=== PATIENT | female | born 1945 | race Caucasian/White ===

== ENCOUNTER 2016-11-06 09:38 | Outpatient (CLI) | payer MEDICARE, OTHER | END 2016-11-06 09:39 | disposition home or self-care (01) | DX: L08.9 Local infection of the skin and subcutaneous tissue, unspecified (principal); T84.197D Other mechanical complication of internal fixation device of bone of left lower leg, subsequent encounter ==

== ENCOUNTER 2017-01-19 08:22 | Outpatient (CLI) | payer MEDICARE, OTHER ==
[2017-01-19 14:24] LABS: HEMOGLOBIN A1C 0.5 g/dL
== END 2017-01-19 08:23 | disposition home or self-care (01) ==
LOC: LAB.R 08:22
PROVIDERS: ATTEND Physician Assistant Medical
DX: E11.9 Type 2 diabetes mellitus without complications (principal); Z79.899 Other long term (current) drug therapy
CPT/HCPCS: 82947; 83036

== ENCOUNTER 2017-05-09 13:01 | Outpatient (CLI) | payer MEDICARE, OTHER ==
--- NOTE | 2017-05-10 08:45 | Ultrasound Report ---
EXAM: ABDOMEN ULTRASOUND EXAM DATE: 05/09/2017 01:14 PM. CLINICAL HISTORY: ABDOMINAL PAIN. COMPARISON: None. TECHNIQUE: Real-time scanning was performed with static images obtained. FINDINGS: Liver: Normal in size and echotexture. 15.4 cm. Main portal vein flow: Hepatopetal. Gallbladder: Normal. No stones, wall thickening, or sonographic Hunter's sign. Biliary System: Common bile duct measures 5.1 mm. No intrahepatic or extrahepatic ductal dilatation. Pancreas: Obscured by bowel gas. Kidneys: Right: 13.1 cm longitudinally. Normal. No contour-deforming mass, stones, or hydronephrosis. Left: 7.0 cm longitudinally. Atrophic - diffuse cortical thinning. No contour deforming masses or hyd ronephrosis. Spleen: 10.4 x 3.8 x 4.7 cm. Normal in size and echotexture. Aorta and Inferior Vena Cava: Unremarkable. IMPRESSION: 1. No explanation for abdominal pain. 2. Atrophic left kidney, incidental. [facility] Referring Provider Line: [phone] SITE ID: [id number]
== END 2017-05-09 13:02 | disposition home or self-care (01) ==
LOC: DI 13:01
PROVIDERS: ATTEND Physician Assistant Medical
DX: R10.84 Generalized abdominal pain (principal)
CPT/HCPCS: 76700

== ENCOUNTER 2017-05-26 11:33 | Outpatient (CLI) | payer MEDICARE, OTHER ==
[2017-05-26 18:38] LABS: BASOPHILS % (AUTO) 0.4 %; EOSINOPHILS # (AUTO) 0.1 10^3/uL (0.0-0.7); HCT - HEMATOCRIT 38.6 % (37.0-47.0); HGB - HEMOGLOBIN 12.8 g/dL (12.0-16.0); LYMPHOCYTES # (AUTO) 1.3 10^3/uL (1.5-3.5); LYMPHOCYTES % (AUTO) 24.3 %; MEAN CORPUSCULAR HEMOGLOBIN 29.7 pg (27.0-31.0); MEAN CORPUSCULAR HGB CONC 33.1 g/dL (32.0-36.0); MEAN CORPUSCULAR VOLUME 89.9 fL (81.0-99.0); MEAN PLATELET VOLUME 8.3 fL (7.9-10.8); MONOCYTES # (AUTO) 0.4 10^3/uL (0.0-1.0); MONOCYTES % (AUTO) 7.1 %; NEUTROPHILS # (AUTO) 3.7 10^3/uL (1.5-6.6); NEUTROPHILS % (AUTO) 67.2 %; NUCLEATED RED BLOOD CELLS AUTO 0.1 /100WBC; RED CELL DISTRIBUTION WIDTH 13.3 % (12.0-15.0); UNCORRECTED WHITE BLOOD COUNT 5.4 x10^3/uL; WHITE BLOOD COUNT 5.4 x10^3/uL (4.8-10.8)
[2017-05-26 18:51] LABS: ALBUMIN/GLOBULIN RATIO 1.2 (1.0-2.2); BILIRUBIN,TOTAL 0.6 mg/dL (0.2-1.0); BUN - BLOOD UREA NITROGEN 14 mg/dL (6-20); CALCIUM 9.4 mg/dL (8.5-10.3); CARBON DIOXIDE - CO2 30 mmol/L (21-32); CHLORIDE 102 mmol/L (101-111); CHOL/HDL RATIO 2.6 (<4.4); CHOLESTEROL 169 mg/dL; CREATININE 0.8 mg/dL (0.4-1.0); GFR - MDRD 71 (>89); GLUCOSE 101 mg/dL (70-100); HDL CHOLESTEROL 64 mg/dL; LDL/HDL RATIO 1.4 (<4.4); SODIUM 138 mmol/L (135-145); TRIGLYCERIDES 76 mg/dL; VLDL CHOLESTEROL 15 mg/dL
[2017-05-26 19:09] LABS: HEMOGLOBIN A1C 0.52 g/dL
== END 2017-05-26 11:34 | disposition home or self-care (01) ==
LOC: LAB.R 11:33
PROVIDERS: ATTEND Physician Assistant Medical
DX: E11.9 Type 2 diabetes mellitus without complications (principal); Z79.899 Other long term (current) drug therapy; R10.84 Generalized abdominal pain; E03.9 Hypothyroidism, unspecified
CPT/HCPCS: 80053; 80061; 83036; 84443; 85025; 85651; 86140; 87086

== ENCOUNTER 2017-05-26 11:40 | Outpatient (CLI) | payer MEDICARE, OTHER | END 2017-05-26 11:41 | disposition home or self-care (01) | LOC: LAB.R 11:40 | PROVIDERS: ATTEND Physician Assistant Medical | DX: R31.9 Hematuria, unspecified (principal); R10.84 Generalized abdominal pain | CPT/HCPCS: 87086 ==

== ENCOUNTER 2017-05-30 08:41 | Outpatient (CLI) | payer MEDICARE, OTHER ==
[2017-05-30] MEDS ORDERED: IOPAMIDOL-300 50 ML VIAL ONE (08:48)
[2017-05-30] MEDS ORDERED: IOPAMIDOL-300 100 ML VIAL ONE (08:49)
[2017-05-30] MEDS ORDERED: IOPAMIDOL-300 50 ML VIAL PO ONE (09:51)
[2017-05-30] MEDS ORDERED: IOPAMIDOL-300 100 ML VIAL IVP ONE (10:13)
--- NOTE | 2017-05-30 17:03 | CT Report ---
EXAM: CT ABDOMEN AND PELVIS EXAM DATE: 05/30/2017 10:21 AM. CLINICAL HISTORY: ATROPHIC KIDNEY, ABDOMINAL PAIN, ABNORMAL LABS. COMPARISONS: None. TECHNIQUE: Routine helical CT imaging was performed through the abdomen and pelvis. IV contrast: Amt/ type. Enteric contrast: No. Reconstructions: Coronal and sagittal. In accordance with CT protocol optimization, one or more of the following dose reduction techniques w ere utilized for this exam: automated exposure control, adjustment of mA and/or KV based on patient s ize, or use of iterative reconstructive technique. FINDINGS: Lung Bases: Unremarkable. Liver: Normal. No masses. Gallbladder/Bile Ducts: Unremarkable. Spleen: Normal. Pancreas: Normal. Adrenal Glands: Normal. Right Kidney: Anextrarenal pelvis affiliated with the right kidney. No hydronephrosis/hydroureter. Left Kidney: Diffuse cortical atrophy of the left kidney Peritoneal Cavity/Bowel: Moderate bowel wall thickening of the colon and distal ileum. This is consi stent with active colitis/ileitis - inflammatory or infectious. A few shotty mesenteric, retroperiton eal and pelvic lymph nodes noted. No vicenta adenopathy. No free fluid or free air. Pelvic Organs: Normal. The bladder and visualized pelvic organs are grossly unremarkable. Vasculature: No aneurysms or other significant abnormality. Bones: Multilevel degenerative changes in the lumbar spine. Scoliosis. IMPRESSION: Moderate bowel wall thickening - distal ileum and colon consistent with active colitis/il eitis - inflammatory or infectious. Consider Crohn's disease. [facility] Referring Provider Line: [phone] SITE ID: [id number]
== END 2017-05-30 08:42 | disposition home or self-care (01) ==
LOC: DI 08:41
PROVIDERS: ATTEND Physician Assistant Medical
DX: R10.84 Generalized abdominal pain (principal)
CPT/HCPCS: 74177; Q9967

== ENCOUNTER 2017-06-05 07:54 | Outpatient (CLI) | payer MEDICARE, OTHER ==
[2017-06-05 08:33] LABS: BILIRUBIN,URINE NEGATIVE (NEGATIVE)
[2017-06-05 08:37] LABS: UA w/ MICROSCOPIC CHARGE YES
[2017-06-05 08:41] LABS: UR CULTURE IF IND NOT INDICATED
== END 2017-06-05 07:55 | disposition home or self-care (01) ==
LOC: LAB 07:54
PROVIDERS: ATTEND Internal Medicine
DX: N18.2 Chronic kidney disease, stage 2 (mild) (principal)
CPT/HCPCS: 81001; 81003; 82043; 82570; 87086

== ENCOUNTER 2017-06-23 12:54 | Outpatient (CLI) | payer MEDICARE, OTHER | END 2017-06-23 12:55 | disposition home or self-care (01) | LOC: LAB.R 12:54 | PROVIDERS: ATTEND Physician Assistant Medical | DX: R31.9 Hematuria, unspecified (principal) | CPT/HCPCS: 87077; 87086 ==

== ENCOUNTER 2017-07-13 14:56 | Outpatient (CLI) | payer MEDICARE, OTHER ==
[2017-07-13 18:09] LABS: BILIRUBIN,URINE NEGATIVE (NEGATIVE); PH,URINE 5.5 PH (5.0-7.5)
[2017-07-13 18:13] LABS: UA CHARGE (STRIP ONLY) YES; UR CULTURE IF IND NOT INDICATED
[2017-07-13 18:14] LABS: ALBUMIN/GLOBULIN RATIO 1.2 (1.0-2.2); BILIRUBIN,TOTAL < 0.2 mg/dL (0.2-1.0); BUN - BLOOD UREA NITROGEN 17 mg/dL (6-20); CALCIUM 9.5 mg/dL (8.5-10.3); CARBON DIOXIDE - CO2 27 mmol/L (21-32); CHLORIDE 101 mmol/L (101-111); CREATININE 1.1 mg/dL (0.4-1.0); GFR - MDRD 49 (>89); GLUCOSE 81 mg/dL (70-100); POTASSIUM 3.9 mmol/L (3.5-5.0); SODIUM 137 mmol/L (135-145); TOTAL PROTEIN 7.1 g/dL (6.7-8.2)
[2017-07-13 18:18] LABS: BASOPHILS # (AUTO) 0.1 10^3/uL (0.0-0.1); BASOPHILS % (AUTO) 0.5 %; EOSINOPHILS # (AUTO) 0.1 10^3/uL (0.0-0.7); EOSINOPHILS % (AUTO) 0.8 %; HCT - HEMATOCRIT 38.6 % (37.0-47.0); HGB - HEMOGLOBIN 12.7 g/dL (12.0-16.0); LYMPHOCYTES # (AUTO) 1.8 10^3/uL (1.5-3.5); LYMPHOCYTES % (AUTO) 18.2 %; MEAN CORPUSCULAR HEMOGLOBIN 29.8 pg (27.0-31.0); MEAN CORPUSCULAR VOLUME 90.5 fL (81.0-99.0); MEAN PLATELET VOLUME 8.2 fL (7.9-10.8); MONOCYTES # (AUTO) 0.6 10^3/uL (0.0-1.0); MONOCYTES % (AUTO) 6.3 %; NEUTROPHILS # (AUTO) 7.4 10^3/uL (1.5-6.6); NEUTROPHILS % (AUTO) 74.2 %; NUCLEATED RED BLOOD CELLS AUTO 0.1 /100WBC; RED BLOOD COUNT 4.26 10^6/uL (4.20-5.40); RED CELL DISTRIBUTION WIDTH 13.8 % (12.0-15.0)
== END 2017-07-13 14:57 | disposition home or self-care (01) ==
LOC: LAB.R 14:56
PROVIDERS: ATTEND Physician Assistant Medical
DX: K52.9 Noninfective gastroenteritis and colitis, unspecified (principal); R31.9 Hematuria, unspecified
CPT/HCPCS: 80053; 81001; 81003; 85025; 85651; 86140; 87086

== ENCOUNTER 2017-09-15 10:16 | Outpatient (CLI) | payer MEDICARE, OTHER ==
[2017-09-15 10:48] LABS: ALBUMIN 3.8 g/dL (3.2-5.5); ALBUMIN/GLOBULIN RATIO 1.1 (1.0-2.2); BILIRUBIN,TOTAL 0.5 mg/dL (0.2-1.0); CALCIUM 9.5 mg/dL (8.5-10.3); CREATININE 0.9 mg/dL (0.4-1.0); TOTAL PROTEIN 7.2 g/dL (6.7-8.2)
[2017-09-15 11:08] LABS: HB2 TOTAL 14.5 g/dL; HEMOGLOBIN A1C 0.51 g/dL; HEMOGLOBIN A1C % 5.4 % (4.6-6.2)
[2017-09-16 15:01] LABS: HEPATITIS C ANTIBODY NON-REACTIVE (NON-REACTIVE)
== END 2017-09-15 10:17 | disposition home or self-care (01) ==
LOC: LAB 10:16
PROVIDERS: ATTEND Physician Assistant Medical
DX: E11.9 Type 2 diabetes mellitus without complications (principal); Z79.899 Other long term (current) drug therapy; Z72.89 Other problems related to lifestyle; E03.9 Hypothyroidism, unspecified
CPT/HCPCS: 36415; 80053; 83036; 84443; 86803

== ENCOUNTER 2017-10-05 13:18 | Outpatient (CLI) | payer MEDICARE, OTHER ==
--- NOTE | 2017-10-06 09:26 | DEXA Report ---
DATE OF SERVICE: 10/05/2017 DEXA SCAN: 10/05/2017 CLINICAL INDICATION: Postmenopausal. TECHNIQUE: Dual energy x-ray absorptiometry (DXA) was performed on a OffSite VISION system. Regions measured are the AP spine, femoral neck, and, if needed, forearm. COMPARISON: None. In accordance with the International Society for Clinical Densitometry (ISCD) guidelines, data from previous exams may be reanalyzed using current recommendations and techniques. This is done to allow a more accurate basis for comparison with the current study. FINDINGS: The data for the lumbar spine is as follows: REGION BMD (g/cm/cm) T-SCORE Z-SCORE L1 1.156 0.2 1.9 L2 1.236 0.3 2.0 L3 1.373 1.4 3.2 L4 1.390 1.6 3.3 TOTAL 1.289 0.9 2.6 NOTE: All evaluable vertebrae are used for classification. The data for the hip is as follows: REGION BMD (g/cm/cm) T-SCORE Z-SCORE Neck 0.844 -1.4 0.4 TOTAL 0.877 -1.0 0.5 NOTE: The femoral neck or total proximal femur, whichever is lowest, is used for classification. IMPRESSION: THE WHO CLASSIFICATION BASED ON THE INTERNATIONAL REFERENCE STANDARD IS OSTEOPENIA (REFERENCE LEFT FEMORAL NECK). THE FRACTURE RISK IS INCREASED. RECOMMENDATION: Patients with diagnosis of osteoporosis or osteopenia should have regular bone mineral density assessment. For those eligible for Medicare, routine testing is allowed once every 2 years. Testing frequency can be increased for patients who have rapidly progressing disease or for those who are receiving medical therapy to restore bone mass. COMMENT: World Health Organization (WHO) definitions for osteoporosis and osteopenia: NORMAL BMD: T-score at 1.0 or higher, fracture risk is low. OSTEOPENIA BMD: T-score between 1.0 and -2.5, fracture risk is increased. OSTEOPOROSIS BMD: T-score at 2.5 or lower, fracture risk high. National Osteoporosis Foundation recommends: 1. Obtain adequate dietary calcium (at least 1200 mg per day) and vitamin D (400 -800 international units per day). 2. Participate, as appropriate, in regular weightbearing and muscle- strengthening exercise. 3. Avoid tobacco use and reduce alcohol and caffeine intake. 4. For more detailed information see the website at www.NOF.org. TD: 10/05/2017 14:55 SARAH
== END 2017-10-05 13:19 | disposition home or self-care (01) ==
LOC: DI 13:18
PROVIDERS: ATTEND Physician Assistant Medical
DX: M85.88 Other specified disorders of bone density and structure, other site (principal)
CPT/HCPCS: 77080

== ENCOUNTER 2017-10-05 13:19 | Outpatient (CLI) | payer MEDICARE, OTHER ==
--- NOTE | 2017-10-06 17:19 | Mammography Report ---
DATE OF SERVICE: 10/05/2017 DIGITAL SCREENING MAMMOGRAM: 10/05/2017 CLINICAL INDICATION: A 72-year-old with family history of breast cancer for screening. COMPARISON: 07/2015, 07/2014, 05/2013, 10/2011, 08/2010. TECHNIQUE: Routine CC and MLO projections were obtained of the breasts. FINDINGS: Scattered fibroglandular tissue is present within the breasts. There are no dominant masses, suspicious microcalcifications, or secondary signs of malignancy. In comparison to the previous studies, there are no significant changes. ASSESSMENT: NO MAMMOGRAPHIC EVIDENCE OF MALIGNANCY. NO SIGNIFICANT INTERVAL CHANGES. RECOMMENDATION: Screening mammography is recommended annually. BIRADS category 1 - negative. STANDARD QUALIFYING STATEMENTS: 1. This examination was reviewed with the aid of Computed-Aided Detection (CAD). 2. A negative or benign imaging report should not delay biopsy if clinically suspicious findings are present. Consider surgical consultation if warranted. More than 5% of cancers are not identified by imaging. 3. Dense breasts may obscure an underlying neoplasm. TD: 10/06/2017 17:18
== END 2017-10-05 13:20 | disposition home or self-care (01) ==
LOC: DI 13:19
PROVIDERS: ATTEND Physician Assistant Medical
DX: Z12.31 Encounter for screening mammogram for malignant neoplasm of breast (principal); Z80.3 Family history of malignant neoplasm of breast
CPT/HCPCS: 77067

== ENCOUNTER 2017-10-07 09:32 | Day surgery (SDC) | payer MEDICARE, OTHER ==
[2017-10-07] MEDS ORDERED: LACTATED RINGERS 1,000 ML IV ONE (09:40)
[2017-10-07] MEDS ORDERED: fentaNYL 100 MCG/2 ML VIAL IVP ONE (10:25)
[2017-10-07] MEDS ORDERED: MIDAZOLAM 2 MG/2 ML VIAL IVP ONE (10:25)
[2017-10-07 11:35] VITALS: BP 122/69
== END 2017-10-07 09:33 | disposition home or self-care (01) ==
LOC: SDS 09:32
PROVIDERS: ATTEND Internal Medicine
PROC: 0DBP8ZX Excision of Rectum, Via Natural or Artificial Opening Endoscopic, Diagnostic (ICD-10-PCS; 2017-10-07)
PROC: 0DBB8ZX Excision of Ileum, Via Natural or Artificial Opening Endoscopic, Diagnostic (ICD-10-PCS; 2017-10-07)
PROC: 0DBH8ZX Excision of Cecum, Via Natural or Artificial Opening Endoscopic, Diagnostic (ICD-10-PCS; principal; 2017-10-07 10:30)
DX: K57.30 Diverticulosis of large intestine without perforation or abscess without bleeding (principal); K63.3 Ulcer of intestine; K64.8 Other hemorrhoids; E11.9 Type 2 diabetes mellitus without complications; Z79.84 Long term (current) use of oral hypoglycemic drugs; Z87.891 Personal history of nicotine dependence
CPT/HCPCS: 45380; J7120

== ENCOUNTER 2017-12-10 06:57 | Day surgery (SDC) | payer MEDICARE, OTHER ==
[~2017-12-10 06:57] MED LIST: CYCLOPENTOLATE 1% OPHTH DROPS 2 ML ONE; KETOROLAC 0.45% OPHTH DROPS ONE; PHENYLEPHRINE 2.5% OPHTH 2 ML DROPS ONE; PROPARACAINE 0.5% OPHTH DROPS 15 ML ONE
[2017-12-10] MEDS ORDERED: PHENYLEPHRINE 2.5% OPHTH 2 ML DROPS LEFTEYE ONE (07:15)
[2017-12-10] MEDS ORDERED: CYCLOPENTOLATE 1% OPHTH DROPS 2 ML LEFTEYE ONE (07:15)
[2017-12-10] MEDS ORDERED: KETOROLAC 0.45% OPHTH DROPS LEFTEYE ONE (07:15)
[2017-12-10] MEDS ORDERED: PROPARACAINE 0.5% OPHTH DROPS 15 ML LEFTEYE ONE ×2 (07:15→08:36)
[2017-12-10] MEDS ORDERED: LACTATED RINGERS 500 ML IV ONE (07:20)
[2017-12-10] MEDS ORDERED: BRIMONIDINE 0.2% OPHTH DROPS 5 ML ONE (07:24)
[2017-12-10] MEDS ORDERED: TIMOLOL 0.5% OPHTH DROPS ONE (07:24)
[2017-12-10] MEDS ORDERED: MIDAZOLAM 2 MG/2 ML VIAL IVP ONE (08:15)
[2017-12-10] MEDS ORDERED: BRIMONIDINE 0.2% OPHTH DROPS 5 ML OPTH ONE (08:33)
[2017-12-10] MEDS ORDERED: EPINEPHrine 1 MG/ML AMP IR ONE (08:33)
[2017-12-10] MEDS ORDERED: CHONDR SULF/HYALURONATE SYRINGE IO ONE (08:34)
[2017-12-10] MEDS ORDERED: TIMOLOL 0.5% OPHTH DROPS OPTH ONE (08:34)
[2017-12-10] MEDS ORDERED: BSS/LIDOCAINE/EPINEPHRINE 1 ML SYRINGE IO ONE (08:35)
[2017-12-10] MEDS ORDERED: TRIAMCIN/MOXIFLOX/VANCO 1 ML VIAL IO ONE (08:35)
--- NOTE | 2017-12-10 09:10 | OPERATIVE REPORT ---
DATE OF SERVICE: 12/10/2017 Physician: Varghese Camara MD PREOPERATIVE DIAGNOSIS: Visually significant cataract, left eye. This was her first cataract surgery. POSTOPERATIVE DIAGNOSIS: Visually significant cataract, left eye. This was her first cataract surgery. NAME OF PROCEDURE: Phacoemulsification with posterior chamber intraocular lens implant, left eye with laser assist. SURGEON: Varghese Camara MD ANESTHESIA: Monitored anesthesia care. COMPLICATIONS: None. OPERATIVE INDICATIONS: This is a 72-year-old woman with progressive vision loss in the left eye due to 2+ nuclear sclerotic, trace cortical and large central posterior subcapsular cataract. Best corrected visual acuity was 20/25 with glare to 20/100 in the left eye. Indications for surgery were overall decrease in vision, difficulty seeing words on a computer screen, difficulty reading; difficulty seeing words, closed captions, or game scores on TV; difficulty seeing street signs, difficulty driving in low light or at night, difficulty driving at night because of headlights from other vehicles, and difficulty with glare or bright lights in any situation. She was consented at length concerning the risks and benefits of cataract surgery, after which she expressed a desire to proceed with surgery. OPERATIVE PROCEDURE: The patient was taken into OR #3 and placed under monitored anesthesia care. A surgical timeout was conducted confirming correct patient, correct procedure, and correct surgical site. She was placed under the LenSx laser and her eye was docked to the laser interface. Laser performed the capsulotomy, lens softening, phaco wounds , and arcuate keratotomy incisions. She was then moved the operating microscope, given topical anesthesia and then prepped and draped in the usual sterile fashion. The eye was entered at the 6 and 3 o'clock positions. Intracameral Shugarcaine was injected into the anterior chamber, followed by Viscoat. Capsulorrhexis flap created by the LenSx laser was removed from the anterior chamber. The nucleus was hydrodissected and phacoemulsified. Cortex was evacuated using automated infusion and aspiration. Provisc was injected in the capsular bag, and a 22.5 diopter intraocular lens was inserted into the bag. Approximately 0.8 mL mixture of triamcinolone and moxifloxacin was injected subconjunctivally in the superior quadrant for infection and inflammation prophylaxis. I and A was used to evacuate the viscoelastic materials. The eye was inflated to physiologic pressure using a balanced salt solution and found to be watertight. The patient was taken from the operating room in good condition and given postop instructions. TD: 12/10/2017 09:09 SARAH
[2017-12-10 09:17] VITALS: BP 109/61
== END 2017-12-10 06:58 | disposition home or self-care (01) ==
LOC: SDS 06:57
PROVIDERS: ATTEND Ophthalmology
PROC: 08RK3JZ Replacement of Left Lens with Synthetic Substitute, Percutaneous Approach (ICD-10-PCS; principal; 2017-12-10 08:00)
DX: H25.812 Combined forms of age-related cataract, left eye (principal); E11.9 Type 2 diabetes mellitus without complications; I10 Essential (primary) hypertension; M54.9 Dorsalgia, unspecified; M54.2 Cervicalgia; G47.30 Sleep apnea, unspecified; K58.9 Irritable bowel syndrome, unspecified
CPT/HCPCS: 66984; A9270; J3490; V2632

== ENCOUNTER 2018-02-02 08:44 | Outpatient (CLI) | payer MEDICARE, OTHER ==
[2018-02-02 19:38] LABS: HB2 TOTAL 13.5 g/dL; HEMOGLOBIN A1C 0.51 g/dL; HEMOGLOBIN A1C % 5.6 % (4.6-6.2)
== END 2018-02-02 08:45 | disposition home or self-care (01) ==
LOC: LAB 08:44
PROVIDERS: ATTEND Physician Assistant Medical
DX: E11.9 Type 2 diabetes mellitus without complications (principal); Z79.899 Other long term (current) drug therapy
CPT/HCPCS: 36415; 82947; 83036

== ENCOUNTER 2018-05-09 09:36 | Outpatient (CLI) | payer MEDICARE, OTHER ==
[2018-05-09 10:06] LABS: ALBUMIN 3.9 g/dL (3.2-5.5); ALBUMIN/GLOBULIN RATIO 1.2 (1.0-2.2); BILIRUBIN,TOTAL 0.6 mg/dL (0.2-1.0); CALCIUM 9.3 mg/dL (8.5-10.3); CREATININE 0.9 mg/dL (0.4-1.0); TOTAL PROTEIN 7.1 g/dL (6.7-8.2)
[2018-05-09 10:50] LABS: HB2 TOTAL 13.6 g/dL; HEMOGLOBIN A1C 0.5 g/dL; HEMOGLOBIN A1C % 5.5 % (4.6-6.2)
== END 2018-05-09 09:37 | disposition home or self-care (01) ==
LOC: LAB 09:36
PROVIDERS: ATTEND Physician Assistant Medical
DX: E11.9 Type 2 diabetes mellitus without complications (principal); R89.9 Unspecified abnormal finding in specimens from other organs, systems and tissues; Z79.899 Other long term (current) drug therapy; E03.9 Hypothyroidism, unspecified
CPT/HCPCS: 36415; 80053; 82306; 82607; 83036

== ENCOUNTER 2018-08-09 08:00 | Outpatient (CLI) | payer MEDICARE, OTHER ==
[2018-08-09 19:17] LABS: BILIRUBIN,URINE NEGATIVE (NEGATIVE); GLUCOSE, URINE (UA) NEGATIVE (NEGATIVE); KETONES,URINE (UA) NEGATIVE (NEGATIVE); LEUKOCYTE ESTERASE, URINE NEGATIVE (NEGATIVE); NITRITE,URINE NEGATIVE (NEGATIVE); OCCULT BLOOD,URINE MODERATE (NEGATIVE); PROTEIN,URINE NEGATIVE (NEGATIVE); UROBILINOGEN,URINE 0.2 (NORMAL) E.U./dL (NORMAL)
[2018-08-09 19:21] LABS: CLARITY,URINE CLEAR (CLEAR)
[2018-08-09 19:34] LABS: BACTERIA,URINE None Seen /HPF (None Seen); SQUAMOUS EPITHELIAL CELL,UR RARE Squamous (<= Few)
== END 2018-08-09 23:59 | disposition home or self-care (01) ==
LOC: LAB.R 08:00
PROVIDERS: ATTEND Nurse Practitioner Primary Care
DX: R10.2 Pelvic and perineal pain (principal); R31.9 Hematuria, unspecified
CPT/HCPCS: 81001; 87086

== ENCOUNTER 2018-08-10 13:49 | Outpatient (CLI) | payer MEDICARE, OTHER ==
[2018-08-10 14:15] LABS: BASOPHILS % (AUTO) 0.4 %; EOSINOPHILS # (AUTO) 0.1 10^3/uL (0.0-0.7); EOSINOPHILS % (AUTO) 1.6 %; HGB - HEMOGLOBIN 12.2 g/dL (12.0-16.0); LYMPHOCYTES # (AUTO) 1.6 10^3/uL (1.5-3.5); LYMPHOCYTES % (AUTO) 21.9 %; MEAN CORPUSCULAR HEMOGLOBIN 30.9 pg (27.0-31.0); MEAN CORPUSCULAR HGB CONC 33.9 g/dL (32.0-36.0); MEAN CORPUSCULAR VOLUME 91.3 fL (81.0-99.0); MONOCYTES # (AUTO) 0.7 10^3/uL (0.0-1.0); MONOCYTES % (AUTO) 8.7 %; NEUTROPHILS % (AUTO) 67.4 %; PLT - PLATELET COUNT 329 10^3/uL (130-450); RED BLOOD COUNT 3.94 10^6/uL (4.20-5.40); RED CELL DISTRIBUTION WIDTH 13.4 % (12.0-15.0); WHITE BLOOD COUNT 7.5 x10^3/uL (4.8-10.8)
[2018-08-10 14:26] LABS: CREATININE 0.8 mg/dL (0.4-1.0)
== END 2018-08-10 13:50 | disposition home or self-care (01) ==
LOC: LAB 13:49
PROVIDERS: ATTEND Nurse Practitioner Primary Care
DX: R31.9 Hematuria, unspecified (principal); R10.2 Pelvic and perineal pain
CPT/HCPCS: 36415; 82565; 84520; 85025

== ENCOUNTER 2018-08-26 08:42 | Outpatient (CLI) | payer MEDICARE, OTHER ==
[2018-08-26] MEDS ORDERED: IOVERSOL 320 100 ML VIAL IVP ONE ×2 (10:15→10:51)
--- NOTE | 2018-08-26 12:21 | CT Report ---
Reason: PELVIC PAIN, HEMATURIA Procedure Date: 08/26/2018 Accession Number: [id number] / [id number] Procedure: CT - IVP CPT Code: FULL RESULT: EXAM: CT ABDOMEN AND PELVIS WITHOUT AND WITH CONTRAST (CT IVP) EXAM DATE: 08/26/2018 11:10 AM. CLINICAL HISTORY: Pelvic pain, hematuria. COMPARISONS: Abdomen/pelvis w/ 05/30/2017 10:07 AM. TECHNIQUE: Routine helical imaging was performed through the kidneys, ureters and bladder in the precontrast, postcontrast and delayed phase. IV Contrast: Optiray 320 100 mL. Reconstructions: Coronal and sagittal. In accordance with CT protocol optimization, one or more of the following dose reduction techniques were utilized for this exam: automated exposure control, adjustment of mA and/or KV based on patient size, or use of iterative reconstructive technique. FINDINGS: Lung Bases: Unremarkable. Right Kidney/Ureter: No stones, hydronephrosis, or masses. Left Kidney/Ureter: There is 1.6 cm inferior pole left renal asymmetric residual cortical tissue versus mass. Excretion into the corresponding calyx is noted. Left kidney is atrophied with insufficient excretory function to opacify the ureter and collecting system effectively. No calculi are seen. Other Solid Organs: The visualized liver, spleen, pancreas, gallbladder, and adrenal glands are unremarkable.The bile ducts are unremarkable. Peritoneal Cavity/Bowel: Normal. No free fluid, free air or adenopathy. No masses. Bowel loops are unremarkable. Pelvic Organs: No bladder stones, obstruction or masses. The visualized pelvic organs are unremarkable. Vasculature: Normal. Bones: Stable levoconvex lumbar scoliosis. Other: None. IMPRESSION: Suspect nodular 1.6 cm left renal inferior pole cortical remnant. A mass is difficult to exclude though presence of excreted contrast into the corresponding calyx favors normal residual cortical parenchyma. Normal right renal urogram. 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 [facility]
--- NOTE | 2018-08-26 14:49 | Ultrasound Report ---
Reason: PELVIC PAIN Procedure Date: 08/26/2018 Accession Number: [id number] / [id number] Procedure: US - Pelvic w/Transvaginal CPT Code: FULL RESULT: EXAM: PELVIC ULTRASOUND EXAM DATE: 08/26/2018 10:19 AM. CLINICAL HISTORY: Pelvic pain. COMPARISON: None. TECHNIQUE: Realtime transabdominal pelvic scan performed to identify the uterus and adnexa and as an overview of other pelvic structures, followed by transvaginal scan to provide greater detail of the uterus and adnexa, with static image documentation. FINDINGS: Uterus: 5.6 x 2.3 x 4.1 cm, volume 27.6 cc. Anteverted position. Normal overall size and echotexture. Masses: 2 partially calcified masses measuring 1.1 x 0.6 x 0.8 and 1.7 x 1.6 x 2.2 cm respectively are noted in the fundus and most compatible with fibroids. Endometrium: 2 mm. Normal. Cervix: Unremarkable. Right Ovary: 1.3 x 0.6 x 0.8 cm, volume 0.3 cc. Normal echotexture and blood flow. Left Ovary: 2.1 x 1.3 x 1.6 cm, volume 2.2 cc. Limited visualization with no abnormality detected. Free Fluid: None. Other: None. IMPRESSION: Fibroid uterus. [facility]
== END 2018-08-26 08:43 | disposition home or self-care (01) ==
LOC: DI 08:42
PROVIDERS: ATTEND Nurse Practitioner Primary Care
DX: D25.9 Leiomyoma of uterus, unspecified (principal); R31.9 Hematuria, unspecified
CPT/HCPCS: 74178; 76830; 76856; Q9967

== ENCOUNTER 2018-09-16 09:43 | Outpatient (CLI) | payer MEDICARE, OTHER ==
[2018-09-16 10:05] LABS: BASOPHILS % (AUTO) 0.4 %; EOSINOPHILS # (AUTO) 0.1 10^3/uL (0.0-0.7); EOSINOPHILS % (AUTO) 1.5 %; HGB - HEMOGLOBIN 12.1 g/dL (12.0-16.0); LYMPHOCYTES # (AUTO) 1.7 10^3/uL (1.5-3.5); LYMPHOCYTES % (AUTO) 27.3 %; MEAN CORPUSCULAR HEMOGLOBIN 30.3 pg (27.0-31.0); MEAN CORPUSCULAR HGB CONC 33.4 g/dL (32.0-36.0); MEAN CORPUSCULAR VOLUME 90.6 fL (81.0-99.0); MEAN PLATELET VOLUME 7.3 fL (7.9-10.8); MONOCYTES # (AUTO) 0.5 10^3/uL (0.0-1.0); MONOCYTES % (AUTO) 8.2 %; NEUTROPHILS # (AUTO) 3.8 10^3/uL (1.5-6.6); NEUTROPHILS % (AUTO) 62.6 %; PLT - PLATELET COUNT 323 10^3/uL (130-450); RED BLOOD COUNT 3.99 10^6/uL (4.20-5.40); RED CELL DISTRIBUTION WIDTH 13.4 % (12.0-15.0); WHITE BLOOD COUNT 6.1 x10^3/uL (4.8-10.8)
[2018-09-16 10:25] LABS: ALBUMIN 3.5 g/dL (3.2-5.5); ALKALINE PHOSPHATASE 74 IU/L (42-121); ALT ALANINE AMINOTRANSFERASE 14 IU/L (10-60); AST ASPARTATE AMINOTRANSFERASE 20 IU/L (10-42); BILIRUBIN,TOTAL 0.5 mg/dL (0.2-1.0); BUN - BLOOD UREA NITROGEN 18 mg/dL (6-20); CALCIUM 9.5 mg/dL (8.5-10.3); CARBON DIOXIDE - CO2 27 mmol/L (21-32); CHLORIDE 101 mmol/L (101-111); CHOL/HDL RATIO 2.4 (<4.4); CHOLESTEROL 158 mg/dL; CREATININE 0.7 mg/dL (0.4-1.0); GFR - MDRD 82 (>89); GLUCOSE 113 mg/dL (70-100); HDL CHOLESTEROL 66 mg/dL; LDL CHOLESTEROL,CALCULATED 78 mg/dL; LDL/HDL RATIO 1.2 (<4.4); SODIUM 136 mmol/L (135-145); TOTAL PROTEIN 7.1 g/dL (6.7-8.2); VLDL CHOLESTEROL 14 mg/dL
[2018-09-16 10:26] LABS: HB2 TOTAL 12.9 g/dL; HEMOGLOBIN A1C 0.51 g/dL; HEMOGLOBIN A1C % 5.8 % (4.6-6.2)
[2018-09-16 11:35] LABS: THYROID STIMULATING HORMONE 1.22 uIU/mL (0.34-5.60)
== END 2018-09-16 09:44 | disposition home or self-care (01) ==
LOC: LAB 09:43
PROVIDERS: ATTEND Physician Assistant Medical
DX: E03.9 Hypothyroidism, unspecified (principal); E78.2 Mixed hyperlipidemia; E11.9 Type 2 diabetes mellitus without complications; Z79.899 Other long term (current) drug therapy
CPT/HCPCS: 36415; 80053; 80061; 82607; 83036; 83721; 84443; 85025

== ENCOUNTER 2018-11-15 09:36 | Outpatient (CLI) | payer MEDICARE, OTHER ==
--- NOTE | 2018-11-15 11:30 | Mammography Report ---
Reason: MAMMO SCREENING Procedure Date: 11/15/2018 Accession Number: [id number] / [id number] Procedure: [facility] - Screening Mammo w/James CPT Code: FULL RESULT: EXAM: Screening Mammo w/James DATE: 11/15/2018 10:00 AM CLINICAL HISTORY: Routine screening. No reported personal history of breast cancer. Family history breast cancer in mother at age 78. TECHNIQUE: Bilateral CC and MLO views were obtained. COMPARISON: 10/05/2017 through 07/03/2014 FINDINGS: The breasts demonstrate scattered fibroglandular densities bilaterally. Bilateral breasts: There are no suspicious masses, calcifications or areas of distortion. IMPRESSION: Negative examination RECOMMENDATION: Routine annual screening unless otherwise clinically indicated. BI-RADS CATEGORY 1: Negative STANDARD QUALIFYING STATEMENTS: 1. This examination was not reviewed with the aid of Computer-Aided Detection (CAD). 2. A negative or benign imaging report should not preclude biopsy if clinically suspicious findings are present. 3. Dense breasts may obscure an underlying neoplasm. 4. This examination was reviewed with the aid of 3D breast imaging (tomosynthesis).
== END 2018-11-15 09:37 | disposition home or self-care (01) ==
LOC: DI 09:36
PROVIDERS: ATTEND Physician Assistant Medical
DX: Z12.31 Encounter for screening mammogram for malignant neoplasm of breast (principal); Z80.3 Family history of malignant neoplasm of breast
CPT/HCPCS: 77063; 77067

== ENCOUNTER 2019-03-25 10:34 | Outpatient (CLI) | payer MEDICARE, OTHER ==
[2019-03-25 11:02] LABS: BASOPHILS % (AUTO) 0.6 %; EOSINOPHILS # (AUTO) 0.2 10^3/uL (0.0-0.7); EOSINOPHILS % (AUTO) 2.2 %; HGB - HEMOGLOBIN 11.7 g/dL (12.0-16.0); LYMPHOCYTES # (AUTO) 1.9 10^3/uL (1.5-3.5); LYMPHOCYTES % (AUTO) 27.4 %; MEAN CORPUSCULAR HEMOGLOBIN 29.7 pg (27.0-31.0); MEAN CORPUSCULAR HGB CONC 32.1 g/dL (32.0-36.0); MEAN CORPUSCULAR VOLUME 92.4 fL (81.0-99.0); MEAN PLATELET VOLUME 8.7 fL (7.9-10.8); MONOCYTES # (AUTO) 0.5 10^3/uL (0.0-1.0); MONOCYTES % (AUTO) 7.8 %; NEUTROPHILS # (AUTO) 4.2 10^3/uL (1.5-6.6); NEUTROPHILS % (AUTO) 61.6 %; PLT - PLATELET COUNT 304 10^3/uL (130-450); RED BLOOD COUNT 3.94 10^6/uL (4.20-5.40); RED CELL DISTRIBUTION WIDTH 13.2 % (12.0-15.0); WHITE BLOOD COUNT 6.8 x10^3/uL (4.8-10.8)
[2019-03-25 14:25] LABS: HB2 TOTAL 12.5 g/dL; HEMOGLOBIN A1C 0.53 g/dL
[2019-03-25 15:02] LABS: CALCIUM 9.5 mg/dL (8.5-10.3); CREATININE 0.8 mg/dL (0.4-1.0); CRP - C-REACTIVE PROTEIN 2.1 mg/dL (0-1.0)
== END 2019-03-25 10:35 | disposition home or self-care (01) ==
LOC: LAB 10:34
PROVIDERS: ATTEND Family Medicine
DX: M54.2 Cervicalgia (principal); E11.9 Type 2 diabetes mellitus without complications; N18.3 Chronic kidney disease, stage 3 (moderate); I12.9 Hypertensive chronic kidney disease with stage 1 through stage 4 chronic kidney disease, or unspecified chronic kidney disease; E78.2 Mixed hyperlipidemia; E03.9 Hypothyroidism, unspecified; N26.1 Atrophy of kidney (terminal); K21.9 Gastro-esophageal reflux disease without esophagitis; K52.9 Noninfective gastroenteritis and colitis, unspecified; G47.33 Obstructive sleep apnea (adult) (pediatric)
CPT/HCPCS: 36415; 80048; 82306; 83036; 84443; 85025; 86140

== ENCOUNTER 2019-06-21 17:05 | Outpatient (CLI) | payer MEDICARE, OTHER | END 2019-06-21 17:06 | disposition home or self-care (01) | LOC: DI 17:05 | PROVIDERS: ATTEND Urology | DX: Z53.9 Procedure and treatment not carried out, unspecified reason (principal) ==

== ENCOUNTER 2019-06-21 17:16 | Outpatient (CLI) | payer MEDICARE, OTHER | END 2019-06-21 17:17 | disposition home or self-care (01) | LOC: LAB 17:16 | PROVIDERS: ATTEND Urology | DX: Z53.9 Procedure and treatment not carried out, unspecified reason (principal) | CPT/HCPCS: 36415; 80048 ==

== ENCOUNTER 2019-06-24 14:54 | Outpatient (CLI) | payer MEDICARE, OTHER ==
[2019-06-24 15:15] LABS: CALCIUM 9.8 mg/dL (8.5-10.3); CREATININE 1.3 mg/dL (0.4-1.0)
== END 2019-06-24 14:55 | disposition home or self-care (01) ==
LOC: LAB 14:54
PROVIDERS: ATTEND Urology
DX: R31.29 Other microscopic hematuria (principal)
CPT/HCPCS: 80048

== ENCOUNTER 2019-06-24 15:03 | Outpatient (CLI) | payer MEDICARE, OTHER ==
--- NOTE | 2019-06-25 00:55 | Ultrasound Report ---
Reason: MICROSCOPIC HEMATURIA Procedure Date: 06/24/2019 Accession Number: [id number] / [id number] Procedure: US - Retroperitoneal CPT Code: FULL RESULT: EXAM: RENAL ULTRASOUND EXAM DATE: 06/24/2019 04:14 PM. CLINICAL HISTORY: MICROSCOPIC HEMATURIA. COMPARISON: None. TECHNIQUE: Real-time scanning was performed with static images obtained. FINDINGS: Right Kidney: 12.3 x 4.7 x 6.6 cm. Normal echotexture with no stones, contour-deforming masses, or hydronephrosis. There is a prominent extrarenal pelvis on the right versus a peripelvic cyst. This measures 3.8 x 3.6 x 3.6 cm. Left Kidney: Not visualized. Based upon previous studies diffuse atrophy left kidney. Bladder: Right ureteral jet is noted. The prevoid bladder volume was 283 cc. The postvoid bladder volume was 8.4 cc. Other: None. IMPRESSION: 1. Prominent right extrarenal pelvis versus peripelvic cyst. [facility]
== END 2019-06-24 15:04 | disposition home or self-care (01) ==
LOC: DI 15:03
PROVIDERS: ATTEND Urology
DX: R31.29 Other microscopic hematuria (principal)
CPT/HCPCS: 76770; 80048

== ENCOUNTER 2019-08-05 11:15 | Outpatient (CLI) | payer MEDICARE, OTHER ==
[2019-08-05 11:40] LABS: BASOPHILS % (AUTO) 0.5 %; EOSINOPHILS # (AUTO) 0.1 10^3/uL (0.0-0.7); EOSINOPHILS % (AUTO) 1.4 %; HGB - HEMOGLOBIN 11.5 g/dL (12.0-16.0); LYMPHOCYTES # (AUTO) 2.1 10^3/uL (1.5-3.5); LYMPHOCYTES % (AUTO) 28.9 %; MEAN CORPUSCULAR HGB CONC 31.1 g/dL (32.0-36.0); MEAN CORPUSCULAR VOLUME 93.2 fL (81.0-99.0); MEAN PLATELET VOLUME 8.8 fL (7.9-10.8); MONOCYTES # (AUTO) 0.6 10^3/uL (0.0-1.0); MONOCYTES % (AUTO) 8.4 %; NEUTROPHILS # (AUTO) 4.4 10^3/uL (1.5-6.6); NEUTROPHILS % (AUTO) 60.3 %; PLT - PLATELET COUNT 347 10^3/uL (130-450); RED BLOOD COUNT 3.97 10^6/uL (4.20-5.40); RED CELL DISTRIBUTION WIDTH 13.2 % (12.0-15.0); WHITE BLOOD COUNT 7.3 x10^3/uL (4.8-10.8)
[2019-08-05 11:45] LABS: BILIRUBIN,URINE NEGATIVE (NEGATIVE); GLUCOSE, URINE (UA) NEGATIVE (NEGATIVE); KETONES,URINE (UA) NEGATIVE (NEGATIVE); LEUKOCYTE ESTERASE, URINE NEGATIVE (NEGATIVE); NITRITE,URINE NEGATIVE (NEGATIVE); OCCULT BLOOD,URINE NEGATIVE (NEGATIVE); PROTEIN,URINE NEGATIVE (NEGATIVE); UROBILINOGEN,URINE 0.2 (NORMAL) E.U./dL (NORMAL)
[2019-08-05 11:46] LABS: CLARITY,URINE CLEAR (CLEAR)
[2019-08-05 11:51] LABS: ALBUMIN 3.5 g/dL (3.2-5.5); BACTERIA,URINE None Seen /HPF (None Seen); BILIRUBIN,TOTAL 0.7 mg/dL (0.2-1.0); CALCIUM 9.6 mg/dL (8.5-10.3); RBC,URINE None Seen /HPF (0-5); SQUAMOUS EPITHELIAL CELL,UR NONE SEEN (<= Few); TOTAL PROTEIN 6.9 g/dL (6.7-8.2)
[2019-08-05 12:09] LABS: CREATININE,URINE 38.4 mg/dL; MICROALBUMIN,URINE < 0.2 mg/dL (0-300.0)
== END 2019-08-05 11:16 | disposition home or self-care (01) ==
LOC: LAB 11:15
PROVIDERS: ATTEND Internal Medicine
DX: N26.1 Atrophy of kidney (terminal) (principal)
CPT/HCPCS: 36415; 80053; 81001; 82043; 82570; 85025; 87086

== ENCOUNTER 2020-01-28 08:39 | Outpatient (CLI) | payer MEDICARE, OTHER ==
[2020-01-28 09:17] LABS: BASOPHILS # (AUTO) 0.1 10^3/uL (0.0-0.1); BASOPHILS % (AUTO) 0.7 %; EOSINOPHILS # (AUTO) 0.2 10^3/uL (0.0-0.7); EOSINOPHILS % (AUTO) 2.3 %; HGB - HEMOGLOBIN 11.4 g/dL (12.0-16.0); LYMPHOCYTES # (AUTO) 2.4 10^3/uL (1.5-3.5); LYMPHOCYTES % (AUTO) 34.9 %; MEAN CORPUSCULAR HGB CONC 31.2 g/dL (32.0-36.0); MEAN CORPUSCULAR VOLUME 92.9 fL (81.0-99.0); MEAN PLATELET VOLUME 8.8 fL (7.9-10.8); MONOCYTES # (AUTO) 0.6 10^3/uL (0.0-1.0); NEUTROPHILS # (AUTO) 3.7 10^3/uL (1.5-6.6); NEUTROPHILS % (AUTO) 53.7 %; PLT - PLATELET COUNT 386 10^3/uL (130-450); RED BLOOD COUNT 3.93 10^6/uL (4.20-5.40); RED CELL DISTRIBUTION WIDTH 13.2 % (12.0-15.0)
[2020-01-28 09:36] LABS: ALBUMIN 3.3 g/dL (3.2-5.5); ALBUMIN/GLOBULIN RATIO 0.8 (1.0-2.2); BILIRUBIN,TOTAL 0.5 mg/dL (0.2-1.0); CALCIUM 9.3 mg/dL (8.5-10.3); CRP - C-REACTIVE PROTEIN 4.5 mg/dL (0-1.0); TOTAL PROTEIN 7.2 g/dL (6.7-8.2)
== END 2020-01-28 08:40 | disposition home or self-care (01) ==
LOC: LAB 08:39
PROVIDERS: ATTEND Nurse Practitioner
DX: E11.22 Type 2 diabetes mellitus with diabetic chronic kidney disease (principal); N18.3 Chronic kidney disease, stage 3 (moderate); R53.83 Other fatigue; E03.9 Hypothyroidism, unspecified; E78.2 Mixed hyperlipidemia
CPT/HCPCS: 36415; 80053; 82306; 82607; 85025; 85651; 86140

== ENCOUNTER 2020-05-01 08:09 | Outpatient (CLI) | payer MEDICARE, OTHER ==
[2020-05-01 08:45] LABS: ALBUMIN 3.5 g/dL (3.2-5.5); CALCIUM 9.3 mg/dL (8.5-10.3); PHOSPHORUS 3.8 mg/dL (2.5-4.6)
[2020-05-01 13:13] LABS: HEMOGLOBIN A1c% 6.5 % (4.27-6.07)
[2020-05-01 16:41] LABS: MUDS CUTOFF CONCENTRATIONS CUTOFF CONC BELOW:
[2020-05-01 16:45] LABS: BILIRUBIN,URINE NEGATIVE (NEGATIVE); GLUCOSE, URINE (UA) NEGATIVE (NEGATIVE); KETONES,URINE (UA) NEGATIVE (NEGATIVE); LEUKOCYTE ESTERASE, URINE NEGATIVE (NEGATIVE); NITRITE,URINE NEGATIVE (NEGATIVE); OCCULT BLOOD,URINE NEGATIVE (NEGATIVE); PROTEIN,URINE NEGATIVE (NEGATIVE); UROBILINOGEN,URINE 0.2 (NORMAL) E.U./dL (NORMAL)
[2020-05-01 16:48] LABS: CLARITY,URINE CLEAR (CLEAR)
[2020-05-01 16:55] LABS: AMPHETAMINE SCREEN,URINE NEGATIVE (NEGATIVE); BENZODIAZEPINES SCREEN, URINE NEGATIVE (NEGATIVE); COCAINE SCREEN URINE NEGATIVE (NEGATIVE); METHADONE SCREEN, URINE NEGATIVE (NEGATIVE); METHAMPHETAMINES SCREEN, URINE NEGATIVE (NEGATIVE); OPIATE SCREEN, URINE POSITIVE (NEGATIVE); OXYCODONE SCREEN, URINE NEGATIVE (NEGATIVE); PROPOXYPHENE SCREEN, URINE NEGATIVE (NEGATIVE); TRICYCLIC ANTIDEPRESSANT,URINE NEGATIVE (NEGATIVE)
== END 2020-05-01 08:10 | disposition home or self-care (01) ==
LOC: LAB 08:09
PROVIDERS: ATTEND Nurse Practitioner Family
DX: E11.9 Type 2 diabetes mellitus without complications (principal); Z90.5 Acquired absence of kidney; Z79.899 Other long term (current) drug therapy
CPT/HCPCS: 36415; 80069; 80306; 81003; 83036

== ENCOUNTER 2020-12-17 14:18 | Outpatient (CLI) | payer MEDICARE, OTHER ==
[2020-12-17 14:59] VITALS: BP 90/55
--- NOTE | 2020-12-17 14:59 | SLEEP CARE CONSULTATION ---
Information from patient questionnaire entered by Venice Freeman. I have reviewed and concur with the information entered by Venice Freeman. This document represents the service I personally performed and the decisions made by me, Deyanira Haro MD, [facility]. History of Present Illness Service Date and Time: 12/17/2020 1418 Reason for Visit: New patient, Previously diagnosed sleep apnea (mild - AHI - 8.6 in 2015; 5.3 in 2008), sleep apnea on CPAP therapy (oral appliance), Re-establish care (last seen 11/2014) Chief Complaint: reports: Snoring, Fatigue, Other (update supplies) Usual bedtime: 9:30-10 pm Time it takes to fall asleep: 5 minutes Snores at night: Yes Observed to quit breathing while asleep: No Sleeps alone due to snoring: No Number of times waking at night: 2-3 more without sleeping aids Reasons for waking at night: reports: Bathroom Toss, Turn, or Twitch while sleeping: No Recalls having dreams: Yes Usually gets out of bed at: 7 am Feels refreshed in the morning: Yes (moderate) Morning headache: No Sleepy or fatigued during the day: Yes (on occasion) Ever fallen asleep while driving: No Takes day naps: No Prior sleep studies: Yes Year and Where: 2008 and 2014 - [facility] Type of Sleep Study: Polysomnography Additional HPI information: HPI: Ms. Mcguire returned for follow up after last seen 6 years ago. She was diagnosed with mild obstructive sleep apnea-hypopnea (AHI of 8.6 and [place] oxygen saturation of 86%). The respiratory events occurred almost exclusively during supine sleep. She decided to go with the oral appliance therapy. She has an oral appliance that she is using with good results. She does not snore while wearing it. Her dentist Dr. Espana will be making her a new one. He requests a new sleep study - Parasomnia Symptoms Ever been unable to move upon waking from sleep: No Walks in sleep: No Talks in sleep: No Ever acted out dreams in sleep: No Ever felt weak in the knees when startled or emotional: No Bothered by creepy, crawly, restless sensations in legs: No Problems with memory or concentration: No Subjective Initial [place] Sleepiness Scale score: 10 (in 2008) Current [place] Sleepiness Scale score: 8 Past Medical History Past Medical History: reports: Hypertension, Diabetes, Arthritis, Anxiety, Other (IBS) Social History The patient's occupation is a Retired. Patient is Domestic Partner and lives in [place]. Have you smoked in the past 12 months: No Cigarettes per day (20/pack): 20 Years of smokin Quit date: quit Smoking Pack Years: 17.0 Alcohol use: Yes Alcohol amount and frequency: 2 glasses of wine daily Caffeine use: Yes Caffeine amount and frequency: 1-2 cups daily Family History Family history of sleep disordered breathing: Yes Family Hx Sleep Apnea: Mother: Snoring, Sleep apnea - Untreated, Father: Snoring, Sleep apnea - Untreated Allergies and Home Medications Drug allergies reviewed: Yes Home medication list reviewed: Yes Review of Systems Cardiovascular: reports: high blood pressure (minor) Gastrointestinal: reports: heartburn (seldom), diarrhea (IBS), abdominal pain (minor) Urinary: denies: incontinence, frequency, urgency, impotence, other Neurological: denies: headaches, seizure, head trauma, disorientation, speech dysfunction, gait or balance problems, fainting or unconsciousness, other Psychiatric: denies: Attention Deficit Hyperactivity, anxiety, depression, mood disorder, claustrophobia, other Ear/Nose/Throat: reports: wisdom teeth removed Endocrine: denies: thyroid disease, history of goiter, sluggishness, too hot or cold, excessive thirst, increased appetite, increased urination, unexplained weakness, other Musculoskeletal: reports: joint pain, neck pain, back pain, muscle pain or cramping Immunologic: reports: allergies to food or environment (IBS on fodmap diet) Physical Exam Vital signs obtained and entered by: Dr. Haro Blood Pressure: 90/55 Cuff size: regular Heart Rate: 71 O2 Saturation: 97 Height: 5 ft 3.5 in Weight: 140 lb Body Mass Index: 24.4 BMI Classification: Healthy weight Neck circumference: 13 Mood/affect: Normal HEENT: No craniofacial malformation Impression and Plan IMPRESSION: 1. Obstructive Sleep Apnea-Hypopnea Syndrome, mild, and positional. The patient is unable to sleep supine. She would like to continue with the oral appliance. Because it has be over 6 years and she has lost 18 lbs, I will repeat the in-laboratory polysomnography to confirm the diagnosis. Another sleep study can be performed later with her new oral appliance if she still has significant sleep disordered breathing. PLAN: 1. Continue with the oral appliance therapy. 2. Schedule an in-laboratory polysomnography. 3. Return for follow up after the sleep study. Visit Type: In Office Time Spent with Patient (minutes): 15 Provider Statement: I spent 100% of the Face to Face Visit with the patient with greater than 50% spent counseling the patient and coordination of care.
== END 2020-12-17 14:19 | disposition home or self-care (01) ==
LOC: SC 14:18
PROVIDERS: ATTEND Internal Medicine Pulmonary Disease
DX: G47.33 Obstructive sleep apnea (adult) (pediatric) (principal)
CPT/HCPCS: 99202; G0463; 99212

== ENCOUNTER 2020-12-21 11:10 | Outpatient (CLI) | payer MEDICARE, OTHER ==
--- NOTE | 2020-12-24 11:37 | Mammography Report ---
BILATERAL DIGITAL SCREENING MAMMOGRAM 3D/2D: 12/21/2020 CLINICAL: Routine screening. Comparison is made to exams dated: 11/15/2018 mammogram, 10/05/2017 mammogram, 08/14/2016 mammogram, an d 07/03/2015 mammogram - [facility]. There are scattered fibroglandular elements in both breasts. No significant masses, calcifications, or other findings are seen in either breast. There has been no significant interval change. IMPRESSION: NEGATIVE There is no mammographic evidence of malignancy. A 1 year screening mammogram is recommended. This exam was interpreted at Station ID: [id number]. NOTE: For mammograms, a report in lay terms will be sent to the patient. Approximately 15% of breast malignancies will not be visualized mammographically. In the management of a palpable breast mass, a negative mammogram must not discourage biopsy of a clinically suspicious lesion. Electronically Signed By: Josselyn smith/penrad:12/21/2020 15:26:24 ACR BI-RADS Category 1: Negative 3341F PARENCHYMAL PATTERN: (A) - The breast(s) demonstrate(s) scattered fibroglandular densities. BI-RADS CATEGORY: (1) - 1 RECOMMENDATION: (ANNUAL) - Recommend routine annual screening mammography. [id number] 1 year screening LATERALITY: (B)
== END 2020-12-21 11:11 | disposition home or self-care (01) ==
LOC: DI 11:10
DX: Z12.31 Encounter for screening mammogram for malignant neoplasm of breast (principal)

== ENCOUNTER 2021-03-18 10:13 | Outpatient (CLI) | payer MEDICARE, OTHER ==
--- NOTE | 2021-03-18 11:37 | SLEEP CARE CONSULTATION ---
Information from patient questionnaire entered by Venice Freeman. I have reviewed and concur with the information entered by Venice Freeman. This document represents the service I personally performed and the decisions made by me, Deyanira Haro MD, [facility]. History of Present Illness Service Date and Time: 03/18/2021 1013 Initial [place] Sleepiness Scale score: 10 (in 2008) Current [place] Sleepiness Scale score: 4 Additional HPI information: HPI: Ms. Mcguire returned for follow up of her in-laboratory polysomnography performed at [facility] in [place] on 02/06/2021. The sleep study showed mild obstructive sleep apnea-hypopnea with an AHI of 9.7 which very similar to her AHI of 8.6 here in 2014. [place] oxygen saturation was 82%. The respiratory events occurred mainly during REM sleep. The patient only slept supine during this study. Presently, she has an oral appliance that she has been using for several years. She is planning to get a new one from a local dentist. Sleep Study - Results Type of Sleep Study: Polysomnography ([facility]) Prior sleep studies: Yes Year and Where: 2014 and 2008 - [facility] Allergies and Home Medications Drug allergies reviewed: Yes Home medication list reviewed: Yes Review of Systems Review of systems same as previous: Yes Physical Exam Height: 5 ft 3.5 in Weight: 140 lb Body Mass Index: 24.4 BMI Classification: Healthy weight Impression and Plan IMPRESSION: 1. Obstructive Sleep Apnea-Hypopnea Syndrome, mild, associated with mild hypoxemia. A prescription will be written for an oral appliance. She should return for a home sleep apnea test (HSAT) with the appliance in place to verify its effectiveness. PLAN: 1. Prescription made for an oral appliance. 2. Return for follow up after the oral appliance is fitted and adjusted. Follow up with Sleep Care in: 6 months Time Spent with Patient (minutes): 15
== END 2021-03-18 10:14 | disposition home or self-care (01) ==
LOC: SC 10:13
PROVIDERS: ATTEND Internal Medicine Pulmonary Disease
DX: G47.33 Obstructive sleep apnea (adult) (pediatric) (principal)
CPT/HCPCS: 99212; G0463

== ENCOUNTER 2021-05-31 09:00 | Outpatient (CLI) | payer MEDICARE, OTHER ==
[2021-05-31 09:21] LABS: BASOPHILS % (AUTO) 0.4 %; EOSINOPHILS # (AUTO) 0.1 10^3/uL (0.0-0.7); EOSINOPHILS % (AUTO) 1.2 %; HCT - HEMATOCRIT 36.9 % (37.0-47.0); HGB - HEMOGLOBIN 11.4 g/dL (12.0-16.0); LYMPHOCYTES # (AUTO) 3.4 10^3/uL (1.5-3.5); LYMPHOCYTES % (AUTO) 37.1 %; MEAN CORPUSCULAR HEMOGLOBIN 28.2 pg (27.0-31.0); MEAN CORPUSCULAR HGB CONC 30.9 g/dL (32.0-36.0); MEAN CORPUSCULAR VOLUME 91.3 fL (81.0-99.0); MONOCYTES # (AUTO) 0.5 10^3/uL (0.0-1.0); MONOCYTES % (AUTO) 5.4 %; NEUTROPHILS # (AUTO) 5.2 10^3/uL (1.5-6.6); NEUTROPHILS % (AUTO) 55.7 %; PLT - PLATELET COUNT 373 10^3/uL (130-450); RED BLOOD COUNT 4.04 10^6/uL (4.20-5.40); RED CELL DISTRIBUTION WIDTH 14.2 % (12.0-15.0); WHITE BLOOD COUNT 9.3 x10^3/uL (4.8-10.8)
[2021-05-31 09:37] LABS: % IRON SATURATION 6 % (20-50); ALBUMIN 3.7 g/dL (3.2-5.5); ALBUMIN/GLOBULIN RATIO 1.2 (1.0-2.2); ALKALINE PHOSPHATASE 74 IU/L (42-121); ALT ALANINE AMINOTRANSFERASE 15 IU/L (10-60); AMYLASE 50 U/L (28-100); AST ASPARTATE AMINOTRANSFERASE 18 IU/L (10-42); BILIRUBIN,TOTAL 0.5 mg/dL (0.2-1.0); BUN - BLOOD UREA NITROGEN 22 mg/dL (6-20); CALCIUM 9.5 mg/dL (8.5-10.3); CARBON DIOXIDE - CO2 27 mmol/L (21-32); CHLORIDE 105 mmol/L (101-111); CHOLESTEROL 191 mg/dL; CRP - C-REACTIVE PROTEIN 2.4 mg/dL (0-1.0); GFR - MDRD 54 (>89); GLUCOSE 120 mg/dL (70-100); HDL CHOLESTEROL 63 mg/dL; IRON 24 ug/dL (28-170); LDL CHOLESTEROL,CALCULATED 114 mg/dL; LDL/HDL RATIO 1.8 (<4.4); LIPASE 28 U/L (22-51); POTASSIUM 4.5 mmol/L (3.5-5.0); SODIUM 141 mmol/L (135-145); TOTAL IRON BINDING CAPACITY 374 ug/dL (250-450); TOTAL PROTEIN 6.9 g/dL (6.7-8.2); TRANSFERRIN 267 mg/dL (192-382); TRIGLYCERIDES 71 mg/dL; VLDL CHOLESTEROL 14 mg/dL
[2021-05-31 09:47] LABS: T4 (THYROXINE) 8.19 ug/dL (6.09-12.23)
[2021-05-31 09:48] LABS: THYROID STIMULATING HORMONE 2.05 uIU/mL (0.34-5.60)
[2021-05-31 09:51] LABS: FREE T3 3.13 pg/mL (2.5-3.9)
[2021-05-31 09:52] LABS: ESTIMATED AVERAGE GLUCOSE 134 mg/dL (70-100); HEMOGLOBIN A1c% 6.3 % (4.27-6.07)
[2021-06-01 13:51] LABS: IMMUNOGLOBULIN E <2 kU/L (<OR=114)
[2021-06-04 12:22] LABS: THYROID PEROXIDASE ANTIBODIES <1 IU/mL (<9)
== END 2021-05-31 09:01 | disposition home or self-care (01) ==
LOC: LAB 09:00
PROVIDERS: ATTEND Nurse Practitioner Family
DX: K52.81 Eosinophilic gastritis or gastroenteritis (principal); K58.9 Irritable bowel syndrome, unspecified; K92.1 Melena; R53.83 Other fatigue; D64.9 Anemia, unspecified; R73.9 Hyperglycemia, unspecified; Z91.018 Allergy to other foods; K63.3 Ulcer of intestine; E34.9 Endocrine disorder, unspecified
CPT/HCPCS: 36415; 80053; 80061; 81599; 82150; 82607; 82728; 82746; 82784; 82785; 83036; 83516; 83540; 83690; 83721; 84436; 84443; 84466; 84481; 85025; 86140; 86255; 86376; 86800

== ENCOUNTER 2021-06-06 13:59 | Emergency (ER) | payer MEDICARE, OTHER ==
[2021-06-06 14:51] LABS: BASOPHILS % (AUTO) 0.5 %; EOSINOPHILS # (AUTO) 0.1 10^3/uL (0.0-0.7); EOSINOPHILS % (AUTO) 0.8 %; HCT - HEMATOCRIT 36.3 % (37.0-47.0); HGB - HEMOGLOBIN 11.2 g/dL (12.0-16.0); LYMPHOCYTES # (AUTO) 3.8 10^3/uL (1.5-3.5); LYMPHOCYTES % (AUTO) 45.6 %; MEAN CORPUSCULAR HEMOGLOBIN 28.1 pg (27.0-31.0); MEAN CORPUSCULAR HGB CONC 30.9 g/dL (32.0-36.0); MEAN PLATELET VOLUME 8.8 fL (7.9-10.8); MONOCYTES # (AUTO) 0.5 10^3/uL (0.0-1.0); MONOCYTES % (AUTO) 6.5 %; NEUTROPHILS # (AUTO) 3.8 10^3/uL (1.5-6.6); NEUTROPHILS % (AUTO) 46.4 %; PLT - PLATELET COUNT 382 10^3/uL (130-450); RED BLOOD COUNT 3.99 10^6/uL (4.20-5.40); RED CELL DISTRIBUTION WIDTH 13.8 % (12.0-15.0); WHITE BLOOD COUNT 8.3 x10^3/uL (4.8-10.8)
--- NOTE | 2021-06-06 14:55 | XRAY Report ---
PROCEDURE: Chest 1 View X-Ray INDICATIONS: Chest Pain TECHNIQUE: One view of the chest was acquired. COMPARISON: 10/20/2015 FINDINGS: Surgical changes and devices: None. Lungs and pleura: No pleural effusions or pneumothorax. Lungs are clear. Mediastinum: Mediastinal contours appear normal. Heart size is normal. Atherosclerotic vascular ca lcification noted in the aortic arch. Bones and chest wall: No suspicious bony lesions. Overlying soft tissues appear unremarkable. Conv ex right thoracolumbar scoliosis noted. IMPRESSION: No acute cardiopulmonary findings Reviewed by: Marcel Keene MD on 06/06/2021 1:53 PM [facility] Approved by: Marcel Keene MD on 06/06/2021 1:53 PM AK[facility] Station ID: [id number]
[2021-06-06 15:05] LABS: ALBUMIN 3.7 g/dL (3.2-5.5); ALBUMIN/GLOBULIN RATIO 1.2 (1.0-2.2); BILIRUBIN,TOTAL 0.4 mg/dL (0.2-1.0); CALCIUM 9.3 mg/dL (8.5-10.3); TOTAL PROTEIN 6.8 g/dL (6.7-8.2)
[2021-06-06] MEDS ORDERED: MAG HYDROX/AL HYDROX/SIMETH 30 ML UDC PO STA (18:33)
[2021-06-06] MEDS ORDERED: LIDOCAINE VISCOUS 2% 15 ML UDC MM STA (18:33)
--- NOTE | 2021-06-06 18:36 | ED Physician Documentation ---
PD HPI CHEST PAIN - Stated complaint Stated Complaint: CHEST PX/SENT MY DR - Chief complaint Chief Complaint: General - History obtained from History obtained from: Patient - History of Present Illness Timing - onset: How many months ago (6) Timing - onset during: Rest Timing - duration: Months (6) Timing - details: Gradual onset, Still present, Waxing and waning Quality: Pressure, Tightness Location: Substernal, Left chest Radiation: Neck Improved by: Rest Associated symptoms: No: Shortness of air, Diaphoresis, Nausea, Vomiting, Feeling faint / dizzy, General Weakness, Palpitations, Cough Similar symptoms before: Has not had sx before Recently seen: Clinic - Additional information Additional information: 75-year-old female has developed with radiation to her neck that has been intermittent over the past 6 months. Why this happens to her but she does get some burping when it occurs. She does not have specifics of she has been in to see her primary care doctor who has done electrocardiogram and asked her to come to the emergency department for blood work and a chest x-ray. Review of Systems Constitutional: denies: Fever Ears: denies: Ear pain Nose: denies: Congestion Throat: denies: Sore throat Cardiac: reports: Chest pain / pressure. 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 - Present Medications Home Medications: Ambulatory Orders Medication Instructions Recorded Confirmed metFORMIN [Glucophage] 250 mg ORAL BID 02/06/15 10/07/17 lisinopriL [Prinivil] 10 mg PO DAILY 10/07/17 10/07/17 Citalopram [CeleXA] 1 BID 12/10/17 - Allergies Allergies/Adverse Reactions: Allergies Allergy/AdvReac Type Severity Reaction Status Date / Time No Known Drug Allergies Allergy Verified 10/20/15 10:46 - Social History Does the pt smoke?: No Smoking Status: Former smoker Does the pt drink ETOH?: Yes Does the pt have substance abuse?: No - Immunizations Immunizations are current?: Yes PD ED PE NORMAL - Vitals Vital signs reviewed: Yes (hypertensive ) - General General: Alert and oriented X 3, No acute distress, Well developed/nourished - Neck Neck: Supple, no meningeal sign, No bony TTP - Cardiac Cardiac: RRR, No murmur - Respiratory Respiratory: No respiratory distress, Clear bilaterally, Other (chest pain to palpation of the sternum radiates to the anterior chest wall. ) - Abdomen Abdomen: Normal bowel sounds, Soft, Non tender, Non distended, No organomegaly - Back Back: No CVA TTP, No spinal TTP - Derm Derm: Normal color, Warm and dry, No rash - Extremities Extremities: No deformity, Normal ROM s pain, No edema - Neuro Neuro: Alert and oriented X 3, back tacker 2-12 intact, No motor deficit, No sensory deficit, Normal speech Eye Opening: Spontaneous Motor: Obeys Commands Verbal: Oriented GCS Score: 15 - Psych Psych: Normal mood, Normal affect Results - Vitals Vitals: Vital Signs - 24 hr 06/06/21 06/06/21 14:10 19:11 Temperature 36.6 C 36.6 C Heart Rate 77 65 Respiratory 16 19 Rate Blood Pressure 155/76 H 158/73 H O2 Saturation 99 98 Oxygen O2 Source Room air - EKG (time done) 1818 Rate: Rate (enter#) (65) Rhythm: NSR Compare to prior EKG: Changed from prior EKG (SPT 10-20-2015 the rate is slower. ) Computer interpretation: Agree with computer - Labs Labs: Laboratory Tests 06/06/21 06/06/21 06/06/21 14:46 14:46 14:46 WBC 8.3 RBC 3.99 L Hgb 11.2 L Hct 36.3 L MCV 91.0 MCH 28.1 MCHC 30.9 L RDW 13.8 Plt Count 382 MPV 8.8 Neut # (Auto) 3.8 Lymph # (Auto) 3.8 H Ralls # (Auto) 0.5 Eos # (Auto) 0.1 Baso # (Auto) 0.0 Absolute Nucleated RBC 0.00 Nucleated RBC % 0.0 Sodium 139 Potassium 4.0 Chloride 104 Carbon Dioxide 26 Anion Gap 9.0 BUN 17 Creatinine 1.0 Estimated GFR (MDRD) 54 L Glucose 134 H Calcium 9.3 Total Bilirubin 0.4 AST 18 ALT 14 Alkaline Phosphatase 73 Troponin I High Sens 3.0 Total Protein 6.8 Albumin 3.7 Globulin 3.1 Albumin/Globulin Ratio 1.2 Lipase 26 PD MEDICAL DECISION MAKING - ED course Complexity details: reviewed old records, reviewed results, re-evaluated patient, considered differential, d/w patient ED course: 75-year-old female with periodic undulating chest pain without specific modifying factors has a normal-appearing electrocardiogram chest x-ray and blood work including troponin. She does indicate to me that she has felt that she has some improvement in the number of episodes of chest pain she has when she is taken some antianxiety medications. She shows me a bottle of Xanax that she has from her primary of quarter milligram tablets. She did state that she had some burping associated with these pains and we tried a GI cocktail which did not really resolve the patient's pain. We did find that she had some pain to palpation of the chest wall and we were not able to reproduce this.I have given the patient reassurance that this is not her heart causing her this chest pain but I was not able to delineate a cause of the pain. She is discharged with a instruction for atypical chest pain and instructed to follow-up with her primary to consider SSRI for control of anxiety. Departure - Departure Disposition: 01 Home, Self Care Clinical Impression: Atypical chest pain, Stress reaction Condition: Stable Instructions: ED Stress React, ED Chest Pain Atypical Unkn Cause Follow-Up: Paz Mo ARNP [Primary Care Provider] -
[2021-06-06 19:12] VITALS: BP 158/73
== END 2021-06-06 19:16 | disposition home or self-care (01) ==
LOC: ED 13:59
DX: R07.89 Other chest pain (principal); F43.9 Reaction to severe stress, unspecified; K21.9 Gastro-esophageal reflux disease without esophagitis; E11.9 Type 2 diabetes mellitus without complications; Z79.84 Long term (current) use of oral hypoglycemic drugs; Z87.891 Personal history of nicotine dependence
CPT/HCPCS: 36415; 71045; 80053; 83690; 84484; 85025; 93005; 99282; 99284; A9270

== ENCOUNTER 2021-06-10 11:28 | Day surgery (SDC) | payer MEDICARE, OTHER ==
[2021-06-10] MEDS ORDERED: LACTATED RINGERS 1,000 ML IV ONE (12:14)
--- NOTE | 2021-06-10 12:48 | ANESTHESIA ---
Pre-Anesthesia VS, & Labs - Diagnosis blood in stool - Procedure EGD, Colonoscopy Vital Signs: Temp Pulse Resp BP Pulse Ox 36.3 C L 80 12 183/68 H 99 06/10/21 12:23 06/10/21 12:23 06/10/21 12:23 06/10/21 12:23 06/10/21 12:23 Height: 5 ft 3 in Weight (kg): 64 kg Body Mass Index: 25.0 BMI Classification: Overweight - NPO >8 hours - Is Patient ?: No Home Medications and Allergies Home Medications: Ambulatory Orders Hydrocodone/Acetaminophen [Hydrocodone-Acetamin 10-325 mg] 1 each PO PRN PRN 06/10/21 Hydrocodone/Acetaminophen [Hydrocodone-Acetamin 10-325 mg] 1 each PO PRN PRN 06/10/21 Allergies/Adverse Reactions: Allergies Allergy/AdvReac Type Severity Reaction Status Date / Time amlodipine Allergy Unknown Verified 06/10/21 12:41 sulfamethoxazole Allergy Unknown Verified 06/10/21 12:41 [From ] trimethoprim [From ] Allergy Unknown Verified 06/10/21 12:41 NSAIDS (Non-Steroidal AdvReac Unknown Verified 06/10/21 12:40 Anti-Inflamma Anes History & Medical History - Anesthetic History Anesthesia Complications: reports: No previous complications - Medical History Cardiovascular: reports: None, Hypertension Pulmonary: reports: Sleep apnea Gastrointestinal: reports: GERD, Colon polyps Urinary: reports: None, Renal insuffiency, Other (small left kidney) Musculoskeletal: reports: Osteoarthritis Endocrine/Autoimmune: reports: Type 2 diabetes Skin: reports: None Smoking Status: Former smoker - Surgical History General: reports: Colonoscopy Gynecologic: reports: section Orthopedic: reports: Other Exam General: Alert Dental: WNL Mouth Opening: Greater than 4 Fingerbreadths Neck Mobility: Normal Mallampati classification: II Respiratory: Lungs clear Cardiovascular: Regular rate, Normal S1, Normal S2 Plan Anesthesia Type: Total IV Consent for Procedure(s) Verified and Reviewed: Yes Code Status: Attempt Resuscitation ASA classification: 2-Mild systemic disease Is this case an emergency?: No
[2021-06-10] MEDS ORDERED: PROPOFOL 200 MG/20 ML VIAL IVP ONE (14:15)
[2021-06-10] MEDS ORDERED: MIDAZOLAM 2 MG/2 ML VIAL ONE (14:16)
[2021-06-10] MEDS ORDERED: fentaNYL 100 MCG/2 ML VIAL ONE (14:53)
[2021-06-10] MEDS ORDERED: LACTATED RINGERS 400 ML IV ONE ×2 (15:32)
[2021-06-10 15:44] VITALS: BP 123/77
--- NOTE | 2021-06-10 16:44 | ANESTHESIA POST OP EVALUATION ---
Anesthesia Post Eval - Post Anesthesia Eval Vitals: Last Vital Signs Temp 36.4 C L 06/10/21 15:42 Pulse 65 06/10/21 15:42 Resp 16 06/10/21 15:42 BP 123/77 06/10/21 15:42 Pulse Ox 100 06/10/21 15:42 CV Function Including HR & BP: Stable Pain Control: Satisfactory Nausea & Vomiting: Negative Mental Status: Baseline Respiratory Status: Airway Patent Hydration Status: Satisfactory Anesthesia Complications: None
== END 2021-06-10 11:29 | disposition home or self-care (01) ==
LOC: SDS 11:28
PROVIDERS: ATTEND Surgery
PROC: 0DB68ZX Excision of Stomach, Via Natural or Artificial Opening Endoscopic, Diagnostic (ICD-10-PCS; principal; 2021-06-10 11:30)
DX: K21.00 Gastro-esophageal reflux disease with esophagitis, without bleeding (principal); K29.60 Other gastritis without bleeding; K44.9 Diaphragmatic hernia without obstruction or gangrene; D64.9 Anemia, unspecified; Z86.010 Personal history of colon polyps; K57.30 Diverticulosis of large intestine without perforation or abscess without bleeding; I12.9 Hypertensive chronic kidney disease with stage 1 through stage 4 chronic kidney disease, or unspecified chronic kidney disease; E11.22 Type 2 diabetes mellitus with diabetic chronic kidney disease; N18.30 Chronic kidney disease, stage 3 unspecified; G47.33 Obstructive sleep apnea (adult) (pediatric); E03.9 Hypothyroidism, unspecified; G89.29 Other chronic pain; K64.8 Other hemorrhoids; Z79.84 Long term (current) use of oral hypoglycemic drugs; Z79.899 Other long term (current) drug therapy; Z87.891 Personal history of nicotine dependence
CPT/HCPCS: 43239; 45378; J7120

== ENCOUNTER 2021-07-22 08:34 | Outpatient (CLI) | payer MEDICARE, OTHER ==
[2021-07-22 09:12] LABS: BASOPHILS % (AUTO) 0.5 %; EOSINOPHILS # (AUTO) 0.1 10^3/uL (0.0-0.7); EOSINOPHILS % (AUTO) 1.8 %; HCT - HEMATOCRIT 34.4 % (37.0-47.0); HGB - HEMOGLOBIN 10.8 g/dL (12.0-16.0); LYMPHOCYTES # (AUTO) 3.8 10^3/uL (1.5-3.5); LYMPHOCYTES % (AUTO) 47.8 %; MEAN CORPUSCULAR HEMOGLOBIN 28.2 pg (27.0-31.0); MEAN CORPUSCULAR HGB CONC 31.4 g/dL (32.0-36.0); MEAN CORPUSCULAR VOLUME 89.8 fL (81.0-99.0); MEAN PLATELET VOLUME 8.8 fL (7.9-10.8); MONOCYTES # (AUTO) 0.5 10^3/uL (0.0-1.0); NEUTROPHILS # (AUTO) 3.5 10^3/uL (1.5-6.6); NEUTROPHILS % (AUTO) 43.8 %; PLT - PLATELET COUNT 387 10^3/uL (130-450); RED BLOOD COUNT 3.83 10^6/uL (4.20-5.40); RED CELL DISTRIBUTION WIDTH 13.7 % (12.0-15.0); WHITE BLOOD COUNT 7.9 x10^3/uL (4.8-10.8)
[2021-07-22 09:13] LABS: BILIRUBIN,URINE NEGATIVE (NEGATIVE); GLUCOSE, URINE (UA) NEGATIVE (NEGATIVE); KETONES,URINE (UA) NEGATIVE (NEGATIVE); LEUKOCYTE ESTERASE, URINE NEGATIVE (NEGATIVE); NITRITE,URINE NEGATIVE (NEGATIVE); OCCULT BLOOD,URINE NEGATIVE (NEGATIVE); PROTEIN,URINE NEGATIVE (NEGATIVE); UROBILINOGEN,URINE 0.2 (NORMAL) E.U./dL (NORMAL)
[2021-07-22 09:24] LABS: CLARITY,URINE CLEAR (CLEAR)
[2021-07-22 09:33] LABS: ALBUMIN 3.5 g/dL (3.2-5.5); ALBUMIN/GLOBULIN RATIO 1.1 (1.0-2.2); BILIRUBIN,TOTAL 0.6 mg/dL (0.2-1.0); CALCIUM 9.1 mg/dL (8.5-10.3); CREATININE 0.8 mg/dL (0.4-1.0); CRP - C-REACTIVE PROTEIN 3.8 mg/dL (0-1.0); POTASSIUM 4.5 mmol/L (3.5-5.0); TOTAL PROTEIN 6.6 g/dL (6.7-8.2)
[2021-07-22 09:45] LABS: THYROID STIMULATING HORMONE 1.61 uIU/mL (0.34-5.60)
[2021-07-22 09:58] LABS: BACTERIA,URINE None Seen /HPF (None Seen); MUCUS,URINE Few Strands; RBC,URINE 0-5 /HPF (0-5); SQUAMOUS EPITHELIAL CELL,UR RARE Squamous (<= Few); WBC,URINE 0-3 /HPF (0-5)
[2021-07-22 10:00] LABS: CREATININE,URINE 120.3 mg/dL; MICROALBUM/CREATININE RATIO,UR 4.2 ug/mg (<30.0); MICROALBUMIN,URINE 0.5 mg/dL (0-300.0)
[2021-07-22 10:45] LABS: ESTIMATED AVERAGE GLUCOSE 126 mg/dL (70-100)
== END 2021-07-22 08:35 | disposition home or self-care (01) ==
LOC: LAB 08:34
PROVIDERS: ATTEND Nurse Practitioner
DX: I10 Essential (primary) hypertension (principal); E11.9 Type 2 diabetes mellitus without complications; E03.9 Hypothyroidism, unspecified; R79.82 Elevated C-reactive protein (CRP)
CPT/HCPCS: 36415; 80053; 81001; 82043; 82570; 83036; 84443; 85025; 85651; 86140; 87086

== ENCOUNTER 2021-11-28 07:02 | Day surgery (SDC) | payer MEDICARE, OTHER ==
[2021-11-28] MEDS ORDERED: LACTATED RINGERS 1,000 ML IV ONE ×2 (07:14→09:35)
--- NOTE | 2021-11-28 07:51 | ANESTHESIA ---
Pre-Anesthesia VS, & Labs - Diagnosis R senile combined cataract - Procedure R extraction cataract wIOL Height: 5 ft 3 in Weight (kg): 61 kg Body Mass Index: 23.8 BMI Classification: Healthy weight - NPO Last Fluid Intake: h2o 0645 - Is Patient ?: No - Lab Results Current Lab Results: Laboratory Tests 11/28/21 07:29: POC Whole Bld Glucose 130 H Lab results reviewed: Yes Home Medications and Allergies Home Medications: Ambulatory Orders metFORMIN [Glucophage] 500 mg PO BID 11/27/21 Lisinopril [Zestril] 10 mg PO DAILY 11/28/21 Hydrocodone/Acetaminophen [Hydrocodone-Acetamin 10-325 mg] 1 each PO PRN PRN 06/10/21 metFORMIN [Glucophage] 500 mg PO BID 11/27/21 Lisinopril [Zestril] 10 mg PO DAILY 11/28/21 Allergies/Adverse Reactions: Allergies Allergy/AdvReac Type Severity Reaction Status Date / Time amlodipine Allergy Unknown Verified 06/10/21 12:41 sulfamethoxazole Allergy Unknown Verified 06/10/21 12:41 [From Septra] trimethoprim [From Mayra] Allergy Unknown Verified 06/10/21 12:41 NSAIDS (Non-Steroidal AdvReac Unknown Verified 06/10/21 12:40 Anti-Inflamma Anes History & Medical History - Anesthetic History Anesthesia Complications: reports: No previous complications Family history of Anesthesia Complications: Denies Family history of Malignant Hyperthermia: Denies - Medical History Cardiovascular: reports: Hypertension Pulmonary: reports: Sleep apnea Gastrointestinal: reports: Colon polyps, Chronic diarrhea Urinary: reports: Other Musculoskeletal: reports: Osteoarthritis Endocrine/Autoimmune: reports: Type 2 diabetes Skin: reports: None Smoking Status: Former smoker - Surgical History General: reports: Colonoscopy Gynecologic: reports: section Orthopedic: reports: Shoulder arthroplasty, Other Exam General: Alert, Oriented x3, Cooperative Dental: WNL Mouth Openin Fingerbreadth Neck Mobility: Normal Mallampati classification: II Thyromental Distance: 4-6 cm Respiratory: Lungs clear, Normal breath sounds, No respiratory distress Cardiovascular: Regular rate Neurological: Normal speech Mental/Cognitive Status: Alert/Oriented X3, Normal for patient Cognitive Status: Within normal limits Plan Anesthesia Type: MAC Consent for Procedure(s) Verified and Reviewed: Yes Code Status: Attempt Resuscitation ASA classification: 2-Mild systemic disease Is this case an emergency?: No
[2021-11-28] MEDS ORDERED: fentaNYL 100 MCG/2 ML VIAL ONE (08:57)
[2021-11-28] MEDS ORDERED: MIDAZOLAM 2 MG/2 ML VIAL ONE (08:57)
[2021-11-28] MEDS ORDERED: BRIMONIDINE 0.2% OPHTH DROPS 5 ML OPTH ONE (09:17)
[2021-11-28] MEDS ORDERED: TIMOLOL 0.5% OPHTH DROPS OPTH ONE (09:17)
[2021-11-28] MEDS ORDERED: EPINEPHrine 1 MG/ML AMP IR ONE (09:17)
[2021-11-28] MEDS ORDERED: TRIAMCIN/MOXIFLOX OPHTHALMIC 0.6 ML VIAL IO ONE ×2 (09:18→12:31)
[2021-11-28] MEDS ORDERED: BSS/LIDOCAINE/EPINEPHRINE 1 ML SYRINGE IO ONE (09:18)
[2021-11-28] MEDS ORDERED: PROPARACAINE 0.5% OPHTH DROPS 15 ML EACHEYE ONE (09:19)
[2021-11-28] MEDS ORDERED: VANCOMYCIN OPHTHALMI 8MG/0.8ML 8 MG/0.8 ML SYRINGE IO ONE (09:19)
--- NOTE | 2021-11-28 09:41 | ANESTHESIA POST OP EVALUATION ---
Anesthesia Post Eval - Post Anesthesia Eval CV Function Including HR & BP: Stable Pain Control: Satisfactory Nausea & Vomiting: Negative Mental Status: Baseline Respiratory Status: Airway Patent Hydration Status: Satisfactory Anesthesia Complications: None
--- NOTE | 2021-11-28 09:44 | OPERATIVE REPORT ---
Operative Report - Other Other Information/Narrative: Date of Surgery: 11/28/21 Preop Dx: Visually significant cataract right eye. Cataract surgery was performed in the left eye on . Postop Dx: Same Procedure: Phacoemulsification with posterior chamber intraocular lens implant right eye Surgeon: Dr. Varghese Camara Anesthesia: Monitored anesthesia care Complications: None Operative Indications: This is a 76-year-old F with progressive vision loss in the right eye due to 2+ nuclear sclerotic and 2-3+ cortical cataract. Best corrected visual acuity was 20/30 with glare to 20/60 vision in the right eye. Indications for surgery were: - Difficulty reading - Difficulty seeing words, closed captions, or game scores on TV - Difficulty driving in low light or at night - Difficulty driving at night because of headlights from other vehicles The patient was consented at length concerning the risks and benefits of cataract surgery after which the patient expressed a desire to proceed with surgery. Operative Procedure: The patient was taken into OR#3 and placed under monitored anesthesia care. A surgical time-out was conducted confirming correct patient, correct procedure, and correct surgical site. The patient was given topical anesthesia and then prepped and draped in the usual sterile fashion. The eye was entered at the 6 and 3 oclock positions. Intracameral Shugarcaine was injected into the anterior chamber followed by a dispersive viscoelastic. A continuous-tear curvilinear capsulorhexis was performed. The nucleus was hydrodissected and phacoemulsified. The cortex was evacuated using automated infusion and aspiration. A cohesive viscoelastic was injected into the capsular bag and a 22.5 diopter intraocular lens was inserted into the bag. Infusion and aspiration were used to evacuate the viscoelastic materials from the eye. The wounds were hydrated and the eye inflated to physiologic pressure using balanced salt solution. Approximately 0.25ml of a mixture of triamcinolone and moxifloxacin was injected trans-sclerally into the vitreous in the inferotemporal quadrant using a 30 gauge cannula. An additional 0.55ml of a mixture of triamcinolone, moxifloxacin, and vancomycin was injected subconjunctivally in the superior quadrant for infection and inflammation prophylaxis. Wound integrity was checked with Weck-Gloria sponges. The patient was taken from the operating room in good condition and given post-op instructions.
[2021-11-28 09:51] VITALS: BP 104/47
[2021-11-28] MEDS ORDERED: EPINEPHrine 1 MG/ML AMP ONE (12:31)
[2021-11-28] MEDS ORDERED: BRIMONIDINE 0.2% OPHTH DROPS 5 ML ONE (12:31)
[2021-11-28] MEDS ORDERED: TIMOLOL 0.5% OPHTH DROPS ONE (12:31)
[2021-11-28] MEDS ORDERED: BSS/LIDOCAINE/EPINEPHRINE 1 ML VIAL ONE (12:31)
== END 2021-11-28 07:03 | disposition home or self-care (01) ==
LOC: SDS 07:02
PROVIDERS: ATTEND Ophthalmology
DX: E11.36 Type 2 diabetes mellitus with diabetic cataract (principal); H25.811 Combined forms of age-related cataract, right eye; Z79.84 Long term (current) use of oral hypoglycemic drugs; Z79.899 Other long term (current) drug therapy; Z87.891 Personal history of nicotine dependence; Z98.42 Cataract extraction status, left eye
CPT/HCPCS: 66984; A9270; J3490; J7120

== ENCOUNTER 2021-12-26 09:21 | Outpatient (CLI) | payer MEDICARE, OTHER ==
[2021-12-26 09:44] LABS: BASOPHILS # (AUTO) 0.1 10^3/uL (0.0-0.1); BASOPHILS % (AUTO) 0.6 %; EOSINOPHILS # (AUTO) 0.2 10^3/uL (0.0-0.7); EOSINOPHILS % (AUTO) 1.4 %; HCT - HEMATOCRIT 33.6 % (37.0-47.0); HGB - HEMOGLOBIN 10.6 g/dL (12.0-16.0); LYMPHOCYTES # (AUTO) 5.3 10^3/uL (1.5-3.5); LYMPHOCYTES % (AUTO) 49.2 %; MEAN CORPUSCULAR HEMOGLOBIN 27.7 pg (27.0-31.0); MEAN CORPUSCULAR HGB CONC 31.5 g/dL (32.0-36.0); MEAN PLATELET VOLUME 8.8 fL (7.9-10.8); MONOCYTES # (AUTO) 0.6 10^3/uL (0.0-1.0); MONOCYTES % (AUTO) 5.3 %; NEUTROPHILS # (AUTO) 4.7 10^3/uL (1.5-6.6); NEUTROPHILS % (AUTO) 43.2 %; PLT - PLATELET COUNT 383 10^3/uL (130-450); RED BLOOD COUNT 3.82 10^6/uL (4.20-5.40); RED CELL DISTRIBUTION WIDTH 14.6 % (12.0-15.0); WHITE BLOOD COUNT 10.8 x10^3/uL (4.8-10.8)
[2021-12-26 09:59] LABS: ALBUMIN 3.4 g/dL (3.2-5.5); ALBUMIN/GLOBULIN RATIO 1.1 (1.0-2.2); BILIRUBIN,TOTAL 0.4 mg/dL (0.2-1.0); CALCIUM 9.4 mg/dL (8.5-10.3); CREATININE 0.9 mg/dL (0.4-1.0); CRP - C-REACTIVE PROTEIN 1.9 mg/dL (0-1.0); POTASSIUM 4.2 mmol/L (3.5-5.0); SLIDE REVIEW? Indicated; TOTAL PROTEIN 6.5 g/dL (6.7-8.2); WBC MORPHOLOGY (MULTIPLE) 2+ REACTIVE LYMPHS (NORMAL)
[2021-12-26 10:06] LABS: CREATININE,URINE 109.3 mg/dL
[2021-12-26 10:07] LABS: MICROALBUMIN,URINE < 0.2 mg/dL (0-300.0)
[2021-12-26 11:52] LABS: ESTIMATED AVERAGE GLUCOSE 131 mg/dL (70-100); HEMOGLOBIN A1c% 6.2 % (4.27-6.07)
== END 2021-12-26 09:22 | disposition home or self-care (01) ==
LOC: LAB 09:21
PROVIDERS: ATTEND Nurse Practitioner
DX: I12.9 Hypertensive chronic kidney disease with stage 1 through stage 4 chronic kidney disease, or unspecified chronic kidney disease (principal); E11.22 Type 2 diabetes mellitus with diabetic chronic kidney disease; N18.30 Chronic kidney disease, stage 3 unspecified; R79.82 Elevated C-reactive protein (CRP)
CPT/HCPCS: 36415; 80053; 82043; 82570; 83036; 85025; 85651; 86140

== ENCOUNTER 2022-01-20 15:06 | Outpatient (CLI) | payer MEDICARE, OTHER ==
[2022-01-20 15:31] LABS: ABSOLUTE RETICS # AUTO 0.048 10^6/uL (0.020-0.110); BASOPHILS # (AUTO) 0.1 10^3/uL (0.0-0.1); BASOPHILS % (AUTO) 0.5 %; EOSINOPHILS # (AUTO) 0.1 10^3/uL (0.0-0.7); EOSINOPHILS % (AUTO) 1.3 %; HCT - HEMATOCRIT 32.8 % (37.0-47.0); HGB - HEMOGLOBIN 10.3 g/dL (12.0-16.0); LYMPHOCYTES # (AUTO) 4.7 10^3/uL (1.5-3.5); LYMPHOCYTES % (AUTO) 44.4 %; MEAN CORPUSCULAR HEMOGLOBIN 28.1 pg (27.0-31.0); MEAN CORPUSCULAR HGB CONC 31.4 g/dL (32.0-36.0); MEAN CORPUSCULAR VOLUME 89.4 fL (81.0-99.0); MONOCYTES # (AUTO) 0.6 10^3/uL (0.0-1.0); MONOCYTES % (AUTO) 5.5 %; NEUTROPHILS # (AUTO) 5.1 10^3/uL (1.5-6.6); NEUTROPHILS % (AUTO) 48.1 %; PLT - PLATELET COUNT 437 10^3/uL (130-450); RED BLOOD COUNT 3.67 10^6/uL (4.20-5.40); RED CELL DISTRIBUTION WIDTH 14.6 % (12.0-15.0); RETICULOCYTE COUNT % (AUTO) 1.32 % (0.5-2.3); WHITE BLOOD COUNT 10.5 x10^3/uL (4.8-10.8)
[2022-01-20 15:57] LABS: FERRITIN 25.5 ng/mL (11.0-306.8)
[2022-01-20 16:15] LABS: % IRON SATURATION 8 % (20-50); IRON 28 ug/dL (28-170); TOTAL IRON BINDING CAPACITY 354 ug/dL (250-450); TRANSFERRIN 253 mg/dL (192-382)
[2022-01-20 16:41] LABS: FOLATE > 49.60 ng/mL (5.90 - >24.8)
== END 2022-01-20 15:07 | disposition home or self-care (01) ==
LOC: LAB 15:06
PROVIDERS: ATTEND Nurse Practitioner
DX: D64.9 Anemia, unspecified (principal); Z87.19 Personal history of other diseases of the digestive system; K64.9 Unspecified hemorrhoids
CPT/HCPCS: 36415; 82607; 82728; 82746; 83540; 84466; 85025; 85045

== ENCOUNTER 2022-03-28 14:41 | Outpatient (CLI) | payer MEDICARE, OTHER ==
--- NOTE | 2022-03-28 16:54 | XRAY Report ---
PROCEDURE: Lumbar Spine 2 View INDICATIONS: LOWER BACK PAIN TECHNIQUE: 2 views of the lumbar spine were acquired. COMPARISON: None. FINDINGS: Bones: 5 [id number] vertebrae are present. There is severe leftward scoliotic curvature with a pex at L2-3. There is multilevel severe degenerative disc space narrowing as well as anterior osteoph ytes. Multilevel foraminal narrowing is present most severe at L5-S1 as well as L1-2 and L2-3. No carla tebral body compression fractures. No suspicious bony lesions. Soft tissues: Overlying bowel gas pattern is normal. No suspicious soft tissue calcifications. IMPRESSION: Significant scoliotic curvature with disc and foraminal narrowing as above. Reviewed by: Heidi Monk MD on 03/28/2022 4:52 PM PDT Approved by: Heidi Monk MD on 03/28/2022 4:52 PM PDT Station ID: [id number]
== END 2022-03-28 14:42 | disposition home or self-care (01) ==
LOC: DI 14:41
PROVIDERS: ATTEND Nurse Practitioner
DX: M47.816 Spondylosis without myelopathy or radiculopathy, lumbar region (principal); M48.061 Spinal stenosis, lumbar region without neurogenic claudication; M48.07 Spinal stenosis, lumbosacral region

== ENCOUNTER 2022-04-25 13:41 | Outpatient (CLI) | payer MEDICARE, OTHER ==
[2022-04-25 14:06] LABS: CREATININE 0.9 mg/dL (0.4-1.0)
[2022-04-25] MEDS ORDERED: DIATRIZOATE MEGLU/DIATRIZO SOD 30 ML BOTTLE PO ONE ×2 (14:07→16:07)
--- NOTE | 2022-04-25 16:46 | CT Report ---
PROCEDURE: Abdomen/Pelvis W INDICATIONS: ABN WEIGHT LOSS CONTRAST: IV CONTRAST: Optiray 320 ml: 100 PO CONTRAST: Redi-Cat ml30 TECHNIQUE: After the administration of oral and intravenous contrast, 5 mm thick sections acquired from the diap hragms to the symphysis. 5 mm thick coronal and sagittal reformats were acquired. For radiation dos e reduction, the following was used: automated exposure control, adjustment of mA and/or kV accordin g to patient size. COMPARISON: CT IVP 08/26/2018. FINDINGS: Image quality: Excellent. ABDOMEN: Lung bases: Right lung base pulmonary nodule measuring 0.2 cm. Right lower lobe calcified granuloma. Heart size is normal. Solid organs: Liver and spleen are normal in size and enhancement. No focal lesion. Focal fatty inf iltration at the falciform ligament. Gallbladder is unremarkable. Biliary system is non dilated. Pa ncreas is atrophic. No adrenal nodules. Left renal atrophy is unchanged. No right hydronephrosis. Peritoneum and bowel: Stomach is distended. No small bowel obstruction. Concern for mural enhancement at the distal ileum, (). A few colonic diverticuli. The appendix is partially visualized and is not dilated. No free fluid or air. Nodes and vessels: No retroperitoneal or mesenteric adenopathy by size criteria. Aorta and inferior vena cava are normal in size. Moderate plaque. Miscellaneous: No ventral hernias. PELVIS: Genitourinary: Bladder is decompressed. Miscellaneous: No inguinal hernias or adenopathy. Bones: No suspicious bony lesions. No vertebral body compression fractures. Multilevel DDD. Scolio sis. IMPRESSION: 1. No mass. No adenopathy. 2. Possible mural enhancement at the distal ileum. This raises the possibility of ileitis. 3. Atrophic left kidney. Reviewed by: Villa Gleason MD on 04/25/2022 4:44 PM PDT Approved by: Villa Gleason MD on 04/25/2022 4:44 PM PDT Station ID: [id number]
== END 2022-04-25 13:42 | disposition home or self-care (01) ==
LOC: LAB 13:41 → DI 13:42
PROVIDERS: ATTEND Nurse Practitioner
DX: R63.4 Abnormal weight loss (principal); D64.9 Anemia, unspecified; N26.1 Atrophy of kidney (terminal)
CPT/HCPCS: 36415; 74177; 82565; Q9963; Q9967

== ENCOUNTER 2022-05-09 08:11 | Outpatient (CLI) | payer MEDICARE, OTHER ==
[2022-05-09 12:28] LABS: ESTIMATED AVERAGE GLUCOSE 143 mg/dL (70-100); HEMOGLOBIN A1c% 6.6 % (4.27-6.07)
== END 2022-05-09 08:12 | disposition home or self-care (01) ==
LOC: LAB 08:11
PROVIDERS: ATTEND Nurse Practitioner
DX: E11.9 Type 2 diabetes mellitus without complications (principal)
CPT/HCPCS: 36415; 83036

== ENCOUNTER 2022-05-18 10:23 | Outpatient (CLI) | payer MEDICARE, OTHER ==
[2022-05-18 10:45] LABS: BASOPHILS % (AUTO) 0.3 %; EOSINOPHILS # (AUTO) 0.1 10^3/uL (0.0-0.7); EOSINOPHILS % (AUTO) 0.7 %; HCT - HEMATOCRIT 31.4 % (37.0-47.0); HGB - HEMOGLOBIN 9.9 g/dL (12.0-16.0); LYMPHOCYTES # (AUTO) 4.9 10^3/uL (1.5-3.5); LYMPHOCYTES % (AUTO) 38.8 %; MEAN CORPUSCULAR HEMOGLOBIN 27.6 pg (27.0-31.0); MEAN CORPUSCULAR HGB CONC 31.5 g/dL (32.0-36.0); MEAN CORPUSCULAR VOLUME 87.5 fL (81.0-99.0); MEAN PLATELET VOLUME 8.7 fL (7.9-10.8); MONOCYTES # (AUTO) 0.7 10^3/uL (0.0-1.0); MONOCYTES % (AUTO) 5.6 %; NEUTROPHILS # (AUTO) 6.8 10^3/uL (1.5-6.6); NEUTROPHILS % (AUTO) 54.2 %; PLT - PLATELET COUNT 439 10^3/uL (130-450); RED BLOOD COUNT 3.59 10^6/uL (4.20-5.40); RED CELL DISTRIBUTION WIDTH 13.3 % (12.0-15.0); WHITE BLOOD COUNT 12.6 x10^3/uL (4.8-10.8)
[2022-05-18 11:10] LABS: % IRON SATURATION 6 % (20-50); IRON 22 ug/dL (28-170); TOTAL IRON BINDING CAPACITY 360 ug/dL (250-450); TRANSFERRIN 257 mg/dL (192-382)
[2022-05-18 11:16] LABS: THYROID STIMULATING HORMONE 2.27 uIU/mL (0.34-5.60)
[2022-05-18 11:18] LABS: FREE T4 (FREE THYROXINE) 1.14 ng/dL (0.58-1.64)
[2022-05-18 11:21] LABS: FERRITIN 18.5 ng/mL (11.0-306.8)
== END 2022-05-18 10:24 | disposition home or self-care (01) ==
LOC: LAB 10:23
PROVIDERS: ATTEND Nurse Practitioner
DX: D64.9 Anemia, unspecified (principal); E03.9 Hypothyroidism, unspecified; R19.7 Diarrhea, unspecified
CPT/HCPCS: 36415; 81599; 82728; 83540; 84155; 84165; 84439; 84443; 84466; 85025

== ENCOUNTER 2022-08-19 08:16 | Outpatient (CLI) | payer MEDICARE, OTHER ==
--- NOTE | 2022-08-19 14:32 | MRI Report ---
PROCEDURE: LUMBAR SPINE WO INDICATIONS: LUMBAR RADICULOPATHY TECHNIQUE: Noncontrast sagittal T1 spin echo and T2 fast echo, sagittal STIR, axial T1 and T2 fast spin echo thr ough the lumbar spine. In cases with scoliosis, additional coronal T2 fast spin echo may be performe d. COMPARISON: None. FINDINGS: Image quality: Excellent. Alignment and Curvature: Convex left lumbar scoliosis present. Bone Marrow: Marrow is of normal overall signal. No acute vertebral body compression fractures. Spinal Cord: Conus medullaris terminates at the L1 level. Visualized cord demonstrates normal signa l and size. Paraspinous Soft Tissues: Advanced left renal atrophy/aplasia T12-L1: Disc space narrowing with circumferential disc bulge and hypertrophic facet joints results i n mild centrald and moderate bilateral foraminal stenosis. L1-L2: Disc space and narrowing with circumferential disc bulge and hypertrophic facet joints resu lts in mild central stenosis. Moderate bilateral foraminal stenosis L2-L3: Disc space narrowing with circumferential disc bulge and hypertrophic facet joints results in moderate right and no left foraminal stenosis. Mild central stenosis L3-L4: Disc space narrowing and circumferential disc bulge with hypertrophic facet joints results i n moderate central stenosis. Severe left and right foraminal stenosis L4-L5: Disc space narrowing with circumferential disc bulge and hypertrophic facet joints results i n severe central stenosis. Severe left and mild right foraminal stenosis L5-S1: Disc space narrowing with circumferential disc bulge and hypertrophic facet joints with mode rate central stenosis. Mild bilateral foraminal stenosis IMPRESSION: Multilevel degenerative disc disease and arthropathy results in thoracolumbar levoscoliosis and varyi ng degrees of central and foraminal stenosis including severe central and foraminal stenosis at L4-5 Reviewed by: Marcel Keene MD on 08/19/2022 1:30 PM [place] Approved by: Marcel Keene MD on 08/19/2022 1:30 PM [place] Station ID: [id number]
== END 2022-08-19 08:17 | disposition home or self-care (01) ==
LOC: DI 08:16
PROVIDERS: ATTEND Orthopaedic Surgery
DX: M51.37 Other intervertebral disc degeneration, lumbosacral region (principal); M48.07 Spinal stenosis, lumbosacral region; M51.36 Other intervertebral disc degeneration, lumbar region; M48.061 Spinal stenosis, lumbar region without neurogenic claudication; M47.816 Spondylosis without myelopathy or radiculopathy, lumbar region; M47.817 Spondylosis without myelopathy or radiculopathy, lumbosacral region; M41.9 Scoliosis, unspecified

== ENCOUNTER 2022-09-04 15:51 | Emergency (ER) | payer MEDICARE, OTHER ==
[2022-09-04 16:01] VITALS: BP 127/62
--- OUTSIDE RECORDS SUMMARY | 2022-09-04 16:08 | EXTERNAL MEDICAL SUMMARY RPT | Continuity of Care Document ---
:1945 Author Organization [facility] Address [address] [place] [address] Phone Care Team Providers Name Role Phone Unavailable Unavailable Unavailable Shante Ferreira Unavailable Unavailable Allergies and Intolerances date description facility type (no date) No Known Drug Allergies [facility] (unkn own) Encounters No information. Functional Status No information. Immunizations No information. Medications date description facility 2022-08-11 00:00 Sertraline [facility] 2022-08-11 00:00 Omeprazole [facility] 2022-08-11 00:00 Metformin [facility] 2022-08-11 00:00 Levothyroxine [facility] Problems date description facility 2022-08-11 10:25 Abnormal [facility] 2022-08-11 10:46 Abnormal [facility] 2022-08-11 11:11 Abnormal [facility] 2022-08-11 12:29 Abnormal [facility] 2022-08-11 12:30 Abnormal [facility] 2022-08-11 12:39 Abnormal [facility] Procedures date description facility 2022-08-11 00:00 Colonoscopy [facility] Results/Labs test date author facility value unit interpret ation Result panel 1 (unknown) (no date) (unknown) (unknown) (no value) (units 191 39-5 unknown) (unknown) (no date) (unknown) (unknown) (no value) (units 226 33-2 unknown) (unknown) (no date) (unknown) (unknown) (no value) (units 226 34-0 unknown) (unknown) (no date) (unknown) (unknown) (no value) (units 226 37-3 unknown) (unknown) (no date) (unknown) (unknown) (no value) (units 495 60-6 unknown) (unknown) (no date) (unknown) (unknown) (no value) (units 527 97-8 unknown) (unknown) (no date) (unknown) (unknown) (no value) (units (un known) unknown) (unknown) (no date) (unknown) (unknown) (no value) (units (un known) unknown) (unknown) (no date) (unknown) (unknown) (no value) (units (un known) unknown) (unknown) (no date) (unknown) (unknown) (no value) (units (un known) unknown) (unknown) (no date) (unknown) (unknown) (no value) (units (un known) unknown) (unknown) (no date) (unknown) (unknown) (no value) (units (un known) unknown) Result panel 2 (unknown) (no (unknown) (unknown) (no value) (units (unk nown) date) unknown) (unknown) (no (unknown) (unknown) (past 8 hours): (units (unknown) date) unknown) (unknown) (no (unknown) (unknown) [id number] (units (unkno wn) date) unknown) (unknown) (no (unknown) (unknown) 10:51 (units (unkno wn) date) unknown) (unknown) (no (unknown) (unknown) 08/11/22 1128 (units ( unknown) date) unknown) (unknown) (no (unknown) (unknown) 08/11/22 (units (unkno wn) date) unknown) (unknown) (no (unknown) (unknown) 77-year-old (units (un known) date) female with unknown) chronically loose bowel movements, abnormal CT imaging, (unknown) (no (unknown) (unknown) Age/Sex: 77 / F (units (unknown) date) unknown) (unknown) (no (unknown) (unknown) Allergies (units (unkn own) date) unknown) (unknown) (no (unknown) (unknown) Allergy/AdvReac (units (unknown) date) Type Severity unknown) Reaction Status Date / Time (unknown) (no (unknown) (unknown) Appearance: (units (un known) date) grossly normal unknown) (unknown) (no (unknown) (unknown) Assessment + (units (u nknown) date) Plan narrative: unknown) (unknown) (no (unknown) (unknown) Assessment + (units (u nknown) date) Plan unknown) (unknown) (no (unknown) (unknown) Blood Pressure (units (unknown) date) 150/71 H unknown) (unknown) (no (unknown) (unknown) Cardio (units (unkno wn) date) unknown) (unknown) (no (unknown) (unknown) Chest (units (unkno wn) date) unknown) (unknown) (no (unknown) (unknown) Chest: normal (units ( unknown) date) inspection of the unknown) chest (unknown) (no (unknown) (unknown) Chief complaint: (units (unknown) date) SDC unknown) (unknown) (no (unknown) (unknown) Const (units (unkno wn) date) unknown) (unknown) (no (unknown) (unknown) Critical Care (units ( unknown) date) time: unknown) (unknown) (no (unknown) (unknown) : 1945 (units (unknown) date) Acct:[id number] unknown) (unknown) (no (unknown) (unknown) Date Patient (units (u nknown) date) Seen: 08/11/22 unknown) (unknown) (no (unknown) (unknown) Date of Service: (units (unknown) date) 08/11/22 unknown) (unknown) (no (unknown) (unknown) Effort + (units (unkno wn) date) Inspection: unknown) normal respiratory effort (unknown) (no (unknown) (unknown) Exam (units (unkno wn) date) unknown) (unknown) (no (unknown) (unknown) Extrem (units (unkno wn) date) unknown) (unknown) (no (unknown) (unknown) Eyes (units (unkno wn) date) unknown) (unknown) (no (unknown) (unknown) Family + Social (units (unknown) date) History unknown) (unknown) (no (unknown) (unknown) GI (units (unkno wn) date) unknown) (unknown) (no (unknown) (unknown) General: (units (unkno wn) date) appearance unknown) normal, both eyes and all related structures (unknown) (no (unknown) (unknown) General: (units (unkno wn) date) cooperative unknown) (unknown) (no (unknown) (unknown) General: no (units (un known) date) rashes or lesions unknown) noted (unknown) (no (unknown) (unknown) General: normal (units (unknown) date) to inspection and unknown) no pedal edema (unknown) (no (unknown) (unknown) General: patient (units (unknown) date) alert and patient unknown) awake (unknown) (no (unknown) (unknown) HENMT (units (unkno wn) date) unknown) (unknown) (no (unknown) (unknown) Head: normal to (units (unknown) date) inspection unknown) (unknown) (no (unknown) (unknown) History + (units (unkn own) date) Physical Report unknown) (unknown) (no (unknown) (unknown) History of (units (unk nown) date) Present Illness unknown) (unknown) (no (unknown) (unknown) History of (units (unk nown) date) abnormal imaging unknown) demonstrating TI thickening, tendency towards loose (unknown) (no (unknown) (unknown) Home Medications (units (unknown) date) and Allergies unknown) (unknown) (no (unknown) (unknown) Home Medications (units (unknown) date) unknown) (unknown) (no (unknown) (unknown) I spent a total (units (unknown) date) of [] minutes of unknown) critical care time on this patient's care (unknown) (no (unknown) (unknown) Inspection: (units (un known) date) normal to unknown) inspection (unknown) (no (unknown) (unknown) [facility] (units (unknown) date) [address] [place] [address] unknown) [place] [address] (unknown) (no (unknown) (unknown) Medication (units (unk nown) date) Instructions unknown) Recorded Confirmed Type (unknown) (no (unknown) (unknown) Meds (units (unkno wn) date) unknown) (unknown) (no (unknown) (unknown) Narrative: (units (unk nown) date) unknown) (unknown) (no (unknown) (unknown) Neck (units (unkno wn) date) unknown) (unknown) (no (unknown) (unknown) Neck: normal (units (u nknown) date) visual inspection unknown) (unknown) (no (unknown) (unknown) Neuro (units (unkno wn) date) unknown) (unknown) (no (unknown) (unknown) No Known Drug (units ( unknown) date) Allergies Allergy unknown) Verified 08/11/22 11:06 (unknown) (no (unknown) (unknown) Oxygen Delivery (units (unknown) date) Method Room Air unknown) (unknown) (no (unknown) (unknown) Patient History (units (unknown) date) unknown) (unknown) (no (unknown) (unknown) Patient: (units (unkno wn) date) Maricruz Mcguire unknown) MR#: [id number] (unknown) (no (unknown) (unknown) Provider: (units (unkn own) date) Maikel Almanza MD unknown) (unknown) (no (unknown) (unknown) Psych (units (unkno wn) date) unknown) (unknown) (no (unknown) (unknown) Pulse Oximetry (units (unknown) date) 100 unknown) (unknown) (no (unknown) (unknown) Pulse Rate 64 (units ( unknown) date) unknown) (unknown) (no (unknown) (unknown) ROS: Yes All (units (u nknown) date) systems reviewed unknown) with the patient and are negative except as (unknown) (no (unknown) (unknown) Rate: regular (units ( unknown) date) rate unknown) (unknown) (no (unknown) (unknown) Resp (units (unkno wn) date) unknown) (unknown) (no (unknown) (unknown) Respiratory Rate (units (unknown) date) 16 unknown) (unknown) (no (unknown) (unknown) Review of (units (unkn own) date) Systems unknown) (unknown) (no (unknown) (unknown) Signed (units (unkno wn) date) By:<Electronicall unknown) y signed by Maikel Almanza MD> (unknown) (no (unknown) (unknown) Skin (units (unkno wn) date) unknown) (unknown) (no (unknown) (unknown) Smoking Status (units (unknown) date) Former smoker unknown) (unknown) (no (unknown) (unknown) Social History: (units (unknown) date) unknown) (unknown) (no (unknown) (unknown) Substance Use (units ( unknown) date) Type marijuana unknown) (unknown) (no (unknown) (unknown) Temperature 97.7 (units (unknown) date) F unknown) (unknown) (no (unknown) (unknown) Time Patient (units (u nknown) date) Seen: 11:27 unknown) (unknown) (no (unknown) (unknown) Time Spent With (units (unknown) date) Patient unknown) (unknown) (no (unknown) (unknown) Tobacco + (units (unkn own) date) Substance use: unknown) (unknown) (no (unknown) (unknown) Vital Signs (units (un known) date) unknown) (unknown) (no (unknown) (unknown) alcohol intake (units (unknown) date) current unknown) (unknown) (no (unknown) (unknown) alcohol intake (units (unknown) date) frequency 0-2 unknown) drinks per day (unknown) (no (unknown) (unknown) and improved (units (u nknown) date) abdominal pain unknown) symptoms here for repeat colonoscopy. (unknown) (no (unknown) (unknown) gabapentin 300 (units (unknown) date) mg tablet 300 mg unknown) PO DAILY 08/11/22 08/11/22 History (unknown) (no (unknown) (unknown) household (units (unkn own) date) members spouse unknown) (unknown) (no (unknown) (unknown) levothyroxine 25 (units (unknown) date) mcg tablet mcg PO unknown) DIRECTED 08/11/22 History (unknown) (no (unknown) (unknown) omeprazole 20 mg (units (unknown) date) tablet,delayed 20 unknown) mg PO DAILY 08/11/22 08/11/22 History (unknown) (no (unknown) (unknown) otherwise (units (unkn own) date) documented unknown) (unknown) (no (unknown) (unknown) release (units (unkno wn) date) unknown) (unknown) (no (unknown) (unknown) stools. Patient (units (unknown) date) reports that unknown) symptoms of abdominal pain have abated. (unknown) (no (unknown) (unknown) today; this time (units (unknown) date) is exclusive of unknown) procedural time. Result panel 3 (unknown) (no date) (unknown) (unknown) (no value) (units (un known) unknown) (unknown) (no date) (unknown) (unknown) [id number] (units (unkn own) unknown) (unknown) (no date) (unknown) (unknown) 08/11/22 1128 (units (unknown) unknown) (unknown) (no date) (unknown) (unknown) ASA Class (for (units (unknown) procedural unknown) sedation): II (unknown) (no date) (unknown) (unknown) Age/Sex: 77 / (units (unknown) F unknown) (unknown) (no date) (unknown) (unknown) COVID-19 (units (unkn own) status: unknown) Negative (unknown) (no date) (unknown) (unknown) COVID-19 (units (unkn own) unknown) (unknown) (no date) (unknown) (unknown) Changes to (units (un known) H+P: Yes unknown) (unknown) (no date) (unknown) (unknown) Criteria for (units ( unknown) continued unknown) procedure: Possibility delay results in more complex (unknown) (no date) (unknown) (unknown) : (units (unkn own) 1945 unknown) Acct:[id number] (unknown) (no date) (unknown) (unknown) Date of (units (unkn own) Service: unknown) 08/11/22 (unknown) (no date) (unknown) (unknown) History + (units (unk nown) Physical unknown) reviewed/Exam performed by Physician: Yes (unknown) (no date) (unknown) (unknown) Interval Note (units (unknown) unknown) (unknown) (no date) (unknown) (unknown) [place] (units (unkn own) [place] [id number] unknown) [address] [place] [address] (unknown) (no date) (unknown) (unknown) Patient: (units (unkn own) Maricruz Mcguire unknown) Carol MR#: [id number] (unknown) (no date) (unknown) (unknown) Pre-operative (units (unknown) Note unknown) (unknown) (no date) (unknown) (unknown) Provider: (units (unk nown) Maikel Almanza unknown) (unknown) (no date) (unknown) (unknown) Result (units (unkn own) date/Date unknown) tested (Pos, Neg/Pending): 08/08/22 (unknown) (no date) (unknown) (unknown) Signed (units (unkn own) By:<Electronica unknown) lly signed by Maikel Almanza MD> (unknown) (no date) (unknown) (unknown) future surgery (units (unknown) or treatment unknown) Result panel 4 (unknown) (no (unknown) (unknown) (no value) (units (unk nown) date) unknown) (unknown) (no (unknown) (unknown) (units (unknown) date) unknown) (unknown) (no (unknown) (unknown) Performed at: (units (unknown) date) 01 unknown) (unknown) (no (unknown) (unknown) . 01 (units (unkno wn) date) unknown) (unknown) (no (unknown) (unknown) . (units (unkno wn) date) unknown) (unknown) (no (unknown) (unknown) /CPE 08/12/2022 (units (unknown) date) 0907 Local unknown) (unknown) (no (unknown) (unknown) 0.2 x 0.2 x 0.1 (units (unknown) date) cm to 0.1 x 0.1 x unknown) 0.1 cm submitted entirely in 1 (unknown) (no (unknown) (unknown) [address] [place] [address] (units (unknown) date) unknown) (unknown) (no (unknown) (unknown) [address] [place] [address] (units (unknown) date) [address], unknown) [place], [place] [id number] (unknown) (no (unknown) (unknown) [id number] (units (unkno wn) date) unknown) (unknown) (no (unknown) (unknown) [place], [place] (units ( unknown) date) [id number] unknown) (unknown) (no (unknown) (unknown) CPT . (units (unkno wn) date) unknown) (unknown) (no (unknown) (unknown) Collection Date: (units (unknown) date) 08/11/22 unknown) (unknown) (no (unknown) (unknown) Colonic mucosa (units (unknown) date) with no unknown) diagnostic abnormality. (unknown) (no (unknown) (unknown) DD/ (units (unknown) date) 0000 unknown) (unknown) (no (unknown) (unknown) Date of : (units (unknown) date) 1945 Admit unknown) Date: 08/11/22 (unknown) (no (unknown) (unknown) Diagnosis: (units (unk nown) date) unknown) (unknown) (no (unknown) (unknown) Dictated By: (units (u nknown) date) Carole Cantu unknown) (unknown) (no (unknown) (unknown) Electronically (units (unknown) date) signed: . unknown) (unknown) (no (unknown) (unknown) Gross (units (unkno wn) date) description: . unknown) (unknown) (no (unknown) (unknown) [facility] (units (unknown) date) unknown) (unknown) (no (unknown) (unknown) JN 08/13/2022 (units (unknown) date) 1607 Local unknown) (unknown) (no (unknown) (unknown) Carole Bello (units (unk nown) date) MD [place], unknown) Pathologist (unknown) (no (unknown) (unknown) [facility] (units ( unknown) date) Number: unknown) [id number] (unknown) (no (unknown) (unknown) [facility] (units (unknown) date) [place] [facility] unknown) (unknown) (no (unknown) (unknown) MD [place] (units (unkn own) date) Patricia [facility] Phone: unknown) [phone] (unknown) (no (unknown) (unknown) (units (unknown) date) Dictating Dr: unknown) Carole Cantu MD (unknown) (no (unknown) (unknown) Material (units (unkno wn) date) submitted: . unknown) (unknown) (no (unknown) (unknown) NPI- [id number] (units (unknown) date) unknown) (unknown) (no (unknown) (unknown) Negative for (units (u nknown) date) active, chronic, unknown) and microscopic colitis. (unknown) (no (unknown) (unknown) Negative for (units (u nknown) date) dysplasia and unknown) malignancy. (unknown) (no (unknown) (unknown) Ordering (units (unkno wn) date) Physician: unknown) Maikel Almanza MD (unknown) (no (unknown) (unknown) Pathologist (units (un known) date) provided ICD-10: unknown) (unknown) (no (unknown) (unknown) Pathology (units (unkn own) date) Diagnostic Report unknown) (unknown) (no (unknown) (unknown) Patient name: (units ( unknown) date) Maricruz Mcguire unknown) (unknown) (no (unknown) (unknown) R63.4 (units (unkno wn) date) unknown) (unknown) (no (unknown) (unknown) RANDOM COLON: (units ( unknown) date) unknown) (unknown) (no (unknown) (unknown) Random Colon, (units ( unknown) date) Biopsy: unknown) (unknown) (no (unknown) (unknown) Received in (units (un known) date) formalin are 3 unknown) fragment(s) of guadarrama, soft tissue measuring (unknown) (no (unknown) (unknown) Signed By: (units (unk nown) date) 08/13/222034 unknown) (unknown) (no (unknown) (unknown) Signed (units (unkno wn) date) unknown) (unknown) (no (unknown) (unknown) Specimen (units (unkno wn) date) Comment: A unknown) courtesy copy of this report has been sent to [phone] (unknown) (no (unknown) (unknown) TD/TT: 08/13/22 (units (unknown) date) 2034 unknown) (unknown) (no (unknown) (unknown) cassette(s) (units (un known) date) unknown) (unknown) (no (unknown) (unknown) colon - RANDOM (units (unknown) date) COLON unknown) Result panel 5 (unknown) (no (unknown) (unknown) (no value) (units (unk nown) date) unknown) (unknown) (no (unknown) (unknown) [id number] (units (unkno wn) date) unknown) (unknown) (no (unknown) (unknown) 1. Await (units (unkno wn) date) histopathology. unknown) 2. Continue fiber based bowel regimen (unknown) (no (unknown) (unknown) 1. (units (unkno wn) date) Diverticulosis unknown) (unknown) (no (unknown) (unknown) 08/11/22 1155 (units ( unknown) date) unknown) (unknown) (no (unknown) (unknown) 2. Grade 3 (units (unk nown) date) nonthrombosed unknown) hemorrhoids (unknown) (no (unknown) (unknown) After the risks (units (unknown) date) and benefits were unknown) explained, written and verbal informed consent (unknown) (no (unknown) (unknown) Age/Sex: 77 / F (units (unknown) date) unknown) (unknown) (no (unknown) (unknown) Bowel prep (units (unk nown) date) adequate unknown) (unknown) (no (unknown) (unknown) Colonoscopy Note (units (unknown) date) unknown) (unknown) (no (unknown) (unknown) Colonoscopy (units (un known) date) unknown) (unknown) (no (unknown) (unknown) Complications: (units (unknown) date) none unknown) (unknown) (no (unknown) (unknown) Comprehensive (units ( unknown) date) imaging was unknown) accomplished throughout the rectum including the (unknown) (no (unknown) (unknown) : 1945 (units (unknown) date) Acct:[id number] unknown) (unknown) (no (unknown) (unknown) Date of Service: (units (unknown) date) 08/11/22 unknown) (unknown) (no (unknown) (unknown) Date of (units (unkno wn) date) procedure: unknown) 08/11/22 (unknown) (no (unknown) (unknown) Disposition: (units (u nknown) date) PACU unknown) (unknown) (no (unknown) (unknown) Endoscopic (units (unk nown) date) diagnosis unknown) (unknown) (no (unknown) (unknown) Grade 3 (units (unkno wn) date) nonthrombosed unknown) nonbleeding hemorrhoids were noted on digital exam. There (unknown) (no (unknown) (unknown) Impression: (units (un known) date) unknown) (unknown) (no (unknown) (unknown) Indications: (units (u nknown) date) unknown) (unknown) (no (unknown) (unknown) [facility] (units (unknown) date) [address] unknown) [place] [address] (unknown) (no (unknown) (unknown) Multiple (units (unkno wn) date) photographs were unknown) taken. (unknown) (no (unknown) (unknown) Operative (units (unkn own) date) Date/Time/Diagnos unknown) es (unknown) (no (unknown) (unknown) Patient: (units (unkno wn) date) Maricruz Mcguire unknown) MR#: [id number] (unknown) (no (unknown) (unknown) Pediatric (units (unkn own) date) colonoscope unknown) (unknown) (no (unknown) (unknown) Plan for (units (unkno wn) date) aftercare: unknown) (unknown) (no (unknown) (unknown) Post-op (units (unkno wn) date) diagnosis: same unknown) (unknown) (no (unknown) (unknown) Post-procedure (units (unknown) date) unknown) (unknown) (no (unknown) (unknown) Pre-op (units (unkno wn) date) diagnosis: unknown) Abnormal imaging, right lower quadrant pain, diarrhea (unknown) (no (unknown) (unknown) Procedure + (units (un known) date) Clinicians unknown) (unknown) (no (unknown) (unknown) Procedure Notes (units (unknown) date) unknown) (unknown) (no (unknown) (unknown) Procedure in (units (u nknown) date) detail: unknown) (unknown) (no (unknown) (unknown) Provider: (units (unkn own) date) Maikel Almanza MD unknown) (unknown) (no (unknown) (unknown) Right lower (units (un known) date) quadrant pain unknown) (since resolved), abnormal imaging, diarrhea (unknown) (no (unknown) (unknown) SCOAP/Timeout: (units (unknown) date) Done unknown) (unknown) (no (unknown) (unknown) Same procedure (units (unknown) date) as scheduled: Yes unknown) (unknown) (no (unknown) (unknown) Scope withdrawal (units (unknown) date) time: 10 minutes unknown) (unknown) (no (unknown) (unknown) Sedation (units (unkno wn) date) minutes: 26 unknown) (unknown) (no (unknown) (unknown) Signed (units (unkno wn) date) By:<Electronicall unknown) y signed by Maikel Almanza MD> (unknown) (no (unknown) (unknown) Study performed: (units (unknown) date) unknown) (unknown) (no (unknown) (unknown) Surgeon: Maikel (units (unknown) date) Archie unknown) (unknown) (no (unknown) (unknown) Time of (units (unkno wn) date) procedure: 11:53 unknown) (unknown) (no (unknown) (unknown) as identified by (units (unknown) date) the appendiceal unknown) orifice and ileocecal valve. The scope was (unknown) (no (unknown) (unknown) colitis. The (units (u nknown) date) terminal ileum unknown) was interrogated and appeared entirely normal. (unknown) (no (unknown) (unknown) dentate line. (units ( unknown) date) The colon was unknown) decompressed, the scope was then removed from the (unknown) (no (unknown) (unknown) introduced into (units (unknown) date) the patient and unknown) advanced under direct visualization to the cecum (unknown) (no (unknown) (unknown) patient who (units (un known) date) tolerated the unknown) procedure well. (unknown) (no (unknown) (unknown) procto colitis. (units (unknown) date) Random colon unknown) biopsies were taken for exclusion of microscopic (unknown) (no (unknown) (unknown) sedation (units (unkno wn) date) details. Digital unknown) rectal examination was accomplished. The scope was (unknown) (no (unknown) (unknown) slowly withdrawn (units (unknown) date) to carefully unknown) examine the mucosa for any defects or lesions. (unknown) (no (unknown) (unknown) the left lateral (units (unknown) date) decubitus unknown) position. Please see nurse window maker notes for (unknown) (no (unknown) (unknown) was evidence of (units (unknown) date) scattered unknown) diverticulosis throughout the sigmoid. No evidence of (unknown) (no (unknown) (unknown) was obtained. (units ( unknown) date) The patient was unknown) brought into the procedure room and placed into [employer] History date description facility 2022-08-11 00:00 Ex-smoker ([facility] Vital Signs date measurement value units 2022-08-11 00:00 BMI 21.6 kg/m2 2022-08-11 00:00 BP_diastolic 66 mmHg 2022-08-11 00:00 BP_systolic 106 mmHg 2022-08-11 00:00 heart_rate 67 /min 2022-08-11 00:00 height_metric 162.56 cm 2022-08-11 00:00 height_standard 64 in 2022-08-11 00:00 o2_saturation 100 % 2022-08-11 00:00 respiration_rate 16 /min 2022-08-11 00:00 temperature_metric 36.33 C 2022-08-11 00:00 temperature_standard 97.4 F 2022-08-11 00:00 weight_metric 57.15 kg 2022-08-11 00:00 weight_standard 125.99 lb
== END 2022-09-04 16:05 | disposition left against medical advice (07) ==
LOC: ED 15:51
DX: Z53.21 Procedure and treatment not carried out due to patient leaving prior to being seen by health care provider (principal)

== ENCOUNTER 2022-09-14 15:16 | Emergency (ER) | payer MEDICARE, OTHER ==
--- OUTSIDE RECORDS SUMMARY | 2022-09-14 15:39 | EXTERNAL MEDICAL SUMMARY RPT | Continuity of Care Document ---
:1945 Author Organization [place] Address [address] [place] [address] Phone Care Team Providers Name Role Phone Unavailable Unavailable Unavailable Shante Ferreira Unavailable Unavailable Allergies and Intolerances date description facility type (no date) No Known Drug Allergies [facility] (unkn own) Encounters No information. Functional Status No information. Immunizations No information. Medications date description facility 2022-09-04 00:00 Oxycodone-Acetaminophen [facility] 2022-09-04 00:00 Naproxen [facility] 2022-09-04 00:00 Prednisone [facility] 2022-08-11 00:00 Sertraline [facility] 2022-08-11 00:00 Omeprazole [facility] 2022-09-04 00:00 Amoxicillin-Pot Clavulanate [facility] 2022-08-11 00:00 Metformin [facility] 2022-08-11 00:00 Levothyroxine [facility] Problems date description facility 2022-08-11 10:25 Abnormal weight [facility] 2022-08-11 10:46 Abnormal [facility] 2022-08-11 11:11 Abnormal [facility] 2022-08-11 12:29 Abnormal [facility] 2022-08-11 12:30 Abnormal [facility] 2022-08-11 12:39 Abnormal [facility] 2022-09-04 00:00 Acute parotitis [facility] 2022-09-04 00:00 Lung nodule [facility] Procedures date description facility 2022-09-04 00:00 Ultrasound of soft tissue of head and n jose david [facility] 2022-09-04 00:00 CT soft tissue neck w con [facility] 2022-08-11 00:00 Colonoscopy [facility] Results/Labs test date author facility value unit interpret ation Result panel 1 (unknown) (no date) ([facility] Result panel 2 (unknown) (no date) (unknown[facility]) Result panel 3 (unknown) (no date) (unknown[facility]) Result panel 4 (unknown) (no date) (unknown[facility]) Result panel 5 (unknown) (no date) (unknown[facility]) Result panel 6 (unknown) (no date) (unknown[facility]) Result panel 7 (unknown) (no date) (unknown[facility]) Result panel 8 (unknown) (no date) (unknown[facility]) Result panel 9 (unknown) (no date) (unknown[facility]) Result panel 10 (unknown) (no date) (unknown[facility]) Result panel 11 (unknown) (no date) (unknown[facility]) Result panel 12 (unknown) (no date) (unknown[facility]) Result panel 13 (unknown) (no date) (unknown[facility]) Result panel 14 (unknown) (no date) (unknown[facility]) Result panel 15 (unknown) (no date) (unknown[facility]) Result panel 16 (unknown) (no date) (unknown[facility]) Result panel 17 (unknown) (no date) (unknown[facility]) Result panel 18 (unknown) (no date) (unknown[facility]) Result panel 19 (unknown) (no date) (unknown[facility]) Result panel 20 (unknown) (no date) (unknown[facility]) Result panel 21 (unknown) (no date) (unknown[facility]) Result panel 22 (unknown) (no date) (unknown[facility]) Result panel 23 (unknown) (no date) (unknown[facility]) Result panel 24 (unknown) (no date) (unknown[facility]) Result panel 25 (unknown) (no date) (unknown[facility]) Result panel 26 (unknown) (no date) (unknown[facility]) Result panel 27 (unknown) (no date) (unknown[facility]) Result panel 28 (unknown) (no date) (unknown[facility]) Result panel 29 (unknown) (no date) (unknown[facility]) Result panel 30 (unknown) (no date) (unknown[facility]) Result panel 31 (unknown) (no date) (unknown[facility]) Result panel 32 (unknown) (no date) (unknown[facility]) Result panel 33 (unknown) (no date) (unknown[facility]) Result panel 34 (unknown) (no date) (unknown[facility]) Result panel 35 (unknown) (no date) (unknown[facility]) Result panel 36 (unknown) (no date) (unknown[facility]) Result panel 37 (unknown) (no date) (unknown[facility]) Result panel 38 (unknown) (no date) (unknown[facility]) Result panel 39 (unknown) (no date) (unknown) [facility]) Result panel 40 (unknown) (no date) (unknown) [facility]) Result panel 41 (unknown) (no date) (unknown[facility]) Result panel 42 (unknown) (no date) (unknown[facility]) Result panel 43 (unknown) (no date) (unknown) [facility]) Result panel 44 (unknown) (no date) (unknown) [facility]) Result panel 45 (unknown) (no date) (unknown[facility]) Result panel 46 (unknown) (no date) (unknown) [facility]) Result panel 47 (unknown) (no date) (unknown) [facility]) Result panel 48 (unknown) (no date) (unknown) [facility]) Result panel 49 (unknown) (no date) (unknown) [facility]) Result panel 50 (unknown) (no date) (unknown) [facility]) Result panel 51 (unknown) (no date) (unknown) [facility]) Result panel 52 (unknown) (no date) (unknown) [facility]) Result panel 53 (unknown) (no date) (unknown) [facility]) Result panel 54 (unknown) (no date) (unknown) [facility]) Result panel 55 (unknown) (no date) (unknown) [facility]) Result panel 56 (unknown) (no date) (unknown) [facility]) Result panel 57 (unknown) (no date) (unknown) [facility]) Result panel 58 (unknown) (no date) (unknown) [facility]) Result panel 59 (unknown) (no date) (unknown[facility]) Result panel 60 (unknown) (no date) (unknown) [facility]) Result panel 61 (unknown) (no date) (unknown) [facility]) Result panel 62 (unknown) (no date) (unknown) [facility]) Result panel 63 (unknown) (no date) (unknown) [facility]) Result panel 64 (unknown) (no date) (unknown) [facility]) Result panel 65 (unknown) (no date) (unknown) [facility]) Result panel 66 (unknown) (no date) (unknown) [facility]) Result panel 67 (unknown) (no date) (unknown) [facility]) Result panel 68 (unknown) (no date) (unknown) [facility]) Result panel 69 (unknown) (no date) (unknown) [facility]) Result panel 70 (unknown) (no date) (unknown) [facility]) Result panel 71 (unknown) (no date) (unknown) [facility]) Result panel 72 (unknown) (no date) (unknown) [facility]) Result panel 73 (unknown) (no date) (unknown) [facility]) Result panel 74 (unknown) (no date) (unknown) [facility]) Result panel 75 (unknown) (no date) (unknown) [facility]) Result panel 76 (unknown) (no date) (unknown) [facility]) Result panel 77 (unknown) (no date) (unknown) [facility]) Result panel 78 (unknown) (no date) (unknown) [facility]) Result panel 79 (unknown) (no date) (unknown) [facility]) Result panel 80 (unknown) (no date) (unknown) [facility]) Result panel 81 (unknown) (no date) (unknown) [facility]) Result panel 82 (unknown) (no date) (unknown) (unknown) (no value) [...] value) (units (un known) unknown) Result panel 83 (unknown) (no (unknown) (unknown) (no value) (units (unk nown) date) unknown) (unknown) (no (unknown) (unknown) (past 8 hours): (units (unknown) date) unknown) (unknown) (no (unknown) (unknown) [id number] (units (unkno wn) date) unknown) (unknown) (no [...] (unknown) (unknown) : 1945 (units (unknown) date) Acct:[id number] unknown) (unknown) (no (unknown) (unknown) Date Patient [...] to unknown) inspection (unknown) (no (unknown) (unknown) [facility] (units (unknown) date) [address] [place] [address] Street unknown) [place] [address] (unknown) (no (unknown) (unknown) Medication (units (unk [...] (unknown) Patient: (units (unkno wn) date) Maricruz Hodges unknown) MR#: [id number] (unknown) (no (unknown) (unknown) [...] exclusive of unknown) procedural time. Result panel 84 (unknown) (no date) (unknown) (unknown) (no value) (units (un known) unknown) (unknown) (no date) (unknown) (unknown) [id number] (units (unkn own) unknown) (unknown) (no date) [...] (unknown) : (units (unkn own) 1945 unknown) Acct:[id number] (unknown) (no date) (unknown) (unknown) Date of (units (unkn own) Service: unknown) 08/11/22 (unknown) (no date) (unknown) (unknown) History + (units (unk nown) Physical unknown) reviewed/Exam performed by Physician: Yes (unknown) (no date) (unknown) (unknown) Interval Note (units (unknown) unknown) (unknown) (no date) (unknown) (unknown) [facility] (units (unkn own) [place] [address] unknown) [address] [place] [id number] (unknown) (no date) (unknown) (unknown) Patient: (units (unkn own) Maricruz Hodges unknown) L MR#: [id number] (unknown) (no date) (unknown) (unknown) [...] (units (unknown) or treatment unknown) Result panel 85 (unknown) (no (unknown) (unknown) (no value) (units [...] in 1 (unknown) (no (unknown) (unknown) 12[address] [facility] (units (unknown) date) unknown) (unknown) (no (unknown) (unknown) [address] [place] [address] (units (unknown) date) [address], unknown) [place], [place] [id number] (unknown) (no (unknown) (unknown) [id number] (units (unkno wn) date) unknown) (unknown) (no (unknown) (unknown) [place] (units ( unknown) date) [address] unknown) (unknown) (no (unknown) (unknown) CPT . [...] description: . unknown) (unknown) (no (unknown) (unknown) [facility] (units (unknown) date) unknown) (unknown) (no (unknown) (unknown) JN 08/13/2022 (units (unknown) date) 1607 Local unknown) (unknown) (no (unknown) (unknown) Carole Bello (units (unk nown) date) MD [place], unknown) Pathologist (unknown) (no (unknown) (unknown) [facility] (units ( unknown) date) Number: unknown) [id number] (unknown) (no (unknown) (unknown) [facility] (units (unknown) date) [place] [facility] unknown) (unknown) (no (unknown) (unknown) MD [place] (units (unkn own) date) Patricia HAMM Phone: unknown) [phone] (unknown) (no (unknown) (unknown) (units (unknown) date) Dictating Dr: unknown) Carole Cantu MD (unknown) (no (unknown) (unknown) Material (units (unkno wn) date) submitted: . unknown) (unknown) (no (unknown) (unknown) NPI- [id number] (units (unknown) date) unknown) (unknown) (no (unknown) [...] Patient name: (units ( unknown) date) Maricruz Hodges unknown) (unknown) (no (unknown) (unknown) R63.4 (units [...] of this report has been sent to [phone] (unknown) (no (unknown) (unknown) TD/TT: 08/13/22 (units (unknown) date) 2034 unknown) (unknown) (no (unknown) (unknown) cassette(s) (units (un known) date) unknown) (unknown) (no (unknown) (unknown) colon - RANDOM (units (unknown) date) COLON unknown) Result panel 86 (unknown) (no (unknown) (unknown) (no value) (units (unk nown) date) unknown) (unknown) (no (unknown) (unknown) [id number] (units (unkno wn) date) unknown) (unknown) (no [...] (unknown) (unknown) : 1945 (units (unknown) date) Acct:[id number] unknown) (unknown) (no (unknown) (unknown) Date of [...] nknown) date) unknown) (unknown) (no (unknown) (unknown) [facility] (units (unknown) date) [address] unknown) [place] [address] (unknown) (no (unknown) (unknown) Multiple (units (unkno wn) date) photographs were unknown) taken. (unknown) (no (unknown) (unknown) Operative (units (unkn own) date) Date/Time/Diagnos unknown) es (unknown) (no (unknown) (unknown) Patient: (units (unkno wn) date) Maricruz Hodges unknown) MR#: [id number] (unknown) (no (unknown) (unknown) [...] date) decubitus unknown) position. 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 No evidence of (unknown) (no (unknown) (unknown) was obtained. (units ( unknown) date) The patient was unknown) brought into the procedure room and placed into Result panel 87 (unknown) (no (unknown) (unknown) (no value) (units (unk nown) date) unknown) (unknown) (no (unknown) (unknown) [id number] (units (unkno wn) date) unknown) (unknown) (no (unknown) (unknown) 09/04/22 19:37 (units (unknown) date) unknown) (unknown) (no (unknown) (unknown) 09/04/22 (units (unkno wn) date) unknown) (unknown) (no (unknown) (unknown) 10 mg PO DAILY (units (unknown) date) unknown) (unknown) (no (unknown) (unknown) 17:25 09/04/22 (units (unknown) date) unknown) (unknown) (no (unknown) (unknown) 18:55 09/04/22 (units (unknown) date) unknown) (unknown) (no (unknown) (unknown) 18:56 09/04/22 (units (unknown) date) unknown) (unknown) (no (unknown) (unknown) 18:56 (units (unkno wn) date) unknown) (unknown) (no (unknown) (unknown) 19:00 09/04/22 (units (unknown) date) unknown) (unknown) (no (unknown) (unknown) 19:00 (units (unkno wn) date) unknown) (unknown) (no (unknown) (unknown) 20 mg PO DAILY (units (unknown) date) unknown) (unknown) (no (unknown) (unknown) 25 mcg PO (units (u nknown) date) DIRECTED unknown) (unknown) (no (unknown) (unknown) 300 mg PO DAILY (units (unknown) date) unknown) (unknown) (no (unknown) (unknown) 50 mg PO DAILY (units (unknown) date) unknown) (unknown) (no (unknown) (unknown) 500 mg PO DAILY (units (unknown) date) unknown) (unknown) (no (unknown) (unknown) Age/Sex: 77 / F (units (unknown) date) unknown) (unknown) (no (unknown) (unknown) Allergies (units (unkn own) date) unknown) (unknown) (no (unknown) (unknown) Allergy/AdvReac (units (unknown) date) Type Severity unknown) Reaction Status Date / Time (unknown) (no (unknown) (unknown) Blood Pressure (units (unknown) date) 125/60 09/04/22 unknown) 17:25 (unknown) (no (unknown) (unknown) Blood Pressure (units (unknown) date) 125/60 140/65 unknown) (unknown) (no (unknown) (unknown) Blood Pressure (units (unknown) date) 125/66 unknown) (unknown) (no (unknown) (unknown) CBC Auto Diff (units ( unknown) date) [Complete Blood unknown) Count AUTO DIFF] Stat (unknown) (no (unknown) (unknown) CMP (units (unkno wn) date) [Comprehensive unknown) Metabolic Panel] Stat (unknown) (no (unknown) (unknown) COVID19 -Nasal (units (unknown) date) RAPID/Pre-Proc unknown) Stat (unknown) (no (unknown) (unknown) CRP [C-Reactive (units (unknown) date) Protein Quant] unknown) Stat (unknown) (no (unknown) (unknown) Chief complaint: (units (unknown) date) Skin/Abscess/Fore unknown) ign Body (unknown) (no (unknown) (unknown) Course (units (unkno wn) date) unknown) (unknown) (no (unknown) (unknown) : 1945 (units (unknown) date) Acct:[id number] unknown) (unknown) (no (unknown) (unknown) Date of Service: (units (unknown) date) 09/04/22 unknown) (unknown) (no (unknown) (unknown) Departure (units (unkn own) date) unknown) (unknown) (no (unknown) (unknown) Dexamethasone (units ( unknown) date) (Dexamethasone 10 unknown) Mg/Ml Vial) 10 mg PO NOW ONE (unknown) (no (unknown) (unknown) Discharge Plan (units (unknown) date) unknown) (unknown) (no (unknown) (unknown) Discontinued (units (u nknown) date) Medications unknown) (unknown) (no (unknown) (unknown) Documented By: (units (unknown) date) OW unknown) (unknown) (no (unknown) (unknown) ED Orders (units (unkn own) date) unknown) (unknown) (no (unknown) (unknown) ER Physician: (units ( unknown) date) Carole Pulido unknown) 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 (unknown) (no (unknown) (unknown) Emergency Report (units (unknown) date) unknown) (unknown) (no (unknown) (unknown) Exam (units (unkno wn) date) unknown) (unknown) (no (unknown) (unknown) General (units (unkno wn) date) unknown) (unknown) (no (unknown) (unknown) Alexandra Sauceda, (units ( unknown) date) PA-C [Primary unknown) Care Provider] (unknown) (no (unknown) (unknown) HPI - (units (unkno wn) date) Skin/Abscess/Fore unknown) ign Bdy (unknown) (no (unknown) (unknown) HPI narrative: (units (unknown) date) unknown) (unknown) (no (unknown) (unknown) History of (units (unk nown) date) Present Illness unknown) (unknown) (no (unknown) (unknown) Home Medications (units (unknown) date) unknown) (unknown) (no (unknown) (unknown) Initial Vital (units ( unknown) date) Signs unknown) (unknown) (no (unknown) (unknown) Initial Vital (units ( unknown) date) Signs: unknown) (unknown) (no (unknown) (unknown) [facility] (units (unknown) date) [address] [place] [address] unknown) [place] [address] (unknown) (no (unknown) (unknown) Ketorolac (units (unkn own) date) Tromethamine unknown) (Ketorolac 30 Mg/Ml Vial) 15 mg IM NOW ONE (unknown) (no (unknown) (unknown) Last Admin: (units (un known) date) 09/04/22 19:28 unknown) Dose: 1 tab (unknown) (no (unknown) (unknown) Last Admin: (units (un known) date) 09/04/22 19:28 unknown) Dose: 15 mg (unknown) (no (unknown) (unknown) Last Admin: (units (un known) date) 09/04/22 19:34 unknown) Dose: Not Given (unknown) (no (unknown) (unknown) Last Admin: (units (un known) date) 09/04/22 19:45 unknown) Dose: 10 mg (unknown) (no (unknown) (unknown) Lidocaine HCl (units ( unknown) date) (Lidocaine 2% Inj unknown) Sdv) 5 ml INJ INTRA-OP ONE (unknown) (no (unknown) (unknown) Limitations: no (units (unknown) date) limitations unknown) (unknown) (no (unknown) (unknown) Medication (units (unk nown) date) Instructions unknown) Recorded Confirmed (unknown) (no (unknown) (unknown) Mode of arrival: (units (unknown) date) Family Vehicle unknown) (unknown) (no (unknown) (unknown) No Action (units (unkn own) date) unknown) (unknown) (no (unknown) (unknown) No Known Drug (units ( unknown) date) Allergies Allergy unknown) Verified 08/11/22 11:06 (unknown) (no (unknown) (unknown) Ordered: (units (unkno wn) date) unknown) (unknown) (no (unknown) (unknown) Orders (units (unkno wn) date) unknown) (unknown) (no (unknown) (unknown) Oxycodone/Acetam (units (unknown) date) inophen unknown) (Oxycodone/Acetam inophen 5/325 Tablet) 1 tab PO NOW ONE (unknown) (no (unknown) (unknown) Oxygen Delivery (units (unknown) date) Method 09/04/22 unknown) 17:25 (unknown) (no (unknown) (unknown) Oxygen Delivery (units (unknown) date) Method Room Air unknown) (unknown) (no (unknown) (unknown) Oxygen Delivery (units (unknown) date) Method unknown) (unknown) (no (unknown) (unknown) Patient History (units (unknown) date) unknown) (unknown) (no (unknown) (unknown) Patient: (units (unkno wn) date) Maricruz Hodges unknown) MR#: [id number] (unknown) (no (unknown) (unknown) Prescriptions: (units (unknown) date) unknown) (unknown) (no (unknown) (unknown) Procalcitonin (units ( unknown) date) Stat unknown) (unknown) (no (unknown) (unknown) Pulse Oximetry (units (unknown) date) 100 09/04/22 unknown) 17:25 (unknown) (no (unknown) (unknown) Pulse Oximetry (units (unknown) date) 100 100 unknown) (unknown) (no (unknown) (unknown) Pulse Rate 74 74 (units (unknown) date) unknown) (unknown) (no (unknown) (unknown) Pulse Rate 79 (units ( unknown) date) 01/05/23 17:25 unknown) (unknown) (no (unknown) (unknown) Pulse Rate 79 73 (units (unknown) date) unknown) (unknown) (no (unknown) (unknown) Referrals: (units (unk nown) date) unknown) (unknown) (no (unknown) (unknown) Related Data (units (u nknown) date) unknown) (unknown) (no (unknown) (unknown) Respiratory Rate (units (unknown) date) 17 09/04/22 17:25 unknown) (unknown) (no (unknown) (unknown) Respiratory Rate (units (unknown) date) 17 unknown) (unknown) (no (unknown) (unknown) Respiratory Rate (units (unknown) date) unknown) (unknown) (no (unknown) (unknown) Signed By: (units (unk nown) date) unknown) (unknown) (no (unknown) (unknown) Smoking Status: (units (unknown) date) Former smoker unknown) (unknown) (no (unknown) (unknown) Social History (units (unknown) date) unknown) (unknown) (no (unknown) (unknown) Source: patient (units (unknown) date) unknown) (unknown) (no (unknown) (unknown) Stated (units (unkno wn) date) complaint: lt ear unknown) red + swelling (unknown) (no (unknown) (unknown) Stop: 09/04/22 (units (unknown) date) 19:24 unknown) (unknown) (no (unknown) (unknown) Stop: 09/04/22 (units (unknown) date) 19:38 unknown) (unknown) (no (unknown) (unknown) Substance Use (units ( unknown) date) Type: does not unknown) use (unknown) (no (unknown) (unknown) Temperature 98.0 (units (unknown) date) F 09/04/22 17:25 unknown) (unknown) (no (unknown) (unknown) Temperature 98.0 (units (unknown) date) F unknown) (unknown) (no (unknown) (unknown) Temperature (units (un known) date) unknown) (unknown) (no (unknown) (unknown) This is a (units (unkn own) date) 77-year-old unknown) female with history of diabetes who presents emergency (unknown) (no (unknown) (unknown) Time Seen by (units (u nknown) date) Provider: unknown) 09/04/22 18:50 (unknown) (no (unknown) (unknown) Vital Signs - 8 (units (unknown) date) hr unknown) (unknown) (no (unknown) (unknown) Vital Signs (units (un known) date) unknown) (unknown) (no (unknown) (unknown) Vital signs: (units (u nknown) date) unknown) (unknown) (no (unknown) (unknown) alcohol intake (units (unknown) date) frequency: 0-2 unknown) drinks per day (unknown) (no (unknown) (unknown) alcohol intake: (units (unknown) date) current unknown) (unknown) (no (unknown) (unknown) department (units (unkn own) date) complaining of unknown) swelling to her left jaw with gradual onset 3 days ago (unknown) (no (unknown) (unknown) gabapentin 300 (units (unknown) date) mg Tablet unknown) (unknown) (no (unknown) (unknown) gabapentin 300 (units (unknown) date) mg tablet 300 mg unknown) PO DAILY 08/11/22 08/11/22 (unknown) (no (unknown) (unknown) household (units (unkn own) date) members: spouse unknown) (unknown) (no (unknown) (unknown) hydrocodone (units (un known) date) bitartrate unknown) 08/11/22 (unknown) (no (unknown) (unknown) hydrocodone (units (un known) date) bitartrate unknown) (unknown) (no (unknown) (unknown) levothyroxine 25 (units (unknown) date) mcg Tablet unknown) (unknown) (no (unknown) (unknown) levothyroxine 25 (units (unknown) date) mcg tablet 25 mcg unknown) PO DIRECTED 08/11/22 08/11/22 (unknown) (no (unknown) (unknown) lisinopril 10 mg (units (unknown) date) PO DAILY 08/11/22 unknown) 08/11/22 (unknown) (no (unknown) (unknown) lisinopril (units (unk nown) date) unknown) (unknown) (no (unknown) (unknown) metformin 500 mg (units (unknown) date) Tablet unknown) (unknown) (no (unknown) (unknown) metformin 500 mg (units (unknown) date) tablet 500 mg PO unknown) DAILY 08/11/22 08/11/22 (unknown) (no (unknown) (unknown) omeprazole 20 mg (units (unknown) date) Tablet,Delayed unknown) Release (Dr/Ec) (unknown) (no (unknown) (unknown) omeprazole 20 mg (units (unknown) date) tablet,delayed 20 unknown) mg PO DAILY 08/11/22 08/11/22 (unknown) (no (unknown) (unknown) release (units (unkno wn) date) unknown) (unknown) (no (unknown) (unknown) sertraline 50 mg (units (unknown) date) Tablet unknown) (unknown) (no (unknown) (unknown) sertraline 50 mg (units (unknown) date) tablet 50 mg PO unknown) DAILY 08/11/22 08/11/22 (unknown) (no (unknown) (unknown) tobacco type: (units ( unknown) date) cigarettes unknown) Result panel 88 (unknown) (no (unknown) (unknown) (no value) (units (unk nown) date) unknown) (unknown) (no (unknown) (unknown) [id number] (units (unkno wn) date) unknown) (unknown) (no (unknown) (unknown) 09/04/22 19:37 (units (unknown) date) unknown) (unknown) (no (unknown) (unknown) 09/04/22 (units (unkno wn) date) unknown) (unknown) (no (unknown) (unknown) 10 mg PO DAILY (units (unknown) date) unknown) (unknown) (no (unknown) (unknown) 17:25 09/04/22 (units (unknown) date) unknown) (unknown) (no (unknown) (unknown) 18:55 09/04/22 (units (unknown) date) unknown) (unknown) (no (unknown) (unknown) 18:56 09/04/22 (units (unknown) date) unknown) (unknown) (no (unknown) (unknown) 18:56 (units (unkno wn) date) unknown) (unknown) (no (unknown) (unknown) 19:00 09/04/22 (units (unknown) date) unknown) (unknown) (no (unknown) (unknown) 19:00 (units (unkno wn) date) unknown) (unknown) (no (unknown) (unknown) 20 mg PO DAILY (units (unknown) date) unknown) (unknown) (no (unknown) (unknown) 25 mcg PO (units (u nknown) date) DIRECTED unknown) (unknown) (no (unknown) (unknown) 300 mg PO DAILY (units (unknown) date) unknown) (unknown) (no (unknown) (unknown) 50 mg PO DAILY (units (unknown) date) unknown) (unknown) (no (unknown) (unknown) 500 mg PO DAILY (units (unknown) date) unknown) (unknown) (no (unknown) (unknown) Age/Sex: 77 / F (units (unknown) date) unknown) (unknown) (no (unknown) (unknown) Allergies (units (unkn own) date) unknown) (unknown) (no (unknown) (unknown) Allergy/AdvReac (units (unknown) date) Type Severity unknown) Reaction Status Date / Time (unknown) (no (unknown) (unknown) Blood Pressure (units (unknown) date) 125/60 09/04/22 unknown) 17:25 (unknown) (no (unknown) (unknown) Blood Pressure (units (unknown) date) 125/60 140/65 unknown) (unknown) (no (unknown) (unknown) Blood Pressure (units (unknown) date) 125/66 unknown) (unknown) (no (unknown) (unknown) CBC Auto Diff (units ( unknown) date) [Complete Blood unknown) Count AUTO DIFF] Stat (unknown) (no (unknown) (unknown) CMP (units (unkno wn) date) [Comprehensive unknown) Metabolic Panel] Stat (unknown) (no (unknown) (unknown) COVID19 -Nasal (units (unknown) date) RAPID/Pre-Proc unknown) Stat (unknown) (no (unknown) (unknown) CRP [C-Reactive (units (unknown) date) Protein Quant] unknown) Stat (unknown) (no (unknown) (unknown) Cardiovascular: (units (unknown) date) regular rate and unknown) rhythm, no peripheral edema, warm extremities (unknown) (no (unknown) (unknown) Chief complaint: (units (unknown) date) Skin/Abscess/Forei unknown) gn Body (unknown) (no (unknown) (unknown) Course (units (unkno wn) date) unknown) (unknown) (no (unknown) (unknown) : 1945 (units (unknown) date) Acct:[id number] unknown) (unknown) (no (unknown) (unknown) Date of Service: (units (unknown) date) 09/04/22 unknown) (unknown) (no (unknown) (unknown) Denies any (units (unk nown) date) intraoral unknown) swelling, shortness of breath, difficulty swallowing, (unknown) (no (unknown) (unknown) Departure (units (unkn own) date) unknown) (unknown) (no (unknown) (unknown) Dexamethasone (units ( unknown) date) (Dexamethasone 10 unknown) Mg/Ml Vial) 10 mg PO NOW ONE (unknown) (no (unknown) (unknown) Discharge Plan (units (unknown) date) unknown) (unknown) (no (unknown) (unknown) Discontinued (units (u nknown) date) Medications unknown) (unknown) (no (unknown) (unknown) Documented By: OW (units (unknown) date) unknown) (unknown) (no (unknown) (unknown) ED Orders (units (unkn own) date) unknown) (unknown) (no (unknown) (unknown) ER Physician: (units ( unknown) date) Carole Pulido unknown) 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 (unknown) (no (unknown) (unknown) Emergency Report (units (unknown) date) unknown) (unknown) (no (unknown) (unknown) Exam Narrative: (units (unknown) date) unknown) (unknown) (no (unknown) (unknown) Exam (units (unkno wn) date) unknown) (unknown) (no (unknown) (unknown) GI: abdomen soft, (units (unknown) date) nontender to unknown) palpation, nondistended, without masses, rebound (unknown) (no (unknown) (unknown) General (units (unkno wn) date) unknown) (unknown) (no (unknown) (unknown) General: (units (unkno wn) date) cooperative, unknown) comfortable, in mild distress, well groomed (unknown) (no (unknown) (unknown) Good,Alexandra, (units ( unknown) date) PA-C [Primary Care unknown) Provider] (unknown) (no (unknown) (unknown) HEENT: (units (unkno wn) date) symmetrical facial unknown) expressions, moist mucous membranes, (unknown) (no (unknown) (unknown) HPI - (units (unkno wn) date) Skin/Abscess/Forei unknown) gn Bdy (unknown) (no (unknown) (unknown) HPI narrative: (units (unknown) date) unknown) (unknown) (no (unknown) (unknown) History of (units (unk nown) date) Present Illness unknown) (unknown) (no (unknown) (unknown) Home Medications (units (unknown) date) unknown) (unknown) (no (unknown) (unknown) Initial Vital (units ( unknown) date) Signs unknown) (unknown) (no (unknown) (unknown) Initial Vital (units ( unknown) date) Signs: unknown) (unknown) (no (unknown) (unknown) [facility] (units (unknown) date) [address] [place] [address] unknown) [place] [address] (unknown) (no (unknown) (unknown) Ketorolac (units (unkn own) date) Tromethamine unknown) (Ketorolac 30 Mg/Ml Vial) 15 mg IM NOW ONE (unknown) (no (unknown) (unknown) Last Admin: (units (un known) date) 09/04/22 19:28 unknown) Dose: 1 tab (unknown) (no (unknown) (unknown) Last Admin: (units (un known) date) 09/04/22 19:28 unknown) Dose: 15 mg (unknown) (no (unknown) (unknown) Last Admin: (units (un known) date) 09/04/22 19:34 unknown) Dose: Not Given (unknown) (no (unknown) (unknown) Last Admin: (units (un known) date) 09/04/22 19:45 unknown) Dose: 10 mg (unknown) (no (unknown) (unknown) Lidocaine HCl (units ( unknown) date) (Lidocaine 2% Inj unknown) Sdv) 5 ml INJ INTRA-OP ONE (unknown) (no (unknown) (unknown) Limitations: no (units (unknown) date) limitations unknown) (unknown) (no (unknown) (unknown) MSK: moves all (units (unknown) date) extremities, unknown) neurovascularly intact, no weakness, normal tone (unknown) (no (unknown) (unknown) Medication (units (unk nown) date) Instructions unknown) Recorded Confirmed (unknown) (no (unknown) (unknown) Mode of arrival: (units (unknown) date) Family Vehicle unknown) (unknown) (no (unknown) (unknown) Narrative (units (unkn own) date) unknown) (unknown) (no (unknown) (unknown) Neuro: normal (units ( unknown) date) speech and unknown) cognition, A+O x3, ambulatory, clear speech (unknown) (no (unknown) (unknown) No Action (units (unkn own) date) unknown) (unknown) (no (unknown) (unknown) No Known Drug (units ( unknown) date) Allergies Allergy unknown) Verified 08/11/22 11:06 (unknown) (no (unknown) (unknown) Ordered: (units (unkno wn) date) unknown) (unknown) (no (unknown) (unknown) Orders (units (unkno wn) date) unknown) (unknown) (no (unknown) (unknown) Oxycodone/Acetami (units (unknown) date) nophen unknown) (Oxycodone/Acetami nophen 5/325 Tablet) 1 tab PO NOW ONE (unknown) (no (unknown) (unknown) Oxygen Delivery (units (unknown) date) Method 09/04/22 unknown) 17:25 (unknown) (no (unknown) (unknown) Oxygen Delivery (units (unknown) date) Method Room Air unknown) (unknown) (no (unknown) (unknown) Oxygen Delivery (units (unknown) date) Method unknown) (unknown) (no (unknown) (unknown) Patient History (units (unknown) date) unknown) (unknown) (no (unknown) (unknown) Patient: (units (unkno wn) date) Maricruz Hodges unknown) MR#: [id number] (unknown) (no (unknown) (unknown) Prescriptions: (units (unknown) date) unknown) (unknown) (no (unknown) (unknown) Procalcitonin (units ( unknown) date) Stat unknown) (unknown) (no (unknown) (unknown) Psych: mental (units ( unknown) date) status is grossly unknown) normal, congruent mood, normal affect, pleasant (unknown) (no (unknown) (unknown) Pulse Oximetry (units (unknown) date) 100 09/04/22 17:25 unknown) (unknown) (no (unknown) (unknown) Pulse Oximetry (units (unknown) date) 100 100 unknown) (unknown) (no (unknown) (unknown) Pulse Rate 74 74 (units (unknown) date) unknown) (unknown) (no (unknown) (unknown) Pulse Rate 79 (units ( unknown) date) 09/04/22 17:25 unknown) (unknown) (no (unknown) (unknown) Pulse Rate 79 73 (units (unknown) date) unknown) (unknown) (no (unknown) (unknown) ROS Unobtainable: (units (unknown) date) All systems unknown) reviewed + are unremarkable except as noted in HPI (unknown) (no (unknown) (unknown) Referrals: (units (unk nown) date) unknown) (unknown) (no (unknown) (unknown) Related Data (units (u nknown) date) unknown) (unknown) (no (unknown) (unknown) Respiratory Rate (units (unknown) date) 17 09/04/22 17:25 unknown) (unknown) (no (unknown) (unknown) Respiratory Rate (units (unknown) date) 17 unknown) (unknown) (no (unknown) (unknown) Respiratory Rate (units (unknown) date) unknown) (unknown) (no (unknown) (unknown) Respiratory: (units (u nknown) date) normal effort, unknown) able to speak in complete sentences, without (unknown) (no (unknown) (unknown) Review of Systems (units (unknown) date) unknown) (unknown) (no (unknown) (unknown) Reviewed vitals (units (unknown) date) signs and nursing unknown) notes. (unknown) (no (unknown) (unknown) Signed By: (units (unk nown) date) unknown) (unknown) (no (unknown) (unknown) Skin: brisk (units (un known) date) capillary refill, unknown) without pallor or erythema (unknown) (no (unknown) (unknown) Smoking Status: (units (unknown) date) Former smoker unknown) (unknown) (no (unknown) (unknown) Social History (units (unknown) date) unknown) (unknown) (no (unknown) (unknown) Source: patient (units (unknown) date) unknown) (unknown) (no (unknown) (unknown) Stated complaint: (units (unknown) date) lt ear red + unknown) swelling (unknown) (no (unknown) (unknown) Stop: 09/04/22 (units (unknown) date) 19:24 unknown) (unknown) (no (unknown) (unknown) Stop: 09/04/22 (units (unknown) date) 19:38 unknown) (unknown) (no (unknown) (unknown) Substance Use (units ( unknown) date) Type: does not use unknown) (unknown) (no (unknown) (unknown) Temperature 98.0 (units (unknown) date) F 09/04/22 17:25 unknown) (unknown) (no (unknown) (unknown) Temperature 98.0 (units (unknown) date) F unknown) (unknown) (no (unknown) (unknown) Temperature (units (un known) date) unknown) (unknown) (no (unknown) (unknown) This is a (units (unkn own) date) 77-year-old female unknown) with history of diabetes who presents emergency (unknown) (no (unknown) (unknown) Time Seen by (units (u nknown) date) Provider: 09/04/22 unknown) 18:50 (unknown) (no (unknown) (unknown) Vital Signs - 8 (units (unknown) date) hr unknown) (unknown) (no (unknown) (unknown) Vital Signs (units (un known) date) unknown) (unknown) (no (unknown) (unknown) Vital signs: (units (u nknown) date) unknown) (unknown) (no (unknown) (unknown) abnormality. Her (units (unknown) date) primary care unknown) provider is ALINA Ruiz. States that she was (unknown) (no (unknown) (unknown) ago. States that (units (unknown) date) she had recent unknown) dental work in May that she had antibiotics (unknown) (no (unknown) (unknown) alcohol intake (units (unknown) date) frequency: 0-2 unknown) drinks per day (unknown) (no (unknown) (unknown) alcohol intake: (units (unknown) date) current unknown) (unknown) (no (unknown) (unknown) and below (units (unkn own) date) unknown) (unknown) (no (unknown) (unknown) and cooperative (units (unknown) date) unknown) (unknown) (no (unknown) (unknown) denies any (units (unk nown) date) weakness, altered unknown) mental status, vision changes, rash or other (unknown) (no (unknown) (unknown) department (units (unk nown) date) complaining of unknown) swelling to her left jaw with gradual onset 3 days (unknown) (no (unknown) (unknown) fever, chills, (units (unknown) date) recent upper unknown) respiratory illness, cough or congestion. She (unknown) (no (unknown) (unknown) for. States that (units (unknown) date) she is on unknown) hydrocodone for chronic pain and took this for her (unknown) (no (unknown) (unknown) gabapentin 300 mg (units (unknown) date) Tablet unknown) (unknown) (no (unknown) (unknown) gabapentin 300 mg (units (unknown) date) tablet 300 mg PO unknown) DAILY 08/11/22 08/11/22 (unknown) (no (unknown) (unknown) had recent bridge (units (unknown) date) and tooth unknown) extraction to the lower left jaw in May 2022. (unknown) (no (unknown) (unknown) household (units (unkn own) date) members: spouse unknown) (unknown) (no (unknown) (unknown) hydrocodone (units (un known) date) bitartrate unknown) 08/11/22 (unknown) (no (unknown) (unknown) hydrocodone (units (un known) date) bitartrate unknown) (unknown) (no (unknown) (unknown) left jaw pain and (units (unknown) date) swelling but unknown) states it did not help her. She states that she (unknown) (no (unknown) (unknown) levothyroxine 25 (units (unknown) date) mcg Tablet unknown) (unknown) (no (unknown) (unknown) levothyroxine 25 (units (unknown) date) mcg tablet 25 mcg unknown) PO DIRECTED 08/11/22 08/11/22 (unknown) (no (unknown) (unknown) lisinopril 10 mg (units (unknown) date) PO DAILY 08/11/22 unknown) 08/11/22 (unknown) (no (unknown) (unknown) lisinopril (units (unk nown) date) unknown) (unknown) (no (unknown) (unknown) metformin 500 mg (units (unknown) date) Tablet unknown) (unknown) (no (unknown) (unknown) metformin 500 mg (units (unknown) date) tablet 500 mg PO unknown) DAILY 08/11/22 08/11/22 (unknown) (no (unknown) (unknown) omeprazole 20 mg (units (unknown) date) Tablet,Delayed unknown) Release (Dr/Ec) (unknown) (no (unknown) (unknown) omeprazole 20 mg (units (unknown) date) tablet,delayed 20 unknown) mg PO DAILY 08/11/22 08/11/22 (unknown) (no (unknown) (unknown) release (units (unkno wn) date) unknown) (unknown) (no (unknown) (unknown) sent here for (units ( unknown) date) evaluation of this unknown) swelling with concern for lymphadenopathy (unknown) (no (unknown) (unknown) sertraline 50 mg (units (unknown) date) Tablet unknown) (unknown) (no (unknown) (unknown) sertraline 50 mg (units (unknown) date) tablet 50 mg PO unknown) DAILY 08/11/22 08/11/22 (unknown) (no (unknown) (unknown) tenderness or (units ( unknown) date) exquisite unknown) tenderness with exam. (unknown) (no (unknown) (unknown) tobacco type: (units ( unknown) date) cigarettes unknown) (unknown) (no (unknown) (unknown) versus dental (units ( unknown) date) abscess versus unknown) bacterial infection or other viral illness. (unknown) (no (unknown) (unknown) wheezing, (units (unkn own) date) stridor, or unknown) abnormal breath sounds. No retractions or tachypnea. Result panel 89 (unknown) (no date) (unknown) (unknown) 0 /ul (unkn own) (unknown) (no date) (unknown) (unknown) 0.2 % (unkn own) (unknown) (no date) (unknown) (unknown) 0.7 % (unkn own) (unknown) (no date) (unknown) (unknown) 10.0 g/dl (unkn own) (unknown) (no date) (unknown) (unknown) 100 /ul (unkn own) (unknown) (no date) (unknown) (unknown) 13.7 x10 3/ul (unkn own) (unknown) (no date) (unknown) (unknown) 16.9 % (unkn own) (unknown) (no date) (unknown) (unknown) 26.6 % (unkn own) (unknown) (no date) (unknown) (unknown) 27.8 pg (unkn own) (unknown) (no date) (unknown) (unknown) 3.62 x10 6/ul (unkn own) (unknown) (no date) (unknown) (unknown) 31.2 % (unkn own) (unknown) (no date) (unknown) (unknown) 319 x10 3/ul (unkn own) (unknown) (no date) (unknown) (unknown) 32.2 % (unkn own) (unknown) (no date) (unknown) (unknown) 3600 /ul (unkn own) (unknown) (no date) (unknown) (unknown) 6.0 % (unkn own) (unknown) (no date) (unknown) (unknown) 66.5 % (unkn own) (unknown) (no date) (unknown) (unknown) 800 /ul (unkn own) (unknown) (no date) (unknown) (unknown) 86.2 fl (unkn own) (unknown) (no date) (unknown) (unknown) 9100 /ul (unkn own) Result panel 90 (unknown) (no (unknown) (unknown) (no value) (units (unk nown) date) unknown) (unknown) (no (unknown) (unknown) *If you do not (units (unknown) date) have a primary unknown) care provider please contact [phone] to (unknown) (no (unknown) (unknown) *Please continue (units (unknown) date) to take your unknown) regular medications as directed. (unknown) (no (unknown) (unknown) *Please follow up (units (unknown) date) with your primary unknown) care provider in 2-3 days, call for an (unknown) (no (unknown) (unknown) *Return to (units (unk nown) date) Emergency unknown) Department if you should have any new, worsening, or (unknown) (no (unknown) (unknown) *What to do: (units (u nknown) date) unknown) (unknown) (no (unknown) (unknown) *You have been (units (unknown) date) diagnosed with unknown) (unknown) (no (unknown) (unknown) [id number] (units (unkno wn) date) unknown) (unknown) (no (unknown) (unknown) 09/04/22 19:37 (units (unknown) date) unknown) (unknown) (no (unknown) (unknown) 09/04/22 (units (unkno wn) date) unknown) (unknown) (no (unknown) (unknown) 10 mg PO DAILY (units (unknown) date) unknown) (unknown) (no (unknown) (unknown) 17:25 09/04/22 (units (unknown) date) unknown) (unknown) (no (unknown) (unknown) 18:55 09/04/22 (units (unknown) date) unknown) (unknown) (no (unknown) (unknown) 18:56 09/04/22 (units (unknown) date) unknown) (unknown) (no (unknown) (unknown) 18:56 (units (unkno wn) date) unknown) (unknown) (no (unknown) (unknown) 19:00 09/04/22 (units (unknown) date) unknown) (unknown) (no (unknown) (unknown) 19:00 (units (unkno wn) date) unknown) (unknown) (no (unknown) (unknown) 20 mg PO DAILY (units (unknown) date) unknown) (unknown) (no (unknown) (unknown) 25 mcg PO (units (u nknown) date) DIRECTED unknown) (unknown) (no (unknown) (unknown) 300 mg PO DAILY (units (unknown) date) unknown) (unknown) (no (unknown) (unknown) 50 mg PO DAILY (units (unknown) date) unknown) (unknown) (no (unknown) (unknown) 500 mg PO DAILY (units (unknown) date) unknown) (unknown) (no (unknown) (unknown) Activity (units (unkno wn) date) Restrictions/Addit unknown) ional Instructions: (unknown) (no (unknown) (unknown) Age/Sex: 77 / F (units (unknown) date) unknown) (unknown) (no (unknown) (unknown) Allergies (units (unkn own) date) unknown) (unknown) (no (unknown) (unknown) Allergy/AdvReac (units (unknown) date) Type Severity unknown) Reaction Status Date / Time (unknown) (no (unknown) (unknown) Blood Pressure (units (unknown) date) 125/60 09/04/22 unknown) 17:25 (unknown) (no (unknown) (unknown) Blood Pressure (units (unknown) date) 125/60 140/65 unknown) (unknown) (no (unknown) (unknown) Blood Pressure (units (unknown) date) 125/66 unknown) (unknown) (no (unknown) (unknown) [place] [facility], (units (unknown) date) 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] unknown) (unknown) (no (unknown) (unknown) CBC Auto Diff (units ( unknown) date) [Complete Blood unknown) Count AUTO DIFF] Stat (unknown) (no (unknown) (unknown) CMP (units (unkno wn) date) [Comprehensive unknown) Metabolic Panel] Stat (unknown) (no (unknown) (unknown) COVID19 -Nasal (units (unknown) date) RAPID/Pre-Proc unknown) Stat (unknown) (no (unknown) (unknown) CRP [C-Reactive (units (unknown) date) Protein Quant] unknown) Stat (unknown) (no (unknown) (unknown) Cardiovascular: (units (unknown) date) regular rate and unknown) rhythm, no peripheral edema, warm extremities (unknown) (no (unknown) (unknown) Chief complaint: (units (unknown) date) Skin/Abscess/Forei unknown) gn Body (unknown) (no (unknown) (unknown) Course (units (unkno wn) date) unknown) (unknown) (no (unknown) (unknown) : 1945 (units (unknown) date) Acct:[id number] unknown) (unknown) (no (unknown) (unknown) Date of Service: (units (unknown) date) 09/04/22 unknown) (unknown) (no (unknown) (unknown) Denies any (units (unk nown) date) intraoral unknown) swelling, shortness of breath, difficulty swallowing, (unknown) (no (unknown) (unknown) Departure (units (unkn own) date) unknown) (unknown) (no (unknown) (unknown) Dexamethasone (units ( unknown) date) (Dexamethasone 10 unknown) Mg/Ml Vial) 10 mg PO NOW ONE (unknown) (no (unknown) (unknown) Discharge Plan (units (unknown) date) unknown) (unknown) (no (unknown) (unknown) Discontinued (units (u nknown) date) Medications unknown) (unknown) (no (unknown) (unknown) Documented By: OW (units (unknown) date) unknown) (unknown) (no (unknown) (unknown) ED Orders (units (unkn own) date) unknown) (unknown) (no (unknown) (unknown) ER Physician: (units ( unknown) date) Carole Pulido unknown) 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 (unknown) (no (unknown) (unknown) Emergency Report (units (unknown) date) unknown) (unknown) (no (unknown) (unknown) Exam Narrative: (units (unknown) date) unknown) (unknown) (no (unknown) (unknown) Exam (units (unkno wn) date) unknown) (unknown) (no (unknown) (unknown) GI: abdomen soft, (units (unknown) date) nontender to unknown) palpation, nondistended, without masses, rebound (unknown) (no (unknown) (unknown) General (units (unkno wn) date) unknown) (unknown) (no (unknown) (unknown) General: (units (unkno wn) date) cooperative, unknown) comfortable, in mild distress, well groomed (unknown) (no (unknown) (unknown) Good,Alexandra, (units ( unknown) date) PA-C [Primary Care unknown) Provider] (unknown) (no (unknown) (unknown) HEENT: (units (unkno wn) date) symmetrical facial unknown) expressions, moist mucous membranes, (unknown) (no (unknown) (unknown) HPI - (units (unkno wn) date) Skin/Abscess/Forei unknown) gn Bdy (unknown) (no (unknown) (unknown) HPI narrative: (units (unknown) date) unknown) (unknown) (no (unknown) (unknown) History of (units (unk nown) date) Present Illness unknown) (unknown) (no (unknown) (unknown) Home Medications (units (unknown) date) unknown) (unknown) (no (unknown) (unknown) Initial Vital (units ( unknown) date) Signs unknown) (unknown) (no (unknown) (unknown) Initial Vital (units ( unknown) date) Signs: unknown) (unknown) (no (unknown) (unknown) Instructions: DI (units (unknown) date) for unknown) Lymphadenopathy (unknown) (no (unknown) (unknown) [facility] (units (unknown) date) [address] unknown) [place] [address] (unknown) (no (unknown) (unknown) Ketorolac (units (unkn own) date) Tromethamine unknown) (Ketorolac 30 Mg/Ml Vial) 15 mg IM NOW ONE (unknown) (no (unknown) (unknown) Last Admin: (units (un known) date) 09/04/22 19:28 unknown) Dose: 1 tab (unknown) (no (unknown) (unknown) Last Admin: (units (un known) date) 09/04/22 19:28 unknown) Dose: 15 mg (unknown) (no (unknown) (unknown) Last Admin: (units (un known) date) 09/04/22 19:34 unknown) Dose: Not Given (unknown) (no (unknown) (unknown) Last Admin: (units (un known) date) 09/04/22 19:45 unknown) Dose: 10 mg (unknown) (no (unknown) (unknown) Lidocaine HCl (units ( unknown) date) (Lidocaine 2% Inj unknown) Sdv) 5 ml INJ INTRA-OP ONE (unknown) (no (unknown) (unknown) Limitations: no (units (unknown) date) limitations unknown) (unknown) (no (unknown) (unknown) MSK: moves all (units (unknown) date) extremities, unknown) neurovascularly intact, no weakness, normal tone (unknown) (no (unknown) (unknown) Medication (units (unk nown) date) Instructions unknown) Recorded Confirmed (unknown) (no (unknown) (unknown) Mode of arrival: (units (unknown) date) Family Vehicle unknown) (unknown) (no (unknown) (unknown) Narrative (units (unkn own) date) unknown) (unknown) (no (unknown) (unknown) Neuro: normal (units ( unknown) date) speech and unknown) cognition, A+O x3, ambulatory, clear speech (unknown) (no (unknown) (unknown) No Action (units (unkn own) date) unknown) (unknown) (no (unknown) (unknown) No Known Drug (units ( unknown) date) Allergies Allergy unknown) Verified 08/11/22 11:06 (unknown) (no (unknown) (unknown) Ordered: (units (unkno wn) date) unknown) (unknown) (no (unknown) (unknown) Orders (units (unkno wn) date) unknown) (unknown) (no (unknown) (unknown) Oxycodone/Acetami (units (unknown) date) nophen unknown) (Oxycodone/Acetami nophen 5/325 Tablet) 1 tab PO NOW ONE (unknown) (no (unknown) (unknown) Oxygen Delivery (units (unknown) date) Method 09/04/22 unknown) 17:25 (unknown) (no (unknown) (unknown) Oxygen Delivery (units (unknown) date) Method Room Air unknown) (unknown) (no (unknown) (unknown) Oxygen Delivery (units (unknown) date) Method unknown) (unknown) (no (unknown) (unknown) Patient History (units (unknown) date) unknown) (unknown) (no (unknown) (unknown) Patient: (units (unkno wn) date) Maricruz Hodges unknown) MR#: [id number] (unknown) (no (unknown) (unknown) Prescriptions: (units (unknown) date) unknown) (unknown) (no (unknown) (unknown) Procalcitonin (units ( unknown) date) Stat unknown) (unknown) (no (unknown) (unknown) Psych: mental (units ( unknown) date) status is grossly unknown) normal, congruent mood, normal affect, pleasant (unknown) (no (unknown) (unknown) Pulse Oximetry (units (unknown) date) 100 09/04/22 17:25 unknown) (unknown) (no (unknown) (unknown) Pulse Oximetry (units (unknown) date) 100 100 unknown) (unknown) (no (unknown) (unknown) Pulse Rate 74 74 (units (unknown) date) unknown) (unknown) (no (unknown) (unknown) Pulse Rate 79 (units ( unknown) date) 09/04/22 17:25 unknown) (unknown) (no (unknown) (unknown) Pulse Rate 79 73 (units (unknown) date) unknown) (unknown) (no (unknown) (unknown) ROS Unobtainable: (units (unknown) date) All systems unknown) reviewed + are unremarkable except as noted in HPI (unknown) (no (unknown) (unknown) Referrals: (units (unk nown) date) unknown) (unknown) (no (unknown) (unknown) Related Data (units (u nknown) date) unknown) (unknown) (no (unknown) (unknown) Respiratory Rate (units (unknown) date) 17 09/04/22 17:25 unknown) (unknown) (no (unknown) (unknown) Respiratory Rate (units (unknown) date) 17 unknown) (unknown) (no (unknown) (unknown) Respiratory Rate (units (unknown) date) unknown) (unknown) (no (unknown) (unknown) Respiratory: (units (u nknown) date) normal effort, unknown) able to speak in complete sentences, without (unknown) (no (unknown) (unknown) Review of Systems (units (unknown) date) unknown) (unknown) (no (unknown) (unknown) Reviewed vitals (units (unknown) date) signs and nursing unknown) notes. (unknown) (no (unknown) (unknown) Signed By: (units (unk nown) date) unknown) (unknown) (no (unknown) (unknown) Skin: brisk (units (un known) date) capillary refill, unknown) without pallor or erythema (unknown) (no (unknown) (unknown) Smoking Status: (units (unknown) date) Former smoker unknown) (unknown) (no (unknown) (unknown) Social History (units (unknown) date) unknown) (unknown) (no (unknown) (unknown) Source: patient (units (unknown) date) unknown) (unknown) (no (unknown) (unknown) Stated complaint: (units (unknown) date) lt ear red + unknown) swelling (unknown) (no (unknown) (unknown) Stop: 09/04/22 (units (unknown) date) 19:24 unknown) (unknown) (no (unknown) (unknown) Stop: 09/04/22 (units (unknown) date) 19:38 unknown) (unknown) (no (unknown) (unknown) Substance Use (units ( unknown) date) Type: does not use unknown) (unknown) (no (unknown) (unknown) Temperature 98.0 (units (unknown) date) F 09/04/22 17:25 unknown) (unknown) (no (unknown) (unknown) Temperature 98.0 (units (unknown) date) F unknown) (unknown) (no (unknown) (unknown) Temperature (units (un known) date) unknown) (unknown) (no (unknown) (unknown) This is a (units (unkn own) date) 77-year-old female unknown) with history of diabetes who presents emergency (unknown) (no (unknown) (unknown) Time Seen by (units (u nknown) date) Provider: 09/04/22 unknown) 18:50 (unknown) (no (unknown) (unknown) Vital Signs - 8 (units (unknown) date) hr unknown) (unknown) (no (unknown) (unknown) Vital Signs (units (un known) date) unknown) (unknown) (no (unknown) (unknown) Vital signs: (units (u nknown) date) unknown) (unknown) (no (unknown) (unknown) [ ] New (units (unkno wn) date) medication written unknown) as a paper prescription (unknown) (no (unknown) (unknown) [ ] No new (units (unk nown) date) medications given unknown) (unknown) (no (unknown) (unknown) [ x] New (units (unkno wn) date) medication unknown) prescriptions sent to your pharmacy: [ ] (unknown) (no (unknown) (unknown) abnormality. Her (units (unknown) date) primary care unknown) provider is ALINA Ruiz. States that she was (unknown) (no (unknown) (unknown) ago. States that (units (unknown) date) she had recent unknown) dental work in May that she had antibiotics (unknown) (no (unknown) (unknown) alcohol intake (units (unknown) date) frequency: 0-2 unknown) drinks per day (unknown) (no (unknown) (unknown) alcohol intake: (units (unknown) date) current unknown) (unknown) (no (unknown) (unknown) and below (units (unkn own) date) unknown) (unknown) (no (unknown) (unknown) and cooperative (units (unknown) date) unknown) (unknown) (no (unknown) (unknown) appointment. Let (units (unknown) date) them know you were unknown) seen in the Emergency Department and that we (unknown) (no (unknown) (unknown) asked that you be (units (unknown) date) seen for unknown) follow-up. We will electronically transmit a record (unknown) (no (unknown) (unknown) concerning (units (unk nown) date) symptoms, such as unknown) [fever greater than 101F, chills, worsening pain, (unknown) (no (unknown) (unknown) denies any (units (unk nown) date) weakness, altered unknown) mental status, vision changes, rash or other (unknown) (no (unknown) (unknown) department (units (unk nown) date) complaining of unknown) swelling to her left jaw with gradual onset 3 days (unknown) (no (unknown) (unknown) establish care (units (unknown) date) with one of the unknown) [facility] primary care providers. (unknown) (no (unknown) (unknown) fever, chills, (units (unknown) date) recent upper unknown) respiratory illness, cough or congestion. She (unknown) (no (unknown) (unknown) for. States that (units (unknown) date) she is on unknown) hydrocodone for chronic pain and took this for her (unknown) (no (unknown) (unknown) gabapentin 300 mg (units (unknown) date) Tablet unknown) (unknown) (no (unknown) (unknown) gabapentin 300 mg (units (unknown) date) tablet 300 mg PO unknown) DAILY 08/11/22 08/11/22 (unknown) (no (unknown) (unknown) had recent bridge (units (unknown) date) and tooth unknown) extraction to the lower left jaw in May 2022. (unknown) (no (unknown) (unknown) household (units (unkn own) date) members: spouse unknown) (unknown) (no (unknown) (unknown) hydrocodone (units (un known) date) bitartrate unknown) 08/11/22 (unknown) (no (unknown) (unknown) hydrocodone (units (un known) date) bitartrate unknown) (unknown) (no (unknown) (unknown) left jaw pain and (units (unknown) date) swelling but unknown) states it did not help her. She states that she (unknown) (no (unknown) (unknown) levothyroxine 25 (units (unknown) date) mcg Tablet unknown) (unknown) (no (unknown) (unknown) levothyroxine 25 (units (unknown) date) mcg tablet 25 mcg unknown) PO DIRECTED 08/11/22 08/11/22 (unknown) (no (unknown) (unknown) lisinopril 10 mg (units (unknown) date) PO DAILY 08/11/22 unknown) 08/11/22 (unknown) (no (unknown) (unknown) lisinopril (units (unk nown) date) unknown) (unknown) (no (unknown) (unknown) metformin 500 mg (units (unknown) date) Tablet unknown) (unknown) (no (unknown) (unknown) metformin 500 mg (units (unknown) date) tablet 500 mg PO unknown) DAILY 08/11/22 08/11/22 (unknown) (no (unknown) (unknown) of today's note (units (unknown) date) if your PCP is in unknown) our system (unknown) (no (unknown) (unknown) omeprazole 20 mg (units (unknown) date) Tablet,Delayed unknown) Release (Dr/Ec) (unknown) (no (unknown) (unknown) omeprazole 20 mg (units (unknown) date) tablet,delayed 20 unknown) mg PO DAILY 08/11/22 08/11/22 (unknown) (no (unknown) (unknown) persistent (units (unk nown) date) vomiting or other unknown) bothersome symptoms]. (unknown) (no (unknown) (unknown) release (units (unkno wn) date) unknown) (unknown) (no (unknown) (unknown) sent here for (units ( unknown) date) evaluation of this unknown) swelling with concern for lymphadenopathy (unknown) (no (unknown) (unknown) sertraline 50 mg (units (unknown) date) Tablet unknown) (unknown) (no (unknown) (unknown) sertraline 50 mg (units (unknown) date) tablet 50 mg PO unknown) DAILY 08/11/22 08/11/22 (unknown) (no (unknown) (unknown) tenderness or (units ( unknown) date) exquisite unknown) tenderness with exam. (unknown) (no (unknown) (unknown) tobacco type: (units ( unknown) date) cigarettes unknown) (unknown) (no (unknown) (unknown) versus dental (units ( unknown) date) abscess versus unknown) bacterial infection or other viral illness. (unknown) (no (unknown) (unknown) wheezing, (units (unkn own) date) stridor, or unknown) abnormal breath sounds. No retractions or tachypnea. Result panel 91 (unknown) (no (unknown) (unknown) (no value) (units (unk nown) date) unknown) (unknown) (no (unknown) (unknown) *If you do not (units (unknown) date) have a primary unknown) care provider please contact [phone] to (unknown) (no (unknown) (unknown) *Please continue (units (unknown) date) to take your unknown) regular medications as directed. (unknown) (no (unknown) (unknown) *Please follow up (units (unknown) date) with your primary unknown) care provider in 2-3 days, call for an (unknown) (no (unknown) (unknown) *Return to (units (unk nown) date) Emergency unknown) Department if you should have any new, worsening, or (unknown) (no (unknown) (unknown) *What to do: (units (u nknown) date) unknown) (unknown) (no (unknown) (unknown) *You have been (units (unknown) date) diagnosed with unknown) (unknown) (no (unknown) (unknown) [id number] (units (unkno wn) date) unknown) (unknown) (no (unknown) (unknown) 09/04/22 19:37 (units (unknown) date) unknown) (unknown) (no (unknown) (unknown) 09/04/22 (units (unkno wn) date) unknown) (unknown) (no (unknown) (unknown) 10 mg PO DAILY (units (unknown) date) unknown) (unknown) (no (unknown) (unknown) 17:25 09/04/22 (units (unknown) date) unknown) (unknown) (no (unknown) (unknown) 18:55 09/04/22 (units (unknown) date) unknown) (unknown) (no (unknown) (unknown) 18:56 01/05/23 (units (unknown) date) unknown) (unknown) (no (unknown) (unknown) 18:56 (units (unkno wn) date) unknown) (unknown) (no (unknown) (unknown) 19:00 09/04/22 (units (unknown) date) unknown) (unknown) (no (unknown) (unknown) 19:00 (units (unkno wn) date) unknown) (unknown) (no (unknown) (unknown) 20 mg PO DAILY (units (unknown) date) unknown) (unknown) (no (unknown) (unknown) 25 mcg PO (units (u nknown) date) DIRECTED unknown) (unknown) (no (unknown) (unknown) 300 mg PO DAILY (units (unknown) date) unknown) (unknown) (no (unknown) (unknown) 50 mg PO DAILY (units (unknown) date) unknown) (unknown) (no (unknown) (unknown) 500 mg PO DAILY (units (unknown) date) unknown) (unknown) (no (unknown) (unknown) Activity (units (unkno wn) date) Restrictions/Addit unknown) ional Instructions: (unknown) (no (unknown) (unknown) Age/Sex: 77 / F (units (unknown) date) unknown) (unknown) (no (unknown) (unknown) Allergies (units (unkn own) date) unknown) (unknown) (no (unknown) (unknown) Allergy/AdvReac (units (unknown) date) Type Severity unknown) Reaction Status Date / Time (unknown) (no (unknown) (unknown) Blood Pressure (units (unknown) date) 125/60 09/04/22 unknown) 17:25 (unknown) (no (unknown) (unknown) Blood Pressure (units (unknown) date) 125/60 140/65 unknown) (unknown) (no (unknown) (unknown) Blood Pressure (units (unknown) date) 125/66 unknown) (unknown) (no (unknown) (unknown) [place], (units (unknown) date) 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] unknown) (unknown) (no (unknown) (unknown) CBC Auto Diff (units ( unknown) date) [Complete Blood unknown) Count AUTO DIFF] Stat (unknown) (no (unknown) (unknown) CMP (units (unkno wn) date) [Comprehensive unknown) Metabolic Panel] Stat (unknown) (no (unknown) (unknown) COVID19 -Nasal (units (unknown) date) RAPID/Pre-Proc unknown) Stat (unknown) (no (unknown) (unknown) CRP [C-Reactive (units (unknown) date) Protein Quant] unknown) Stat (unknown) (no (unknown) (unknown) Cardiovascular: (units (unknown) date) regular rate and unknown) rhythm, no peripheral edema, warm extremities (unknown) (no (unknown) (unknown) Chief complaint: (units (unknown) date) Skin/Abscess/Forei unknown) gn Body (unknown) (no (unknown) (unknown) Course (units (unkno wn) date) unknown) (unknown) (no (unknown) (unknown) : 1945 (units (unknown) date) Acct:[id number] unknown) (unknown) (no (unknown) (unknown) Date of Service: (units (unknown) date) 09/04/22 unknown) (unknown) (no (unknown) (unknown) Denies any (units (unk nown) date) intraoral unknown) swelling, shortness of breath, difficulty swallowing, (unknown) (no (unknown) (unknown) Departure (units (unkn own) date) unknown) (unknown) (no (unknown) (unknown) Dexamethasone (units ( unknown) date) (Dexamethasone 10 unknown) Mg/Ml Vial) 10 mg PO NOW ONE (unknown) (no (unknown) (unknown) Discharge Plan (units (unknown) date) unknown) (unknown) (no (unknown) (unknown) Discontinued (units (u nknown) date) Medications unknown) (unknown) (no (unknown) (unknown) Documented By: OW (units (unknown) date) unknown) (unknown) (no (unknown) (unknown) ED Orders (units (unkn own) date) unknown) (unknown) (no (unknown) (unknown) ER Physician: (units ( unknown) date) Carole Pulido unknown) 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 (unknown) (no (unknown) (unknown) Emergency Report (units (unknown) date) unknown) (unknown) (no (unknown) (unknown) Exam Narrative: (units (unknown) date) unknown) (unknown) (no (unknown) (unknown) Exam (units (unkno wn) date) unknown) (unknown) (no (unknown) (unknown) GI: abdomen soft, (units (unknown) date) nontender to unknown) palpation, nondistended, without masses, rebound (unknown) (no (unknown) (unknown) General (units (unkno wn) date) unknown) (unknown) (no (unknown) (unknown) General: (units (unkno wn) date) cooperative, unknown) comfortable, in mild distress, well groomed (unknown) (no (unknown) (unknown) Good,Alexandra, (units ( unknown) date) PA-C [Primary Care unknown) Provider] (unknown) (no (unknown) (unknown) HEENT: (units (unkno wn) date) symmetrical facial unknown) expressions, moist mucous membranes, (unknown) (no (unknown) (unknown) HPI - (units (unkno wn) date) Skin/Abscess/Forei unknown) gn Bdy (unknown) (no (unknown) (unknown) HPI narrative: (units (unknown) date) unknown) (unknown) (no (unknown) (unknown) History of (units (unk nown) date) Present Illness unknown) (unknown) (no (unknown) (unknown) Home Medications (units (unknown) date) unknown) (unknown) (no (unknown) (unknown) Initial Vital (units ( unknown) date) Signs unknown) (unknown) (no (unknown) (unknown) Initial Vital (units ( unknown) date) Signs: unknown) (unknown) (no (unknown) (unknown) Instructions: DI (units (unknown) date) for unknown) Lymphadenopathy (unknown) (no (unknown) (unknown) [facility] (units (unknown) date) [address] [place] [address] unknown) [place] [address] (unknown) (no (unknown) (unknown) Ketorolac (units (unkn own) date) Tromethamine unknown) (Ketorolac 30 Mg/Ml Vial) 15 mg IM NOW ONE (unknown) (no (unknown) (unknown) Last Admin: (units (un known) date) 09/04/22 19:28 unknown) Dose: 1 tab (unknown) (no (unknown) (unknown) Last Admin: (units (un known) date) 09/04/22 19:28 unknown) Dose: 15 mg (unknown) (no (unknown) (unknown) Last Admin: (units (un known) date) 09/04/22 19:34 unknown) Dose: Not Given (unknown) (no (unknown) (unknown) Last Admin: (units (un known) date) 09/04/22 19:45 unknown) Dose: 10 mg (unknown) (no (unknown) (unknown) Lidocaine HCl (units ( unknown) date) (Lidocaine 2% Inj unknown) Sdv) 5 ml INJ INTRA-OP ONE (unknown) (no (unknown) (unknown) Limitations: no (units (unknown) date) limitations unknown) (unknown) (no (unknown) (unknown) MSK: moves all (units (unknown) date) extremities, unknown) neurovascularly intact, no weakness, normal tone (unknown) (no (unknown) (unknown) Medication (units (unk nown) date) Instructions unknown) Recorded Confirmed (unknown) (no (unknown) (unknown) Mode of arrival: (units (unknown) date) Family Vehicle unknown) (unknown) (no (unknown) (unknown) Narrative (units (unkn own) date) unknown) (unknown) (no (unknown) (unknown) Neuro: normal (units ( unknown) date) speech and unknown) cognition, A+O x3, ambulatory, clear speech (unknown) (no (unknown) (unknown) No Action (units (unkn own) date) unknown) (unknown) (no (unknown) (unknown) No Known Drug (units ( unknown) date) Allergies Allergy unknown) Verified 08/11/22 11:06 (unknown) (no (unknown) (unknown) Ordered: (units (unkno wn) date) unknown) (unknown) (no (unknown) (unknown) Orders (units (unkno wn) date) unknown) (unknown) (no (unknown) (unknown) Oxycodone/Acetami (units (unknown) date) nophen unknown) (Oxycodone/Acetami nophen 5/325 Tablet) 1 tab PO NOW ONE (unknown) (no (unknown) (unknown) Oxygen Delivery (units (unknown) date) Method 09/04/22 unknown) 17:25 (unknown) (no (unknown) (unknown) Oxygen Delivery (units (unknown) date) Method Room Air unknown) (unknown) (no (unknown) (unknown) Oxygen Delivery (units (unknown) date) Method unknown) (unknown) (no (unknown) (unknown) Patient History (units (unknown) date) unknown) (unknown) (no (unknown) (unknown) Patient: (units (unkno wn) date) Maricruz Hodges unknown) MR#: [id number] (unknown) (no (unknown) (unknown) Prescriptions: (units (unknown) date) unknown) (unknown) (no (unknown) (unknown) Procalcitonin (units ( unknown) date) Stat unknown) (unknown) (no (unknown) (unknown) Psych: mental (units ( unknown) date) status is grossly unknown) normal, congruent mood, normal affect, pleasant (unknown) (no (unknown) (unknown) Pulse Oximetry (units (unknown) date) 100 09/04/22 17:25 unknown) (unknown) (no (unknown) (unknown) Pulse Oximetry (units (unknown) date) 100 100 unknown) (unknown) (no (unknown) (unknown) Pulse Rate 74 74 (units (unknown) date) unknown) (unknown) (no (unknown) (unknown) Pulse Rate 79 (units ( unknown) date) 09/04/22 17:25 unknown) (unknown) (no (unknown) (unknown) Pulse Rate 79 73 (units (unknown) date) unknown) (unknown) (no (unknown) (unknown) ROS Unobtainable: (units (unknown) date) All systems unknown) reviewed + are unremarkable except as noted in HPI (unknown) (no (unknown) (unknown) Referrals: (units (unk nown) date) unknown) (unknown) (no (unknown) (unknown) Related Data (units (u nknown) date) unknown) (unknown) (no (unknown) (unknown) Respiratory Rate (units (unknown) date) 17 09/04/22 17:25 unknown) (unknown) (no (unknown) (unknown) Respiratory Rate (units (unknown) date) 17 unknown) (unknown) (no (unknown) (unknown) Respiratory Rate (units (unknown) date) unknown) (unknown) (no (unknown) (unknown) Respiratory: (units (u nknown) date) normal effort, unknown) able to speak in complete sentences, without (unknown) (no (unknown) (unknown) Review of Systems (units (unknown) date) unknown) (unknown) (no (unknown) (unknown) Reviewed vitals (units (unknown) date) signs and nursing unknown) notes. (unknown) (no (unknown) (unknown) Signed By: (units (unk nown) date) unknown) (unknown) (no (unknown) (unknown) Skin: brisk (units (un known) date) capillary refill, unknown) without pallor or erythema (unknown) (no (unknown) (unknown) Smoking Status: (units (unknown) date) Former smoker unknown) (unknown) (no (unknown) (unknown) Social History (units (unknown) date) unknown) (unknown) (no (unknown) (unknown) Source: patient (units (unknown) date) unknown) (unknown) (no (unknown) (unknown) Stated complaint: (units (unknown) date) lt ear red + unknown) swelling (unknown) (no (unknown) (unknown) Stop: 09/04/22 (units (unknown) date) 19:24 unknown) (unknown) (no (unknown) (unknown) Stop: 09/04/22 (units (unknown) date) 19:38 unknown) (unknown) (no (unknown) (unknown) Substance Use (units ( unknown) date) Type: does not use unknown) (unknown) (no (unknown) (unknown) Temperature 98.0 (units (unknown) date) F 09/04/22 17:25 unknown) (unknown) (no (unknown) (unknown) Temperature 98.0 (units (unknown) date) F unknown) (unknown) (no (unknown) (unknown) Temperature (units (un known) date) unknown) (unknown) (no (unknown) (unknown) This is a (units (unkn own) date) 77-year-old female unknown) with history of diabetes who presents emergency (unknown) (no (unknown) (unknown) Time Seen by (units (u nknown) date) Provider: 09/04/22 unknown) 18:50 (unknown) (no (unknown) (unknown) Vital Signs - 8 (units (unknown) date) hr unknown) (unknown) (no (unknown) (unknown) Vital Signs (units (un known) date) unknown) (unknown) (no (unknown) (unknown) Vital signs: (units (u nknown) date) unknown) (unknown) (no (unknown) (unknown) [ ] New (units (unkno wn) date) medication written unknown) as a paper prescription (unknown) (no (unknown) (unknown) [ ] No new (units (unk nown) date) medications given unknown) (unknown) (no (unknown) (unknown) [ x] New (units (unkno wn) date) medication unknown) prescriptions sent to your pharmacy: [ ] (unknown) (no (unknown) (unknown) abnormality. Her (units (unknown) date) primary care unknown) provider is ALINA Ruiz. States that she was (unknown) (no (unknown) (unknown) ago. States that (units (unknown) date) she had recent unknown) dental work in May that she had antibiotics (unknown) (no (unknown) (unknown) alcohol intake (units (unknown) date) frequency: 0-2 unknown) drinks per day (unknown) (no (unknown) (unknown) alcohol intake: (units (unknown) date) current unknown) (unknown) (no (unknown) (unknown) and below (units (unkn own) date) unknown) (unknown) (no (unknown) (unknown) and cooperative (units (unknown) date) unknown) (unknown) (no (unknown) (unknown) appointment. Let (units (unknown) date) them know you were unknown) seen in the Emergency Department and that we (unknown) (no (unknown) (unknown) asked that you be (units (unknown) date) seen for unknown) follow-up. We will electronically transmit a record (unknown) (no (unknown) (unknown) concerning (units (unk nown) date) symptoms, such as unknown) [fever greater than 101F, chills, worsening pain, (unknown) (no (unknown) (unknown) denies any (units (unk nown) date) weakness, altered unknown) mental status, vision changes, rash or other (unknown) (no (unknown) (unknown) department (units (unk nown) date) complaining of unknown) swelling to her left jaw with gradual onset 3 days (unknown) (no (unknown) (unknown) establish care (units (unknown) date) with one of the unknown) [facility] primary care providers. (unknown) (no (unknown) (unknown) fever, chills, (units (unknown) date) recent upper unknown) respiratory illness, cough or congestion. She (unknown) (no (unknown) (unknown) for. States that (units (unknown) date) she is on unknown) hydrocodone for chronic pain and took this for her (unknown) (no (unknown) (unknown) gabapentin 300 mg (units (unknown) date) Tablet unknown) (unknown) (no (unknown) (unknown) gabapentin 300 mg (units (unknown) date) tablet 300 mg PO unknown) DAILY 08/11/22 08/11/22 (unknown) (no (unknown) (unknown) had recent bridge (units (unknown) date) and tooth unknown) extraction to the lower left jaw in May 2022. (unknown) (no (unknown) (unknown) household (units (unkn own) date) members: spouse unknown) (unknown) (no (unknown) (unknown) hydrocodone (units (un known) date) bitartrate unknown) 08/11/22 (unknown) (no (unknown) (unknown) hydrocodone (units (un known) date) bitartrate unknown) (unknown) (no (unknown) (unknown) left jaw pain and (units (unknown) date) swelling but unknown) states it did not help her. She states that she (unknown) (no (unknown) (unknown) levothyroxine 25 (units (unknown) date) mcg Tablet unknown) (unknown) (no (unknown) (unknown) levothyroxine 25 (units (unknown) date) mcg tablet 25 mcg unknown) PO DIRECTED 08/11/22 08/11/22 (unknown) (no (unknown) (unknown) lisinopril 10 mg (units (unknown) date) PO DAILY 08/11/22 unknown) 08/11/22 (unknown) (no (unknown) (unknown) lisinopril (units (unk nown) date) unknown) (unknown) (no (unknown) (unknown) metformin 500 mg (units (unknown) date) Tablet unknown) (unknown) (no (unknown) (unknown) metformin 500 mg (units (unknown) date) tablet 500 mg PO unknown) DAILY 08/11/22 08/11/22 (unknown) (no (unknown) (unknown) of today's note (units (unknown) date) if your PCP is in unknown) our system (unknown) (no (unknown) (unknown) omeprazole 20 mg (units (unknown) date) Tablet,Delayed unknown) Release (Dr/Ec) (unknown) (no (unknown) (unknown) omeprazole 20 mg (units (unknown) date) tablet,delayed 20 unknown) mg PO DAILY 08/11/22 08/11/22 (unknown) (no (unknown) (unknown) persistent (units (unk nown) date) vomiting or other unknown) bothersome symptoms]. (unknown) (no (unknown) (unknown) release (units (unkno wn) date) unknown) (unknown) (no (unknown) (unknown) sent here for (units ( unknown) date) evaluation of this unknown) swelling with concern for lymphadenopathy (unknown) (no (unknown) (unknown) sertraline 50 mg (units (unknown) date) Tablet unknown) (unknown) (no (unknown) (unknown) sertraline 50 mg (units (unknown) date) tablet 50 mg PO unknown) DAILY 08/11/22 08/11/22 (unknown) (no (unknown) (unknown) tenderness or (units ( unknown) date) exquisite unknown) tenderness with exam. (unknown) (no (unknown) (unknown) tobacco type: (units ( unknown) date) cigarettes unknown) (unknown) (no (unknown) (unknown) versus dental (units ( unknown) date) abscess versus unknown) bacterial infection or other viral illness. (unknown) (no (unknown) (unknown) wheezing, (units (unkn own) date) stridor, or unknown) abnormal breath sounds. No retractions or tachypnea. Result panel 92 (unknown) (no date) (unknown) (unknown) > 60 ml/min (unkn own) (unknown) (no date) (unknown) (unknown) > 60 ml/min (unkn own) (unknown) (no date) (unknown) (unknown) 0.2 mg/dl (unkn own) (unknown) (no date) (unknown) (unknown) 0.59 mg/dl (unkn own) (unknown) (no date) (unknown) (unknown) 1.1 (units (unkn own) unknown) (unknown) (no date) (unknown) (unknown) 109 mg/dl (unkn own) (unknown) (no date) (unknown) (unknown) 109 mg/dl (unkn own) (unknown) (no date) (unknown) (unknown) 128 mmol/l (unkn own) (unknown) (no date) (unknown) (unknown) 14 iu/l (unkn own) (unknown) (no date) (unknown) (unknown) 14 mg/dl (unkn own) (unknown) (no date) (unknown) (unknown) 23 iu/l (unkn own) (unknown) (no date) (unknown) (unknown) 23.7 (units (unkn own) unknown) (unknown) (no date) (unknown) (unknown) 28 mmol/l (unkn own) (unknown) (no date) (unknown) (unknown) 3.0 g/dl (unkn own) (unknown) (no date) (unknown) (unknown) 3.4 g/dl (unkn own) (unknown) (no date) (unknown) (unknown) 4.4 mmol/l (unkn own) (unknown) (no date) (unknown) (unknown) 6.4 g/dl (unkn own) (unknown) (no date) (unknown) (unknown) 7.6 mg/dl (unkn own) (unknown) (no date) (unknown) (unknown) 8.6 mg/dl (unkn own) (unknown) (no date) (unknown) (unknown) 90 u/l (unkn own) (unknown) (no date) (unknown) (unknown) 95 mmol/l (unkn own) (unknown) (no date) (unknown) (unknown) Flu A (units (unkn own) NEGATIVE unknown) (unknown) (no date) (unknown) (unknown) Flu B (units (unkn own) NEGATIVE unknown) (unknown) (no date) (unknown) (unknown) Negative (units (unkn own) unknown) (unknown) (no date) (unknown) (unknown) Negative (units (unkn own) unknown) Result panel 93 (unknown) (no (unknown) (unknown) (no value) (units (unk nown) date) unknown) (unknown) (no (unknown) (unknown) [id number] (units (unkn own) date) unknown) (unknown) (no (unknown) (unknown) 09/04/22 (units (unkno wn) date) unknown) (unknown) (no (unknown) (unknown) 1. Asymmetric (units ( unknown) date) enlargement of the unknown) left parotid gland with internal lobulated (unknown) (no (unknown) (unknown) [address] (units (unknown) date) unknown) (unknown) (no (unknown) (unknown) 2. Prominent (units (u nknown) date) subcentimeter left unknown) cervical lymph nodes are likely reactive. (unknown) (no (unknown) (unknown) 3. Small (units (unkno wn) date) nonspecific right unknown) upper lobe pulmonary nodule. If patient is at high (unknown) (no (unknown) (unknown) Accession Number: (units (unknown) date) [id number] unknown) (unknown) (no (unknown) (unknown) After the (units (unkn own) date) administration of unknown) intravenous contrast, 3.0 mm axial sections (unknown) (no (unknown) (unknown) Age/Sex: 77 / F (units (unknown) date) Date of Service: unknown) (unknown) (no (unknown) (unknown) [place], [place] (units ( unknown) date) [id number] unknown) (unknown) (no (unknown) (unknown) Approved by: (units (u nknown) date) Jeremias Salcedo, unknown) Abundio on 09/04/2022 at 22:35 (unknown) (no (unknown) (unknown) Bones: No (units (unkn own) date) suspicious bony unknown) lesions. Visualized sinuses demonstrate mild (unknown) (no (unknown) (unknown) COMPARISON: None. (units (unknown) date) unknown) (unknown) (no (unknown) (unknown) CT Scan Report (units (unknown) date) unknown) (unknown) (no (unknown) (unknown) : 1945 (units (unknown) date) Acct:[id number] unknown) (unknown) (no (unknown) (unknown) Dictated by: (units (u nknown) date) Jeremias Salcedo, unknown) Abundio on 09/04/2022 at 22:28 (unknown) (no (unknown) (unknown) FINDINGS: (units (unkn own) date) unknown) (unknown) (no (unknown) (unknown) Glands: There is (units (unknown) date) asymmetric unknown) enlargement of the left parotid gland with (unknown) (no (unknown) (unknown) IMPRESSION: (units (un known) date) unknown) (unknown) (no (unknown) (unknown) INDICATIONS: left (units (unknown) date) cervical unknown) lymphadenopathy vs abscess vs parotitis (unknown) (no (unknown) (unknown) Image quality: (units (unknown) date) There is metallic unknown) streak artifact secondary to patient's dental (unknown) (no (unknown) (unknown) [facility] (units (unknown) date) unknown) (unknown) (no (unknown) (unknown) Loc: ED (units (unkno wn) date) unknown) (unknown) (no (unknown) (unknown) Lymph nodes: No (units (unknown) date) lymphadenopathy by unknown) size criteria. There are prominent (unknown) (no (unknown) (unknown) Miscellaneous: (units (unknown) date) Visualized brain unknown) and orbits appear normal. The visualized (unknown) (no (unknown) (unknown) Neck spaces: The (units (unknown) date) oropharynx, unknown) nasopharynx, and pharynx demonstrate no discrete (unknown) (no (unknown) (unknown) No discrete (units (un known) date) sialoliths or unknown) abscess collections. (unknown) (no (unknown) (unknown) Ordering (units (unkno wn) date) Provider: unknown) SivawCarole (unknown) (no (unknown) (unknown) PROCEDURE: CT (units ( unknown) date) SOFT TISSUE NECK W unknown) CON (unknown) (no (unknown) (unknown) Patient: (units (unkno wn) date) Maricruz Hodges L unknown) MR#: [id number] (unknown) (no (unknown) (unknown) Procedure: CT (units ( unknown) date) soft tissue neck w unknown) con (unknown) (no (unknown) (unknown) Signed (units (unkno wn) date) unknown) (unknown) (no (unknown) (unknown) TECHNIQUE: (units (unk nown) date) unknown) (unknown) (no (unknown) (unknown) There is mild (units ( unknown) date) ductal dilatation unknown) within the left parotid gland. The (unknown) (no (unknown) (unknown) There is (units (unkno wn) date) unknown) (unknown) (no (unknown) (unknown) Vessels: (units (unkno wn) date) Visualized unknown) vasculature appears patent. (unknown) (no (unknown) (unknown) abnormal (units (unkno wn) date) enhancing soft unknown) tissue internally. Mild associated fat stranding is (unknown) (no (unknown) (unknown) abscess. (units (unkno wn) date) unknown) (unknown) (no (unknown) (unknown) acquired from the (units (unknown) date) unknown) (unknown) (no (unknown) (unknown) along the parotid (units (unknown) date) gland. No discrete unknown) loculated fluid collection to suggest an (unknown) (no (unknown) (unknown) appear normal. (units (unknown) date) Thyroid gland unknown) demonstrates no discrete nodules. (unknown) (no (unknown) (unknown) compatible with (units (unknown) date) sialadenitis but unknown) given the degree of enhancing soft tissue (unknown) (no (unknown) (unknown) confluent (units (unkn own) date) unknown) (unknown) (no (unknown) (unknown) demonstrate mild (units (unknown) date) scarring within unknown) the apices. There is also a small subpleural (unknown) (no (unknown) (unknown) demonstrated (units (u nknown) date) unknown) (unknown) (no (unknown) (unknown) disease and (units (un known) date) unknown) (unknown) (no (unknown) (unknown) enhancing (units (unkn own) date) unknown) (unknown) (no (unknown) (unknown) epiglottis, (units (un known) date) unknown) (unknown) (no (unknown) (unknown) facet joint (units (un known) date) arthropathy. unknown) (unknown) (no (unknown) (unknown) findings are (units (u nknown) date) unknown) (unknown) (no (unknown) (unknown) hardware. (units (unkn own) date) unknown) (unknown) (no (unknown) (unknown) internally, a (units ( unknown) date) unknown) (unknown) (no (unknown) (unknown) left cervical (units ( unknown) date) lymph nodes which unknown) are likely reactive. (unknown) (no (unknown) (unknown) lungs (units (unkno wn) date) unknown) (unknown) (no (unknown) (unknown) malignancy, a (units ( unknown) date) follow-up chest CT unknown) may be performed in 12 months to demonstrate (unknown) (no (unknown) (unknown) mass cannot be (units (unknown) date) excluded. Clinical unknown) follow-up is recommended to demonstrate (unknown) (no (unknown) (unknown) mass lesions. The (units (unknown) date) vocal cords, false unknown) vocal cords, pyriform sinuses, (unknown) (no (unknown) (unknown) mucosal (units (unkno wn) date) unknown) (unknown) (no (unknown) (unknown) nodule in (units (unkn own) date) unknown) (unknown) (no (unknown) (unknown) pharynx. 3 mm (units ( unknown) date) thick coronal and unknown) sagittal reformats were generated. For (unknown) (no (unknown) (unknown) radiation dose (units (unknown) date) unknown) (unknown) (no (unknown) (unknown) reduction, the (units (unknown) date) following was unknown) used: automated exposure control. (unknown) (no (unknown) (unknown) resolution. (units (un known) date) unknown) (unknown) (no (unknown) (unknown) risk for (units (unkno wn) date) unknown) (unknown) (no (unknown) (unknown) sella to the (units (u nknown) date) aortic arch. unknown) Additional oblique axial 3.0 mm sections acquired (unknown) (no (unknown) (unknown) soft tissue, mild (units (unknown) date) ductal dilatation, unknown) and associated fat stranding. The (unknown) (no (unknown) (unknown) stability. (units (unk nown) date) unknown) (unknown) (no (unknown) (unknown) straightening of (units (unknown) date) the cervical unknown) lordosis with multilevel degenerative disc (unknown) (no (unknown) (unknown) subcentimeter (units ( unknown) date) unknown) (unknown) (no (unknown) (unknown) submandibular (units ( unknown) date) glands unknown) (unknown) (no (unknown) (unknown) the right upper (units (unknown) date) lobe measuring up unknown) to 0.3 cm on series 4, image 9. (unknown) (no (unknown) (unknown) thickening within (units (unknown) date) the right unknown) maxillary sinus. Mastoid air cells are clear. (unknown) (no (unknown) (unknown) through the (units (un known) date) unknown) (unknown) (no (unknown) (unknown) unremarkable. (units ( unknown) date) unknown) (unknown) (no (unknown) (unknown) vallecula, and (units (unknown) date) tongue base all unknown) appear normal. Extramucosal spaces appear Result panel 94 (unknown) (no (unknown) (unknown) (no value) (units (unk nown) date) unknown) (unknown) (no (unknown) (unknown) *If you do not (units (unknown) date) have a primary unknown) care provider please contact [phone] to (unknown) (no (unknown) (unknown) *Please continue (units (unknown) date) to take your unknown) regular medications as directed. (unknown) (no (unknown) (unknown) *Please follow up (units (unknown) date) with your primary unknown) care provider in 2-3 days, call for an (unknown) (no (unknown) (unknown) *Return to (units (unk nown) date) Emergency unknown) Department if you should have any new, worsening, or (unknown) (no (unknown) (unknown) *What to do: (units (u nknown) date) unknown) (unknown) (no (unknown) (unknown) *You have been (units (unknown) date) diagnosed with unknown) (unknown) (no (unknown) (unknown) [id number] (units (unkno wn) date) unknown) (unknown) (no (unknown) (unknown) 09/04/22 19:37 (units (unknown) date) unknown) (unknown) (no (unknown) (unknown) 09/04/22 (units (unkno wn) date) unknown) (unknown) (no (unknown) (unknown) 1 tab PO BID Qty: (units (unknown) date) 14 0RF unknown) (unknown) (no (unknown) (unknown) 1 tab PO Q8H PRN (units (unknown) date) (Reason: pain) unknown) Qty: 10 0RF (unknown) (no (unknown) (unknown) 10 mg PO DAILY (units (unknown) date) unknown) (unknown) (no (unknown) (unknown) 17:25 09/04/22 (units (unknown) date) unknown) (unknown) (no (unknown) (unknown) 18:55 09/04/22 (units (unknown) date) unknown) (unknown) (no (unknown) (unknown) 18:56 09/04/22 (units (unknown) date) unknown) (unknown) (no (unknown) (unknown) 18:56 (units (unkno wn) date) unknown) (unknown) (no (unknown) (unknown) 19:00 09/04/22 (units (unknown) date) unknown) (unknown) (no (unknown) (unknown) 19:00 (units (unkno wn) date) unknown) (unknown) (no (unknown) (unknown) 20 mg PO DAILY (units (unknown) date) Qty: 5 0RF unknown) (unknown) (no (unknown) (unknown) 20 mg PO DAILY (units (unknown) date) unknown) (unknown) (no (unknown) (unknown) 25 mcg PO (units (u nknown) date) DIRECTED unknown) (unknown) (no (unknown) (unknown) 300 mg PO DAILY (units (unknown) date) unknown) (unknown) (no (unknown) (unknown) 50 mg PO DAILY (units (unknown) date) unknown) (unknown) (no (unknown) (unknown) 500 mg PO BID PRN (units (unknown) date) (Reason: pain) unknown) Qty: 14 0RF (unknown) (no (unknown) (unknown) 500 mg PO DAILY (units (unknown) date) unknown) (unknown) (no (unknown) (unknown) Activity (units (unkno wn) date) Restrictions/Addit unknown) ional Instructions: (unknown) (no (unknown) (unknown) Age/Sex: 77 / F (units (unknown) date) unknown) (unknown) (no (unknown) (unknown) Allergies (units (unkn own) date) unknown) (unknown) (no (unknown) (unknown) Allergy/AdvReac (units (unknown) date) Type Severity unknown) Reaction Status Date / Time (unknown) (no (unknown) (unknown) Blood Pressure (units (unknown) date) 125/60 09/04/22 unknown) 17:25 (unknown) (no (unknown) (unknown) Blood Pressure (units (unknown) date) 125/60 140/65 unknown) (unknown) (no (unknown) (unknown) Blood Pressure (units (unknown) date) 125/66 unknown) (unknown) (no (unknown) (unknown) Paz Mo S, (units (unknown) date) 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] unknown) (unknown) (no (unknown) (unknown) CBC Auto Diff (units ( unknown) date) [Complete Blood unknown) Count AUTO DIFF] Stat (unknown) (no (unknown) (unknown) CMP (units (unkno wn) date) [Comprehensive unknown) Metabolic Panel] Stat (unknown) (no (unknown) (unknown) COVID19 -Nasal (units (unknown) date) RAPID/Pre-Proc unknown) Stat (unknown) (no (unknown) (unknown) CRP [C-Reactive (units (unknown) date) Protein Quant] unknown) Stat (unknown) (no (unknown) (unknown) Cardiovascular: (units (unknown) date) regular rate and unknown) rhythm, no peripheral edema, warm extremities (unknown) (no (unknown) (unknown) Chief complaint: (units (unknown) date) Skin/Abscess/Forei unknown) gn Body (unknown) (no (unknown) (unknown) Course of Care: (units (unknown) date) unknown) (unknown) (no (unknown) (unknown) Course (units (unkno wn) date) unknown) (unknown) (no (unknown) (unknown) : 1945 (units (unknown) date) Acct:[id number] unknown) (unknown) (no (unknown) (unknown) Date of Service: (units (unknown) date) 09/04/22 unknown) (unknown) (no (unknown) (unknown) Decision (units (o wn) date) rules/scores unknown) evaluated: (unknown) (no (unknown) (unknown) Denies any (units (unk nown) date) intraoral unknown) swelling, shortness of breath, difficulty swallowing, (unknown) (no (unknown) (unknown) Denies nausea (units ( unknown) date) vomiting, unknown) difficulty breathing or swallowing, denies difficulty (unknown) (no (unknown) (unknown) Departure (units (unkn own) date) unknown) (unknown) (no (unknown) (unknown) Dexamethasone (units ( unknown) date) (Dexamethasone 10 unknown) Mg/Ml Vial) 10 mg PO NOW ONE (unknown) (no (unknown) (unknown) Differential (units (u nknown) date) diagnoses include, unknown) but are not limited to: Parotitis, dental (unknown) (no (unknown) (unknown) Discharge Plan (units (unknown) date) unknown) (unknown) (no (unknown) (unknown) Discontinued (units (u nknown) date) Medications unknown) (unknown) (no (unknown) (unknown) Discussion of (units ( unknown) date) Management with unknown) other Health Professionals: (unknown) (no (unknown) (unknown) Documented By: OW (units (unknown) date) unknown) (unknown) (no (unknown) (unknown) ED Orders (units (unkn own) date) unknown) (unknown) (no (unknown) (unknown) ED provider (units (un known) date) independent unknown) interpretation (unknown) (no (unknown) (unknown) ER Physician: (units ( unknown) date) Carole Pulido unknown) ALINA (unknown) (no (unknown) (unknown) Electronically (units (unknown) date) signed by: unknown) ALINA Mendez (unknown) (no (unknown) (unknown) Emergency Report (units (unknown) date) unknown) (unknown) (no (unknown) (unknown) Exam Narrative: (units (unknown) date) unknown) (unknown) (no (unknown) (unknown) Exam (units (unkno wn) date) unknown) (unknown) (no (unknown) (unknown) GI: abdomen soft, (units (unknown) date) nontender to unknown) palpation, nondistended, without masses, rebound (unknown) (no (unknown) (unknown) General (units (unkno wn) date) unknown) (unknown) (no (unknown) (unknown) General: (units (unkno wn) date) cooperative, unknown) comfortable, in mild distress, well groomed (unknown) (no (unknown) (unknown) Good,Alexandra, (units ( unknown) date) PA-C [Primary Care unknown) Provider] (unknown) (no (unknown) (unknown) HEENT: (units (unkno wn) date) symmetrical facial unknown) expressions, moist mucous membranes, left anterior (unknown) (no (unknown) (unknown) HPI - (units (unkno wn) date) Skin/Abscess/Forei unknown) gn Bdy (unknown) (no (unknown) (unknown) HPI narrative: (units (unknown) date) unknown) (unknown) (no (unknown) (unknown) Health COmmunity] (units (unknown) date) unknown) (unknown) (no (unknown) (unknown) History of (units (unk nown) date) Present Illness unknown) (unknown) (no (unknown) (unknown) Home Medications (units (unknown) date) unknown) (unknown) (no (unknown) (unknown) I performed a (units ( unknown) date) preliminary unknown) independent interpretation of the following imaging (unknown) (no (unknown) (unknown) I, Carole Crew, (units (unknown) date) 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, personally unknown) performed the services described in the (unknown) (no (unknown) (unknown) Initial Vital (units ( unknown) date) Signs unknown) (unknown) (no (unknown) (unknown) Initial Vital (units ( unknown) date) Signs: unknown) (unknown) (no (unknown) (unknown) Instructions: DI (units (unknown) date) for unknown) Lymphadenopathy (unknown) (no (unknown) (unknown) [facility] (units (unknown) date) [address] [place] [address] unknown) [place] [address] (unknown) (no (unknown) (unknown) Ketorolac (units (unkn own) date) Tromethamine unknown) (Ketorolac 30 Mg/Ml Vial) 15 mg IM NOW ONE (unknown) (no (unknown) (unknown) Last Admin: (units (un known) date) 09/04/22 19:28 unknown) Dose: 1 tab (unknown) (no (unknown) (unknown) Last Admin: (units (un known) date) 09/04/22 19:28 unknown) Dose: 15 mg (unknown) (no (unknown) (unknown) Last Admin: (units (un known) date) 09/04/22 19:34 unknown) Dose: Not Given (unknown) (no (unknown) (unknown) Last Admin: (units (un known) date) 09/04/22 19:45 unknown) Dose: 10 mg (unknown) (no (unknown) (unknown) Lidocaine HCl (units ( unknown) date) (Lidocaine 2% Inj unknown) Sdv) 5 ml INJ INTRA-OP ONE (unknown) (no (unknown) (unknown) Limitations: no (units (unknown) date) limitations unknown) (unknown) (no (unknown) (unknown) MDM - (units (unkno wn) date) Skin/Abscess/Forei unknown) gn Bdy (unknown) (no (unknown) (unknown) MDM Narrative (units ( unknown) date) unknown) (unknown) (no (unknown) (unknown) MIPS: This (units (unk nown) date) encounter doesn't unknown) have any diagnosis associated with MIPS criteria. (unknown) (no (unknown) (unknown) MSK: moves all (units (unknown) date) extremities, unknown) neurovascularly intact, no weakness, normal tone (unknown) (no (unknown) (unknown) Medical decision (units (unknown) date) making narrative: unknown) (unknown) (no (unknown) (unknown) Medication (units (unk nown) date) Instructions unknown) Recorded Confirmed (unknown) (no (unknown) (unknown) Medication (units (unk nown) date) Instructions unknown) Recorded (unknown) (no (unknown) (unknown) Mode of arrival: (units (unknown) date) Family Vehicle unknown) (unknown) (no (unknown) (unknown) Narrative (units (unkn own) date) unknown) (unknown) (no (unknown) (unknown) Neuro: normal (units ( unknown) date) speech and unknown) cognition, A+O x3, ambulatory, clear speech (unknown) (no (unknown) (unknown) New (units (unkno wn) date) unknown) (unknown) (no (unknown) (unknown) No Action (units (unkn own) date) unknown) (unknown) (no (unknown) (unknown) No Known Drug (units ( unknown) date) Allergies Allergy unknown) Verified 08/11/22 11:06 (unknown) (no (unknown) (unknown) Occasional wrong (units (unknown) date) word or 'sound unknown) alike' substitutions may have occurred due to (unknown) (no (unknown) (unknown) Ordered: (units (unkno wn) date) unknown) (unknown) (no (unknown) (unknown) Orders (units (unkno wn) date) unknown) (unknown) (no (unknown) (unknown) Oxycodone/Acetami (units (unknown) date) nophen unknown) (Oxycodone/Acetami nophen 5/325 Tablet) 1 tab PO NOW ONE (unknown) (no (unknown) (unknown) Oxygen Delivery (units (unknown) date) Method 09/04/22 unknown) 17:25 (unknown) (no (unknown) (unknown) Oxygen Delivery (units (unknown) date) Method Room Air unknown) (unknown) (no (unknown) (unknown) Oxygen Delivery (units (unknown) date) Method unknown) (unknown) (no (unknown) (unknown) Patient History (units (unknown) date) unknown) (unknown) (no (unknown) (unknown) Patient's (units (unkn own) date) symptoms improved unknown) over duration of stay with above-stated therapies. (unknown) (no (unknown) (unknown) Patient: (units (unkno wn) date) Maricruz Hodges unknown) MR#: [id number] (unknown) (no (unknown) (unknown) Portions of this (units (unknown) date) chart have been unknown) created with [employer] voice recognition software. (unknown) (no (unknown) (unknown) Prescriptions: (units (unknown) date) unknown) (unknown) (no (unknown) (unknown) Previous Rx's (units ( unknown) date) unknown) (unknown) (no (unknown) (unknown) Procalcitonin (units ( unknown) date) Stat unknown) (unknown) (no (unknown) (unknown) Psych: mental (units ( unknown) date) status is grossly unknown) normal, congruent mood, normal affect, pleasant (unknown) (no (unknown) (unknown) Pulse Oximetry (units (unknown) date) 100 09/04/22 17:25 unknown) (unknown) (no (unknown) (unknown) Pulse Oximetry (units (unknown) date) 100 100 unknown) (unknown) (no (unknown) (unknown) Pulse Rate 74 74 (units (unknown) date) unknown) (unknown) (no (unknown) (unknown) Pulse Rate 79 (units ( unknown) date) 09/04/22 17:25 unknown) (unknown) (no (unknown) (unknown) Pulse Rate 79 73 (units (unknown) date) unknown) (unknown) (no (unknown) (unknown) ROS Unobtainable: (units (unknown) date) All systems unknown) reviewed + are unremarkable except as noted in HPI (unknown) (no (unknown) (unknown) Referrals: (units (unk nown) date) unknown) (unknown) (no (unknown) (unknown) Related Data (units (u nknown) date) unknown) (unknown) (no (unknown) (unknown) Respiratory Rate (units (unknown) date) 17 09/04/22 17:25 unknown) (unknown) (no (unknown) (unknown) Respiratory Rate (units (unknown) date) 17 unknown) (unknown) (no (unknown) (unknown) Respiratory Rate (units (unknown) date) unknown) (unknown) (no (unknown) (unknown) Respiratory: (units (u nknown) date) normal effort, unknown) able to speak in complete sentences, without (unknown) (no (unknown) (unknown) Review of Systems (units (unknown) date) unknown) (unknown) (no (unknown) (unknown) Reviewed vitals (units (unknown) date) signs and nursing unknown) notes. (unknown) (no (unknown) (unknown) Signed By: (units (unk nown) date) unknown) (unknown) (no (unknown) (unknown) Skin: brisk (units (un known) date) capillary refill, unknown) without pallor or erythema (unknown) (no (unknown) (unknown) Smoking Status: (units (unknown) date) Former smoker unknown) (unknown) (no (unknown) (unknown) Social History (units (unknown) date) (Reviewed 09/04/22 unknown) @ 20:43 by ALINA Stevenson) (unknown) (no (unknown) (unknown) Social (units (unkno wn) date) determinants of unknown) health that may impact treatment or disposition: (unknown) (no (unknown) (unknown) Source: patient (units (unknown) date) unknown) (unknown) (no (unknown) (unknown) Stated complaint: (units (unknown) date) lt ear red + unknown) swelling (unknown) (no (unknown) (unknown) Stop: 09/04/22 (units (unknown) date) 19:24 unknown) (unknown) (no (unknown) (unknown) Stop: 09/04/22 (units (unknown) date) 19:38 unknown) (unknown) (no (unknown) (unknown) Substance Use (units ( unknown) date) Type: does not use unknown) (unknown) (no (unknown) (unknown) Temperature 98.0 (units (unknown) date) F 09/04/22 17:25 unknown) (unknown) (no (unknown) (unknown) Temperature 98.0 (units (unknown) date) F unknown) (unknown) (no (unknown) (unknown) Temperature (units (un known) date) unknown) (unknown) (no (unknown) (unknown) This is a (units (unkn own) date) 77-year-old female unknown) who is presenting to the ED via POV with concern (unknown) (no (unknown) (unknown) This is a (units (unkn own) date) 77-year-old female unknown) with history of diabetes who presents emergency (unknown) (no (unknown) (unknown) Time Seen by (units (u nknown) date) Provider: 09/04/22 unknown) 18:50 (unknown) (no (unknown) (unknown) Vital Signs - 8 (units (unknown) date) hr unknown) (unknown) (no (unknown) (unknown) Vital Signs (units (un known) date) unknown) (unknown) (no (unknown) (unknown) Vital Signs: I, (units (unknown) date) the ED provider, unknown) reviewed the patient?s vital signs, past (unknown) (no (unknown) (unknown) Vital signs: (units (u nknown) date) unknown) (unknown) (no (unknown) (unknown) [ ] New (units (unkno wn) date) medication written unknown) as a paper prescription (unknown) (no (unknown) (unknown) [ ] No new (units (unk nown) date) medications given unknown) (unknown) (no (unknown) (unknown) [ x] New (units (unkno wn) date) medication unknown) prescriptions sent to your pharmacy: [ Jaswinder (unknown) (no (unknown) (unknown) abnormality. Her (units (unknown) date) primary care unknown) provider is ALINA Ruiz. States that she was (unknown) (no (unknown) (unknown) about left (units (unk nown) date) mandible/anterior unknown) cervical lymphadenopathy versus dental abscess (unknown) (no (unknown) (unknown) abscess, (units (unkno wn) date) lymphadenopathy, unknown) viral syndrome, (unknown) (no (unknown) (unknown) ago. States that (units (unknown) date) she had recent unknown) dental work in May that she had antibiotics (unknown) (no (unknown) (unknown) alcohol intake (units (unknown) date) frequency: 0-2 unknown) drinks per day (unknown) (no (unknown) (unknown) alcohol intake: (units (unknown) date) current unknown) (unknown) (no (unknown) (unknown) amoxicillin 875 (units (unknown) date) mg-potassium 1 tab unknown) PO BID #14 tabs 09/04/22 (unknown) (no (unknown) (unknown) amoxicillin-pot (units (unknown) date) clavulanate unknown) 875-125 mg tablet (unknown) (no (unknown) (unknown) and below (units (unkn own) date) unknown) (unknown) (no (unknown) (unknown) and cooperative (units (unknown) date) unknown) (unknown) (no (unknown) (unknown) and specific (units (un known) date) details were unknown) provided for the plan of care. Questions are addressed (unknown) (no (unknown) (unknown) and there is (units (u nknown) date) agreement with the unknown) plan and for follow-up. Patient is appropriate (unknown) (no (unknown) (unknown) appointment. Let (units (unknown) date) them know you were unknown) seen in the Emergency Department and that we (unknown) (no (unknown) (unknown) asked that you be (units (unknown) date) seen for unknown) follow-up. We will electronically transmit a record (unknown) (no (unknown) (unknown) canal erythema or (units (unknown) date) TM erythema, unknown) without stridor, full range of motion of neck, no (unknown) (no (unknown) (unknown) cervical lower (units ( unknown) date) mandible region unknown) with firm, non mobile mass approximately 2 cm x 3 (unknown) (no (unknown) (unknown) chewing. Last (units ( unknown) date) dental work was in unknown) May 2022. (unknown) (no (unknown) (unknown) clavulanate 125 (units (unknown) date) mg tablet unknown) (unknown) (no (unknown) (unknown) cm, exquisitely (units (unknown) date) tender, without unknown) fluctuance, without mastoid tenderness, ear (unknown) (no (unknown) (unknown) concerning (units (unk nown) date) symptoms, such as unknown) [fever greater than 101F, chills, worsening pain, (unknown) (no (unknown) (unknown) denies any (units (unk n) date) weakness, altered unknown) mental status, vision changes, rash or other (unknown) (no (unknown) (unknown) department (units (unk n) date) complaining of unknown) swelling to her left jaw with gradual onset 3 days (unknown) (no (unknown) (unknown) documentation, (units (unknown) date) and it accurately unknown) records my words and actions. I collaborated (unknown) (no (unknown) (unknown) establish care (units (unknown) date) with one of the unknown) [facility] primary care providers. (unknown) (no (unknown) (unknown) fever, chills, (units (unknown) date) recent upper unknown) respiratory illness, cough or congestion. She (unknown) (no (unknown) (unknown) for outpatient (units (unknown) date) management. unknown) (unknown) (no (unknown) (unknown) for. States that (units (unknown) date) she is on unknown) hydrocodone for chronic pain and took this for her (unknown) (no (unknown) (unknown) gabapentin 300 mg (units (unknown) date) Tablet unknown) (unknown) (no (unknown) (unknown) gabapentin 300 mg (units (unknown) date) tablet 300 mg PO unknown) DAILY 08/11/22 08/11/22 (unknown) (no (unknown) (unknown) had recent bridge (units (unknown) date) and tooth unknown) extraction to the lower left jaw in May 2022. (unknown) (no (unknown) (unknown) household (units (unkn own) date) members: spouse unknown) (unknown) (no (unknown) (unknown) hydrocodone (units (un known) date) bitartrate unknown) 08/11/22 (unknown) (no (unknown) (unknown) hydrocodone (units (un known) date) bitartrate unknown) (unknown) (no (unknown) (unknown) left jaw pain and (units (unknown) date) swelling but unknown) states it did not help her. She states that she (unknown) (no (unknown) (unknown) levothyroxine 25 (units (unknown) date) mcg Tablet unknown) (unknown) (no (unknown) (unknown) levothyroxine 25 (units (unknown) date) mcg tablet 25 mcg unknown) PO DIRECTED 08/11/22 08/11/22 (unknown) (no (unknown) (unknown) lisinopril 10 mg (units (unknown) date) PO DAILY 08/11/22 unknown) 08/11/22 (unknown) (no (unknown) (unknown) lisinopril (units (unk nown) date) unknown) (unknown) (no (unknown) (unknown) medical records (units (unknown) date) and encounters if unknown) available, and nursing notes. I have spoken wi (unknown) (no (unknown) (unknown) metformin 500 mg (units (unknown) date) Tablet unknown) (unknown) (no (unknown) (unknown) metformin 500 mg (units (unknown) date) tablet 500 mg PO unknown) DAILY 08/11/22 08/11/22 (unknown) (no (unknown) (unknown) mg tablet (units (unkn own) date) (Percocet) unknown) (unknown) (no (unknown) (unknown) midline, without (units (unknown) date) posterior pharynx unknown) erythema or edema (unknown) (no (unknown) (unknown) naproxen 500 mg (units (unknown) date) tablet (Naprosyn) unknown) 500 mg PO BID PRN pain #14 tabs 09/04/22 (unknown) (no (unknown) (unknown) naproxen (units (unkno wn) date) [Naprosyn] 500 mg unknown) tablet (unknown) (no (unknown) (unknown) of today's note (units (unknown) date) if your PCP is in unknown) our system (unknown) (no (unknown) (unknown) omeprazole 20 mg (units (unknown) date) Tablet,Delayed unknown) Release (Dr/Ec) (unknown) (no (unknown) (unknown) omeprazole 20 mg (units (unknown) date) tablet,delayed 20 unknown) mg PO DAILY 08/11/22 08/11/22 (unknown) (no (unknown) (unknown) oxycodone-acetami (units (unknown) date) nophen 5 mg-325 1 unknown) tab PO Q8H PRN pain #10 tabs 09/04/22 (unknown) (no (unknown) (unknown) oxycodone-acetami (units (unknown) date) nophen [Percocet] unknown) 5-325 mg tablet (unknown) (no (unknown) (unknown) persistent (units (unk nown) date) vomiting or other unknown) bothersome symptoms]. (unknown) (no (unknown) (unknown) pharynx, visible (units (unknown) date) dental extractions unknown) to the left posterior lower mandible x3 (unknown) (no (unknown) (unknown) prednisone 20 mg (units (unknown) date) tablet 20 mg PO unknown) DAILY #5 tabs 09/04/22 (unknown) (no (unknown) (unknown) prednisone 20 mg (units (unknown) date) tablet unknown) (unknown) (no (unknown) (unknown) release (units (unkno wn) date) unknown) (unknown) (no (unknown) (unknown) sent here for (units ( unknown) date) evaluation of this unknown) swelling with concern for lymphadenopathy (unknown) (no (unknown) (unknown) sertraline 50 mg (units (unknown) date) Tablet unknown) (unknown) (no (unknown) (unknown) sertraline 50 mg (units (unknown) date) tablet 50 mg PO unknown) DAILY 08/11/22 08/11/22 (unknown) (no (unknown) (unknown) shortness of (units (u nknown) date) breath, upper unknown) respiratory symptoms including cough or congestion. (unknown) (no (unknown) (unknown) studies: (units (unkno wn) date) unknown) (unknown) (no (unknown) (unknown) teeth without (units ( unknown) date) gingival erythema, unknown) edema, discharge, or visible abscess. Uvula is (unknown) (no (unknown) (unknown) tenderness or (units ( unknown) date) exquisite unknown) tenderness with exam. (unknown) (no (unknown) (unknown) tenderness to (units ( unknown) date) cervical spine unknown) without erythematous lesion or drainage from or (unknown) (no (unknown) (unknown) th the (units (unkno wn) date) patient/family and unknown) discussed today?s findings whom verbalize (unknown) (no (unknown) (unknown) the inherent (units (u nknown) date) limitations of unknown) this software. (unknown) (no (unknown) (unknown) tobacco type: (units ( unknown) date) cigarettes unknown) (unknown) (no (unknown) (unknown) understanding. (units (unknown) date) Counseling was unknown) provided regarding the diagnosis and prognosis, (unknown) (no (unknown) (unknown) versus dental (units ( unknown) date) abscess versus unknown) bacterial infection or other viral illness. (unknown) (no (unknown) (unknown) versus parotitis. (units (unknown) date) Symptoms started 2 unknown) days ago, patient denies fever, chills, (unknown) (no (unknown) (unknown) wheezing, (units (unkn own) date) stridor, or unknown) abnormal breath sounds. No retractions or tachypnea. (unknown) (no (unknown) (unknown) with the ED (units (un known) date) attending unknown) physician for SOLOMON level 2, 3, and some level 4s as needed Result panel 95 (unknown) (no (unknown) (unknown) (no value) (units (unk nown) date) unknown) (unknown) (no (unknown) (unknown) *If you do not (units (unknown) date) have a primary unknown) care provider please contact [phone] to (unknown) (no (unknown) (unknown) *Please continue (units (unknown) date) to take your unknown) regular medications as directed. (unknown) (no (unknown) (unknown) *Please follow up (units (unknown) date) with your primary unknown) care provider in 2-3 days, call for an (unknown) (no (unknown) (unknown) *Return to (units (unk nown) date) Emergency unknown) Department if you should have any new, worsening, or (unknown) (no (unknown) (unknown) *What to do: (units (u nknown) date) unknown) (unknown) (no (unknown) (unknown) *You have been (units (unknown) date) diagnosed with unknown) (unknown) (no (unknown) (unknown) [id number] (units (unkno wn) date) unknown) (unknown) (no (unknown) (unknown) 09/04/22 09/04/22 (units (unknown) date) 09/04/22 unknown) Range/Units (unknown) (no (unknown) (unknown) 09/04/22 19:55 (units (unknown) date) unknown) (unknown) (no (unknown) (unknown) 09/04/22 20:05 (units (unknown) date) unknown) (unknown) (no (unknown) (unknown) 09/04/22 20:28 (units (unknown) date) unknown) (unknown) (no (unknown) (unknown) 09/04/22 20:47 (units (unknown) date) unknown) (unknown) (no (unknown) (unknown) 09/04/22 (units (unkno wn) date) unknown) (unknown) (no (unknown) (unknown) 1 tab PO BID Qty: (units (unknown) date) 14 0RF unknown) (unknown) (no (unknown) (unknown) 1 tab PO Q8H PRN (units (unknown) date) (Reason: pain) unknown) Qty: 10 0RF (unknown) (no (unknown) (unknown) 10 mg PO DAILY (units (unknown) date) unknown) (unknown) (no (unknown) (unknown) 17:25 09/04/22 (units (unknown) date) unknown) (unknown) (no (unknown) (unknown) 18:55 09/04/22 (units (unknown) date) unknown) (unknown) (no (unknown) (unknown) 18:56 09/04/22 (units (unknown) date) unknown) (unknown) (no (unknown) (unknown) 18:56 (units (unkno wn) date) unknown) (unknown) (no (unknown) (unknown) 19:00 09/04/22 (units (unknown) date) unknown) (unknown) (no (unknown) (unknown) 19:00 (units (unkno wn) date) unknown) (unknown) (no (unknown) (unknown) 19:55 20:05 20:05 (units (unknown) date) unknown) (unknown) (no (unknown) (unknown) 20 mg PO DAILY (units (unknown) date) Qty: 5 0RF unknown) (unknown) (no (unknown) (unknown) 20 mg PO DAILY (units (unknown) date) unknown) (unknown) (no (unknown) (unknown) 25 mcg PO (units (u nknown) date) DIRECTED unknown) (unknown) (no (unknown) (unknown) 300 mg PO DAILY (units (unknown) date) unknown) (unknown) (no (unknown) (unknown) 50 mg PO DAILY (units (unknown) date) unknown) (unknown) (no (unknown) (unknown) 500 mg PO BID PRN (units (unknown) date) (Reason: pain) unknown) Qty: 14 0RF (unknown) (no (unknown) (unknown) 500 mg PO DAILY (units (unknown) date) unknown) (unknown) (no (unknown) (unknown) ALT 14 (<35) IU/L (units (unknown) date) unknown) (unknown) (no (unknown) (unknown) AST 23 (14-36) (units (unknown) date) IU/L unknown) (unknown) (no (unknown) (unknown) Activity (units (unkno wn) date) Restrictions/Addit unknown) ional Instructions: (unknown) (no (unknown) (unknown) Age/Sex: 77 / F (units (unknown) date) unknown) (unknown) (no (unknown) (unknown) Albumin 3.4 L (units ( unknown) date) (3.5-5.0) g/dL unknown) (unknown) (no (unknown) (unknown) Albumin/Globulin (units (unknown) date) Ratio 1.1 unknown) (1.0-2.8) (unknown) (no (unknown) (unknown) Alkaline (units (unkno wn) date) Phosphatase 90 unknown) (38-126) U/L (unknown) (no (unknown) (unknown) Allergies (units (unkn own) date) unknown) (unknown) (no (unknown) (unknown) Allergy/AdvReac (units (unknown) date) Type Severity unknown) Reaction Status Date / Time (unknown) (no (unknown) (unknown) Amoxicillin/Clavu (units (unknown) date) lanate Potassium unknown) (Amoxicillin/Clav 875/125 Mg) 1 tab PO NOW (unknown) (no (unknown) (unknown) BUN 14 (7-17) (units ( unknown) date) mg/dL unknown) (unknown) (no (unknown) (unknown) BUN/Creatinine (units (unknown) date) Ratio 23.7 H unknown) (6-22) (unknown) (no (unknown) (unknown) Baso # (Auto) 0 (units (unknown) date) (0-100) /uL unknown) (unknown) (no (unknown) (unknown) Baso % (Auto) 0.2 (units (unknown) date) (0-2) % unknown) (unknown) (no (unknown) (unknown) Blood Pressure (units (unknown) date) 125/60 09/04/22 unknown) 17:25 (unknown) (no (unknown) (unknown) Blood Pressure (units (unknown) date) 125/60 140/65 unknown) (unknown) (no (unknown) (unknown) Blood Pressure (units (unknown) date) 125/66 unknown) (unknown) (no (unknown) (unknown) Paz Mo S, (units (unknown) date) 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] unknown) (unknown) (no (unknown) (unknown) C-Reactive (units (unk nown) date) Protein 7.6 H unknown) (<1.0) mg/dL (unknown) (no (unknown) (unknown) CBC Auto Diff (units ( unknown) date) [Complete Blood unknown) Count AUTO DIFF] Stat (unknown) (no (unknown) (unknown) CMP (units (unkno wn) date) [Comprehensive unknown) Metabolic Panel] Stat (unknown) (no (unknown) (unknown) CRP [C-Reactive (units (unknown) date) Protein Quant] unknown) Stat (unknown) (no (unknown) (unknown) CT soft tissue (units (unknown) date) neck w con Stat unknown) (unknown) (no (unknown) (unknown) Calcium 8.6 (units (un known) date) (8.4-10.2) mg/dL unknown) (unknown) (no (unknown) (unknown) Carbon Dioxide 28 (units (unknown) date) (22-32) mmol/L unknown) (unknown) (no (unknown) (unknown) Cardiovascular: (units (unknown) date) regular rate and unknown) rhythm, no peripheral edema, warm extremities (unknown) (no (unknown) (unknown) Chief complaint: (units (unknown) date) Skin/Abscess/Forei unknown) gn Body (unknown) (no (unknown) (unknown) Chloride 95 L (units ( unknown) date) (98-107) mmol/L unknown) (unknown) (no (unknown) (unknown) Course of Care: (units (unknown) date) unknown) (unknown) (no (unknown) (unknown) Course (units (unkno wn) date) unknown) (unknown) (no (unknown) (unknown) Covid-19 + FLU (units (unknown) date) A/B + RSV - PCR unknown) Stat (unknown) (no (unknown) (unknown) Creatinine 0.59 (units (unknown) date) (0.52-1.04) mg/dL unknown) (unknown) (no (unknown) (unknown) : 1945 (units (unknown) date) Acct:[id number] unknown) (unknown) (no (unknown) (unknown) Date of Service: (units (unknown) date) 09/04/22 unknown) (unknown) (no (unknown) (unknown) Decision (units (unkno wn) date) rules/scores unknown) evaluated: (unknown) (no (unknown) (unknown) Denies any (units (unk nown) date) intraoral unknown) swelling, shortness of breath, difficulty swallowing, (unknown) (no (unknown) (unknown) Denies nausea (units ( unknown) date) vomiting, unknown) difficulty breathing or swallowing, denies difficulty (unknown) (no (unknown) (unknown) Departure (units (unkn own) date) unknown) (unknown) (no (unknown) (unknown) Dexamethasone (units ( unknown) date) (Dexamethasone 10 unknown) Mg/Ml Vial) 10 mg PO NOW ONE (unknown) (no (unknown) (unknown) Differential (units (u nknown) date) diagnoses include, unknown) but are not limited to: Parotitis, dental (unknown) (no (unknown) (unknown) Discharge Plan (units (unknown) date) unknown) (unknown) (no (unknown) (unknown) Discontinued (units (u nknown) date) Medications unknown) (unknown) (no (unknown) (unknown) Discussion of (units ( unknown) date) Management with unknown) other Health Professionals: (unknown) (no (unknown) (unknown) Documented By: OW (units (unknown) date) unknown) (unknown) (no (unknown) (unknown) ED Orders (units (unkn own) date) unknown) (unknown) (no (unknown) (unknown) ED provider (units (un known) date) independent unknown) interpretation (unknown) (no (unknown) (unknown) ER Physician: (units ( unknown) date) Carole Pulido unknown) 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 (unknown) (no (unknown) (unknown) Electronically (units (unknown) date) signed by: unknown) ALINA Mendez (unknown) (no (unknown) (unknown) Emergency Report (units (unknown) date) unknown) (unknown) (no (unknown) (unknown) Eos # (Auto) 100 (units (unknown) date) (0-450) /uL unknown) (unknown) (no (unknown) (unknown) Eos % (Auto) 0.7 (units (unknown) date) L (2-4) % unknown) (unknown) (no (unknown) (unknown) Estimated GFR > (units (unknown) date) 60 (>60) mL/min unknown) (unknown) (no (unknown) (unknown) Exam Narrative: (units (unknown) date) unknown) (unknown) (no (unknown) (unknown) Exam (units (unkno wn) date) unknown) (unknown) (no (unknown) (unknown) GI: abdomen soft, (units (unknown) date) nontender to unknown) palpation, nondistended, without masses, rebound (unknown) (no (unknown) (unknown) General (units (unkno wn) date) unknown) (unknown) (no (unknown) (unknown) General: (units (unkno wn) date) cooperative, unknown) comfortable, in mild distress, well groomed (unknown) (no (unknown) (unknown) Globulin 3.0 (units (u nknown) date) (1.7-4.1) g/dL unknown) (unknown) (no (unknown) (unknown) Glucose 109 (units (un known) date) (80-110) mg/dL unknown) (unknown) (no (unknown) (unknown) Good,Alexandra, (units ( unknown) date) PA-C [Primary Care unknown) Provider] (unknown) (no (unknown) (unknown) HEENT: (units (unkno wn) date) symmetrical facial unknown) expressions, moist mucous membranes, left anterior (unknown) (no (unknown) (unknown) HPI - (units (unkno wn) date) Skin/Abscess/Forei unknown) gn Bdy (unknown) (no (unknown) (unknown) HPI narrative: (units (unknown) date) unknown) (unknown) (no (unknown) (unknown) Hct 31.2 L (units (unk nown) date) (36-46) % unknown) (unknown) (no (unknown) (unknown) Health COmmunity] (units (unknown) date) unknown) (unknown) (no (unknown) (unknown) Hgb 10.0 L (units (unk nown) date) (12.0-16.0) g/dL unknown) (unknown) (no (unknown) (unknown) History of (units (unk nown) date) Present Illness unknown) (unknown) (no (unknown) (unknown) Home Medications (units (unknown) date) unknown) (unknown) (no (unknown) (unknown) I performed a (units ( unknown) date) preliminary unknown) independent interpretation of the following imaging (unknown) (no (unknown) (unknown) Carole Archer, (units (unknown) date) 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, personally unknown) performed the services described in the (unknown) (no (unknown) (unknown) Influenza A (units (un known) date) (RT-PCR) Flu a unknown) negative (NEGATIVE) (unknown) (no (unknown) (unknown) Influenza B (units (un known) date) (RT-PCR) Flu b unknown) negative (NEGATIVE) (unknown) (no (unknown) (unknown) Initial Vital (units ( unknown) date) Signs unknown) (unknown) (no (unknown) (unknown) Initial Vital (units ( unknown) date) Signs: unknown) (unknown) (no (unknown) (unknown) Instructions: DI (units (unknown) date) for unknown) Lymphadenopathy (unknown) (no (unknown) (unknown) [facility] (units (unknown) date) [address] [place] [address] unknown) [place] [address] (unknown) (no (unknown) (unknown) Ketorolac (units (unkn own) date) Tromethamine unknown) (Ketorolac 30 Mg/Ml Vial) 15 mg IM NOW ONE (unknown) (no (unknown) (unknown) Lab Data (units (unkno wn) date) unknown) (unknown) (no (unknown) (unknown) Lab Results (units (un known) date) unknown) (unknown) (no (unknown) (unknown) Labs: (units (unkno wn) date) unknown) (unknown) (no (unknown) (unknown) Last Admin: (units (un known) date) 09/04/22 19:28 unknown) Dose: 1 tab (unknown) (no (unknown) (unknown) Last Admin: (units (un known) date) 09/04/22 19:28 unknown) Dose: 15 mg (unknown) (no (unknown) (unknown) Last Admin: (units (un known) date) 09/04/22 19:34 unknown) Dose: Not Given (unknown) (no (unknown) (unknown) Last Admin: (units (un known) date) 09/04/22 19:45 unknown) Dose: 10 mg (unknown) (no (unknown) (unknown) Last Admin: (units (un known) date) 09/04/22 20:04 unknown) Dose: 1 tab (unknown) (no (unknown) (unknown) Lidocaine HCl (units ( unknown) date) (Lidocaine 2% Inj unknown) Sdv) 5 ml INJ INTRA-OP ONE (unknown) (no (unknown) (unknown) Limitations: no (units (unknown) date) limitations unknown) (unknown) (no (unknown) (unknown) Lymph # (Auto) (units (unknown) date) 3600 (3900-2013) unknown) /uL (unknown) (no (unknown) (unknown) Lymph % (Auto) (units (unknown) date) 26.6 (25-40) % unknown) (unknown) (no (unknown) (unknown) MCH 27.8 (26-34) (units (unknown) date) PG unknown) (unknown) (no (unknown) (unknown) MCHC 32.2 (30-36) (units (unknown) date) % unknown) (unknown) (no (unknown) (unknown) MCV 86.2 (80-100) (units (unknown) date) fL unknown) (unknown) (no (unknown) (unknown) MDM - (units (unkno wn) date) Skin/Abscess/Forei unknown) gn Bdy (unknown) (no (unknown) (unknown) MDM Narrative (units ( unknown) date) unknown) (unknown) (no (unknown) (unknown) MIPS: This (units (unk nown) date) encounter doesn't unknown) have any diagnosis associated with MIPS criteria. (unknown) (no (unknown) (unknown) MSK: moves all (units (unknown) date) extremities, unknown) neurovascularly intact, no weakness, normal tone (unknown) (no (unknown) (unknown) Medical decision (units (unknown) date) making narrative: unknown) (unknown) (no (unknown) (unknown) Medication (units (unk nown) date) Instructions unknown) Recorded Confirmed (unknown) (no (unknown) (unknown) Medication (units (unk nown) date) Instructions unknown) Recorded (unknown) (no (unknown) (unknown) Mode of arrival: (units (unknown) date) Family Vehicle unknown) (unknown) (no (unknown) (unknown) [place] # (Auto) 800 (units (unknown) date) (0-900) /uL unknown) (unknown) (no (unknown) (unknown) [place] % (Auto) 6.0 (units (unknown) date) (3-14) % unknown) (unknown) (no (unknown) (unknown) Narrative (units (unkn own) date) unknown) (unknown) (no (unknown) (unknown) Neuro: normal (units ( unknown) date) speech and unknown) cognition, A+O x3, ambulatory, clear speech (unknown) (no (unknown) (unknown) Neut # (Auto) (units ( unknown) date) 9100 H (5069-6276) unknown) /uL (unknown) (no (unknown) (unknown) Neut % (Auto) (units ( unknown) date) 66.5 (50-75) % unknown) (unknown) (no (unknown) (unknown) New (units (unkno wn) date) unknown) (unknown) (no (unknown) (unknown) No Action (units (unkn own) date) unknown) (unknown) (no (unknown) (unknown) No Known Drug (units ( unknown) date) Allergies Allergy unknown) Verified 08/11/22 11:06 (unknown) (no (unknown) (unknown) ONE (units (unkno wn) date) unknown) (unknown) (no (unknown) (unknown) Occasional wrong (units (unknown) date) word or 'sound unknown) alike' substitutions may have occurred due to (unknown) (no (unknown) (unknown) Ordered: (units (unkno wn) date) unknown) (unknown) (no (unknown) (unknown) Orders (units (unkno wn) date) unknown) (unknown) (no (unknown) (unknown) Oxycodone/Acetami (units (unknown) date) nophen unknown) (Oxycodone/Acetami nophen 5/325 Tablet) 1 tab PO NOW ONE (unknown) (no (unknown) (unknown) Oxygen Delivery (units (unknown) date) Method 09/04/22 unknown) 17:25 (unknown) (no (unknown) (unknown) Oxygen Delivery (units (unknown) date) Method Room Air unknown) (unknown) (no (unknown) (unknown) Oxygen Delivery (units (unknown) date) Method unknown) (unknown) (no (unknown) (unknown) Patient History (units (unknown) date) unknown) (unknown) (no (unknown) (unknown) Patient's (units (unkn own) date) symptoms improved unknown) over duration of stay with above-stated therapies. (unknown) (no (unknown) (unknown) Patient: (units (unkno wn) date) Maricruz Hodges L unknown) MR#: [id number] (unknown) (no (unknown) (unknown) Plt Count 319 (units ( unknown) date) (150-400) X103/uL unknown) (unknown) (no (unknown) (unknown) Portions of this (units (unknown) date) chart have been unknown) created with [employer] voice recognition software. (unknown) (no (unknown) (unknown) Potassium 4.4 (units ( unknown) date) (3.4-5.1) mmol/L unknown) (unknown) (no (unknown) (unknown) Prescriptions: (units (unknown) date) unknown) (unknown) (no (unknown) (unknown) Previous Rx's (units ( unknown) date) unknown) (unknown) (no (unknown) (unknown) Procalcitonin (units ( unknown) date) Stat unknown) (unknown) (no (unknown) (unknown) Psych: mental (units ( unknown) date) status is grossly unknown) normal, congruent mood, normal affect, pleasant (unknown) (no (unknown) (unknown) Pulse Oximetry (units (unknown) date) 100 09/04/22 17:25 unknown) (unknown) (no (unknown) (unknown) Pulse Oximetry (units (unknown) date) 100 100 unknown) (unknown) (no (unknown) (unknown) Pulse Rate 74 74 (units (unknown) date) unknown) (unknown) (no (unknown) (unknown) Pulse Rate 79 (units ( unknown) date) 09/04/22 17:25 unknown) (unknown) (no (unknown) (unknown) Pulse Rate 79 73 (units (unknown) date) unknown) (unknown) (no (unknown) (unknown) RBC 3.62 L (units (unk nown) date) (4.0-5.2) X106/uL unknown) (unknown) (no (unknown) (unknown) RDW 16.9 H (units (unk nown) date) (11.6-14.8) % unknown) (unknown) (no (unknown) (unknown) ROS Unobtainable: (units (unknown) date) All systems unknown) reviewed + are unremarkable except as noted in HPI (unknown) (no (unknown) (unknown) RSV (PCR) (units (unkn own) date) Negative unknown) (Negative) (unknown) (no (unknown) (unknown) Referrals: (units (unk nown) date) unknown) (unknown) (no (unknown) (unknown) Related Data (units (u nknown) date) unknown) (unknown) (no (unknown) (unknown) Respiratory Rate (units (unknown) date) 17 09/04/22 17:25 unknown) (unknown) (no (unknown) (unknown) Respiratory Rate (units (unknown) date) 17 unknown) (unknown) (no (unknown) (unknown) Respiratory Rate (units (unknown) date) unknown) (unknown) (no (unknown) (unknown) Respiratory: (units (u nknown) date) normal effort, unknown) able to speak in complete sentences, without (unknown) (no (unknown) (unknown) Result diagrams: (units (unknown) date) unknown) (unknown) (no (unknown) (unknown) Review of Systems (units (unknown) date) unknown) (unknown) (no (unknown) (unknown) Reviewed vitals (units (unknown) date) signs and nursing unknown) notes. (unknown) (no (unknown) (unknown) SARS-CoV-2 (PCR) (units (unknown) date) Negative unknown) (Negative) (unknown) (no (unknown) (unknown) Signed By: (units (unk nown) date) unknown) (unknown) (no (unknown) (unknown) Skin: brisk (units (un known) date) capillary refill, unknown) without pallor or erythema (unknown) (no (unknown) (unknown) Smoking Status: (units (unknown) date) Former smoker unknown) (unknown) (no (unknown) (unknown) Social History (units (unknown) date) (Reviewed 09/04/22 unknown) @ 20:43 by Carole Pulido 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) (unknown) (no (unknown) (unknown) Social (units (unkno wn) date) determinants of unknown) health that may impact treatment or disposition: (unknown) (no (unknown) (unknown) Sodium 128 L (units (u nknown) date) (137-145) mmol/L unknown) (unknown) (no (unknown) (unknown) Sodium Chloride (units (unknown) date) (Normal Saline unknown) 0.9%) 1,000 mls @ 1,000 mls/hr IV BOLUS ONE (unknown) (no (unknown) (unknown) Source: patient (units (unknown) date) unknown) (unknown) (no (unknown) (unknown) Stated complaint: (units (unknown) date) lt ear red + unknown) swelling (unknown) (no (unknown) (unknown) Stop: 09/04/22 (units (unknown) date) 19:24 unknown) (unknown) (no (unknown) (unknown) Stop: 09/04/22 (units (unknown) date) 19:38 unknown) (unknown) (no (unknown) (unknown) Stop: 09/04/22 (units (unknown) date) 19:55 unknown) (unknown) (no (unknown) (unknown) Stop: 09/04/22 (units (unknown) date) 21:47 unknown) (unknown) (no (unknown) (unknown) Substance Use (units ( unknown) date) Type: does not use unknown) (unknown) (no (unknown) (unknown) Temperature 98.0 (units (unknown) date) F 09/04/22 17:25 unknown) (unknown) (no (unknown) (unknown) Temperature 98.0 (units (unknown) date) F unknown) (unknown) (no (unknown) (unknown) Temperature (units (un known) date) unknown) (unknown) (no (unknown) (unknown) This is a (units (unkn own) date) 77-year-old female unknown) who is presenting to the ED via POV with concern (unknown) (no (unknown) (unknown) This is a (units (unkn own) date) 77-year-old female unknown) with history of diabetes who presents emergency (unknown) (no (unknown) (unknown) Time Seen by (units (u nknown) date) Provider: 09/04/22 unknown) 18:50 (unknown) (no (unknown) (unknown) Total Bilirubin (units (unknown) date) 0.2 (0.2-1.3) unknown) mg/dL (unknown) (no (unknown) (unknown) Total Protein 6.4 (units (unknown) date) (6.3-8.2) g/dL unknown) (unknown) (no (unknown) (unknown) US soft tissue (units (unknown) date) head and neck Stat unknown) (unknown) (no (unknown) (unknown) Vital Signs - 8 (units (unknown) date) hr unknown) (unknown) (no (unknown) (unknown) Vital Signs (units (un known) date) unknown) (unknown) (no (unknown) (unknown) Vital Signs: I, (units (unknown) date) the ED provider, unknown) reviewed the patient?s vital signs, past (unknown) (no (unknown) (unknown) Vital signs: (units (u nknown) date) unknown) (unknown) (no (unknown) (unknown) WBC 13.7 H (units (unk nown) date) (4.5-11.0) X103/uL unknown) (unknown) (no (unknown) (unknown) [ ] New (units (unkno wn) date) medication written unknown) as a paper prescription (unknown) (no (unknown) (unknown) [ ] No new (units (unk nown) date) medications given unknown) (unknown) (no (unknown) (unknown) [ x] New (units (unkno wn) date) medication unknown) prescriptions sent to your pharmacy: [ [facility] (unknown) (no (unknown) (unknown) [Embedded Image (units (unknown) date) Not Available] unknown) (unknown) (no (unknown) (unknown) abnormality. Her (units (unknown) date) primary care unknown) provider is ALINA Ruiz. States that she was (unknown) (no (unknown) (unknown) about left (units (unk nown) date) mandible/anterior unknown) cervical lymphadenopathy versus dental abscess (unknown) (no (unknown) (unknown) abscess, (units (unkno wn) date) lymphadenopathy, unknown) viral syndrome, (unknown) (no (unknown) (unknown) ago. States that (units (unknown) date) she had recent unknown) dental work in May that she had antibiotics (unknown) (no (unknown) (unknown) alcohol intake (units (unknown) date) frequency: 0-2 unknown) drinks per day (unknown) (no (unknown) (unknown) alcohol intake: (units (unknown) date) current unknown) (unknown) (no (unknown) (unknown) amoxicillin 875 (units (unknown) date) mg-potassium 1 tab unknown) PO BID #14 tabs 09/04/22 (unknown) (no (unknown) (unknown) amoxicillin-pot (units (unknown) date) clavulanate unknown) 875-125 mg tablet (unknown) (no (unknown) (unknown) and below (units (unkn own) date) unknown) (unknown) (no (unknown) (unknown) and cooperative (units (unknown) date) unknown) (unknown) (no (unknown) (unknown) and specific (units (un known) date) details were unknown) provided for the plan of care. Questions are addressed (unknown) (no (unknown) (unknown) and there is (units (u nknown) date) agreement with the unknown) plan and for follow-up. Patient is appropriate (unknown) (no (unknown) (unknown) appointment. Let (units (unknown) date) them know you were unknown) seen in the Emergency Department and that we (unknown) (no (unknown) (unknown) asked that you be (units (unknown) date) seen for unknown) follow-up. We will electronically transmit a record (unknown) (no (unknown) (unknown) canal erythema or (units (unknown) date) TM erythema, unknown) without stridor, full range of motion of neck, no (unknown) (no (unknown) (unknown) cervical lower (units ( unknown) date) mandible region unknown) with firm, non mobile mass approximately 2 cm x 3 (unknown) (no (unknown) (unknown) chewing. Last (units ( unknown) date) dental work was in unknown) May 2022. (unknown) (no (unknown) (unknown) clavulanate 125 (units (unknown) date) mg tablet unknown) (unknown) (no (unknown) (unknown) cm, exquisitely (units (unknown) date) tender, without unknown) fluctuance, without mastoid tenderness, ear (unknown) (no (unknown) (unknown) concerning (units (unk nown) date) symptoms, such as unknown) [fever greater than 101F, chills, worsening pain, (unknown) (no (unknown) (unknown) denies any (units (unk nown) date) weakness, altered unknown) mental status, vision changes, rash or other (unknown) (no (unknown) (unknown) department (units (unk nown) date) complaining of unknown) swelling to her left jaw with gradual onset 3 days (unknown) (no (unknown) (unknown) documentation, (units (unknown) date) and it accurately unknown) records my words and actions. I collaborated (unknown) (no (unknown) (unknown) establish care (units (unknown) date) with one of the unknown) [facility] primary care providers. (unknown) (no (unknown) (unknown) fever, chills, (units (unknown) date) recent upper unknown) respiratory illness, cough or congestion. She (unknown) (no (unknown) (unknown) for outpatient (units (unknown) date) management. unknown) (unknown) (no (unknown) (unknown) for. States that (units (unknown) date) she is on unknown) hydrocodone for chronic pain and took this for her (unknown) (no (unknown) (unknown) gabapentin 300 mg (units (unknown) date) Tablet unknown) (unknown) (no (unknown) (unknown) gabapentin 300 mg (units (unknown) date) tablet 300 mg PO unknown) DAILY 08/11/22 08/11/22 (unknown) (no (unknown) (unknown) had recent bridge (units (unknown) date) and tooth unknown) extraction to the lower left jaw in May 2022. (unknown) (no (unknown) (unknown) household (units (unkn own) date) members: spouse unknown) (unknown) (no (unknown) (unknown) hydrocodone (units (un known) date) bitartrate unknown) 08/11/22 (unknown) (no (unknown) (unknown) hydrocodone (units (un known) date) bitartrate unknown) (unknown) (no (unknown) (unknown) left jaw pain and (units (unknown) date) swelling but unknown) states it did not help her. She states that she (unknown) (no (unknown) (unknown) levothyroxine 25 (units (unknown) date) mcg Tablet unknown) (unknown) (no (unknown) (unknown) levothyroxine 25 (units (unknown) date) mcg tablet 25 mcg unknown) PO DIRECTED 08/11/22 08/11/22 (unknown) (no (unknown) (unknown) lisinopril 10 mg (units (unknown) date) PO DAILY 08/11/22 unknown) 08/11/22 (unknown) (no (unknown) (unknown) lisinopril (units (unk nown) date) unknown) (unknown) (no (unknown) (unknown) medical records (units (unknown) date) and encounters if unknown) available, and nursing notes. I have spoken (unknown) (no (unknown) (unknown) metformin 500 mg (units (unknown) date) Tablet unknown) (unknown) (no (unknown) (unknown) metformin 500 mg (units (unknown) date) tablet 500 mg PO unknown) DAILY 08/11/22 08/11/22 (unknown) (no (unknown) (unknown) mg tablet (units (unkn own) date) (Percocet) unknown) (unknown) (no (unknown) (unknown) midline, without (units (unknown) date) posterior pharynx unknown) erythema or edema (unknown) (no (unknown) (unknown) naproxen 500 mg (units (unknown) date) tablet (Naprosyn) unknown) 500 mg PO BID PRN pain #14 tabs 09/04/22 (unknown) (no (unknown) (unknown) naproxen (units (unkno wn) date) [Naprosyn] 500 mg unknown) tablet (unknown) (no (unknown) (unknown) of today's note (units (unknown) date) if your PCP is in unknown) our system (unknown) (no (unknown) (unknown) omeprazole 20 mg (units (unknown) date) Tablet,Delayed unknown) Release (Dr/Ec) (unknown) (no (unknown) (unknown) omeprazole 20 mg (units (unknown) date) tablet,delayed 20 unknown) mg PO DAILY 08/11/22 08/11/22 (unknown) (no (unknown) (unknown) oxycodone-acetami (units (unknown) date) nophen 5 mg-325 1 unknown) tab PO Q8H PRN pain #10 tabs 09/04/22 (unknown) (no (unknown) (unknown) oxycodone-acetami (units (unknown) date) nophen [Percocet] unknown) 5-325 mg tablet (unknown) (no (unknown) (unknown) persistent (units (unk nown) date) vomiting or other unknown) bothersome symptoms]. (unknown) (no (unknown) (unknown) pharynx, visible (units (unknown) date) dental extractions unknown) to the left posterior lower mandible x3 (unknown) (no (unknown) (unknown) prednisone 20 mg (units (unknown) date) tablet 20 mg PO unknown) DAILY #5 tabs 09/04/22 (unknown) (no (unknown) (unknown) prednisone 20 mg (units (unknown) date) tablet unknown) (unknown) (no (unknown) (unknown) release (units (unkno wn) date) unknown) (unknown) (no (unknown) (unknown) sent here for (units ( unknown) date) evaluation of this unknown) swelling with concern for lymphadenopathy (unknown) (no (unknown) (unknown) sertraline 50 mg (units (unknown) date) Tablet unknown) (unknown) (no (unknown) (unknown) sertraline 50 mg (units (unknown) date) tablet 50 mg PO unknown) DAILY 08/11/22 08/11/22 (unknown) (no (unknown) (unknown) shortness of (units (u nknown) date) breath, upper unknown) respiratory symptoms including cough or congestion. (unknown) (no (unknown) (unknown) studies: (units (unkno wn) date) unknown) (unknown) (no (unknown) (unknown) teeth without (units ( unknown) date) gingival erythema, unknown) edema, discharge, or visible abscess. Uvula is (unknown) (no (unknown) (unknown) tenderness or (units ( unknown) date) exquisite unknown) tenderness with exam. (unknown) (no (unknown) (unknown) tenderness to (units ( unknown) date) cervical spine unknown) without erythematous lesion or drainage from or (unknown) (no (unknown) (unknown) the inherent (units (u nknown) date) limitations of unknown) this software. (unknown) (no (unknown) (unknown) tobacco type: (units ( unknown) date) cigarettes unknown) (unknown) (no (unknown) (unknown) understanding. (units (unknown) date) Counseling was unknown) provided regarding the diagnosis and prognosis, (unknown) (no (unknown) (unknown) versus dental (units ( unknown) date) abscess versus unknown) bacterial infection or other viral illness. (unknown) (no (unknown) (unknown) versus parotitis. (units (unknown) date) Symptoms started 2 unknown) days ago, patient denies fever, chills, (unknown) (no (unknown) (unknown) wheezing, (units (unkn own) date) stridor, or unknown) abnormal breath sounds. No retractions or tachypnea. (unknown) (no (unknown) (unknown) with the ED (units (un known) date) attending unknown) physician for SOL[place] level 2, 3, and some level 4s as needed (unknown) (no (unknown) (unknown) with the (units (unkno wn) date) patient/family and unknown) discussed today?s findings whom verbalize Result panel 96 (unknown) (no date) (unknown) (unknown) > 60 ml/min (unkn own) (unknown) (no date) (unknown) (unknown) > 60 ml/min (unkn own) (unknown) (no date) (unknown) (unknown) 0.07 ng/ml (unkn own) (unknown) (no date) (unknown) (unknown) 0.07 ng/ml (unkn own) (unknown) (no date) (unknown) (unknown) 0.2 mg/dl (unkn own) (unknown) (no date) (unknown) (unknown) 0.59 mg/dl (unkn own) (unknown) (no date) (unknown) (unknown) 1.1 (units unknown) (unknown) (unknown) (no date) (unknown) (unknown) 109 mg/dl (unkn own) (unknown) (no date) (unknown) (unknown) 109 mg/dl (unkn own) (unknown) (no date) (unknown) (unknown) 128 mmol/l (unkn own) (unknown) (no date) (unknown) (unknown) 14 iu/l (unkn own) (unknown) (no date) (unknown) (unknown) 14 mg/dl (unkn own) (unknown) (no date) (unknown) (unknown) 23 iu/l (unkn own) (unknown) (no date) (unknown) (unknown) 23.7 (units unknown) (unknown) (unknown) (no date) (unknown) (unknown) 28 mmol/l (unkn own) (unknown) (no date) (unknown) (unknown) 3.0 g/dl (unkn own) (unknown) (no date) (unknown) (unknown) 3.4 g/dl (unkn own) (unknown) (no date) (unknown) (unknown) 4.4 mmol/l (unkn own) (unknown) (no date) (unknown) (unknown) 6.4 g/dl (unkn own) (unknown) (no date) (unknown) (unknown) 7.6 mg/dl (unkn own) (unknown) (no date) (unknown) (unknown) 8.6 mg/dl (unkn own) (unknown) (no date) (unknown) (unknown) 90 u/l (unkn own) (unknown) (no date) (unknown) (unknown) 95 mmol/l (unkn own) Result panel 97 (unknown) (no (unknown) (unknown) (no value) (units (unk nown) date) unknown) (unknown) (no (unknown) (unknown) *If you do not have (unit s (unknown) date) a primary care unknown) provider please contact [phone] to (unknown) (no (unknown) (unknown) *Please continue to (unit s (unknown) date) take your regular unknown) medications as directed. (unknown) (no (unknown) (unknown) *Please follow up (units (unknown) date) with your primary unknown) care provider in 2-3 days, call for an (unknown) (no (unknown) (unknown) *Return to (units (unk nown) date) Emergency Department unknown) if you should have any new, worsening, or (unknown) (no (unknown) (unknown) *What to do: (units (u nknown) date) unknown) (unknown) (no (unknown) (unknown) *You have been (units (unknown) date) diagnosed with unknown) (unknown) (no (unknown) (unknown) [id number] (units (unkno wn) date) unknown) (unknown) (no (unknown) (unknown) 09/04/22 09/04/22 (units (unknown) date) 09/04/22 Range/Units unknown) (unknown) (no (unknown) (unknown) 09/04/22 19:55 (units (unknown) date) unknown) (unknown) (no (unknown) (unknown) 09/04/22 20:05 (units (unknown) date) unknown) (unknown) (no (unknown) (unknown) 09/04/22 20:28 (units (unknown) date) unknown) (unknown) (no (unknown) (unknown) 09/04/22 20:47 (units (unknown) date) unknown) (unknown) (no (unknown) (unknown) 09/04/22 (units (unkno wn) date) unknown) (unknown) (no (unknown) (unknown) 1 tab PO BID Qty: (units (unknown) date) 14 0RF unknown) (unknown) (no (unknown) (unknown) 1 tab PO Q8H PRN (units (unknown) date) (Reason: pain) Qty: unknown) 10 0RF (unknown) (no (unknown) (unknown) 10 mg PO DAILY (units (unknown) date) unknown) (unknown) (no (unknown) (unknown) 17:25 09/04/22 (units (unknown) date) unknown) (unknown) (no (unknown) (unknown) 18:55 09/04/22 (units (unknown) date) unknown) (unknown) (no (unknown) (unknown) 18:56 09/04/22 (units (unknown) date) unknown) (unknown) (no (unknown) (unknown) 18:56 (units (unkno wn) date) unknown) (unknown) (no (unknown) (unknown) 19:00 09/04/22 (units (unknown) date) unknown) (unknown) (no (unknown) (unknown) 19:00 (units (unkno wn) date) unknown) (unknown) (no (unknown) (unknown) 19:55 20:05 20:05 (units (unknown) date) unknown) (unknown) (no (unknown) (unknown) 20 mg PO DAILY Qty: (unit s (unknown) date) 5 0RF unknown) (unknown) (no (unknown) (unknown) 20 mg PO DAILY (units (unknown) date) unknown) (unknown) (no (unknown) (unknown) 2051, patient's lab (units (unknown) date) work came back with unknown) a leukocytosis of 13.7, mild anemia with (unknown) (no (unknown) (unknown) 25 mcg PO (units (u nknown) date) DIRECTED unknown) (unknown) (no (unknown) (unknown) 300 mg PO DAILY (units (unknown) date) unknown) (unknown) (no (unknown) (unknown) 50 mg PO DAILY (units (unknown) date) unknown) (unknown) (no (unknown) (unknown) 500 mg PO BID PRN (units (unknown) date) (Reason: pain) Qty: unknown) 14 0RF (unknown) (no (unknown) (unknown) 500 mg PO DAILY (units (unknown) date) unknown) (unknown) (no (unknown) (unknown) ALT 14 (<35) IU/L (units (unknown) date) unknown) (unknown) (no (unknown) (unknown) AST 23 (14-36) IU/L (unit s (unknown) date) unknown) (unknown) (no (unknown) (unknown) Activity (units (unkno wn) date) Restrictions/Additio unknown) nal Instructions: (unknown) (no (unknown) (unknown) Acute hyponatremia (units (unknown) date) unknown) (unknown) (no (unknown) (unknown) Age/Sex: 77 / F (units (unknown) date) unknown) (unknown) (no (unknown) (unknown) Albumin 3.4 L (units ( unknown) date) (3.5-5.0) g/dL unknown) (unknown) (no (unknown) (unknown) Albumin/Globulin (units (unknown) date) Ratio 1.1 (1.0-2.8) unknown) (unknown) (no (unknown) (unknown) Alkaline (units (unkno wn) date) Phosphatase 90 unknown) (38-126) U/L (unknown) (no (unknown) (unknown) Allergies (units (unkn own) date) unknown) (unknown) (no (unknown) (unknown) Allergy/AdvReac (units (unknown) date) Type Severity unknown) Reaction Status Date / Time (unknown) (no (unknown) (unknown) Amoxicillin/Clavula (unit s (unknown) date) logan Potassium unknown) (Amoxicillin/Clav 875/125 Mg) 1 tab PO NOW (unknown) (no (unknown) (unknown) BUN 14 (7-17) mg/dL (unit s (unknown) date) unknown) (unknown) (no (unknown) (unknown) BUN/Creatinine (units (unknown) date) Ratio 23.7 H (6-22) unknown) (unknown) (no (unknown) (unknown) Baso # (Auto) 0 (units (unknown) date) (0-100) /uL unknown) (unknown) (no (unknown) (unknown) Baso % (Auto) 0.2 (units (unknown) date) (0-2) % unknown) (unknown) (no (unknown) (unknown) Blood Pressure (units (unknown) date) 125/60 09/04/22 unknown) 17:25 (unknown) (no (unknown) (unknown) Blood Pressure (units (unknown) date) 125/60 140/65 unknown) (unknown) (no (unknown) (unknown) Blood Pressure (units (unknown) date) 125/66 unknown) (unknown) (no (unknown) (unknown) Paz Mo S, (units (unknown) date) 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] unknown) (unknown) (no (unknown) (unknown) C-Reactive Protein (units (unknown) date) 7.6 H (<1.0) mg/dL unknown) (unknown) (no (unknown) (unknown) CBC Auto Diff (units ( unknown) date) [Complete Blood unknown) Count AUTO DIFF] Stat (unknown) (no (unknown) (unknown) CMP [Comprehensive (units (unknown) date) Metabolic Panel] unknown) Stat (unknown) (no (unknown) (unknown) CRP [C-Reactive (units (unknown) date) Protein Quant] Stat unknown) (unknown) (no (unknown) (unknown) CT soft tissue neck (unit s (unknown) date) w con Stat unknown) (unknown) (no (unknown) (unknown) Calcium 8.6 (units (un known) date) (8.4-10.2) mg/dL unknown) (unknown) (no (unknown) (unknown) Carbon Dioxide 28 (units (unknown) date) (22-32) mmol/L unknown) (unknown) (no (unknown) (unknown) Cardiovascular: (units (unknown) date) regular rate and unknown) rhythm, no peripheral edema, warm extremities (unknown) (no (unknown) (unknown) Chief complaint: (units (unknown) date) Skin/Abscess/Foreign unknown) Body (unknown) (no (unknown) (unknown) Chloride 95 L (units ( unknown) date) (98-107) mmol/L unknown) (unknown) (no (unknown) (unknown) Clinical (units (unkno wn) date) Impression: unknown) (unknown) (no (unknown) (unknown) Course of Care: (units (unknown) date) Patient complaining unknown) of pain, ordered Percocet, Toradol and (unknown) (no (unknown) (unknown) Course (units (unkno wn) date) unknown) (unknown) (no (unknown) (unknown) Covid-19 + FLU A/B (units (unknown) date) + RSV - PCR Stat unknown) (unknown) (no (unknown) (unknown) Creatinine 0.59 (units (unknown) date) (0.52-1.04) mg/dL unknown) (unknown) (no (unknown) (unknown) : 1945 (units (unknown) date) Acct:[id number] unknown) (unknown) (no (unknown) (unknown) Date of Service: (units (unknown) date) 09/04/22 unknown) (unknown) (no (unknown) (unknown) Denies any (units (unk nown) date) intraoral swelling, unknown) shortness of breath, difficulty swallowing, (unknown) (no (unknown) (unknown) Denies nausea (units ( unknown) date) vomiting, difficulty unknown) breathing or swallowing, denies difficulty (unknown) (no (unknown) (unknown) Departure (units (unkn own) date) unknown) (unknown) (no (unknown) (unknown) Dexamethasone (units ( unknown) date) (Dexamethasone 10 unknown) Mg/Ml Vial) 10 mg PO NOW ONE (unknown) (no (unknown) (unknown) Differential (units (u nknown) date) diagnoses include, unknown) but are not limited to: Parotitis, dental (unknown) (no (unknown) (unknown) Discharge Plan (units (unknown) date) unknown) (unknown) (no (unknown) (unknown) Discontinued (units (u nknown) date) Medications unknown) (unknown) (no (unknown) (unknown) Discussion of (units ( unknown) date) Management with unknown) other Health Professionals: (unknown) (no (unknown) (unknown) Documented By: OW (units (unknown) date) unknown) (unknown) (no (unknown) (unknown) ED Orders (units (unkn own) date) unknown) (unknown) (no (unknown) (unknown) ED provider (units (un known) date) independent unknown) interpretation (unknown) (no (unknown) (unknown) ER Physician: (units ( unknown) date) Carole Pulido unknown) (unknown) (no (unknown) (unknown) Electronically (units (unknown) date) signed by: Carole harden) ALINA Pulido (unknown) (no (unknown) (unknown) Emergency Report (units (unknown) date) unknown) (unknown) (no (unknown) (unknown) Eos # (Auto) 100 (units (unknown) date) (0-450) /uL unknown) (unknown) (no (unknown) (unknown) Eos % (Auto) 0.7 L (units (unknown) date) (2-4) % unknown) (unknown) (no (unknown) (unknown) Estimated GFR > 60 (units (unknown) date) (>60) mL/min unknown) (unknown) (no (unknown) (unknown) Exam Narrative: (units (unknown) date) unknown) (unknown) (no (unknown) (unknown) Exam (units (unkno wn) date) unknown) (unknown) (no (unknown) (unknown) GI: abdomen soft, (units (unknown) date) nontender to unknown) palpation, nondistended, without masses, rebound (unknown) (no (unknown) (unknown) General (units (unkno wn) date) unknown) (unknown) (no (unknown) (unknown) General: (units (unkno wn) date) cooperative, unknown) comfortable, in mild distress, well groomed (unknown) (no (unknown) (unknown) Globulin 3.0 (units (u nknown) date) (1.7-4.1) g/dL unknown) (unknown) (no (unknown) (unknown) Glucose 109 (units (un known) date) (80-110) mg/dL unknown) (unknown) (no (unknown) (unknown) Alexandra Sauceda PA-C (units (unknown) date) [Primary Care unknown) Provider] (unknown) (no (unknown) (unknown) HEENT: symmetrical (units (unknown) date) facial expressions, unknown) moist mucous membranes, left anterior (unknown) (no (unknown) (unknown) HPI - (units (unkno wn) date) Skin/Abscess/Foreign unknown) Bdy (unknown) (no (unknown) (unknown) HPI narrative: (units (unknown) date) unknown) (unknown) (no (unknown) (unknown) Hct 31.2 L (36-46) (units (unknown) date) % unknown) (unknown) (no (unknown) (unknown) Health [facility]munity] (units (unknown) date) unknown) (unknown) (no (unknown) (unknown) Her CRP is elevated (unit s (unknown) date) 7.6, COVID, unknown) influenza a, B and RSV PCRs are negative, no (unknown) (no (unknown) (unknown) Hgb 10.0 L (units (unk nown) date) (12.0-16.0) g/dL unknown) (unknown) (no (unknown) (unknown) History of Present (units (unknown) date) Illness unknown) (unknown) (no (unknown) (unknown) Home Medications (units (unknown) date) unknown) (unknown) (no (unknown) (unknown) I performed a (units ( unknown) date) preliminary unknown) independent interpretation of the following imaging (unknown) (no (unknown) (unknown) I, Carole Crew, (units (unknown) date) 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, personally unknown) performed the services described in the (unknown) (no (unknown) (unknown) Influenza A (units (un known) date) (RT-PCR) Flu a unknown) negative (NEGATIVE) (unknown) (no (unknown) (unknown) Influenza B (units (un known) date) (RT-PCR) Flu b unknown) negative (NEGATIVE) (unknown) (no (unknown) (unknown) Initial Vital Signs (unit s (unknown) date) unknown) (unknown) (no (unknown) (unknown) Initial Vital (units ( unknown) date) Signs: unknown) (unknown) (no (unknown) (unknown) Instructions: DI (units (unknown) date) for Lymphadenopathy unknown) (unknown) (no (unknown) (unknown) [facility] (units (unknown) date) [address] unknown) [place] [address] (unknown) (no (unknown) (unknown) Ketorolac (units (unkn own) date) Tromethamine unknown) (Ketorolac 30 Mg/Ml Vial) 15 mg IM NOW ONE (unknown) (no (unknown) (unknown) Lab Data (units (unkno wn) date) unknown) (unknown) (no (unknown) (unknown) Lab Results (units (un known) date) unknown) (unknown) (no (unknown) (unknown) Labs: (units (unkno wn) date) unknown) (unknown) (no (unknown) (unknown) Last Admin: (units (un known) date) 09/04/22 19:28 Dose: unknown) 1 tab (unknown) (no (unknown) (unknown) Last Admin: (units (un known) date) 09/04/22 19:28 Dose: unknown) 15 mg (unknown) (no (unknown) (unknown) Last Admin: (units (un known) date) 09/04/22 19:34 Dose: unknown) Not Given (unknown) (no (unknown) (unknown) Last Admin: (units (un known) date) 09/04/22 19:45 Dose: unknown) 10 mg (unknown) (no (unknown) (unknown) Last Admin: (units (un known) date) 09/04/22 20:04 Dose: unknown) 1 tab (unknown) (no (unknown) (unknown) Lidocaine HCl (units ( unknown) date) (Lidocaine 2% Inj unknown) Sdv) 5 ml INJ INTRA-OP ONE (unknown) (no (unknown) (unknown) Limitations: no (units (unknown) date) limitations unknown) (unknown) (no (unknown) (unknown) Lymph # (Auto) 3600 (unit s (unknown) date) (9819-7838) /uL unknown) (unknown) (no (unknown) (unknown) Lymph % (Auto) 26.6 (unit s (unknown) date) (25-40) % unknown) (unknown) (no (unknown) (unknown) MCH 27.8 (26-34) PG (unit s (unknown) date) unknown) (unknown) (no (unknown) (unknown) MCHC 32.2 (30-36) % (unit s (unknown) date) unknown) (unknown) (no (unknown) (unknown) MCV 86.2 (80-100) (units (unknown) date) fL unknown) (unknown) (no (unknown) (unknown) MDM - (units (unkno wn) date) Skin/Abscess/Foreign unknown) Bdy (unknown) (no (unknown) (unknown) MDM Narrative (units ( unknown) date) unknown) (unknown) (no (unknown) (unknown) MIPS: This (units (unk nown) date) encounter doesn't unknown) have any diagnosis associated with MIPS criteria. (unknown) (no (unknown) (unknown) MSK: moves all (units (unknown) date) extremities, unknown) neurovascularly intact, no weakness, normal tone (unknown) (no (unknown) (unknown) Medical decision (units (unknown) date) making narrative: unknown) (unknown) (no (unknown) (unknown) Medication (units (unk nown) date) Instructions unknown) Recorded Confirmed (unknown) (no (unknown) (unknown) Medication (units (unk nown) date) Instructions unknown) Recorded (unknown) (no (unknown) (unknown) Mode of arrival: (units (unknown) date) Family Vehicle unknown) (unknown) (no (unknown) (unknown) [place] # (Auto) 800 (units (unknown) date) (0-900) /uL unknown) (unknown) (no (unknown) (unknown) [place] % (Auto) 6.0 (units (unknown) date) (3-14) % unknown) (unknown) (no (unknown) (unknown) Narrative (units (unkn own) date) unknown) (unknown) (no (unknown) (unknown) Neuro: normal (units ( unknown) date) speech and unknown) cognition, A+O x3, ambulatory, clear speech (unknown) (no (unknown) (unknown) Neut # (Auto) 9100 (units (unknown) date) H (2438-7105) /uL unknown) (unknown) (no (unknown) (unknown) Neut % (Auto) 66.5 (units (unknown) date) (50-75) % unknown) (unknown) (no (unknown) (unknown) New (units (unkno wn) date) unknown) (unknown) (no (unknown) (unknown) No Action (units (unkn own) date) unknown) (unknown) (no (unknown) (unknown) No Known Drug (units ( unknown) date) Allergies Allergy unknown) Verified 08/11/22 11:06 (unknown) (no (unknown) (unknown) ONE (units (unkno wn) date) unknown) (unknown) (no (unknown) (unknown) Occasional wrong (units (unknown) date) word or 'sound unknown) alike' substitutions may have occurred due to (unknown) (no (unknown) (unknown) Ordered: (units (unkno wn) date) unknown) (unknown) (no (unknown) (unknown) Orders (units (unkno wn) date) unknown) (unknown) (no (unknown) (unknown) Oxycodone/Acetamino (unit s (unknown) date) phen unknown) (Oxycodone/Acetamino phen 5/325 Tablet) 1 tab PO NOW ONE (unknown) (no (unknown) (unknown) Oxygen Delivery (units (unknown) date) Method 09/04/22 unknown) 17:25 (unknown) (no (unknown) (unknown) Oxygen Delivery (units (unknown) date) Method Room Air unknown) (unknown) (no (unknown) (unknown) Oxygen Delivery (units (unknown) date) Method unknown) (unknown) (no (unknown) (unknown) Patient (units (unkno wn) date) Disposition: Home unknown) (unknown) (no (unknown) (unknown) Patient History (units (unknown) date) unknown) (unknown) (no (unknown) (unknown) Patient's symptoms (units (unknown) date) improved over unknown) duration of stay with above-stated therapies. (unknown) (no (unknown) (unknown) Patient: (units (unkno wn) date) Maricruz Hodges unknown) MR#: [id number] (unknown) (no (unknown) (unknown) Plt Count 319 (units ( unknown) date) (150-400) X103/uL unknown) (unknown) (no (unknown) (unknown) Portions of this (units (unknown) date) chart have been unknown) created with [employer] voice recognition software. (unknown) (no (unknown) (unknown) Potassium 4.4 (units ( unknown) date) (3.4-5.1) mmol/L unknown) (unknown) (no (unknown) (unknown) Prescriptions: (units (unknown) date) unknown) (unknown) (no (unknown) (unknown) Previous Rx's (units ( unknown) date) unknown) (unknown) (no (unknown) (unknown) Procalcitonin Stat (units (unknown) date) unknown) (unknown) (no (unknown) (unknown) Psych: mental (units ( unknown) date) status is grossly unknown) normal, congruent mood, normal affect, pleasant (unknown) (no (unknown) (unknown) Pulse Oximetry 100 (units (unknown) date) 09/04/22 17:25 unknown) (unknown) (no (unknown) (unknown) Pulse Oximetry 100 (units (unknown) date) 100 unknown) (unknown) (no (unknown) (unknown) Pulse Rate 74 74 (units (unknown) date) unknown) (unknown) (no (unknown) (unknown) Pulse Rate 79 (units ( unknown) date) 09/04/22 17:25 unknown) (unknown) (no (unknown) (unknown) Pulse Rate 79 73 (units (unknown) date) unknown) (unknown) (no (unknown) (unknown) RBC 3.62 L (units (unk nown) date) (4.0-5.2) X106/uL unknown) (unknown) (no (unknown) (unknown) RDW 16.9 H (units (unk nown) date) (11.6-14.8) % unknown) (unknown) (no (unknown) (unknown) ROS Unobtainable: (units (unknown) date) All systems reviewed unknown) + are unremarkable except as noted in HPI (unknown) (no (unknown) (unknown) RSV (PCR) Negative (units (unknown) date) (Negative) unknown) (unknown) (no (unknown) (unknown) Referrals: (units (unk nown) date) unknown) (unknown) (no (unknown) (unknown) Related Data (units (u nknown) date) unknown) (unknown) (no (unknown) (unknown) Respiratory Rate 17 (unit s (unknown) date) 09/04/22 17:25 unknown) (unknown) (no (unknown) (unknown) Respiratory Rate 17 (unit s (unknown) date) unknown) (unknown) (no (unknown) (unknown) Respiratory Rate (units (unknown) date) unknown) (unknown) (no (unknown) (unknown) Respiratory: normal (unit s (unknown) date) effort, able to unknown) speak in complete sentences, without (unknown) (no (unknown) (unknown) Result diagrams: (units (unknown) date) unknown) (unknown) (no (unknown) (unknown) Review of Systems (units (unknown) date) unknown) (unknown) (no (unknown) (unknown) Reviewed vitals (units (unknown) date) signs and nursing unknown) notes. (unknown) (no (unknown) (unknown) SARS-CoV-2 (PCR) (units (unknown) date) Negative (Negative) unknown) (unknown) (no (unknown) (unknown) Signed By: (units (unk nown) date) unknown) (unknown) (no (unknown) (unknown) Skin: brisk (units (un known) date) capillary refill, unknown) without pallor or erythema (unknown) (no (unknown) (unknown) Smoking Status: (units (unknown) date) Former smoker unknown) (unknown) (no (unknown) (unknown) Social History (units (unknown) date) (Reviewed 09/04/22 @ unknown) 20:43 by Carole Pulido 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) (unknown) (no (unknown) (unknown) Social determinants (unit s (unknown) date) of health that may unknown) impact treatment or disposition: (unknown) (no (unknown) (unknown) Sodium 128 L (units (u nknown) date) (137-145) mmol/L unknown) (unknown) (no (unknown) (unknown) Sodium Chloride (units (unknown) date) (Normal Saline 0.9%) unknown) 1,000 mls @ 1,000 mls/hr IV BOLUS ONE (unknown) (no (unknown) (unknown) Source: patient (units (unknown) date) unknown) (unknown) (no (unknown) (unknown) Stand Alone Forms: (units (unknown) date) Patient Portal/API unknown) (unknown) (no (unknown) (unknown) Stated complaint: (units (unknown) date) lt ear red + unknown) swelling (unknown) (no (unknown) (unknown) Stop: 09/04/22 (units (unknown) date) 19:24 unknown) (unknown) (no (unknown) (unknown) Stop: 09/04/22 (units (unknown) date) 19:38 unknown) (unknown) (no (unknown) (unknown) Stop: 09/04/22 (units (unknown) date) 19:55 unknown) (unknown) (no (unknown) (unknown) Stop: 09/04/22 (units (unknown) date) 21:47 unknown) (unknown) (no (unknown) (unknown) Substance Use Type: (unit s (unknown) date) does not use unknown) (unknown) (no (unknown) (unknown) Suspect mild (units (u nknown) date) hemoconcentration unknown) and dehydration, ordered 1 L of IV fluids. (unknown) (no (unknown) (unknown) Temperature 98.0 F (units (unknown) date) 09/04/22 17:25 unknown) (unknown) (no (unknown) (unknown) Temperature 98.0 F (units (unknown) date) unknown) (unknown) (no (unknown) (unknown) Temperature (units (un known) date) unknown) (unknown) (no (unknown) (unknown) This is a (units (unkn own) date) 77-year-old female unknown) who is presenting to the ED via POV with concern (unknown) (no (unknown) (unknown) This is a (units (unkn own) date) 77-year-old female unknown) with history of diabetes who presents emergency (unknown) (no (unknown) (unknown) Time Seen by (units (u nknown) date) Provider: 09/04/22 unknown) 18:50 (unknown) (no (unknown) (unknown) Total Bilirubin 0.2 (unit s (unknown) date) (0.2-1.3) mg/dL unknown) (unknown) (no (unknown) (unknown) Total Protein 6.4 (units (unknown) date) (6.3-8.2) g/dL unknown) (unknown) (no (unknown) (unknown) US soft tissue head (unit s (unknown) date) and neck Stat unknown) (unknown) (no (unknown) (unknown) Vital Signs - 8 hr (units (unknown) date) unknown) (unknown) (no (unknown) (unknown) Vital Signs (units (un known) date) unknown) (unknown) (no (unknown) (unknown) Vital Signs: I, the (unit s (unknown) date) ED provider, unknown) reviewed the patient?s vital signs, past (unknown) (no (unknown) (unknown) Vital signs: (units (u nknown) date) unknown) (unknown) (no (unknown) (unknown) WBC 13.7 H (units (unk nown) date) (4.5-11.0) X103/uL unknown) (unknown) (no (unknown) (unknown) [ ] New medication (units (unknown) date) written as a paper unknown) prescription (unknown) (no (unknown) (unknown) [ ] No new (units (unk nown) date) medications given unknown) (unknown) (no (unknown) (unknown) [ x] New medication (unit s (unknown) date) prescriptions sent unknown) to your pharmacy: [ [facility] (unknown) (no (unknown) (unknown) [Embedded Image Not (unit s (unknown) date) Available] unknown) (unknown) (no (unknown) (unknown) abnormality. Her (units (unknown) date) primary care unknown) provider is ALINA Ruiz. States that she was (unknown) (no (unknown) (unknown) about left (units (unk nown) date) mandible/anterior unknown) cervical lymphadenopathy versus dental abscess (unknown) (no (unknown) (unknown) abscess, (units (unkno wn) date) lymphadenopathy, unknown) viral syndrome, (unknown) (no (unknown) (unknown) ago. States that (units (unknown) date) she had recent unknown) dental work in May that she had antibiotics (unknown) (no (unknown) (unknown) alcohol intake (units (unknown) date) frequency: 0-2 unknown) drinks per day (unknown) (no (unknown) (unknown) alcohol intake: (units (unknown) date) current unknown) (unknown) (no (unknown) (unknown) amoxicillin 875 (units (unknown) date) mg-potassium 1 tab unknown) PO BID #14 tabs 09/04/22 (unknown) (no (unknown) (unknown) amoxicillin-pot (units (unknown) date) clavulanate 875-125 unknown) mg tablet (unknown) (no (unknown) (unknown) and below (units (unkn own) date) unknown) (unknown) (no (unknown) (unknown) and cooperative (units (unknown) date) unknown) (unknown) (no (unknown) (unknown) and specific details (unit s (unknown) date) were provided for unknown) the plan of care. Questions are addressed (unknown) (no (unknown) (unknown) and there is (units (u n) date) agreement with the unknown) plan and for follow-up. Patient is appropriate (unknown) (no (unknown) (unknown) appointment. Let (units (unknown) date) them know you were unknown) seen in the Emergency Department and that we (unknown) (no (unknown) (unknown) asked that you be (units (unknown) date) seen for follow-up. unknown) We will electronically transmit a record (unknown) (no (unknown) (unknown) canal erythema or TM (unit s (unknown) date) erythema, without unknown) stridor, full range of motion of neck, no (unknown) (no (unknown) (unknown) cervical lower (units ( unknown) date) mandible region with unknown) firm, non mobile mass approximately 2 cm x 3 (unknown) (no (unknown) (unknown) chewing. Last (units ( unknown) date) dental work was in unknown) May 2022. (unknown) (no (unknown) (unknown) clavulanate 125 mg (units (unknown) date) tablet unknown) (unknown) (no (unknown) (unknown) cm, exquisitely (units (unknown) date) tender, without unknown) fluctuance, without mastoid tenderness, ear (unknown) (no (unknown) (unknown) concerning (units (unk nown) date) symptoms, such as unknown) [fever greater than 101F, chills, worsening pain, (unknown) (no (unknown) (unknown) denies any (units (unk nown) date) weakness, altered unknown) mental status, vision changes, rash or other (unknown) (no (unknown) (unknown) department (units (unk nown) date) complaining of unknown) swelling to her left jaw with gradual onset 3 days (unknown) (no (unknown) (unknown) dexamethasone, she (units (unknown) date) has anterior unknown) cervical swelling and tenderness concerning for (unknown) (no (unknown) (unknown) documentation, and (units (unknown) date) it accurately unknown) records my words and actions. I collaborated (unknown) (no (unknown) (unknown) establish care with (unit s (unknown) date) [facility]. (unknown) (no (unknown) (unknown) fever, chills, (units (unknown) date) recent upper unknown) respiratory illness, cough or congestion. She (unknown) (no (unknown) (unknown) for outpatient (units (unknown) date) management. unknown) (unknown) (no (unknown) (unknown) for. States that (units (unknown) date) she is on unknown) hydrocodone for chronic pain and took this for her (unknown) (no (unknown) (unknown) gabapentin 300 mg (units (unknown) date) Tablet unknown) (unknown) (no (unknown) (unknown) gabapentin 300 mg (units (unknown) date) tablet 300 mg PO unknown) DAILY 08/11/22 08/11/22 (unknown) (no (unknown) (unknown) had recent bridge (units (unknown) date) and tooth extraction unknown) to the lower left jaw in May 2022. (unknown) (no (unknown) (unknown) hemoglobin of 10.0, (unit s (unknown) date) hematocrit 31.2 unknown) without priors to compare to, left shift (unknown) (no (unknown) (unknown) household members: (units (unknown) date) spouse unknown) (unknown) (no (unknown) (unknown) hydrocodone (units (un known) date) bitartrate 08/11/22 unknown) (unknown) (no (unknown) (unknown) hydrocodone (units (un known) date) bitartrate unknown) (unknown) (no (unknown) (unknown) left jaw pain and (units (unknown) date) swelling but states unknown) it did not help her. She states that she (unknown) (no (unknown) (unknown) levothyroxine 25 (units (unknown) date) mcg Tablet unknown) (unknown) (no (unknown) (unknown) levothyroxine 25 (units (unknown) date) mcg tablet 25 mcg PO unknown) DIRECTED 08/11/22 08/11/22 (unknown) (no (unknown) (unknown) lisinopril 10 mg PO (unit s (unknown) date) DAILY 08/11/22 unknown) 08/11/22 (unknown) (no (unknown) (unknown) lisinopril (units (unk nown) date) unknown) (unknown) (no (unknown) (unknown) medical records and (unit s (unknown) date) encounters if unknown) available, and nursing notes. I have spoken (unknown) (no (unknown) (unknown) metformin 500 mg (units (unknown) date) Tablet unknown) (unknown) (no (unknown) (unknown) metformin 500 mg (units (unknown) date) tablet 500 mg PO unknown) DAILY 08/11/22 08/11/22 (unknown) (no (unknown) (unknown) mg tablet (units (unkn own) date) (Percocet) unknown) (unknown) (no (unknown) (unknown) midline, without (units (unknown) date) posterior pharynx unknown) erythema or edema (unknown) (no (unknown) (unknown) naproxen 500 mg (units (unknown) date) tablet (Naprosyn) unknown) 500 mg PO BID PRN pain #14 tabs 09/04/22 (unknown) (no (unknown) (unknown) naproxen [Naprosyn] (unit s (unknown) date) 500 mg tablet unknown) (unknown) (no (unknown) (unknown) neuro symptoms or (units (unknown) date) altered mental unknown) status. Patient has a friend witnessed here (unknown) (no (unknown) (unknown) of today's note if (units (unknown) date) your PCP is in our unknown) system (unknown) (no (unknown) (unknown) omeprazole 20 mg (units (unknown) date) Tablet,Delayed unknown) Release (Dr/Ec) (unknown) (no (unknown) (unknown) omeprazole 20 mg (units (unknown) date) tablet,delayed 20 mg unknown) PO DAILY 08/11/22 08/11/22 (unknown) (no (unknown) (unknown) oxycodone-acetamino (unit s (unknown) date) phen 5 mg-325 1 tab unknown) PO Q8H PRN pain #10 tabs 09/04/22 (unknown) (no (unknown) (unknown) oxycodone-acetamino (unit s (unknown) date) phen [Percocet] unknown) 5-325 mg tablet (unknown) (no (unknown) (unknown) parotitis versus (units (unknown) date) abscess, versus unknown) lymphadenopathy, will follow-up on pain control (unknown) (no (unknown) (unknown) persistent vomiting (unit s (unknown) date) or other bothersome unknown) symptoms]. (unknown) (no (unknown) (unknown) pharynx, visible (units (unknown) date) dental extractions unknown) to the left posterior lower mandible x3 (unknown) (no (unknown) (unknown) possible bacterial (units (unknown) date) infection or fluid unknown) collection to her left anterior neck. (unknown) (no (unknown) (unknown) prednisone 20 mg (units (unknown) date) tablet 20 mg PO unknown) DAILY #5 tabs 09/04/22 (unknown) (no (unknown) (unknown) prednisone 20 mg (units (unknown) date) tablet unknown) (unknown) (no (unknown) (unknown) release (units (unkno wn) date) unknown) (unknown) (no (unknown) (unknown) sent here for (units ( unknown) date) evaluation of this unknown) swelling with concern for lymphadenopathy (unknown) (no (unknown) (unknown) sertraline 50 mg (units (unknown) date) Tablet unknown) (unknown) (no (unknown) (unknown) sertraline 50 mg (units (unknown) date) tablet 50 mg PO unknown) DAILY 08/11/22 08/11/22 (unknown) (no (unknown) (unknown) shortness of (units (u nknown) date) breath, upper unknown) respiratory symptoms including cough or congestion. (unknown) (no (unknown) (unknown) studies: CT soft (units (unknown) date) tissue neck contrast unknown) (unknown) (no (unknown) (unknown) teeth without (units ( unknown) date) gingival erythema, unknown) edema, discharge, or visible abscess. Uvula is (unknown) (no (unknown) (unknown) tenderness or (units ( unknown) date) exquisite tenderness unknown) with exam. (unknown) (no (unknown) (unknown) tenderness to (units ( unknown) date) cervical spine unknown) without erythematous lesion or drainage from or (unknown) (no (unknown) (unknown) the inherent (units (u nknown) date) limitations of this unknown) software. (unknown) (no (unknown) (unknown) tobacco type: (units ( unknown) date) cigarettes unknown) (unknown) (no (unknown) (unknown) patient services technician (units (unknown) date) on-site, ordered IV unknown) placement for CT soft tissue for evaluation (unknown) (no (unknown) (unknown) understanding. (units (unknown) date) Counseling was unknown) provided regarding the diagnosis and prognosis, (unknown) (no (unknown) (unknown) versus dental (units ( unknown) date) abscess versus unknown) bacterial infection or other viral illness. (unknown) (no (unknown) (unknown) versus parotitis. (units (unknown) date) Symptoms started 2 unknown) days ago, patient denies fever, chills, (unknown) (no (unknown) (unknown) wheezing, stridor, (units (unknown) date) or abnormal breath unknown) sounds. No retractions or tachypnea. (unknown) (no (unknown) (unknown) who denies any (units (unknown) date) recent mental status unknown) changes. Patient has a history of diabetes. (unknown) (no (unknown) (unknown) with the ED (units (un known) date) attending physician unknown) for SOLOMON level 2, 3, and some level 4s as needed (unknown) (no (unknown) (unknown) with the (units (unkno wn) date) patient/family and unknown) discussed today?s findings whom verbalize (unknown) (no (unknown) (unknown) without (units (unkno wn) date) lymphopenia, patient unknown) is hyponatremic with a sodium of 128 without focal Result panel 98 (unknown) (no (unknown) (unknown) (no value) (units (unk nown) date) unknown) (unknown) (no (unknown) (unknown) *If you do not have (unit s (unknown) date) a primary care unknown) provider please contact [phone] to (unknown) (no (unknown) (unknown) *Please continue to (unit s (unknown) date) take your regular unknown) medications as directed. (unknown) (no (unknown) (unknown) *Please follow up (units (unknown) date) with your primary unknown) care provider in 2-3 days, call for an (unknown) (no (unknown) (unknown) *Return to (units (unk nown) date) Emergency Department unknown) if you should have any new, worsening, or (unknown) (no (unknown) (unknown) *What to do: (units (u nknown) date) unknown) (unknown) (no (unknown) (unknown) *You have been (units (unknown) date) diagnosed with unknown) (unknown) (no (unknown) (unknown) [id number] (units (unkno wn) date) unknown) (unknown) (no (unknown) (unknown) 09/04/22 09/04/22 (units (unknown) date) 09/04/22 Range/Units unknown) (unknown) (no (unknown) (unknown) 09/04/22 19:55 (units (unknown) date) unknown) (unknown) (no (unknown) (unknown) 09/04/22 20:05 (units (unknown) date) unknown) (unknown) (no (unknown) (unknown) 09/04/22 20:28 (units (unknown) date) unknown) (unknown) (no (unknown) (unknown) 09/04/22 20:47 (units (unknown) date) unknown) (unknown) (no (unknown) (unknown) 09/04/22 21:13 (units (unknown) date) unknown) (unknown) (no (unknown) (unknown) 09/04/22 (units (unkno wn) date) unknown) (unknown) (no (unknown) (unknown) 1 tab PO BID Qty: (units (unknown) date) 14 0RF unknown) (unknown) (no (unknown) (unknown) 1 tab PO Q8H PRN (units (unknown) date) (Reason: pain) Qty: unknown) 10 0RF (unknown) (no (unknown) (unknown) 10 mg PO DAILY (units (unknown) date) unknown) (unknown) (no (unknown) (unknown) 17:25 09/04/22 (units (unknown) date) unknown) (unknown) (no (unknown) (unknown) 18:55 09/04/22 (units (unknown) date) unknown) (unknown) (no (unknown) (unknown) 18:56 09/04/22 (units (unknown) date) unknown) (unknown) (no (unknown) (unknown) 18:56 (units (unkno wn) date) unknown) (unknown) (no (unknown) (unknown) 19:00 01/05/23 (units (unknown) date) unknown) (unknown) (no (unknown) (unknown) 19:00 (units (unkno wn) date) unknown) (unknown) (no (unknown) (unknown) 19:55 20:05 20:05 (units (unknown) date) unknown) (unknown) (no (unknown) (unknown) 20 mg PO DAILY Qty: (unit s (unknown) date) 5 0RF unknown) (unknown) (no (unknown) (unknown) 20 mg PO DAILY (units (unknown) date) unknown) (unknown) (no (unknown) (unknown) 2051, patient's lab (units (unknown) date) work came back with unknown) a leukocytosis of 13.7, mild anemia with (unknown) (no (unknown) (unknown) 25 mcg PO (units (u nknown) date) DIRECTED unknown) (unknown) (no (unknown) (unknown) 300 mg PO DAILY (units (unknown) date) unknown) (unknown) (no (unknown) (unknown) 50 mg PO DAILY (units (unknown) date) unknown) (unknown) (no (unknown) (unknown) 500 mg PO BID PRN (units (unknown) date) (Reason: pain) Qty: unknown) 14 0RF (unknown) (no (unknown) (unknown) 500 mg PO DAILY (units (unknown) date) unknown) (unknown) (no (unknown) (unknown) ALT 14 (<35) IU/L (units (unknown) date) unknown) (unknown) (no (unknown) (unknown) AST 23 (14-36) IU/L (unit s (unknown) date) unknown) (unknown) (no (unknown) (unknown) Activity (units (unkno wn) date) Restrictions/Additio unknown) nal Instructions: (unknown) (no (unknown) (unknown) Acute hyponatremia (units (unknown) date) unknown) (unknown) (no (unknown) (unknown) Age/Sex: 77 / F (units (unknown) date) unknown) (unknown) (no (unknown) (unknown) Albumin 3.4 L (units ( unknown) date) (3.5-5.0) g/dL unknown) (unknown) (no (unknown) (unknown) Albumin/Globulin (units (unknown) date) Ratio 1.1 (1.0-2.8) unknown) (unknown) (no (unknown) (unknown) Alkaline (units (unkno wn) date) Phosphatase 90 unknown) (38-126) U/L (unknown) (no (unknown) (unknown) Allergies (units (unkn own) date) unknown) (unknown) (no (unknown) (unknown) Allergy/AdvReac (units (unknown) date) Type Severity unknown) Reaction Status Date / Time (unknown) (no (unknown) (unknown) Amoxicillin/Clavula (unit s (unknown) date) logan Potassium unknown) (Amoxicillin/Clav 875/125 Mg) 1 tab PO NOW (unknown) (no (unknown) (unknown) BUN 14 (7-17) mg/dL (unit s (unknown) date) unknown) (unknown) (no (unknown) (unknown) BUN/Creatinine (units (unknown) date) Ratio 23.7 H (6-22) unknown) (unknown) (no (unknown) (unknown) Baso # (Auto) 0 (units (unknown) date) (0-100) /uL unknown) (unknown) (no (unknown) (unknown) Baso % (Auto) 0.2 (units (unknown) date) (0-2) % unknown) (unknown) (no (unknown) (unknown) Blood Culture Stat (units (unknown) date) unknown) (unknown) (no (unknown) (unknown) Blood Pressure (units (unknown) date) 125/60 09/04/22 unknown) 17:25 (unknown) (no (unknown) (unknown) Blood Pressure (units (unknown) date) 125/60 140/65 unknown) (unknown) (no (unknown) (unknown) Blood Pressure (units (unknown) date) 125/66 unknown) (unknown) (no (unknown) (unknown) Paz Mo S, (units (unknown) date) 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] unknown) (unknown) (no (unknown) (unknown) C-Reactive Protein (units (unknown) date) 7.6 H (<1.0) mg/dL unknown) (unknown) (no (unknown) (unknown) CBC Auto Diff (units ( unknown) date) [Complete Blood unknown) Count AUTO DIFF] Stat (unknown) (no (unknown) (unknown) CMP [Comprehensive (units (unknown) date) Metabolic Panel] unknown) Stat (unknown) (no (unknown) (unknown) CRP [C-Reactive (units (unknown) date) Protein Quant] Stat unknown) (unknown) (no (unknown) (unknown) CT soft tissue neck (unit s (unknown) date) w con Stat unknown) (unknown) (no (unknown) (unknown) Calcium 8.6 (units (un known) date) (8.4-10.2) mg/dL unknown) (unknown) (no (unknown) (unknown) Carbon Dioxide 28 (units (unknown) date) (22-32) mmol/L unknown) (unknown) (no (unknown) (unknown) Cardiovascular: (units (unknown) date) regular rate and unknown) rhythm, no peripheral edema, warm extremities (unknown) (no (unknown) (unknown) Chief complaint: (units (unknown) date) Skin/Abscess/Foreign unknown) Body (unknown) (no (unknown) (unknown) Chloride 95 L (units ( unknown) date) (98-107) mmol/L unknown) (unknown) (no (unknown) (unknown) Clinical (units (unkno wn) date) Impression: unknown) (unknown) (no (unknown) (unknown) Course of Care: (units (unknown) date) Patient complaining unknown) of pain, ordered Percocet, Toradol and (unknown) (no (unknown) (unknown) Course (units (unkno wn) date) unknown) (unknown) (no (unknown) (unknown) Covid-19 + FLU A/B (units (unknown) date) + RSV - PCR Stat unknown) (unknown) (no (unknown) (unknown) Creatinine 0.59 (units (unknown) date) (0.52-1.04) mg/dL unknown) (unknown) (no (unknown) (unknown) : 1945 (units (unknown) date) Acct:[id number] unknown) (unknown) (no (unknown) (unknown) Date of Service: (units (unknown) date) 09/04/22 unknown) (unknown) (no (unknown) (unknown) Denies any (units (unk nown) date) intraoral swelling, unknown) shortness of breath, difficulty swallowing, (unknown) (no (unknown) (unknown) Denies nausea (units ( unknown) date) vomiting, difficulty unknown) breathing or swallowing, denies difficulty (unknown) (no (unknown) (unknown) Departure (units (unkn own) date) unknown) (unknown) (no (unknown) (unknown) Dexamethasone (units ( unknown) date) (Dexamethasone 10 unknown) Mg/Ml Vial) 10 mg PO NOW ONE (unknown) (no (unknown) (unknown) Differential (units (u nknown) date) diagnoses include, unknown) but are not limited to: Parotitis, dental (unknown) (no (unknown) (unknown) Discharge Plan (units (unknown) date) unknown) (unknown) (no (unknown) (unknown) Discontinued (units (u nknown) date) Medications unknown) (unknown) (no (unknown) (unknown) Discussion of (units ( unknown) date) Management with unknown) other Health Professionals: Signed out to (unknown) (no (unknown) (unknown) Documented By: OW (units (unknown) date) unknown) (unknown) (no (unknown) (unknown) Documented By: RB (units (unknown) date) unknown) (unknown) (no (unknown) (unknown) ED Orders (units (unkn own) date) unknown) (unknown) (no (unknown) (unknown) ER Physician: (units ( unknown) date) Carole Pulido unknown) (unknown) (no (unknown) (unknown) Electronically (units (unknown) date) signed by: Carole unknown) ALINA Pulido (unknown) (no (unknown) (unknown) Emergency Report (units (unknown) date) unknown) (unknown) (no (unknown) (unknown) Eos # (Auto) 100 (units (unknown) date) (0-450) /uL unknown) (unknown) (no (unknown) (unknown) Eos % (Auto) 0.7 L (units (unknown) date) (2-4) % unknown) (unknown) (no (unknown) (unknown) Estimated GFR > 60 (units (unknown) date) (>60) mL/min unknown) (unknown) (no (unknown) (unknown) Exam Narrative: (units (unknown) date) unknown) (unknown) (no (unknown) (unknown) Exam (units (unkno wn) date) unknown) (unknown) (no (unknown) (unknown) GI: abdomen soft, (units (unknown) date) nontender to unknown) palpation, nondistended, without masses, rebound (unknown) (no (unknown) (unknown) General (units (unkno wn) date) unknown) (unknown) (no (unknown) (unknown) General: (units (unkno wn) date) cooperative, unknown) comfortable, in mild distress, well groomed (unknown) (no (unknown) (unknown) Globulin 3.0 (units (u nknown) date) (1.7-4.1) g/dL unknown) (unknown) (no (unknown) (unknown) Glucose 109 (units (un known) date) (80-110) mg/dL unknown) (unknown) (no (unknown) (unknown) Alexandra Sauceda PA-C (units (unknown) date) [Primary Care unknown) Provider] (unknown) (no (unknown) (unknown) HEENT: symmetrical (units (unknown) date) facial expressions, unknown) moist mucous membranes, left anterior (unknown) (no (unknown) (unknown) HPI - (units (unkno wn) date) Skin/Abscess/Foreign unknown) Bdy (unknown) (no (unknown) (unknown) HPI narrative: (units (unknown) date) unknown) (unknown) (no (unknown) (unknown) Hct 31.2 L (36-46) (units (unknown) date) % unknown) (unknown) (no (unknown) (unknown) Health [facility]munity] (units (unknown) date) unknown) (unknown) (no (unknown) (unknown) Her CRP is elevated (unit s (unknown) date) 7.6, COVID, unknown) influenza a, B and RSV PCRs are negative, no (unknown) (no (unknown) (unknown) Hgb 10.0 L (units (unk nown) date) (12.0-16.0) g/dL unknown) (unknown) (no (unknown) (unknown) History of Present (units (unknown) date) Illness unknown) (unknown) (no (unknown) (unknown) Home Medications (units (unknown) date) unknown) (unknown) (no (unknown) (unknown) I performed a (units ( unknown) date) preliminary unknown) independent interpretation of the following imaging (unknown) (no (unknown) (unknown) Carole Archer Crew, (units (unknown) date) ALINA, personally unknown) performed the services described in the (unknown) (no (unknown) (unknown) Influenza A (units (un known) date) (RT-PCR) Flu a unknown) negative (NEGATIVE) (unknown) (no (unknown) (unknown) Influenza B (units (un known) date) (RT-PCR) Flu b unknown) negative (NEGATIVE) (unknown) (no (unknown) (unknown) Initial Vital Signs (unit s (unknown) date) unknown) (unknown) (no (unknown) (unknown) Initial Vital (units ( unknown) date) Signs: unknown) (unknown) (no (unknown) (unknown) Instructions: DI (units (unknown) date) for Lymphadenopathy unknown) (unknown) (no (unknown) (unknown) [facility] (units (unknown) date) [address] [place] [address] unknown) [place] [address] (unknown) (no (unknown) (unknown) Ketorolac (units (unkn own) date) Tromethamine unknown) (Ketorolac 30 Mg/Ml Vial) 15 mg IM NOW ONE (unknown) (no (unknown) (unknown) Lab Data (units (unkno wn) date) unknown) (unknown) (no (unknown) (unknown) Lab Results (units (un known) date) unknown) (unknown) (no (unknown) (unknown) Labs: (units (unkno wn) date) unknown) (unknown) (no (unknown) (unknown) Last Admin: (units (un known) date) 09/04/22 19:28 Dose: unknown) 1 tab (unknown) (no (unknown) (unknown) Last Admin: (units (un known) date) 09/04/22 19:28 Dose: unknown) 15 mg (unknown) (no (unknown) (unknown) Last Admin: (units (un known) date) 09/04/22 19:34 Dose: unknown) Not Given (unknown) (no (unknown) (unknown) Last Admin: (units (un known) date) 09/04/22 19:45 Dose: unknown) 10 mg (unknown) (no (unknown) (unknown) Last Admin: (units (un known) date) 09/04/22 20:04 Dose: unknown) 1 tab (unknown) (no (unknown) (unknown) Last Admin: (units (un known) date) 09/04/22 21:19 Dose: unknown) 1,000 mls/hr (unknown) (no (unknown) (unknown) Lidocaine HCl (units ( unknown) date) (Lidocaine 2% Inj unknown) Sdv) 5 ml INJ INTRA-OP ONE (unknown) (no (unknown) (unknown) Limitations: no (units (unknown) date) limitations unknown) (unknown) (no (unknown) (unknown) Lymph # (Auto) 3600 (unit s (unknown) date) (1270-5807) /uL unknown) (unknown) (no (unknown) (unknown) Lymph % (Auto) 26.6 (unit s (unknown) date) (25-40) % unknown) (unknown) (no (unknown) (unknown) MCH 27.8 (26-34) PG (unit s (unknown) date) unknown) (unknown) (no (unknown) (unknown) MCHC 32.2 (30-36) % (unit s (unknown) date) unknown) (unknown) (no (unknown) (unknown) MCV 86.2 (80-100) (units (unknown) date) fL unknown) (unknown) (no (unknown) (unknown) MDM - (units (unkno wn) date) Skin/Abscess/Foreign unknown) Bdy (unknown) (no (unknown) (unknown) MDM Narrative (units ( unknown) date) unknown) (unknown) (no (unknown) (unknown) MIPS: This (units (unk nown) date) encounter doesn't unknown) have any diagnosis associated with MIPS criteria. (unknown) (no (unknown) (unknown) MSK: moves all (units (unknown) date) extremities, unknown) neurovascularly intact, no weakness, normal tone (unknown) (no (unknown) (unknown) Medical decision (units (unknown) date) making narrative: unknown) (unknown) (no (unknown) (unknown) Medication (units (unk nown) date) Instructions unknown) Recorded Confirmed (unknown) (no (unknown) (unknown) Medication (units (unk nown) date) Instructions unknown) Recorded (unknown) (no (unknown) (unknown) Tomi Lanker at (units (unknown) date) 21:30 for assumption unknown) of care as waiting for CT of soft tissue (unknown) (no (unknown) (unknown) Mode of arrival: (units (unknown) date) Family Vehicle unknown) (unknown) (no (unknown) (unknown) [place] # (Auto) 800 (units (unknown) date) (0-900) /uL unknown) (unknown) (no (unknown) (unknown) [place] % (Auto) 6.0 (units (unknown) date) (3-14) % unknown) (unknown) (no (unknown) (unknown) Narrative (units (unkn own) date) unknown) (unknown) (no (unknown) (unknown) Neuro: normal (units ( unknown) date) speech and unknown) cognition, A+O x3, ambulatory, clear speech (unknown) (no (unknown) (unknown) Neut # (Auto) 9100 (units (unknown) date) H (9457-2476) /uL unknown) (unknown) (no (unknown) (unknown) Neut % (Auto) 66.5 (units (unknown) date) (50-75) % unknown) (unknown) (no (unknown) (unknown) New (units (unkno wn) date) unknown) (unknown) (no (unknown) (unknown) No Action (units (unkn own) date) unknown) (unknown) (no (unknown) (unknown) No Known Drug (units ( unknown) date) Allergies Allergy unknown) Verified 08/11/22 11:06 (unknown) (no (unknown) (unknown) ONE (units (unkno wn) date) unknown) (unknown) (no (unknown) (unknown) Occasional wrong (units (unknown) date) word or 'sound unknown) alike' substitutions may have occurred due to (unknown) (no (unknown) (unknown) Ordered: (units (unkno wn) date) unknown) (unknown) (no (unknown) (unknown) Orders (units (unkno wn) date) unknown) (unknown) (no (unknown) (unknown) Oxycodone/Acetamino (unit s (unknown) date) phen unknown) (Oxycodone/Acetamino phen 5/325 Tablet) 1 tab PO NOW ONE (unknown) (no (unknown) (unknown) Oxygen Delivery (units (unknown) date) Method 09/04/22 unknown) 17:25 (unknown) (no (unknown) (unknown) Oxygen Delivery (units (unknown) date) Method Room Air unknown) (unknown) (no (unknown) (unknown) Oxygen Delivery (units (unknown) date) Method unknown) (unknown) (no (unknown) (unknown) Patient (units (unkno wn) date) Disposition: Home unknown) (unknown) (no (unknown) (unknown) Patient History (units (unknown) date) unknown) (unknown) (no (unknown) (unknown) Patient's symptoms (units (unknown) date) improved over unknown) duration of stay with above-stated therapies. (unknown) (no (unknown) (unknown) Patient: (units (unkno wn) date) Maricruz Hodges unknown) MR#: [id number] (unknown) (no (unknown) (unknown) Plt Count 319 (units ( unknown) date) (150-400) X103/uL unknown) (unknown) (no (unknown) (unknown) Portions of this (units (unknown) date) chart have been unknown) created with [employer] voice recognition software. (unknown) (no (unknown) (unknown) Potassium 4.4 (units ( unknown) date) (3.4-5.1) mmol/L unknown) (unknown) (no (unknown) (unknown) Prescriptions: (units (unknown) date) unknown) (unknown) (no (unknown) (unknown) Previous Rx's (units ( unknown) date) unknown) (unknown) (no (unknown) (unknown) Procalcitonin 0.07 (units (unknown) date) (<0.5) ng/mL unknown) (unknown) (no (unknown) (unknown) Procalcitonin Stat (units (unknown) date) unknown) (unknown) (no (unknown) (unknown) Psych: mental (units ( unknown) date) status is grossly unknown) normal, congruent mood, normal affect, pleasant (unknown) (no (unknown) (unknown) Pulse Oximetry 100 (units (unknown) date) 09/04/22 17:25 unknown) (unknown) (no (unknown) (unknown) Pulse Oximetry 100 (units (unknown) date) 100 unknown) (unknown) (no (unknown) (unknown) Pulse Rate 74 74 (units (unknown) date) unknown) (unknown) (no (unknown) (unknown) Pulse Rate 79 (units ( unknown) date) 09/04/22 17:25 unknown) (unknown) (no (unknown) (unknown) Pulse Rate 79 73 (units (unknown) date) unknown) (unknown) (no (unknown) (unknown) RBC 3.62 L (units (unk nown) date) (4.0-5.2) X106/uL unknown) (unknown) (no (unknown) (unknown) RDW 16.9 H (units (unk nown) date) (11.6-14.8) % unknown) (unknown) (no (unknown) (unknown) ROS Unobtainable: (units (unknown) date) All systems reviewed unknown) + are unremarkable except as noted in HPI (unknown) (no (unknown) (unknown) RSV (PCR) Negative (units (unknown) date) (Negative) unknown) (unknown) (no (unknown) (unknown) Referrals: (units (unk nown) date) unknown) (unknown) (no (unknown) (unknown) Related Data (units (u nknown) date) unknown) (unknown) (no (unknown) (unknown) Respiratory Rate 17 (unit s (unknown) date) 09/04/22 17:25 unknown) (unknown) (no (unknown) (unknown) Respiratory Rate 17 (unit s (unknown) date) unknown) (unknown) (no (unknown) (unknown) Respiratory Rate (units (unknown) date) unknown) (unknown) (no (unknown) (unknown) Respiratory: normal (unit s (unknown) date) effort, able to unknown) speak in complete sentences, without (unknown) (no (unknown) (unknown) Result diagrams: (units (unknown) date) unknown) (unknown) (no (unknown) (unknown) Review of Systems (units (unknown) date) unknown) (unknown) (no (unknown) (unknown) Reviewed vitals (units (unknown) date) signs and nursing unknown) notes. (unknown) (no (unknown) (unknown) SARS-CoV-2 (PCR) (units (unknown) date) Negative (Negative) unknown) (unknown) (no (unknown) (unknown) Signed By: (units (unk nown) date) unknown) (unknown) (no (unknown) (unknown) Skin: brisk (units (un known) date) capillary refill, unknown) without pallor or erythema (unknown) (no (unknown) (unknown) Smoking Status: (units (unknown) date) Former smoker unknown) (unknown) (no (unknown) (unknown) Social History (units (unknown) date) (Reviewed 09/04/22 @ unknown) 20:43 by Carole Pulido [facility]) (unknown) (no (unknown) (unknown) Social determinants (unit s (unknown) date) of health that may unknown) impact treatment or disposition: (unknown) (no (unknown) (unknown) Sodium 128 L (units (u nknown) date) (137-145) mmol/L unknown) (unknown) (no (unknown) (unknown) Sodium Chloride (units (unknown) date) (Normal Saline 0.9%) unknown) 1,000 mls @ 1,000 mls/hr IV BOLUS ONE (unknown) (no (unknown) (unknown) Source: patient (units (unknown) date) unknown) (unknown) (no (unknown) (unknown) Stand Alone Forms: (units (unknown) date) Patient Portal/API unknown) (unknown) (no (unknown) (unknown) Stated complaint: (units (unknown) date) lt ear red + unknown) swelling (unknown) (no (unknown) (unknown) Stop: 09/04/22 (units (unknown) date) 19:24 unknown) (unknown) (no (unknown) (unknown) Stop: 09/04/22 (units (unknown) date) 19:38 unknown) (unknown) (no (unknown) (unknown) Stop: 09/04/22 (units (unknown) date) 19:55 unknown) (unknown) (no (unknown) (unknown) Stop: 09/04/22 (units (unknown) date) 21:47 unknown) (unknown) (no (unknown) (unknown) Substance Use Type: (unit s (unknown) date) does not use unknown) (unknown) (no (unknown) (unknown) Suspect mild (units (u nknown) date) hemoconcentration unknown) and dehydration, ordered 1 L of IV fluids. (unknown) (no (unknown) (unknown) Temperature 98.0 F (units (unknown) date) 09/04/22 17:25 unknown) (unknown) (no (unknown) (unknown) Temperature 98.0 F (units (unknown) date) unknown) (unknown) (no (unknown) (unknown) Temperature (units (un known) date) unknown) (unknown) (no (unknown) (unknown) This is a (units (unkn own) date) 77-year-old female unknown) who is presenting to the ED via POV with concern (unknown) (no (unknown) (unknown) This is a (units (unkn own) date) 77-year-old female unknown) with history of diabetes who presents emergency (unknown) (no (unknown) (unknown) Time Seen by (units (u nknown) date) Provider: 09/04/22 unknown) 18:50 (unknown) (no (unknown) (unknown) Total Bilirubin 0.2 (unit s (unknown) date) (0.2-1.3) mg/dL unknown) (unknown) (no (unknown) (unknown) Total Protein 6.4 (units (unknown) date) (6.3-8.2) g/dL unknown) (unknown) (no (unknown) (unknown) US soft tissue head (unit s (unknown) date) and neck Stat unknown) (unknown) (no (unknown) (unknown) Vital Signs - 8 hr (units (unknown) date) unknown) (unknown) (no (unknown) (unknown) Vital Signs (units (un known) date) unknown) (unknown) (no (unknown) (unknown) Vital Signs: I, the (unit s (unknown) date) ED provider, unknown) reviewed the patient?s vital signs, past (unknown) (no (unknown) (unknown) Vital signs: (units (u nknown) date) unknown) (unknown) (no (unknown) (unknown) WBC 13.7 H (units (unk nown) date) (4.5-11.0) X103/uL unknown) (unknown) (no (unknown) (unknown) [ ] New medication (units (unknown) date) written as a paper unknown) prescription (unknown) (no (unknown) (unknown) [ ] No new (units (unk nown) date) medications given unknown) (unknown) (no (unknown) (unknown) [ x] New medication (unit s (unknown) date) prescriptions sent unknown) to your pharmacy: [ [facility] (unknown) (no (unknown) (unknown) [Embedded Image Not (unit s (unknown) date) Available] unknown) (unknown) (no (unknown) (unknown) abnormality. Her (units (unknown) date) primary care unknown) provider is ALINA Ruiz. States that she was (unknown) (no (unknown) (unknown) about left (units (unk nown) date) mandible/anterior unknown) cervical lymphadenopathy versus dental abscess (unknown) (no (unknown) (unknown) abscess, (units (unkno wn) date) lymphadenopathy, unknown) viral syndrome, (unknown) (no (unknown) (unknown) ago. States that (units (unknown) date) she had recent unknown) dental work in May that she had antibiotics (unknown) (no (unknown) (unknown) alcohol intake (units (unknown) date) frequency: 0-2 unknown) drinks per day (unknown) (no (unknown) (unknown) alcohol intake: (units (unknown) date) current unknown) (unknown) (no (unknown) (unknown) amoxicillin 875 (units (unknown) date) mg-potassium 1 tab unknown) PO BID #14 tabs 09/04/22 (unknown) (no (unknown) (unknown) amoxicillin-pot (units (unknown) date) clavulanate 875-125 unknown) mg tablet (unknown) (no (unknown) (unknown) and below (units (unkn own) date) unknown) (unknown) (no (unknown) (unknown) and cooperative (units (unknown) date) unknown) (unknown) (no (unknown) (unknown) and specific details (unit s (unknown) date) were provided for unknown) the plan of care. Questions are addressed (unknown) (no (unknown) (unknown) and there is (units (u nknown) date) agreement with the unknown) plan and for follow-up. Patient is appropriate (unknown) (no (unknown) (unknown) appointment. Let (units (unknown) date) them know you were unknown) seen in the Emergency Department and that we (unknown) (no (unknown) (unknown) asked that you be (units (unknown) date) seen for follow-up. unknown) We will electronically transmit a record (unknown) (no (unknown) (unknown) canal erythema or TM (unit s (unknown) date) erythema, without unknown) stridor, full range of motion of neck, no (unknown) (no (unknown) (unknown) cervical lower (units ( unknown) date) mandible region with unknown) firm, non mobile mass approximately 2 cm x 3 (unknown) (no (unknown) (unknown) chewing. Last (units ( unknown) date) dental work was in unknown) May 2022. (unknown) (no (unknown) (unknown) clavulanate 125 mg (units (unknown) date) tablet unknown) (unknown) (no (unknown) (unknown) cm, exquisitely (units (unknown) date) tender, without unknown) fluctuance, without mastoid tenderness, ear (unknown) (no (unknown) (unknown) concerning (units (unk nown) date) symptoms, such as unknown) [fever greater than 101F, chills, worsening pain, (unknown) (no (unknown) (unknown) control. (units (unkno wn) date) unknown) (unknown) (no (unknown) (unknown) denies any (units (unk nown) date) weakness, altered unknown) mental status, vision changes, rash or other (unknown) (no (unknown) (unknown) department (units (unk nown) date) complaining of unknown) swelling to her left jaw with gradual onset 3 days (unknown) (no (unknown) (unknown) dexamethasone, she (units (unknown) date) has anterior unknown) cervical swelling and tenderness concerning for (unknown) (no (unknown) (unknown) documentation, and (units (unknown) date) it accurately unknown) records my words and actions. I collaborated (unknown) (no (unknown) (unknown) establish care with [facility] (unknown) [facility]. (unknown) (no (unknown) (unknown) fever, chills, (units (unknown) date) recent upper unknown) respiratory illness, cough or congestion. She (unknown) (no (unknown) (unknown) for outpatient (units (unknown) date) management. unknown) (unknown) (no (unknown) (unknown) for. States that (units (unknown) date) she is on unknown) hydrocodone for chronic pain and took this for her (unknown) (no (unknown) (unknown) gabapentin 300 mg (units (unknown) date) Tablet unknown) (unknown) (no (unknown) (unknown) gabapentin 300 mg (units (unknown) date) tablet 300 mg PO unknown) DAILY 08/11/22 08/11/22 (unknown) (no (unknown) (unknown) had recent bridge (units (unknown) date) and tooth extraction unknown) to the lower left jaw in May 2022. (unknown) (no (unknown) (unknown) hemoglobin of 10.0, (unit s (unknown) date) hematocrit 31.2 unknown) without priors to compare to, left shift (unknown) (no (unknown) (unknown) household members: (units (unknown) date) spouse unknown) (unknown) (no (unknown) (unknown) hydrocodone (units (un known) date) bitartrate 08/11/22 unknown) (unknown) (no (unknown) (unknown) hydrocodone (units (un known) date) bitartrate unknown) (unknown) (no (unknown) (unknown) left jaw pain and (units (unknown) date) swelling but states unknown) it did not help her. She states that she (unknown) (no (unknown) (unknown) levothyroxine 25 (units (unknown) date) mcg Tablet unknown) (unknown) (no (unknown) (unknown) levothyroxine 25 (units (unknown) date) mcg tablet 25 mcg PO unknown) DIRECTED 08/11/22 08/11/22 (unknown) (no (unknown) (unknown) lisinopril 10 mg PO (unit s (unknown) date) DAILY 08/11/22 unknown) 08/11/22 (unknown) (no (unknown) (unknown) lisinopril (units (unk nown) date) unknown) (unknown) (no (unknown) (unknown) medical records and (unit s (unknown) date) encounters if unknown) available, and nursing notes. I have spoken (unknown) (no (unknown) (unknown) metformin 500 mg (units (unknown) date) Tablet unknown) (unknown) (no (unknown) (unknown) metformin 500 mg (units (unknown) date) tablet 500 mg PO unknown) DAILY 08/11/22 08/11/22 (unknown) (no (unknown) (unknown) mg tablet (units (unkn own) date) (Percocet) unknown) (unknown) (no (unknown) (unknown) midline, without (units (unknown) date) posterior pharynx unknown) erythema or edema (unknown) (no (unknown) (unknown) naproxen 500 mg (units (unknown) date) tablet (Naprosyn) unknown) 500 mg PO BID PRN pain #14 tabs 09/04/22 (unknown) (no (unknown) (unknown) naproxen [Naprosyn] (unit s (unknown) date) 500 mg tablet unknown) (unknown) (no (unknown) (unknown) neck (units (unkno wn) date) unknown) (unknown) (no (unknown) (unknown) neuro symptoms or (units (unknown) date) altered mental unknown) status. Patient has a friend witnessed here (unknown) (no (unknown) (unknown) of today's note if (units (unknown) date) your PCP is in our unknown) system (unknown) (no (unknown) (unknown) omeprazole 20 mg (units (unknown) date) Tablet,Delayed unknown) Release (Dr/Ec) (unknown) (no (unknown) (unknown) omeprazole 20 mg (units (unknown) date) tablet,delayed 20 mg unknown) PO DAILY 08/11/22 08/11/22 (unknown) (no (unknown) (unknown) oxycodone-acetamino (unit s (unknown) date) phen 5 mg-325 1 tab unknown) PO Q8H PRN pain #10 tabs 09/04/22 (unknown) (no (unknown) (unknown) oxycodone-acetamino (unit s (unknown) date) phen [Percocet] unknown) 5-325 mg tablet (unknown) (no (unknown) (unknown) parotitis versus (units (unknown) date) abscess, versus unknown) lymphadenopathy, will follow-up on pain (unknown) (no (unknown) (unknown) persistent vomiting (unit s (unknown) date) or other bothersome unknown) symptoms]. (unknown) (no (unknown) (unknown) pharynx, visible (units (unknown) date) dental extractions unknown) to the left posterior lower mandible x3 (unknown) (no (unknown) (unknown) possible bacterial (units (unknown) date) infection or fluid unknown) collection to her left anterior neck. (unknown) (no (unknown) (unknown) prednisone 20 mg (units (unknown) date) tablet 20 mg PO unknown) DAILY #5 tabs 09/04/22 (unknown) (no (unknown) (unknown) prednisone 20 mg (units (unknown) date) tablet unknown) (unknown) (no (unknown) (unknown) release (units (unkno wn) date) unknown) (unknown) (no (unknown) (unknown) sent here for (units ( unknown) date) evaluation of this unknown) swelling with concern for lymphadenopathy (unknown) (no (unknown) (unknown) sertraline 50 mg (units (unknown) date) Tablet unknown) (unknown) (no (unknown) (unknown) sertraline 50 mg (units (unknown) date) tablet 50 mg PO unknown) DAILY 08/11/22 08/11/22 (unknown) (no (unknown) (unknown) shortness of (units (u nknown) date) breath, upper unknown) respiratory symptoms including cough or congestion. (unknown) (no (unknown) (unknown) studies: CT soft (units (unknown) date) tissue neck contrast unknown) (unknown) (no (unknown) (unknown) teeth without (units ( unknown) date) gingival erythema, unknown) edema, discharge, or visible abscess. Uvula is (unknown) (no (unknown) (unknown) tenderness or (units ( unknown) date) exquisite tenderness unknown) with exam. (unknown) (no (unknown) (unknown) tenderness to (units ( unknown) date) cervical spine unknown) without erythematous lesion or drainage from or (unknown) (no (unknown) (unknown) the inherent (units (u nknown) date) limitations of this unknown) software. (unknown) (no (unknown) (unknown) tobacco type: (units ( unknown) date) cigarettes unknown) (unknown) (no (unknown) (unknown) patient services technician (units (unknown) date) on-site, ordered IV unknown) placement for CT soft tissue for evaluation (unknown) (no (unknown) (unknown) understanding. (units (unknown) date) Counseling was unknown) provided regarding the diagnosis and prognosis, (unknown) (no (unknown) (unknown) versus dental (units ( unknown) date) abscess versus unknown) bacterial infection or other viral illness. (unknown) (no (unknown) (unknown) versus parotitis. (units (unknown) date) Symptoms started 2 unknown) days ago, patient denies fever, chills, (unknown) (no (unknown) (unknown) wheezing, stridor, (units (unknown) date) or abnormal breath unknown) sounds. No retractions or tachypnea. (unknown) (no (unknown) (unknown) who denies any (units (unknown) date) recent mental status unknown) changes. Patient has a history of diabetes. (unknown) (no (unknown) (unknown) with the ED (units (un known) date) attending physician unknown) for SOLOMON level 2, 3, and some level 4s as needed (unknown) (no (unknown) (unknown) with the (units (unkno wn) date) patient/family and unknown) discussed today?s findings whom verbalize (unknown) (no (unknown) (unknown) without (units (unkno wn) date) lymphopenia, patient unknown) is hyponatremic with a sodium of 128 without focal Result panel 99 (unknown) (no (unknown) (unknown) (no value) (units (unk nown) date) unknown) (unknown) (no (unknown) (unknown) *If you do not have (unit s (unknown) date) a primary care unknown) provider please contact [phone] to (unknown) (no (unknown) (unknown) *Please continue to (unit s (unknown) date) take your regular unknown) medications as directed. (unknown) (no (unknown) (unknown) *Please follow up (units (unknown) date) with your primary unknown) care provider in 2-3 days, call for an (unknown) (no (unknown) (unknown) *Return to (units (unk nown) date) Emergency Department unknown) if you should have any new, worsening, or (unknown) (no (unknown) (unknown) *What to do: (units (u nknown) date) unknown) (unknown) (no (unknown) (unknown) *You have been (units (unknown) date) diagnosed with unknown) (unknown) (no (unknown) (unknown) [id number] (units (unkno wn) date) unknown) (unknown) (no (unknown) (unknown) 09/04/22 09/04/22 (units (unknown) date) 09/04/22 Range/Units unknown) (unknown) (no (unknown) (unknown) 09/04/22 19:55 (units (unknown) date) unknown) (unknown) (no (unknown) (unknown) 09/04/22 20:05 (units (unknown) date) unknown) (unknown) (no (unknown) (unknown) 09/04/22 20:28 (units (unknown) date) unknown) (unknown) (no (unknown) (unknown) 09/04/22 20:47 (units (unknown) date) unknown) (unknown) (no (unknown) (unknown) 09/04/22 21:13 (units (unknown) date) unknown) (unknown) (no (unknown) (unknown) 09/04/22 (units (unkno wn) date) unknown) (unknown) (no (unknown) (unknown) 1 tab PO BID Qty: (units (unknown) date) 14 0RF unknown) (unknown) (no (unknown) (unknown) 1 tab PO Q8H PRN (units (unknown) date) (Reason: pain) Qty: unknown) 10 0RF (unknown) (no (unknown) (unknown) 10 mg PO DAILY (units (unknown) date) unknown) (unknown) (no (unknown) (unknown) 17:25 09/04/22 (units (unknown) date) unknown) (unknown) (no (unknown) (unknown) 18:55 09/04/22 (units (unknown) date) unknown) (unknown) (no (unknown) (unknown) 18:56 09/04/22 (units (unknown) date) unknown) (unknown) (no (unknown) (unknown) 18:56 (units (unkno wn) date) unknown) (unknown) (no (unknown) (unknown) 19:00 09/04/22 (units (unknown) date) unknown) (unknown) (no (unknown) (unknown) 19:00 (units (unkno wn) date) unknown) (unknown) (no (unknown) (unknown) 19:55 20:05 20:05 (units (unknown) date) unknown) (unknown) (no (unknown) (unknown) 20 mg PO DAILY Qty: (unit s (unknown) date) 5 0RF unknown) (unknown) (no (unknown) (unknown) 20 mg PO DAILY (units (unknown) date) unknown) (unknown) (no (unknown) (unknown) 2051, patient's lab (units (unknown) date) work came back with unknown) a leukocytosis of 13.7, mild anemia with (unknown) (no (unknown) (unknown) 25 mcg PO (units (u nknown) date) DIRECTED unknown) (unknown) (no (unknown) (unknown) 300 mg PO DAILY (units (unknown) date) unknown) (unknown) (no (unknown) (unknown) 50 mg PO DAILY (units (unknown) date) unknown) (unknown) (no (unknown) (unknown) 500 mg PO BID PRN (units (unknown) date) (Reason: pain) Qty: unknown) 14 0RF (unknown) (no (unknown) (unknown) 500 mg PO DAILY (units (unknown) date) unknown) (unknown) (no (unknown) (unknown) ALT 14 (<35) IU/L (units (unknown) date) unknown) (unknown) (no (unknown) (unknown) AST 23 (14-36) IU/L (unit s (unknown) date) unknown) (unknown) (no (unknown) (unknown) Activity (units (unkno wn) date) Restrictions/Additio unknown) nal Instructions: (unknown) (no (unknown) (unknown) Acute hyponatremia (units (unknown) date) unknown) (unknown) (no (unknown) (unknown) Age/Sex: 77 / F (units (unknown) date) unknown) (unknown) (no (unknown) (unknown) Albumin 3.4 L (units ( unknown) date) (3.5-5.0) g/dL unknown) (unknown) (no (unknown) (unknown) Albumin/Globulin (units (unknown) date) Ratio 1.1 (1.0-2.8) unknown) (unknown) (no (unknown) (unknown) Alkaline (units (unkno wn) date) Phosphatase 90 unknown) (38-126) U/L (unknown) (no (unknown) (unknown) Allergies (units (unkn own) date) unknown) (unknown) (no (unknown) (unknown) Allergy/AdvReac (units (unknown) date) Type Severity unknown) Reaction Status Date / Time (unknown) (no (unknown) (unknown) Amoxicillin/Clavula (unit s (unknown) date) logan Potassium unknown) (Amoxicillin/Clav 875/125 Mg) 1 tab PO NOW (unknown) (no (unknown) (unknown) BUN 14 (7-17) mg/dL (unit s (unknown) date) unknown) (unknown) (no (unknown) (unknown) BUN/Creatinine (units (unknown) date) Ratio 23.7 H (6-22) unknown) (unknown) (no (unknown) (unknown) Baso # (Auto) 0 (units (unknown) date) (0-100) /uL unknown) (unknown) (no (unknown) (unknown) Baso % (Auto) 0.2 (units (unknown) date) (0-2) % unknown) (unknown) (no (unknown) (unknown) Blood Culture Stat (units (unknown) date) unknown) (unknown) (no (unknown) (unknown) Blood Pressure (units (unknown) date) 125/60 09/04/22 unknown) 17:25 (unknown) (no (unknown) (unknown) Blood Pressure (units (unknown) date) 125/60 140/65 unknown) (unknown) (no (unknown) (unknown) Blood Pressure (units (unknown) date) 125/66 unknown) (unknown) (no (unknown) (unknown) Paz Mo S, (units (unknown) date) 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] unknown) (unknown) (no (unknown) (unknown) C-Reactive Protein (units (unknown) date) 7.6 H (<1.0) mg/dL unknown) (unknown) (no (unknown) (unknown) CBC Auto Diff (units ( unknown) date) [Complete Blood unknown) Count AUTO DIFF] Stat (unknown) (no (unknown) (unknown) CMP [Comprehensive (units (unknown) date) Metabolic Panel] unknown) Stat (unknown) (no (unknown) (unknown) CRP [C-Reactive (units (unknown) date) Protein Quant] Stat unknown) (unknown) (no (unknown) (unknown) CT soft tissue neck (unit s (unknown) date) w con Stat unknown) (unknown) (no (unknown) (unknown) Calcium 8.6 (units (un known) date) (8.4-10.2) mg/dL unknown) (unknown) (no (unknown) (unknown) Carbon Dioxide 28 (units (unknown) date) (22-32) mmol/L unknown) (unknown) (no (unknown) (unknown) Cardiovascular: (units (unknown) date) regular rate and unknown) rhythm, no peripheral edema, warm extremities (unknown) (no (unknown) (unknown) Chief complaint: (units (unknown) date) Skin/Abscess/Foreign unknown) Body (unknown) (no (unknown) (unknown) Chloride 95 L (units ( unknown) date) (98-107) mmol/L unknown) (unknown) (no (unknown) (unknown) Clinical (units (unkno wn) date) Impression: unknown) (unknown) (no (unknown) (unknown) Course of Care: (units (unknown) date) Patient complaining unknown) of pain, ordered Percocet, Toradol and (unknown) (no (unknown) (unknown) Course (units (unkno wn) date) unknown) (unknown) (no (unknown) (unknown) Covid-19 + FLU A/B (units (unknown) date) + RSV - PCR Stat unknown) (unknown) (no (unknown) (unknown) Creatinine 0.59 (units (unknown) date) (0.52-1.04) mg/dL unknown) (unknown) (no (unknown) (unknown) : 1945 (units (unknown) date) Acct:[id number] unknown) (unknown) (no (unknown) (unknown) Date of Service: (units (unknown) date) 09/04/22 unknown) (unknown) (no (unknown) (unknown) Denies any (units (unk nown) date) intraoral swelling, unknown) shortness of breath, difficulty swallowing, (unknown) (no (unknown) (unknown) Denies nausea (units ( unknown) date) vomiting, difficulty unknown) breathing or swallowing, denies difficulty (unknown) (no (unknown) (unknown) Departure (units (unkn own) date) unknown) (unknown) (no (unknown) (unknown) Dexamethasone (units ( unknown) date) (Dexamethasone 10 unknown) Mg/Ml Vial) 10 mg PO NOW ONE (unknown) (no (unknown) (unknown) Differential (units (u nknown) date) diagnoses include, unknown) but are not limited to: Parotitis, dental (unknown) (no (unknown) (unknown) Discharge Plan (units (unknown) date) unknown) (unknown) (no (unknown) (unknown) Discontinued (units (u nknown) date) Medications unknown) (unknown) (no (unknown) (unknown) Discussion of (units ( unknown) date) Management with unknown) other Health Professionals: Signed out to (unknown) (no (unknown) (unknown) Documented By: OW (units (unknown) date) unknown) (unknown) (no (unknown) (unknown) Documented By: RB (units (unknown) date) unknown) (unknown) (no (unknown) (unknown) ED Orders (units (unkn own) date) unknown) (unknown) (no (unknown) (unknown) ER Physician: (units ( unknown) date) Tomi Young D.O. unknown) (unknown) (no (unknown) (unknown) Electronically (units (unknown) date) signed by: Carole harden) CrewALINA (unknown) (no (unknown) (unknown) Emergency Report (units (unknown) date) unknown) (unknown) (no (unknown) (unknown) Eos # (Auto) 100 (units (unknown) date) (0-450) /uL unknown) (unknown) (no (unknown) (unknown) Eos % (Auto) 0.7 L (units (unknown) date) (2-4) % unknown) (unknown) (no (unknown) (unknown) Estimated GFR > 60 (units (unknown) date) (>60) mL/min unknown) (unknown) (no (unknown) (unknown) Exam Narrative: (units (unknown) date) unknown) (unknown) (no (unknown) (unknown) Exam (units (unkno wn) date) unknown) (unknown) (no (unknown) (unknown) GI: abdomen soft, (units (unknown) date) nontender to unknown) palpation, nondistended, without masses, rebound (unknown) (no (unknown) (unknown) General (units (unkno wn) date) unknown) (unknown) (no (unknown) (unknown) General: (units (unkno wn) date) cooperative, unknown) comfortable, in mild distress, well groomed (unknown) (no (unknown) (unknown) Globulin 3.0 (units (u nknown) date) (1.7-4.1) g/dL unknown) (unknown) (no (unknown) (unknown) Glucose 109 (units (un known) date) (80-110) mg/dL unknown) (unknown) (no (unknown) (unknown) Alexandra Sauceda PA-C (units (unknown) date) [Primary Care unknown) Provider] (unknown) (no (unknown) (unknown) HEENT: symmetrical (units (unknown) date) facial expressions, unknown) moist mucous membranes, left anterior (unknown) (no (unknown) (unknown) HPI - (units (unkno wn) date) Skin/Abscess/Foreign unknown) Bdy (unknown) (no (unknown) (unknown) HPI narrative: (units (unknown) date) unknown) (unknown) (no (unknown) (unknown) Hct 31.2 L (36-46) (units (unknown) date) % unknown) (unknown) (no (unknown) (unknown) [facility]] (units (unknown) date) unknown) (unknown) (no (unknown) (unknown) Her CRP is elevated (unit s (unknown) date) 7.6, COVID, unknown) influenza a, B and RSV PCRs are negative, no (unknown) (no (unknown) (unknown) Hgb 10.0 L (units (unk nown) date) (12.0-16.0) g/dL unknown) (unknown) (no (unknown) (unknown) History of Present (units (unknown) date) Illness unknown) (unknown) (no (unknown) (unknown) Home Medications (units (unknown) date) unknown) (unknown) (no (unknown) (unknown) I performed a (units ( unknown) date) preliminary unknown) independent interpretation of the following imaging (unknown) (no (unknown) (unknown) I, Carole P[place]aguaw, (units (unknown) date) 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, personally unknown) performed the services described in the (unknown) (no (unknown) (unknown) Influenza A (units (un known) date) (RT-PCR) Flu a unknown) negative (NEGATIVE) (unknown) (no (unknown) (unknown) Influenza B (units (un known) date) (RT-PCR) Flu b unknown) negative (NEGATIVE) (unknown) (no (unknown) (unknown) Initial Vital Signs (unit s (unknown) date) unknown) (unknown) (no (unknown) (unknown) Initial Vital (units ( unknown) date) Signs: unknown) (unknown) (no (unknown) (unknown) Instructions: DI (units (unknown) date) for Lymphadenopathy unknown) (unknown) (no (unknown) (unknown) [facility] (units (unknown) date) [address] unknown) [place] [address] (unknown) (no (unknown) (unknown) Ketorolac (units (unkn own) date) Tromethamine unknown) (Ketorolac 30 Mg/Ml Vial) 15 mg IM NOW ONE (unknown) (no (unknown) (unknown) Lab Data (units (unkno wn) date) unknown) (unknown) (no (unknown) (unknown) Lab Results (units (un known) date) unknown) (unknown) (no (unknown) (unknown) Labs: (units (unkno wn) date) unknown) (unknown) (no (unknown) (unknown) Last Admin: (units (un known) date) 09/04/22 19:28 Dose: unknown) 1 tab (unknown) (no (unknown) (unknown) Last Admin: (units (un known) date) 09/04/22 19:28 Dose: unknown) 15 mg (unknown) (no (unknown) (unknown) Last Admin: (units (un known) date) 09/04/22 19:34 Dose: unknown) Not Given (unknown) (no (unknown) (unknown) Last Admin: (units (un known) date) 09/04/22 19:45 Dose: unknown) 10 mg (unknown) (no (unknown) (unknown) Last Admin: (units (un known) date) 09/04/22 20:04 Dose: unknown) 1 tab (unknown) (no (unknown) (unknown) Last Admin: (units (un known) date) 09/04/22 21:19 Dose: unknown) 1,000 mls/hr (unknown) (no (unknown) (unknown) Lidocaine HCl (units ( unknown) date) (Lidocaine 2% Inj unknown) Sdv) 5 ml INJ INTRA-OP ONE (unknown) (no (unknown) (unknown) Limitations: no (units (unknown) date) limitations unknown) (unknown) (no (unknown) (unknown) Lymph # (Auto) 3600 (unit s (unknown) date) (1725-2350) /uL unknown) (unknown) (no (unknown) (unknown) Lymph % (Auto) 26.6 (unit s (unknown) date) (25-40) % unknown) (unknown) (no (unknown) (unknown) MCH 27.8 (26-34) PG (unit s (unknown) date) unknown) (unknown) (no (unknown) (unknown) MCHC 32.2 (30-36) % (unit s (unknown) date) unknown) (unknown) (no (unknown) (unknown) MCV 86.2 (80-100) (units (unknown) date) fL unknown) (unknown) (no (unknown) (unknown) MDM - (units (unkno wn) date) Skin/Abscess/Foreign unknown) Bdy (unknown) (no (unknown) (unknown) MDM Narrative (units ( unknown) date) unknown) (unknown) (no (unknown) (unknown) MIPS: This (units (unk nown) date) encounter doesn't unknown) have any diagnosis associated with MIPS criteria. (unknown) (no (unknown) (unknown) MSK: moves all (units (unknown) date) extremities, unknown) neurovascularly intact, no weakness, normal tone (unknown) (no (unknown) (unknown) Medical decision (units (unknown) date) making narrative: unknown) (unknown) (no (unknown) (unknown) Medication (units (unk nown) date) Instructions unknown) Recorded Confirmed (unknown) (no (unknown) (unknown) Medication (units (unk nown) date) Instructions unknown) Recorded (unknown) (no (unknown) (unknown) Tomi Young at (units (unknown) date) 21:30 for assumption unknown) of care as waiting for CT of soft tissue (unknown) (no (unknown) (unknown) Mode of arrival: (units (unknown) date) Family Vehicle unknown) (unknown) (no (unknown) (unknown) [place] # (Auto) 800 (units (unknown) date) (0-900) /uL unknown) (unknown) (no (unknown) (unknown) [place] % (Auto) 6.0 (units (unknown) date) (3-14) % unknown) (unknown) (no (unknown) (unknown) Narrative (units (unkn own) date) unknown) (unknown) (no (unknown) (unknown) Neuro: normal (units ( unknown) date) speech and unknown) cognition, A+O x3, ambulatory, clear speech (unknown) (no (unknown) (unknown) Neut # (Auto) 9100 (units (unknown) date) H (2977-2271) /uL unknown) (unknown) (no (unknown) (unknown) Neut % (Auto) 66.5 (units (unknown) date) (50-75) % unknown) (unknown) (no (unknown) (unknown) New (units (unkno wn) date) unknown) (unknown) (no (unknown) (unknown) No Action (units (unkn own) date) unknown) (unknown) (no (unknown) (unknown) No Known Drug (units ( unknown) date) Allergies Allergy unknown) Verified 08/11/22 11:06 (unknown) (no (unknown) (unknown) ONE (units (unkno wn) date) unknown) (unknown) (no (unknown) (unknown) Occasional wrong (units (unknown) date) word or 'sound unknown) alike' substitutions may have occurred due to (unknown) (no (unknown) (unknown) Ordered: (units (unkno wn) date) unknown) (unknown) (no (unknown) (unknown) Orders (units (unkno wn) date) unknown) (unknown) (no (unknown) (unknown) Oxycodone/Acetamino (unit s (unknown) date) phen unknown) (Oxycodone/Acetamino phen 5/325 Tablet) 1 tab PO NOW ONE (unknown) (no (unknown) (unknown) Oxygen Delivery (units (unknown) date) Method 09/04/22 unknown) 17:25 (unknown) (no (unknown) (unknown) Oxygen Delivery (units (unknown) date) Method Room Air unknown) (unknown) (no (unknown) (unknown) Oxygen Delivery (units (unknown) date) Method unknown) (unknown) (no (unknown) (unknown) Patient (units (unkno wn) date) Disposition: Home unknown) (unknown) (no (unknown) (unknown) Patient History (units (unknown) date) unknown) (unknown) (no (unknown) (unknown) Patient's symptoms (units (unknown) date) improved over unknown) duration of stay with above-stated therapies. (unknown) (no (unknown) (unknown) Patient: (units (unkno wn) date) aMricruz Hodges unknown) MR#: [id number] (unknown) (no (unknown) (unknown) Plt Count 319 (units ( unknown) date) (150-400) X103/uL unknown) (unknown) (no (unknown) (unknown) Portions of this (units (unknown) date) chart have been unknown) created with [employer] voice recognition software. (unknown) (no (unknown) (unknown) Potassium 4.4 (units ( unknown) date) (3.4-5.1) mmol/L unknown) (unknown) (no (unknown) (unknown) Prescriptions: (units (unknown) date) unknown) (unknown) (no (unknown) (unknown) Previous Rx's (units ( unknown) date) unknown) (unknown) (no (unknown) (unknown) Procalcitonin 0.07 (units (unknown) date) (<0.5) ng/mL unknown) (unknown) (no (unknown) (unknown) Procalcitonin Stat (units (unknown) date) unknown) (unknown) (no (unknown) (unknown) Psych: mental (units ( unknown) date) status is grossly unknown) normal, congruent mood, normal affect, pleasant (unknown) (no (unknown) (unknown) Pulse Oximetry 100 (units (unknown) date) 09/04/22 17:25 unknown) (unknown) (no (unknown) (unknown) Pulse Oximetry 100 (units (unknown) date) 100 unknown) (unknown) (no (unknown) (unknown) Pulse Rate 74 74 (units (unknown) date) unknown) (unknown) (no (unknown) (unknown) Pulse Rate 79 (units ( unknown) date) 09/04/22 17:25 unknown) (unknown) (no (unknown) (unknown) Pulse Rate 79 73 (units (unknown) date) unknown) (unknown) (no (unknown) (unknown) RBC 3.62 L (units (unk nown) date) (4.0-5.2) X106/uL unknown) (unknown) (no (unknown) (unknown) RDW 16.9 H (units (unk nown) date) (11.6-14.8) % unknown) (unknown) (no (unknown) (unknown) ROS Unobtainable: (units (unknown) date) All systems reviewed unknown) + are unremarkable except as noted in HPI (unknown) (no (unknown) (unknown) RSV (PCR) Negative (units (unknown) date) (Negative) unknown) (unknown) (no (unknown) (unknown) Referrals: (units (unk nown) date) unknown) (unknown) (no (unknown) (unknown) Related Data (units (u nknown) date) unknown) (unknown) (no (unknown) (unknown) Respiratory Rate 17 (unit s (unknown) date) 09/04/22 17:25 unknown) (unknown) (no (unknown) (unknown) Respiratory Rate 17 (unit s (unknown) date) unknown) (unknown) (no (unknown) (unknown) Respiratory Rate (units (unknown) date) unknown) (unknown) (no (unknown) (unknown) Respiratory: normal (unit s (unknown) date) effort, able to unknown) speak in complete sentences, without (unknown) (no (unknown) (unknown) Result diagrams: (units (unknown) date) unknown) (unknown) (no (unknown) (unknown) Review of Systems (units (unknown) date) unknown) (unknown) (no (unknown) (unknown) Reviewed vitals (units (unknown) date) signs and nursing unknown) notes. (unknown) (no (unknown) (unknown) SARS-CoV-2 (PCR) (units (unknown) date) Negative (Negative) unknown) (unknown) (no (unknown) (unknown) Signed By: (units (unk nown) date) unknown) (unknown) (no (unknown) (unknown) Skin: brisk (units (un known) date) capillary refill, unknown) without pallor or erythema (unknown) (no (unknown) (unknown) Smoking Status: (units (unknown) date) Former smoker unknown) (unknown) (no (unknown) (unknown) Social History (units (unknown) date) (Reviewed 09/04/22 @ unknown) 20:43 by Carole Pulido [facility]) (unknown) (no (unknown) (unknown) Social determinants (unit s (unknown) date) of health that may unknown) impact treatment or disposition: (unknown) (no (unknown) (unknown) Sodium 128 L (units (u nknown) date) (137-145) mmol/L unknown) (unknown) (no (unknown) (unknown) Sodium Chloride (units (unknown) date) (Normal Saline 0.9%) unknown) 1,000 mls @ 1,000 mls/hr IV BOLUS ONE (unknown) (no (unknown) (unknown) Source: patient (units (unknown) date) unknown) (unknown) (no (unknown) (unknown) Stand Alone Forms: (units (unknown) date) Patient Portal/API unknown) (unknown) (no (unknown) (unknown) Stated complaint: (units (unknown) date) lt ear red + unknown) swelling (unknown) (no (unknown) (unknown) Stop: 09/04/22 (units (unknown) date) 19:24 unknown) (unknown) (no (unknown) (unknown) Stop: 09/04/22 (units (unknown) date) 19:38 unknown) (unknown) (no (unknown) (unknown) Stop: 09/04/22 (units (unknown) date) 19:55 unknown) (unknown) (no (unknown) (unknown) Stop: 09/04/22 (units (unknown) date) 21:47 unknown) (unknown) (no (unknown) (unknown) Substance Use Type: (unit s (unknown) date) does not use unknown) (unknown) (no (unknown) (unknown) Suspect mild (units (u nknown) date) hemoconcentration unknown) and dehydration, ordered 1 L of IV fluids. (unknown) (no (unknown) (unknown) Temperature 98.0 F (units (unknown) date) 09/04/22 17:25 unknown) (unknown) (no (unknown) (unknown) Temperature 98.0 F (units (unknown) date) unknown) (unknown) (no (unknown) (unknown) Temperature (units (un known) date) unknown) (unknown) (no (unknown) (unknown) This is a (units (unkn own) date) 77-year-old female unknown) who is presenting to the ED via POV with concern (unknown) (no (unknown) (unknown) This is a (units (unkn own) date) 77-year-old female unknown) with history of diabetes who presents emergency (unknown) (no (unknown) (unknown) Time Seen by (units (u nknown) date) Provider: 09/04/22 unknown) 18:50 (unknown) (no (unknown) (unknown) Total Bilirubin 0.2 (unit s (unknown) date) (0.2-1.3) mg/dL unknown) (unknown) (no (unknown) (unknown) Total Protein 6.4 (units (unknown) date) (6.3-8.2) g/dL unknown) (unknown) (no (unknown) (unknown) US soft tissue head (unit s (unknown) date) and neck Stat unknown) (unknown) (no (unknown) (unknown) Vital Signs - 8 hr (units (unknown) date) unknown) (unknown) (no (unknown) (unknown) Vital Signs (units (un known) date) unknown) (unknown) (no (unknown) (unknown) Vital Signs: I, the (unit s (unknown) date) ED provider, unknown) reviewed the patient?s vital signs, past (unknown) (no (unknown) (unknown) Vital signs: (units (u nknown) date) unknown) (unknown) (no (unknown) (unknown) WBC 13.7 H (units (unk nown) date) (4.5-11.0) X103/uL unknown) (unknown) (no (unknown) (unknown) [ ] New medication (units (unknown) date) written as a paper unknown) prescription (unknown) (no (unknown) (unknown) [ ] No new (units (unk nown) date) medications given unknown) (unknown) (no (unknown) (unknown) [ x] New medication (unit s (unknown) date) prescriptions sent unknown) to your pharmacy: [ [facility] (unknown) (no (unknown) (unknown) [Embedded Image Not (unit s (unknown) date) Available] unknown) (unknown) (no (unknown) (unknown) abnormality. Her (units (unknown) date) primary care unknown) provider is ALINA Ruiz. States that she was (unknown) (no (unknown) (unknown) about left (units (unk nown) date) mandible/anterior unknown) cervical lymphadenopathy versus dental abscess (unknown) (no (unknown) (unknown) abscess, (units (unkno wn) date) lymphadenopathy, unknown) viral syndrome, (unknown) (no (unknown) (unknown) ago. States that (units (unknown) date) she had recent unknown) dental work in May that she had antibiotics (unknown) (no (unknown) (unknown) alcohol intake (units (unknown) date) frequency: 0-2 unknown) drinks per day (unknown) (no (unknown) (unknown) alcohol intake: (units (unknown) date) current unknown) (unknown) (no (unknown) (unknown) amoxicillin 875 (units (unknown) date) mg-potassium 1 tab unknown) PO BID #14 tabs 09/04/22 (unknown) (no (unknown) (unknown) amoxicillin-pot (units (unknown) date) clavulanate 875-125 unknown) mg tablet (unknown) (no (unknown) (unknown) and below (units (unkn own) date) unknown) (unknown) (no (unknown) (unknown) and cooperative (units (unknown) date) unknown) (unknown) (no (unknown) (unknown) and specific details (unit s (unknown) date) were provided for unknown) the plan of care. Questions are addressed (unknown) (no (unknown) (unknown) and there is (units (u nknown) date) agreement with the unknown) plan and for follow-up. Patient is appropriate (unknown) (no (unknown) (unknown) appointment. Let (units (unknown) date) them know you were unknown) seen in the Emergency Department and that we (unknown) (no (unknown) (unknown) asked that you be (units (unknown) date) seen for follow-up. unknown) We will electronically transmit a record (unknown) (no (unknown) (unknown) canal erythema or TM (unit s (unknown) date) erythema, without unknown) stridor, full range of motion of neck, no (unknown) (no (unknown) (unknown) cervical lower (units ( unknown) date) mandible region with unknown) firm, non mobile mass approximately 2 cm x 3 (unknown) (no (unknown) (unknown) chewing. Last (units ( unknown) date) dental work was in unknown) May 2022. (unknown) (no (unknown) (unknown) clavulanate 125 mg (units (unknown) date) tablet unknown) (unknown) (no (unknown) (unknown) cm, exquisitely (units (unknown) date) tender, without unknown) fluctuance, without mastoid tenderness, ear (unknown) (no (unknown) (unknown) concerning (units (unk nown) date) symptoms, such as unknown) [fever greater than 101F, chills, worsening pain, (unknown) (no (unknown) (unknown) control. (units (unkno wn) date) unknown) (unknown) (no (unknown) (unknown) denies any (units (unk n) date) weakness, altered unknown) mental status, vision changes, rash or other (unknown) (no (unknown) (unknown) department (units (un) date) complaining of unknown) swelling to her left jaw with gradual onset 3 days (unknown) (no (unknown) (unknown) dexamethasone, she (units (unknown) date) has anterior unknown) cervical swelling and tenderness concerning for (unknown) (no (unknown) (unknown) documentation, and (units (unknown) date) it accurately unknown) records my words and actions. I collaborated (unknown) (no (unknown) (unknown) establish care with (unit s (unknown) date[facility]. (unknown) (no (unknown) (unknown) fever, chills, (units (unknown) date) recent upper unknown) respiratory illness, cough or congestion. She (unknown) (no (unknown) (unknown) for outpatient (units (unknown) date) management. unknown) (unknown) (no (unknown) (unknown) for. States that (units (unknown) date) she is on unknown) hydrocodone for chronic pain and took this for her (unknown) (no (unknown) (unknown) gabapentin 300 mg (units (unknown) date) Tablet unknown) (unknown) (no (unknown) (unknown) gabapentin 300 mg (units (unknown) date) tablet 300 mg PO unknown) DAILY 08/11/22 08/11/22 (unknown) (no (unknown) (unknown) had recent bridge (units (unknown) date) and tooth extraction unknown) to the lower left jaw in May 2022. (unknown) (no (unknown) (unknown) hemoglobin of 10.0, (unit s (unknown) date) hematocrit 31.2 unknown) without priors to compare to, left shift (unknown) (no (unknown) (unknown) household members: (units (unknown) date) spouse unknown) (unknown) (no (unknown) (unknown) hydrocodone (units (un known) date) bitartrate 08/11/22 unknown) (unknown) (no (unknown) (unknown) hydrocodone (units (un known) date) bitartrate unknown) (unknown) (no (unknown) (unknown) left jaw pain and (units (unknown) date) swelling but states unknown) it did not help her. She states that she (unknown) (no (unknown) (unknown) levothyroxine 25 (units (unknown) date) mcg Tablet unknown) (unknown) (no (unknown) (unknown) levothyroxine 25 (units (unknown) date) mcg tablet 25 mcg PO unknown) DIRECTED 08/11/22 08/11/22 (unknown) (no (unknown) (unknown) lisinopril 10 mg PO (unit s (unknown) date) DAILY 08/11/22 unknown) 08/11/22 (unknown) (no (unknown) (unknown) lisinopril (units (unk nown) date) unknown) (unknown) (no (unknown) (unknown) medical records and (unit s (unknown) date) encounters if unknown) available, and nursing notes. I have spoken (unknown) (no (unknown) (unknown) metformin 500 mg (units (unknown) date) Tablet unknown) (unknown) (no (unknown) (unknown) metformin 500 mg (units (unknown) date) tablet 500 mg PO unknown) DAILY 08/11/22 08/11/22 (unknown) (no (unknown) (unknown) mg tablet (units (unkn own) date) (Percocet) unknown) (unknown) (no (unknown) (unknown) midline, without (units (unknown) date) posterior pharynx unknown) erythema or edema (unknown) (no (unknown) (unknown) naproxen 500 mg (units (unknown) date) tablet (Naprosyn) unknown) 500 mg PO BID PRN pain #14 tabs 09/04/22 (unknown) (no (unknown) (unknown) naproxen [Naprosyn] (unit s (unknown) date) 500 mg tablet unknown) (unknown) (no (unknown) (unknown) neck (units (unkno wn) date) unknown) (unknown) (no (unknown) (unknown) neuro symptoms or (units (unknown) date) altered mental unknown) status. Patient has a friend witnessed here (unknown) (no (unknown) (unknown) of today's note if (units (unknown) date) your PCP is in our unknown) system (unknown) (no (unknown) (unknown) omeprazole 20 mg (units (unknown) date) Tablet,Delayed unknown) Release (Dr/Ec) (unknown) (no (unknown) (unknown) omeprazole 20 mg (units (unknown) date) tablet,delayed 20 mg unknown) PO DAILY 08/11/22 08/11/22 (unknown) (no (unknown) (unknown) oxycodone-acetamino (unit s (unknown) date) phen 5 mg-325 1 tab unknown) PO Q8H PRN pain #10 tabs 09/04/22 (unknown) (no (unknown) (unknown) oxycodone-acetamino (unit s (unknown) date) phen [Percocet] unknown) 5-325 mg tablet (unknown) (no (unknown) (unknown) parotitis versus (units (unknown) date) abscess, versus unknown) lymphadenopathy, will follow-up on pain (unknown) (no (unknown) (unknown) persistent vomiting (unit s (unknown) date) or other bothersome unknown) symptoms]. (unknown) (no (unknown) (unknown) pharynx, visible (units (unknown) date) dental extractions unknown) to the left posterior lower mandible x3 (unknown) (no (unknown) (unknown) possible bacterial (units (unknown) date) infection or fluid unknown) collection to her left anterior neck. (unknown) (no (unknown) (unknown) prednisone 20 mg (units (unknown) date) tablet 20 mg PO unknown) DAILY #5 tabs 09/04/22 (unknown) (no (unknown) (unknown) prednisone 20 mg (units (unknown) date) tablet unknown) (unknown) (no (unknown) (unknown) release (units (unkno wn) date) unknown) (unknown) (no (unknown) (unknown) sent here for (units ( unknown) date) evaluation of this unknown) swelling with concern for lymphadenopathy (unknown) (no (unknown) (unknown) sertraline 50 mg (units (unknown) date) Tablet unknown) (unknown) (no (unknown) (unknown) sertraline 50 mg (units (unknown) date) tablet 50 mg PO unknown) DAILY 08/11/22 08/11/22 (unknown) (no (unknown) (unknown) shortness of (units (u nknown) date) breath, upper unknown) respiratory symptoms including cough or congestion. (unknown) (no (unknown) (unknown) studies: CT soft (units (unknown) date) tissue neck contrast unknown) (unknown) (no (unknown) (unknown) teeth without (units ( unknown) date) gingival erythema, unknown) edema, discharge, or visible abscess. [place]vula is (unknown) (no (unknown) (unknown) tenderness or (units ( unknown) date) exquisite tenderness unknown) with exam. (unknown) (no (unknown) (unknown) tenderness to (units ( unknown) date) cervical spine unknown) without erythematous lesion or drainage from or (unknown) (no (unknown) (unknown) the inherent (units (u nknown) date) limitations of this unknown) software. (unknown) (no (unknown) (unknown) tobacco type: (units ( unknown) date) cigarettes unknown) (unknown) (no (unknown) (unknown) patient services technician (units (unknown) date) on-site, ordered IV unknown) placement for CT soft tissue for evaluation (unknown) (no (unknown) (unknown) understanding. (units (unknown) date) Counseling was unknown) provided regarding the diagnosis and prognosis, (unknown) (no (unknown) (unknown) versus dental (units ( unknown) date) abscess versus unknown) bacterial infection or other viral illness. (unknown) (no (unknown) (unknown) versus parotitis. (units (unknown) date) Symptoms started 2 unknown) days ago, patient denies fever, chills, (unknown) (no (unknown) (unknown) wheezing, stridor, (units (unknown) date) or abnormal breath unknown) sounds. No retractions or tachypnea. (unknown) (no (unknown) (unknown) who denies any (units (unknown) date) recent mental status unknown) changes. Patient has a history of diabetes. (unknown) (no (unknown) (unknown) with the ED (units (un known) date) attending physician unknown) for [place] level 2, 3, and some level 4s as needed (unknown) (no (unknown) (unknown) with the (units (unkno wn) date) patient/family and unknown) discussed today?s findings whom verbalize (unknown) (no (unknown) (unknown) without (units (unkno wn) date) lymphopenia, patient unknown) is hyponatremic with a sodium of 128 without focal Result panel 100 (unknown) (no (unknown) (unknown) (no value) (units (unk nown) date) unknown) (unknown) (no (unknown) (unknown) <Electronically (units (unknown) date) signed by Tomi harden) Siena Young> (unknown) (no (unknown) (unknown) <Carole Pulido, (units (unknown) date) [facility] - Last Filed: unknown) 09/04/22 21:42> (unknown) (no (unknown) (unknown) <Tomi Young DO (unit s (unknown) date) - Last Filed: unknown) 09/04/22 22:58> (unknown) (no (unknown) (unknown) [id number] (units (unkno wn) date) unknown) (unknown) (no (unknown) (unknown) 09/04/22 09/04/22 (units (unknown) date) 09/04/22 Range/Units unknown) (unknown) (no (unknown) (unknown) 09/04/22 19:55 (units (unknown) date) unknown) (unknown) (no (unknown) (unknown) 09/04/22 20:05 (units (unknown) date) unknown) (unknown) (no (unknown) (unknown) 09/04/22 20:28 (units (unknown) date) unknown) (unknown) (no (unknown) (unknown) 09/04/22 20:47 (units (unknown) date) unknown) (unknown) (no (unknown) (unknown) 09/04/22 21:13 (units (unknown) date) unknown) (unknown) (no (unknown) (unknown) 09/04/22 2258 (units ( unknown) date) unknown) (unknown) (no (unknown) (unknown) 09/04/22 (units (unkno wn) date) unknown) (unknown) (no (unknown) (unknown) 1 tab PO BID Qty: (units (unknown) date) 14 0RF unknown) (unknown) (no (unknown) (unknown) 1 tab PO Q8H PRN (units (unknown) date) (Reason: pain) Qty: unknown) 10 0RF (unknown) (no (unknown) (unknown) 1. Asymmetric (units ( unknown) date) enlargement of the unknown) left parotid gland with internal lobulated (unknown) (no (unknown) (unknown) 10 mg PO DAILY (units (unknown) date) unknown) (unknown) (no (unknown) (unknown) [address] [place] [address] (units (unknown) date) unknown) (unknown) (no (unknown) (unknown) 17:25 09/04/22 (units (unknown) date) unknown) (unknown) (no (unknown) (unknown) 18:55 09/04/22 (units (unknown) date) unknown) (unknown) (no (unknown) (unknown) 18:56 09/04/22 (units (unknown) date) unknown) (unknown) (no (unknown) (unknown) 18:56 (units (unkno wn) date) unknown) (unknown) (no (unknown) (unknown) 19:00 09/04/22 (units (unknown) date) unknown) (unknown) (no (unknown) (unknown) 19:00 (units (unkno wn) date) unknown) (unknown) (no (unknown) (unknown) 19:30 09/04/22 (units (unknown) date) unknown) (unknown) (no (unknown) (unknown) 19:47 (units (unkno wn) date) unknown) (unknown) (no (unknown) (unknown) 19:55 20:05 20:05 (units (unknown) date) unknown) (unknown) (no (unknown) (unknown) 2. Prominent (units (u nknown) date) subcentimeter left unknown) cervical lymph nodes are likely reactive. (unknown) (no (unknown) (unknown) 20 mg PO DAILY Qty: (unit s (unknown) date) 5 0RF unknown) (unknown) (no (unknown) (unknown) 20 mg PO DAILY (units (unknown) date) unknown) (unknown) (no (unknown) (unknown) 2051, patient's lab (units (unknown) date) work came back with unknown) a leukocytosis of 13.7, mild anemia with (unknown) (no (unknown) (unknown) 20:00 09/04/22 (units (unknown) date) unknown) (unknown) (no (unknown) (unknown) 20:30 09/04/22 (units (unknown) date) unknown) (unknown) (no (unknown) (unknown) 21:16 (units (unkno wn) date) unknown) (unknown) (no (unknown) (unknown) 21:17 09/04/22 (units (unknown) date) unknown) (unknown) (no (unknown) (unknown) 21:31 09/04/22 (units (unknown) date) unknown) (unknown) (no (unknown) (unknown) 21:32 (units (unkno wn) date) unknown) (unknown) (no (unknown) (unknown) 25 mcg PO (units (u nknown) date) DIRECTED unknown) (unknown) (no (unknown) (unknown) 3. Small (units (unkno wn) date) nonspecific right unknown) upper lobe pulmonary nodule.? If patient is at high (unknown) (no (unknown) (unknown) 300 mg PO DAILY (units (unknown) date) unknown) (unknown) (no (unknown) (unknown) 50 mg PO DAILY (units (unknown) date) unknown) (unknown) (no (unknown) (unknown) 500 mg PO BID PRN (units (unknown) date) (Reason: pain) Qty: unknown) 14 0RF (unknown) (no (unknown) (unknown) 500 mg PO DAILY (units (unknown) date) unknown) (unknown) (no (unknown) (unknown) ? (units (unkno wn) date) unknown) (unknown) (no (unknown) (unknown) ALT 14 (<35) IU/L (units (unknown) date) unknown) (unknown) (no (unknown) (unknown) AST 23 (14-36) IU/L (unit s (unknown) date) unknown) (unknown) (no (unknown) (unknown) Accession Number: (units (unknown) date) [id number] ?? unknown) (unknown) (no (unknown) (unknown) Acct:[id number] (units (unknown) date) unknown) (unknown) (no (unknown) (unknown) Activity (units (unkno wn) date) Restrictions/Additio unknown) nal Instructions: (unknown) (no (unknown) (unknown) Acute parotitis, (units (unknown) date) Pulmonary nodule unknown) (unknown) (no (unknown) (unknown) Admin: 09/04/22 (units (unknown) date) 21:19 Dose: 1,000 unknown) mls/hr (unknown) (no (unknown) (unknown) After the (units (unkno wn) date) administration of unknown) intravenous contrast, 3.0 mm axial sections acquired (unknown) (no (unknown) (unknown) Age/Sex: 77 / F (units (unknown) date) unknown) (unknown) (no (unknown) (unknown) Albumin 3.4 L (units ( unknown) date) (3.5-5.0) g/dL unknown) (unknown) (no (unknown) (unknown) Albumin/Globulin (units (unknown) date) Ratio 1.1 (1.0-2.8) unknown) (unknown) (no (unknown) (unknown) Alkaline (units (unkno wn) date) Phosphatase 90 unknown) (38-126) U/L (unknown) (no (unknown) (unknown) Allergies (units (unkn own) date) unknown) (unknown) (no (unknown) (unknown) Allergy/AdvReac (units (unknown) date) Type Severity unknown) Reaction Status Date / Time (unknown) (no (unknown) (unknown) Amoxicillin/Clavula (unit s (unknown) date) logan Potassium unknown) (Amoxicillin/Clav 875/125 Mg) 1 tab PO NOW (unknown) (no (unknown) (unknown) JANY Larose [id number] (unit s (unknown) date) unknown) (unknown) (no (unknown) (unknown) Approved by: Jeremias (unit s (unknown) date) D. Salcedo, M.D. on unknown) 09/04/2022 at 22:35? (unknown) (no (unknown) (unknown) BUN 14 (7-17) mg/dL (unit s (unknown) date) unknown) (unknown) (no (unknown) (unknown) BUN/Creatinine (units (unknown) date) Ratio 23.7 H (6-22) unknown) (unknown) (no (unknown) (unknown) Baso # (Auto) 0 (units (unknown) date) (0-100) /uL unknown) (unknown) (no (unknown) (unknown) Baso % (Auto) 0.2 (units (unknown) date) (0-2) % unknown) (unknown) (no (unknown) (unknown) Be sure that you (units (unknown) date) talk with your unknown) primary doctor about the incidental finding of (unknown) (no (unknown) (unknown) Bedside Urine (units ( unknown) date) Bilirubin - Negative unknown) (unknown) (no (unknown) (unknown) Bedside Urine (units ( unknown) date) Glucose Negative unknown) (unknown) (no (unknown) (unknown) Bedside Urine (units ( unknown) date) Ketone - Negative unknown) (unknown) (no (unknown) (unknown) Bedside Urine (units ( unknown) date) Leukocytes - unknown) Negative (unknown) (no (unknown) (unknown) Bedside Urine (units ( unknown) date) Nitrite - Negative unknown) (unknown) (no (unknown) (unknown) Bedside Urine (units ( unknown) date) Occult Blood - unknown) Negative (unknown) (no (unknown) (unknown) Bedside Urine (units ( unknown) date) Protein - Negative unknown) (unknown) (no (unknown) (unknown) Bedside Urine (units ( unknown) date) Urobilinogen - unknown) Negative (unknown) (no (unknown) (unknown) Bedside Urine pH (units (unknown) date) 6.5 unknown) (unknown) (no (unknown) (unknown) Blood Culture Stat (units (unknown) date) unknown) (unknown) (no (unknown) (unknown) Blood Pressure (units (unknown) date) 107/59 L unknown) (unknown) (no (unknown) (unknown) Blood Pressure (units (unknown) date) 125/60 09/04/22 unknown) 17:25 (unknown) (no (unknown) (unknown) Blood Pressure (units (unknown) date) 125/60 140/65 unknown) (unknown) (no (unknown) (unknown) Blood Pressure (units (unknown) date) 125/66 unknown) (unknown) (no (unknown) (unknown) Blood Pressure (units (unknown) date) 127/71 119/56 L unknown) 111/58 L (unknown) (no (unknown) (unknown) Blood Pressure (units (unknown) date) 133/67 unknown) (unknown) (no (unknown) (unknown) Blood Pressure (units (unknown) date) unknown) (unknown) (no (unknown) (unknown) Bones:? No (units (unkn own) date) suspicious bony unknown) lesions.? 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 None. (units (unknown) date) unknown) (unknown) (no (unknown) (unknown) CRP [C-Reactive (units (unknown) date) Protein Quant] Stat unknown) (unknown) (no (unknown) (unknown) CT Scan Report (units (unknown) date) unknown) (unknown) (no (unknown) (unknown) CT soft tissue neck (unit s (unknown) date) w con Stat unknown) (unknown) (no (unknown) (unknown) CT soft tissue: (units (unknown) date) unknown) (unknown) (no (unknown) (unknown) Calcium 8.6 (units (un known) date) (8.4-10.2) mg/dL unknown) (unknown) (no (unknown) (unknown) Carbon Dioxide 28 (units (unknown) date) (22-32) mmol/L unknown) (unknown) (no (unknown) (unknown) Cardiovascular: (units (unknown) date) regular rate and unknown) rhythm, no peripheral edema, warm extremities (unknown) (no (unknown) (unknown) Chief complaint: (units (unknown) date) Skin/Abscess/Foreign unknown) Body (unknown) (no (unknown) (unknown) Chloride 95 L (units ( unknown) date) (98-107) mmol/L unknown) (unknown) (no (unknown) (unknown) Clinical (units (unkno wn) date) Impression: unknown) (unknown) (no (unknown) (unknown) Course of Care: (units (unknown) date) Patient complaining unknown) of pain, ordered Percocet, Toradol and (unknown) (no (unknown) (unknown) Course (units (unkno wn) date) unknown) (unknown) (no (unknown) (unknown) Covid-19 + FLU A/B (units (unknown) date) + RSV - PCR Stat unknown) (unknown) (no (unknown) (unknown) Creatinine 0.59 (units (unknown) date) (0.52-1.04) mg/dL unknown) (unknown) (no (unknown) (unknown) : 1945 (units (unknown) date) Acct:[id number] unknown) (unknown) (no (unknown) (unknown) : 1945 (units (unknown) date) unknown) (unknown) (no (unknown) (unknown) Date of Service: (units (unknown) date) 09/04/22 unknown) (unknown) (no (unknown) (unknown) Denies any (units (unk nown) date) intraoral swelling, unknown) shortness of breath, difficulty swallowing, (unknown) (no (unknown) (unknown) Denies nausea (units ( unknown) date) vomiting, difficulty unknown) breathing or swallowing, denies difficulty (unknown) (no (unknown) (unknown) Departure (units (unkn own) date) unknown) (unknown) (no (unknown) (unknown) Dexamethasone (units ( unknown) date) (Dexamethasone 10 unknown) Mg/Ml Vial) 10 mg PO NOW ONE (unknown) (no (unknown) (unknown) Dictated by: Jeremias (unit s (unknown) date) Teri Salcedo M.D. on unknown) 09/04/2022 at 22:28 ? ? (unknown) (no (unknown) (unknown) Differential (units (u nknown) date) diagnoses include, unknown) but are not limited to: Parotitis, dental (unknown) (no (unknown) (unknown) Discharge Plan (units (unknown) date) unknown) (unknown) (no (unknown) (unknown) Discontinued (units (u nknown) date) Medications unknown) (unknown) (no (unknown) (unknown) Discussion of (units ( unknown) date) Management with unknown) other Health Professionals: Signed out to (unknown) (no (unknown) (unknown) Documented By: OW (units (unknown) date) unknown) (unknown) (no (unknown) (unknown) Documented By: RB (units (unknown) date) unknown) (unknown) (no (unknown) (unknown) Dr young: Received (unit s (unknown) date) turned over. unknown) Patient's CT scan shows no signs of abscess (unknown) (no (unknown) (unknown) ED Orders (units (unkn own) date) unknown) (unknown) (no (unknown) (unknown) ER Physician: (units ( unknown) date) Tomi Young D.O. unknown) (unknown) (no (unknown) (unknown) Electronically (units (unknown) date) signed by: Carole unknown) ALINA Pulido (unknown) (no (unknown) (unknown) Emergency Report (units (unknown) date) unknown) (unknown) (no (unknown) (unknown) Eos # (Auto) 100 (units (unknown) date) (0-450) /uL unknown) (unknown) (no (unknown) (unknown) Eos % (Auto) 0.7 L (units (unknown) date) (2-4) % unknown) (unknown) (no (unknown) (unknown) Esterase (units (unkno wn) date) unknown) (unknown) (no (unknown) (unknown) Estimated GFR > 60 (units (unknown) date) (>60) mL/min unknown) (unknown) (no (unknown) (unknown) Exam Narrative: (units (unknown) date) unknown) (unknown) (no (unknown) (unknown) Exam (units (unkno wn) date) unknown) (unknown) (no (unknown) (unknown) FINDINGS:? (units (unk nown) date) unknown) (unknown) (no (unknown) (unknown) GI: abdomen soft, (units (unknown) date) nontender to unknown) palpation, nondistended, without masses, rebound (unknown) (no (unknown) (unknown) General (units (unkno wn) date) unknown) (unknown) (no (unknown) (unknown) General: (units (unkno wn) date) cooperative, unknown) comfortable, in mild distress, well groomed (unknown) (no (unknown) (unknown) Glands:? There is (units (unknown) date) asymmetric unknown) enlargement of the left parotid gland with (unknown) (no (unknown) (unknown) Globulin 3.0 (units (u nknown) date) (1.7-4.1) g/dL unknown) (unknown) (no (unknown) (unknown) Glucose 109 (units (un known) date) (80-110) mg/dL unknown) (unknown) (no (unknown) (unknown) Alexandra Sauceda PA-C (units (unknown) date) [Primary Care unknown) Provider] (unknown) (no (unknown) (unknown) HEENT: symmetrical (units (unknown) date) facial expressions, unknown) moist mucous membranes, left anterior (unknown) (no (unknown) (unknown) HPI - (units (unkno wn) date) Skin/Abscess/Foreign unknown) Bdy (unknown) (no (unknown) (unknown) HPI narrative: (units (unknown) date) unknown) (unknown) (no (unknown) (unknown) Hct 31.2 L (36-46) (units (unknown) date) % unknown) (unknown) (no (unknown) (unknown) Her CRP is elevated (unit s (unknown) date) 7.6, COVID, unknown) influenza a, B and RSV PCRs are negative, no (unknown) (no (unknown) (unknown) Hgb 10.0 L (units (unk nown) date) (12.0-16.0) g/dL unknown) (unknown) (no (unknown) (unknown) History of Present (units (unknown) date) Illness unknown) (unknown) (no (unknown) (unknown) Home Medications (units (unknown) date) unknown) (unknown) (no (unknown) (unknown) I performed a (units ( unknown) date) preliminary unknown) independent interpretation of the following imaging (unknown) (no (unknown) (unknown) I, Carole Pulido, (units (unknown) date) ALINA, personally unknown) performed the services described in the (unknown) (no (unknown) (unknown) IMPRESSION:? (units (u nknown) date) unknown) (unknown) (no (unknown) (unknown) INDICATIONS:? left (units (unknown) date) cervical unknown) lymphadenopathy vs abscess vs parotitis (unknown) (no (unknown) (unknown) Image quality:? (units (unknown) date) There is metallic unknown) streak artifact secondary to patient's dental (unknown) (no (unknown) (unknown) Imaging Data (units (u nknown) date) unknown) (unknown) (no (unknown) (unknown) Influenza A (units (un known) date) (RT-PCR) Flu a unknown) negative (NEGATIVE) (unknown) (no (unknown) (unknown) Influenza B (units (un known) date) (RT-PCR) Flu b unknown) negative (NEGATIVE) (unknown) (no (unknown) (unknown) Initial Vital Signs (unit s (unknown) date) unknown) (unknown) (no (unknown) (unknown) Initial Vital (units ( unknown) date) Signs: unknown) (unknown) (no (unknown) (unknown) Instructions: (units ( unknown) date) Parotitis unknown) (unknown) (no (unknown) (unknown) [facility] (units (unknown) date) [address] unknown) [place] [address] (unknown) (no (unknown) (unknown) [facility] (units (unknown) date) unknown) (unknown) (no (unknown) (unknown) Ketorolac (units (unkn own) date) Tromethamine unknown) (Ketorolac 30 Mg/Ml Vial) 15 mg IM NOW ONE (unknown) (no (unknown) (unknown) Lab Data (units (unkno wn) date) unknown) (unknown) (no (unknown) (unknown) Lab Results (units (un known) date) unknown) (unknown) (no (unknown) (unknown) Labs: (units (unkno wn) date) unknown) (unknown) (no (unknown) (unknown) Last Admin: (units (un known) date) 09/04/22 19:28 Dose: unknown) 1 tab (unknown) (no (unknown) (unknown) Last Admin: (units (un known) date) 09/04/22 19:28 Dose: unknown) 15 mg (unknown) (no (unknown) (unknown) Last Admin: (units (un known) date) 09/04/22 19:34 Dose: unknown) Not Given (unknown) (no (unknown) (unknown) Last Admin: (units (un known) date) 09/04/22 19:45 Dose: unknown) 10 mg (unknown) (no (unknown) (unknown) Last Admin: (units (un known) date) 09/04/22 20:04 Dose: unknown) 1 tab (unknown) (no (unknown) (unknown) Last Infusion: (units (unknown) date) 09/04/22 22:40 Dose: unknown) 0 mls/hr (unknown) (no (unknown) (unknown) Lidocaine HCl (units ( unknown) date) (Lidocaine 2% Inj unknown) Sdv) 5 ml INJ INTRA-OP ONE (unknown) (no (unknown) (unknown) Limitations: no (units (unknown) date) limitations unknown) (unknown) (no (unknown) (unknown) Loc: ED (units (unkno wn) date) unknown) (unknown) (no (unknown) (unknown) Lymph # (Auto) 3600 (unit s (unknown) date) (8097-3787) /uL unknown) (unknown) (no (unknown) (unknown) Lymph % (Auto) 26.6 (unit s (unknown) date) (25-40) % unknown) (unknown) (no (unknown) (unknown) Lymph nodes:? No (units (unknown) date) lymphadenopathy by unknown) size criteria.? There are prominent (unknown) (no (unknown) (unknown) MCH 27.8 (26-34) PG (unit s (unknown) date) unknown) (unknown) (no (unknown) (unknown) MCHC 32.2 (30-36) % (unit s (unknown) date) unknown) (unknown) (no (unknown) (unknown) MCV 86.2 (80-100) (units (unknown) date) fL unknown) (unknown) (no (unknown) (unknown) MDM - (units (unkno wn) date) Skin/Abscess/Foreign unknown) Bdy (unknown) (no (unknown) (unknown) MDM Narrative (units ( unknown) date) unknown) (unknown) (no (unknown) (unknown) MIPS: This (units (unk nown) date) encounter doesn't unknown) have any diagnosis associated with MIPS criteria. (unknown) (no (unknown) (unknown) MR#: [id number] (units (unknown) date) unknown) (unknown) (no (unknown) (unknown) MSK: moves all (units (unknown) date) extremities, unknown) neurovascularly intact, no weakness, normal tone (unknown) (no (unknown) (unknown) Medical decision (units (unknown) date) making narrative: unknown) (unknown) (no (unknown) (unknown) Medication (units (unk nown) date) Instructions unknown) Recorded Confirmed (unknown) (no (unknown) (unknown) Medication (units (unk nown) date) Instructions unknown) Recorded (unknown) (no (unknown) (unknown) Tomi Young at (units (unknown) date) 21:30 for assumption unknown) of care as waiting for CT of soft tissue (unknown) (no (unknown) (unknown) Miscellaneous:? (units (unknown) date) Visualized brain and unknown) orbits appear normal.? The visualized lungs (unknown) (no (unknown) (unknown) Mode of arrival: (units (unknown) date) Family Vehicle unknown) (unknown) (no (unknown) (unknown) [place] # (Auto) 800 (units (unknown) date) (0-900) /uL unknown) (unknown) (no (unknown) (unknown) [place] % (Auto) 6.0 (units (unknown) date) (3-14) % unknown) (unknown) (no (unknown) (unknown) Narrative (units (unkn own) date) unknown) (unknown) (no (unknown) (unknown) Neck spaces:? The (units (unknown) date) oropharynx, unknown) nasopharynx, and pharynx demonstrate no discrete (unknown) (no (unknown) (unknown) Neuro: normal (units ( unknown) date) speech and unknown) cognition, A+O x3, ambulatory, clear speech (unknown) (no (unknown) (unknown) Neut # (Auto) 9100 (units (unknown) date) H (3806-2929) /uL unknown) (unknown) (no (unknown) (unknown) Neut % (Auto) 66.5 (units (unknown) date) (50-75) % unknown) (unknown) (no (unknown) (unknown) New (units (unkno wn) date) unknown) (unknown) (no (unknown) (unknown) No Action (units (unkn own) date) unknown) (unknown) (no (unknown) (unknown) No Known Drug (units ( unknown) date) Allergies Allergy unknown) Verified 08/11/22 11:06 (unknown) (no (unknown) (unknown) No discrete (units (un known) date) sialoliths or unknown) abscess collections. (unknown) (no (unknown) (unknown) ONE (units (unkno wn) date) unknown) (unknown) (no (unknown) (unknown) Occasional wrong (units (unknown) date) word or 'sound unknown) alike' substitutions may have occurred due to t (unknown) (no (unknown) (unknown) Occasional wrong (units (unknown) date) word or 'sound unknown) alike' substitutions may have occurred due to (unknown) (no (unknown) (unknown) Ordered: (units (unkno wn) date) unknown) (unknown) (no (unknown) (unknown) Ordering Provider: (units (unknown) date) Carole Pulido unknown) (unknown) (no (unknown) (unknown) Orders (units (unkno wn) date) unknown) (unknown) (no (unknown) (unknown) Oxycodone/Acetamino (unit s (unknown) date) phen unknown) (Oxycodone/Acetamino phen 5/325 Tablet) 1 tab PO NOW ONE (unknown) (no (unknown) (unknown) Oxygen Delivery (units (unknown) date) Method 09/04/22 unknown) 17:25 (unknown) (no (unknown) (unknown) Oxygen Delivery (units (unknown) date) Method Room Air unknown) (unknown) (no (unknown) (unknown) Oxygen Delivery (units (unknown) date) Method unknown) (unknown) (no (unknown) (unknown) PROCEDURE:? CT SOFT (unit s (unknown) date) TISSUE NECK W CON unknown) (unknown) (no (unknown) (unknown) Patient (units (unkno wn) date) Disposition: Home unknown) (unknown) (no (unknown) (unknown) Patient History (units (unknown) date) unknown) (unknown) (no (unknown) (unknown) Patient's symptoms (units (unknown) date) improved over unknown) duration of stay with above-stated therapies. (unknown) (no (unknown) (unknown) Patient: (units (unkno wn) date) Maricruz Hodges unknown) MR#: [id number] (unknown) (no (unknown) (unknown) Patient: (units (unkno wn) date) Maricruz Hodges unknown) (unknown) (no (unknown) (unknown) Plt Count 319 (units ( unknown) date) (150-400) X103/uL unknown) (unknown) (no (unknown) (unknown) Portions of this (units (unknown) date) chart have been unknown) created with [employer] voice recognition software. (unknown) (no (unknown) (unknown) Potassium 4.4 (units ( unknown) date) (3.4-5.1) mmol/L unknown) (unknown) (no (unknown) (unknown) Prescriptions: (units (unknown) date) unknown) (unknown) (no (unknown) (unknown) Previous Rx's (units ( unknown) date) unknown) (unknown) (no (unknown) (unknown) Procalcitonin 0.07 (units (unknown) date) (<0.5) ng/mL unknown) (unknown) (no (unknown) (unknown) Procalcitonin Stat (units (unknown) date) unknown) (unknown) (no (unknown) (unknown) Procedure: CT soft (units (unknown) date) tissue neck w con unknown) (unknown) (no (unknown) (unknown) Psych: mental (units ( unknown) date) status is grossly unknown) normal, congruent mood, normal affect, pleasant (unknown) (no (unknown) (unknown) Pulse Oximetry 100 (units (unknown) date) 09/04/22 17:25 unknown) (unknown) (no (unknown) (unknown) Pulse Oximetry 100 (units (unknown) date) 100 unknown) (unknown) (no (unknown) (unknown) Pulse Oximetry 97 (units (unknown) date) 99 unknown) (unknown) (no (unknown) (unknown) Pulse Oximetry 99 (units (unknown) date) unknown) (unknown) (no (unknown) (unknown) Pulse Oximetry (units (unknown) date) unknown) (unknown) (no (unknown) (unknown) Pulse Rate 68 (units ( unknown) date) unknown) (unknown) (no (unknown) (unknown) Pulse Rate 71 68 (units (unknown) date) unknown) (unknown) (no (unknown) (unknown) Pulse Rate 73 72 (units (unknown) date) unknown) (unknown) (no (unknown) (unknown) Pulse Rate 74 74 (units (unknown) date) unknown) (unknown) (no (unknown) (unknown) Pulse Rate 79 (units ( unknown) date) 09/04/22 17:25 unknown) (unknown) (no (unknown) (unknown) Pulse Rate 79 73 (units (unknown) date) unknown) (unknown) (no (unknown) (unknown) Pulse Rate (units (unk nown) date) unknown) (unknown) (no (unknown) (unknown) RBC 3.62 L (units (unk nown) date) (4.0-5.2) X106/uL unknown) (unknown) (no (unknown) (unknown) RDW 16.9 H (units (unk nown) date) (11.6-14.8) % unknown) (unknown) (no (unknown) (unknown) ROS Unobtainable: (units (unknown) date) All systems reviewed unknown) + are unremarkable except as noted in HPI (unknown) (no (unknown) (unknown) RSV (PCR) Negative (units (unknown) date) (Negative) unknown) (unknown) (no (unknown) (unknown) Radiologist's (units ( unknown) date) Impression: unknown) (unknown) (no (unknown) (unknown) Referrals: (units (unk nown) date) unknown) (unknown) (no (unknown) (unknown) Related Data (units (u nknown) date) unknown) (unknown) (no (unknown) (unknown) Respiratory Rate 17 (unit s (unknown) date) 09/04/22 17:25 unknown) (unknown) (no (unknown) (unknown) Respiratory Rate 17 (unit s (unknown) date) unknown) (unknown) (no (unknown) (unknown) Respiratory Rate (units (unknown) date) unknown) (unknown) (no (unknown) (unknown) Respiratory: normal (unit s (unknown) date) effort, able to unknown) speak in complete sentences, without (unknown) (no (unknown) (unknown) Result diagrams: (units (unknown) date) unknown) (unknown) (no (unknown) (unknown) Review of Systems (units (unknown) date) unknown) (unknown) (no (unknown) (unknown) Reviewed vitals (units (unknown) date) signs and nursing unknown) notes. (unknown) (no (unknown) (unknown) SARS-CoV-2 (PCR) (units (unknown) date) Negative (Negative) unknown) (unknown) (no (unknown) (unknown) She expressed (units ( unknown) date) understanding and unknown) agreement. (unknown) (no (unknown) (unknown) Signed By: (units (unk nown) date) unknown) (unknown) (no (unknown) (unknown) Signed (units (unkno wn) date) unknown) (unknown) (no (unknown) (unknown) Skin: brisk (units (un known) date) capillary refill, unknown) without pallor or erythema (unknown) (no (unknown) (unknown) Smoking Status: (units (unknown) date) Former smoker unknown) (unknown) (no (unknown) (unknown) Social History (units (unknown) date) (Reviewed 09/04/22 @ unknown) 20:43 by Carole Pulido 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) (unknown) (no (unknown) (unknown) Social determinants (unit s (unknown) date) of health that may unknown) impact treatment or disposition: (unknown) (no (unknown) (unknown) Sodium 128 L (units (u nknown) date) (137-145) mmol/L unknown) (unknown) (no (unknown) (unknown) Sodium Chloride (units (unknown) date) (Normal Saline 0.9%) unknown) 1,000 mls @ 1,000 mls/hr IV BOLUS ONE (unknown) (no (unknown) (unknown) Source: patient (units (unknown) date) unknown) (unknown) (no (unknown) (unknown) Stand Alone Forms: (units (unknown) date) Patient Portal/API unknown) (unknown) (no (unknown) (unknown) Stated complaint: (units (unknown) date) lt ear red + unknown) swelling (unknown) (no (unknown) (unknown) Stop: 09/04/22 (units (unknown) date) 19:24 unknown) (unknown) (no (unknown) (unknown) Stop: 09/04/22 (units (unknown) date) 19:38 unknown) (unknown) (no (unknown) (unknown) Stop: 09/04/22 (units (unknown) date) 19:55 unknown) (unknown) (no (unknown) (unknown) Stop: 09/04/22 (units (unknown) date) 21:47 unknown) (unknown) (no (unknown) (unknown) Substance Use Type: (unit s (unknown) date) does not use unknown) (unknown) (no (unknown) (unknown) Suspect mild (units (u nknown) date) hemoconcentration unknown) and dehydration, ordered 1 L of IV fluids. (unknown) (no (unknown) (unknown) TECHNIQUE:? (units (un known) date) unknown) (unknown) (no (unknown) (unknown) Temperature 98.0 F (units (unknown) date) 09/04/22 17:25 unknown) (unknown) (no (unknown) (unknown) Temperature 98.0 F (units (unknown) date) unknown) (unknown) (no (unknown) (unknown) Temperature (units (un known) date) unknown) (unknown) (no (unknown) (unknown) There is mild (units ( unknown) date) ductal dilatation unknown) within the left parotid gland.? The (unknown) (no (unknown) (unknown) There is (units (unkno wn) date) unknown) (unknown) (no (unknown) (unknown) This is a (units (unkn own) date) 77-year-old female unknown) who is presenting to the ED via POV with concern (unknown) (no (unknown) (unknown) This is a (units (unkn own) date) 77-year-old female unknown) with history of diabetes who presents emergency (unknown) (no (unknown) (unknown) Time Seen by (units (u nknown) date) Provider: 09/04/22 unknown) 18:50 (unknown) (no (unknown) (unknown) Total Bilirubin 0.2 (unit s (unknown) date) (0.2-1.3) mg/dL unknown) (unknown) (no (unknown) (unknown) Total Protein 6.4 (units (unknown) date) (6.3-8.2) g/dL unknown) (unknown) (no (unknown) (unknown) US soft tissue head (unit s (unknown) date) and neck Stat unknown) (unknown) (no (unknown) (unknown) Urine Dip (units (unkn own) date) unknown) (unknown) (no (unknown) (unknown) Urine Specific (units (unknown) date) [place] 1.010 unknown) (unknown) (no (unknown) (unknown) Vessels:? (units (unkn own) date) Visualized unknown) vasculature appears patent.? (unknown) (no (unknown) (unknown) Vital Signs - 8 hr (units (unknown) date) unknown) (unknown) (no (unknown) (unknown) Vital Signs (units (un known) date) unknown) (unknown) (no (unknown) (unknown) Vital Signs: I, the (unit s (unknown) date) ED provider, unknown) reviewed the patient?s vital signs, past (unknown) (no (unknown) (unknown) Vital signs: (units (u nknown) date) unknown) (unknown) (no (unknown) (unknown) WBC 13.7 H (units (unk nown) date) (4.5-11.0) X103/uL unknown) (unknown) (no (unknown) (unknown) [Embedded Image Not (unit s (unknown) date) Available] unknown) (unknown) (no (unknown) (unknown) abnormal enhancing (units (unknown) date) soft tissue unknown) internally.? Mild associated fat stranding is (unknown) (no (unknown) (unknown) abnormality. Her (units (unknown) date) primary care unknown) provider is ALINA Ruiz. States that she was (unknown) (no (unknown) (unknown) about left (units (unkn own) date) mandible/anterior unknown) cervical lymphadenopathy versus dental abscess vers (unknown) (no (unknown) (unknown) about left (units (unk nown) date) mandible/anterior unknown) cervical lymphadenopathy versus dental abscess (unknown) (no (unknown) (unknown) abscess, (units (unkno wn) date) lymphadenopathy, unknown) viral syndrome, (unknown) (no (unknown) (unknown) abscess.? (units (unkn own) date) unknown) (unknown) (no (unknown) (unknown) ago. States that (units (unknown) date) she had recent unknown) dental work in May that she had antibiotics (unknown) (no (unknown) (unknown) alcohol intake (units (unknown) date) frequency: 0-2 unknown) drinks per day (unknown) (no (unknown) (unknown) alcohol intake: (units (unknown) date) current unknown) (unknown) (no (unknown) (unknown) along the parotid (units (unknown) date) gland.? No discrete unknown) loculated fluid collection to suggest an (unknown) (no (unknown) (unknown) also discussed (units (unknown) date) other things such as unknown) sialagogues and strict return precautions. (unknown) (no (unknown) (unknown) amoxicillin 875 (units (unknown) date) mg-potassium 1 tab unknown) PO BID #14 tabs 09/04/22 (unknown) (no (unknown) (unknown) amoxicillin-pot (units (unknown) date) clavulanate 875-125 unknown) mg tablet (unknown) (no (unknown) (unknown) and below (units (unkn own) date) unknown) (unknown) (no (unknown) (unknown) and cooperative (units (unknown) date) unknown) (unknown) (no (unknown) (unknown) and specific details (unit s (unknown) date) were provided for unknown) the plan of care. Questions are addressed (unknown) (no (unknown) (unknown) and there is (units (u nknown) date) agreement with the unknown) plan and for follow-up. Patient is appropriate (unknown) (no (unknown) (unknown) and (units (unkno wn) date) unknown) (unknown) (no (unknown) (unknown) appear normal.? (units (unknown) date) Thyroid gland unknown) demonstrates no discrete nodules. (unknown) (no (unknown) (unknown) are (units (unkno wn) date) unknown) (unknown) (no (unknown) (unknown) armacy of your (units (unknown) date) choice. You should unknown) be able to pick them up tomorrow and start (unknown) (no (unknown) (unknown) but is consistent (units (unknown) date) with parotid gland unknown) inflammation/infecti on. I did discuss this (unknown) (no (unknown) (unknown) canal erythema or TM (unit s (unknown) date) erythema, without unknown) stridor, full range of motion of neck, no (unknown) (no (unknown) (unknown) cervical lower (units ( unknown) date) mandible region with unknown) firm, non mobile mass approximately 2 cm x 3 (unknown) (no (unknown) (unknown) chewing. Last (units ( unknown) date) dental work was in unknown) May 2022. (unknown) (no (unknown) (unknown) clavulanate 125 mg (units (unknown) date) tablet unknown) (unknown) (no (unknown) (unknown) cm, exquisitely (units (unknown) date) tender, without unknown) fluctuance, without mastoid tenderness, ear (unknown) (no (unknown) (unknown) compatible with (units (unknown) date) sialadenitis but unknown) given the degree of enhancing soft tissue (unknown) (no (unknown) (unknown) confluent (units (unkn own) date) unknown) (unknown) (no (unknown) (unknown) control. (units (unkno wn) date) unknown) (unknown) (no (unknown) (unknown) demonstrate mild (units (unknown) date) scarring within the unknown) apices.? There is also a small subpleural (unknown) (no (unknown) (unknown) demonstrated (units (u nknown) date) unknown) (unknown) (no (unknown) (unknown) denies any (units (unk nown) date) weakness, altered unknown) mental status, vision changes, rash or other (unknown) (no (unknown) (unknown) department (units (unk nown) date) complaining of unknown) swelling to her left jaw with gradual onset 3 days (unknown) (no (unknown) (unknown) dexamethasone, she (units (unknown) date) has anterior unknown) cervical swelling and tenderness concerning for (unknown) (no (unknown) (unknown) documentation, and (units (unknown) date) it accurately unknown) records my words and actions. I collaborated (unknown) (no (unknown) (unknown) enhancing (units (unkn own) date) unknown) (unknown) (no (unknown) (unknown) facet joint (units (un known) date) arthropathy.? unknown) (unknown) (no (unknown) (unknown) fever, chills, (units (unknown) date) recent upper unknown) respiratory illness, cough or congestion. She (unknown) (no (unknown) (unknown) for outpatient (units (unknown) date) management. unknown) (unknown) (no (unknown) (unknown) for. States that (units (unknown) date) she is on unknown) hydrocodone for chronic pain and took this for her (unknown) (no (unknown) (unknown) from the (units (unkno wn) date) unknown) (unknown) (no (unknown) (unknown) gabapentin 300 mg (units (unknown) date) Tablet unknown) (unknown) (no (unknown) (unknown) gabapentin 300 mg (units (unknown) date) tablet 300 mg PO unknown) DAILY 08/11/22 08/11/22 (unknown) (no (unknown) (unknown) had recent bridge (units (unknown) date) and tooth extraction unknown) to the lower left jaw in May 2022. (unknown) (no (unknown) (unknown) hardware. (units (unkn own) date) unknown) (unknown) (no (unknown) (unknown) he inherent (units (un known) date) limitations of this unknown) software. (unknown) (no (unknown) (unknown) hemoglobin of 10.0, (unit s (unknown) date) hematocrit 31.2 unknown) without priors to compare to, left shift (unknown) (no (unknown) (unknown) household members: (units (unknown) date) spouse unknown) (unknown) (no (unknown) (unknown) hydrocodone (units (un known) date) bitartrate 08/11/22 unknown) (unknown) (no (unknown) (unknown) hydrocodone (units (un known) date) bitartrate unknown) (unknown) (no (unknown) (unknown) internally, a (units ( unknown) date) unknown) (unknown) (no (unknown) (unknown) left cervical lymph (unit s (unknown) date) nodes which are unknown) likely reactive. (unknown) (no (unknown) (unknown) left jaw pain and (units (unknown) date) swelling but states unknown) it did not help her. She states that she (unknown) (no (unknown) (unknown) levothyroxine 25 (units (unknown) date) mcg Tablet unknown) (unknown) (no (unknown) (unknown) levothyroxine 25 (units (unknown) date) mcg tablet 25 mcg PO unknown) DIRECTED 08/11/22 08/11/22 (unknown) (no (unknown) (unknown) lisinopril 10 mg PO (unit s (unknown) date) DAILY 08/11/22 unknown) 08/11/22 (unknown) (no (unknown) (unknown) lisinopril (units (unk nown) date) unknown) (unknown) (no (unknown) (unknown) malignancy, a (units ( unknown) date) follow-up chest CT unknown) may be performed in 12 months to demonstrate (unknown) (no (unknown) (unknown) mass cannot be (units (unknown) date) excluded.? Clinical unknown) follow-up is recommended to demonstrate (unknown) (no (unknown) (unknown) mass lesions.? The (units (unknown) date) vocal cords, false unknown) vocal cords, pyriform sinuses, epiglottis, (unknown) (no (unknown) (unknown) medical records and (unit s (unknown) date) encounters if unknown) available, and nursing notes. I have spoken (unknown) (no (unknown) (unknown) metformin 500 mg (units (unknown) date) Tablet unknown) (unknown) (no (unknown) (unknown) metformin 500 mg (units (unknown) date) tablet 500 mg PO unknown) DAILY 08/11/22 08/11/22 (unknown) (no (unknown) (unknown) mg tablet (units (unkn own) date) (Percocet) unknown) (unknown) (no (unknown) (unknown) midline, without (units (unknown) date) posterior pharynx unknown) erythema or edema (unknown) (no (unknown) (unknown) mucosal (units (unkno wn) date) unknown) (unknown) (no (unknown) (unknown) naproxen 500 mg (units (unknown) date) tablet (Naprosyn) unknown) 500 mg PO BID PRN pain #14 tabs 09/04/22 (unknown) (no (unknown) (unknown) naproxen [Naprosyn] (unit s (unknown) date) 500 mg tablet unknown) (unknown) (no (unknown) (unknown) neck (units (unkno wn) date) unknown) (unknown) (no (unknown) (unknown) neuro symptoms or (units (unknown) date) altered mental unknown) status. Patient has a friend witnessed here (unknown) (no (unknown) (unknown) nodule in (units (unkn own) date) unknown) (unknown) (no (unknown) (unknown) omeprazole 20 mg (units (unknown) date) Tablet,Delayed unknown) Release (Dr/Ec) (unknown) (no (unknown) (unknown) omeprazole 20 mg (units (unknown) date) tablet,delayed 20 mg unknown) PO DAILY 08/11/22 08/11/22 (unknown) (no (unknown) (unknown) oxycodone-acetamino (unit s (unknown) date) phen 5 mg-325 1 tab unknown) PO Q8H PRN pain #10 tabs 09/04/22 (unknown) (no (unknown) (unknown) oxycodone-acetamino (unit s (unknown) date) phen [Percocet] unknown) 5-325 mg tablet (unknown) (no (unknown) (unknown) parotitis versus (units (unknown) date) abscess, versus unknown) lymphadenopathy, will follow-up on pain (unknown) (no (unknown) (unknown) pharynx, visible (units (unknown) date) dental extractions unknown) to the left posterior lower mandible x3 (unknown) (no (unknown) (unknown) pharynx.? 3 mm (units (unknown) date) thick coronal and unknown) sagittal reformats were generated.? For (unknown) (no (unknown) (unknown) possible bacterial (units (unknown) date) infection or fluid unknown) collection to her left anterior neck. (unknown) (no (unknown) (unknown) prednisone 20 mg (units (unknown) date) tablet 20 mg PO unknown) DAILY #5 tabs 09/04/22 (unknown) (no (unknown) (unknown) prednisone 20 mg (units (unknown) date) tablet unknown) (unknown) (no (unknown) (unknown) radiation dose (units (unknown) date) unknown) (unknown) (no (unknown) (unknown) reduction, the (units (unknown) date) following was used:? unknown) automated exposure control.? (unknown) (no (unknown) (unknown) release (units (unkno wn) date) unknown) (unknown) (no (unknown) (unknown) resolution.? (units (u nknown) date) unknown) (unknown) (no (unknown) (unknown) risk for (units (unkno wn) date) unknown) (unknown) (no (unknown) (unknown) sella to the aortic (unit s (unknown) date) arch.? Additional unknown) oblique axial 3.0 mm sections acquired (unknown) (no (unknown) (unknown) sent here for (units ( unknown) date) evaluation of this unknown) swelling with concern for lymphadenopathy (unknown) (no (unknown) (unknown) sertraline 50 mg (units (unknown) date) Tablet unknown) (unknown) (no (unknown) (unknown) sertraline 50 mg (units (unknown) date) tablet 50 mg PO unknown) DAILY 08/11/22 08/11/22 (unknown) (no (unknown) (unknown) shortness of (units (u nknown) date) breath, upper unknown) respiratory symptoms including cough or congestion. (unknown) (no (unknown) (unknown) soft tissue, mild (units (unknown) date) ductal dilatation, unknown) and associated fat stranding.? The findings (unknown) (no (unknown) (unknown) stability. (units (unk nown) date) unknown) (unknown) (no (unknown) (unknown) straightening of the (unit s (unknown) date) cervical lordosis unknown) with multilevel degenerative disc disease (unknown) (no (unknown) (unknown) studies: CT soft (units (unknown) date) tissue neck contrast unknown) (unknown) (no (unknown) (unknown) subcentimeter (units ( unknown) date) unknown) (unknown) (no (unknown) (unknown) submandibular (units ( unknown) date) glands unknown) (unknown) (no (unknown) (unknown) taking them as (units (unknown) date) directed. Return to unknown) the emergency department for any new or (unknown) (no (unknown) (unknown) teeth without (units ( unknown) date) gingival erythema, unknown) edema, discharge, or visible abscess. Uvula is (unknown) (no (unknown) (unknown) tenderness or (units ( unknown) date) exquisite tenderness unknown) with exam. (unknown) (no (unknown) (unknown) tenderness to (units ( unknown) date) cervical spine unknown) without erythematous lesion or drainage from or (unknown) (no (unknown) (unknown) the inherent (units (u nknown) date) limitations of this unknown) software. (unknown) (no (unknown) (unknown) the pulmonary (units ( unknown) date) nodule noted on the unknown) CT scan. Antibiotics were sent to the (unknown) (no (unknown) (unknown) the right upper (units (unknown) date) lobe measuring up to unknown) 0.3 cm on series 4, image 9. (unknown) (no (unknown) (unknown) thickening within (units (unknown) date) the right maxillary unknown) sinus.? Mastoid air cells are clear.? (unknown) (no (unknown) (unknown) through the (units (un known) date) unknown) (unknown) (no (unknown) (unknown) tobacco type: (units ( unknown) date) cigarettes unknown) (unknown) (no (unknown) (unknown) patient services technician (units (unknown) date) on-site, ordered IV unknown) placement for CT soft tissue for evaluation (unknown) (no (unknown) (unknown) understanding. (units (unknown) date) Counseling was unknown) provided regarding the diagnosis and prognosis, (unknown) (no (unknown) (unknown) unremarkable.? (units (unknown) date) unknown) (unknown) (no (unknown) (unknown) us parotitis. (units ( unknown) date) Symptoms started 2 unknown) days ago, patient denies fever, chills, (unknown) (no (unknown) (unknown) vallecula, and (units (unknown) date) tongue base all unknown) appear normal.? Extramucosal spaces appear (unknown) (no (unknown) (unknown) versus dental (units ( unknown) date) abscess versus unknown) bacterial infection or other viral illness. (unknown) (no (unknown) (unknown) versus parotitis. (units (unknown) date) Symptoms started 2 unknown) days ago, patient denies fever, chills, (unknown) (no (unknown) (unknown) wheezing, stridor, (units (unknown) date) or abnormal breath unknown) sounds. No retractions or tachypnea. (unknown) (no (unknown) (unknown) who denies any (units (unknown) date) recent mental status unknown) changes. Patient has a history of diabetes. (unknown) (no (unknown) (unknown) will contact her (units (unknown) date) primary doctor. Will unknown) start the patient on antibiotics. We (unknown) (no (unknown) (unknown) with the ED (units (un known) date) attending physician unknown) for SOLOMON level 2, 3, and some level 4s as needed (unknown) (no (unknown) (unknown) with the patient. I (unit s (unknown) date) also discussed the unknown) pulmonary nodule with the patient. She (unknown) (no (unknown) (unknown) with the (units (unkno wn) date) patient/family and unknown) discussed today?s findings whom verbalize (unknown) (no (unknown) (unknown) without (units (unkno wn) date) lymphopenia, patient unknown) is hyponatremic with a sodium of 128 without focal (unknown) (no (unknown) (unknown) worsening symptoms. (unit s (unknown) date) unknown) Result panel 101 (unknown) (no (unknown) (unknown) (no value) (units (unk nown) date) unknown) (unknown) (no (unknown) (unknown) <Electronically (units (unknown) date) signed by Carole Treviño unknown) ALINA Creanais> (unknown) (no (unknown) (unknown) <Electronically (units (unknown) date) signed by Tomi Young D.O.> (unknown) (no (unknown) (unknown) <Carole Pulido, (units (unknown) date) ALINA - Last Filed: unknown) 09/05/22 09:56> (unknown) (no (unknown) (unknown) <Tomi Young DO (unit s (unknown) date) - Last Filed: unknown) 09/04/22 22:58> (unknown) (no (unknown) (unknown) [id number] (units (unkno wn) date) unknown) (unknown) (no (unknown) (unknown) 09/04/22 09/04/22 (units (unknown) date) 09/04/22 Range/Units unknown) (unknown) (no (unknown) (unknown) 09/04/22 20:05 (units (unknown) date) unknown) (unknown) (no (unknown) (unknown) 09/04/22 2258 (units ( unknown) date) unknown) (unknown) (no (unknown) (unknown) 09/04/22 (units (unkno wn) date) unknown) (unknown) (no (unknown) (unknown) 09/05/22 0957 (units ( unknown) date) unknown) (unknown) (no (unknown) (unknown) 1 tab PO BID Qty: (units (unknown) date) 14 0RF unknown) (unknown) (no (unknown) (unknown) 1 tab PO Q8H PRN (units (unknown) date) (Reason: pain) Qty: unknown) 10 0RF (unknown) (no (unknown) (unknown) 1. Asymmetric (units ( unknown) date) enlargement of the unknown) left parotid gland with internal lobulated (unknown) (no (unknown) (unknown) 10 mg PO DAILY (units (unknown) date) unknown) (unknown) (no (unknown) (unknown) [address] (units (unknown) date) unknown) (unknown) (no (unknown) (unknown) 17:25 09/04/22 (units (unknown) date) unknown) (unknown) (no (unknown) (unknown) 18:55 09/04/22 (units (unknown) date) unknown) (unknown) (no (unknown) (unknown) 18:56 09/04/22 (units (unknown) date) unknown) (unknown) (no (unknown) (unknown) 18:56 (units (unkno wn) date) unknown) (unknown) (no (unknown) (unknown) 19:00 09/04/22 (units (unknown) date) unknown) (unknown) (no (unknown) (unknown) 19:00 (units (unkno wn) date) unknown) (unknown) (no (unknown) (unknown) 19:30 09/04/22 (units (unknown) date) unknown) (unknown) (no (unknown) (unknown) 19:47 (units (unkno wn) date) unknown) (unknown) (no (unknown) (unknown) 19:55 20:05 20:05 (units (unknown) date) unknown) (unknown) (no (unknown) (unknown) 2. Prominent (units (u nknown) date) subcentimeter left unknown) cervical lymph nodes are likely reactive. (unknown) (no (unknown) (unknown) 20 mg PO DAILY Qty: (unit s (unknown) date) 5 0RF unknown) (unknown) (no (unknown) (unknown) 20 mg PO DAILY (units (unknown) date) unknown) (unknown) (no (unknown) (unknown) 2051, patient's lab (units (unknown) date) work came back with unknown) a leukocytosis of 13.7, mild anemia with (unknown) (no (unknown) (unknown) 20:00 09/04/22 (units (unknown) date) unknown) (unknown) (no (unknown) (unknown) 20:30 09/04/22 (units (unknown) date) unknown) (unknown) (no (unknown) (unknown) 21:16 (units (unkno wn) date) unknown) (unknown) (no (unknown) (unknown) 21:17 09/04/22 (units (unknown) date) unknown) (unknown) (no (unknown) (unknown) 21:31 09/04/22 (units (unknown) date) unknown) (unknown) (no (unknown) (unknown) 21:32 (units (unkno wn) date) unknown) (unknown) (no (unknown) (unknown) 25 mcg PO (units (u nknown) date) DIRECTED unknown) (unknown) (no (unknown) (unknown) 3. Small (units (unkno wn) date) nonspecific right unknown) upper lobe pulmonary nodule.? If patient is at high (unknown) (no (unknown) (unknown) 300 mg PO DAILY (units (unknown) date) unknown) (unknown) (no (unknown) (unknown) 50 mg PO DAILY (units (unknown) date) unknown) (unknown) (no (unknown) (unknown) 500 mg PO BID PRN (units (unknown) date) (Reason: pain) Qty: unknown) 14 0RF (unknown) (no (unknown) (unknown) 500 mg PO DAILY (units (unknown) date) unknown) (unknown) (no (unknown) (unknown) ? (units (unkno wn) date) unknown) (unknown) (no (unknown) (unknown) ALT 14 (<35) IU/L (units (unknown) date) unknown) (unknown) (no (unknown) (unknown) AST 23 (14-36) IU/L (unit s (unknown) date) unknown) (unknown) (no (unknown) (unknown) Accession Number: (units (unknown) date) [id number] ?? unknown) (unknown) (no (unknown) (unknown) Acct:[id number] (units (unknown) date) unknown) (unknown) (no (unknown) (unknown) Activity (units (unkno wn) date) Restrictions/Additio unknown) nal Instructions: (unknown) (no (unknown) (unknown) Acute parotitis, (units (unknown) date) Pulmonary nodule unknown) (unknown) (no (unknown) (unknown) Admin: 09/04/22 (units (unknown) date) 21:19 Dose: 1,000 unknown) mls/hr (unknown) (no (unknown) (unknown) After the (units (unkno wn) date) administration of unknown) intravenous contrast, 3.0 mm axial sections acquired (unknown) (no (unknown) (unknown) Age/Sex: 77 / F (units (unknown) date) unknown) (unknown) (no (unknown) (unknown) Albumin 3.4 L (units ( unknown) date) (3.5-5.0) g/dL unknown) (unknown) (no (unknown) (unknown) Albumin/Globulin (units (unknown) date) Ratio 1.1 (1.0-2.8) unknown) (unknown) (no (unknown) (unknown) Alkaline (units (unkno wn) date) Phosphatase 90 unknown) (38-126) U/L (unknown) (no (unknown) (unknown) Allergies (units (unkn own) date) unknown) (unknown) (no (unknown) (unknown) Allergy/AdvReac (units (unknown) date) Type Severity unknown) Reaction Status Date / Time (unknown) (no (unknown) (unknown) Amoxicillin/Clavula (unit s (unknown) date) logan Potassium unknown) (Amoxicillin/Clav 875/125 Mg) 1 tab PO NOW (unknown) (no (unknown) (unknown) [place] [id number] (unit s (unknown) date) unknown) (unknown) (no (unknown) (unknown) Approved by: Jeremias (unit s (unknown) date) Teri Salcedo M.D. on unknown) 09/04/2022 at 22:35? (unknown) (no (unknown) (unknown) BUN 14 (7-17) mg/dL (unit s (unknown) date) unknown) (unknown) (no (unknown) (unknown) BUN/Creatinine (units (unknown) date) Ratio 23.7 H (6-22) unknown) (unknown) (no (unknown) (unknown) Baso # (Auto) 0 (units (unknown) date) (0-100) /uL unknown) (unknown) (no (unknown) (unknown) Baso % (Auto) 0.2 (units (unknown) date) (0-2) % unknown) (unknown) (no (unknown) (unknown) Be sure that you (units (unknown) date) talk with your unknown) primary doctor about the incidental finding of (unknown) (no (unknown) (unknown) Bedside Urine (units ( unknown) date) Bilirubin - Negative unknown) (unknown) (no (unknown) (unknown) Bedside Urine (units ( unknown) date) Glucose Negative unknown) (unknown) (no (unknown) (unknown) Bedside Urine (units ( unknown) date) Ketone - Negative unknown) (unknown) (no (unknown) (unknown) Bedside Urine (units ( unknown) date) Leukocytes - unknown) Negative (unknown) (no (unknown) (unknown) Bedside Urine (units ( unknown) date) Nitrite - Negative unknown) (unknown) (no (unknown) (unknown) Bedside Urine (units ( unknown) date) Occult Blood - unknown) Negative (unknown) (no (unknown) (unknown) Bedside Urine (units ( unknown) date) Protein - Negative unknown) (unknown) (no (unknown) (unknown) Bedside Urine (units ( unknown) date) Urobilinogen - unknown) Negative (unknown) (no (unknown) (unknown) Bedside Urine pH (units (unknown) date) 6.5 unknown) (unknown) (no (unknown) (unknown) Blood Pressure (units (unknown) date) 107/59 L unknown) (unknown) (no (unknown) (unknown) Blood Pressure (units (unknown) date) 125/60 09/04/22 unknown) 17:25 (unknown) (no (unknown) (unknown) Blood Pressure (units (unknown) date) 125/60 140/65 unknown) (unknown) (no (unknown) (unknown) Blood Pressure (units (unknown) date) 125/66 unknown) (unknown) (no (unknown) (unknown) Blood Pressure (units (unknown) date) 127/71 119/56 L unknown) 111/58 L (unknown) (no (unknown) (unknown) Blood Pressure (units (unknown) date) 133/67 unknown) (unknown) (no (unknown) (unknown) Blood Pressure (units (unknown) date) unknown) (unknown) (no (unknown) (unknown) Bones:? No (units (unkn own) date) suspicious bony unknown) lesions.? 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 None. (units (unknown) date) unknown) (unknown) (no (unknown) (unknown) CT Scan Report (units (unknown) date) unknown) (unknown) (no (unknown) (unknown) CT soft tissue: (units (unknown) date) unknown) (unknown) (no (unknown) (unknown) Calcium 8.6 (units (un known) date) (8.4-10.2) mg/dL unknown) (unknown) (no (unknown) (unknown) Carbon Dioxide 28 (units (unknown) date) (22-32) mmol/L unknown) (unknown) (no (unknown) (unknown) Cardiovascular: (units (unknown) date) regular rate and unknown) rhythm, no peripheral edema, warm extremities (unknown) (no (unknown) (unknown) Chief complaint: (units (unknown) date) Skin/Abscess/Foreign unknown) Body (unknown) (no (unknown) (unknown) Chloride 95 L (units ( unknown) date) (98-107) mmol/L unknown) (unknown) (no (unknown) (unknown) Clinical (units (unkno wn) date) Impression: unknown) (unknown) (no (unknown) (unknown) Course of Care: (units (unknown) date) Patient complaining unknown) of pain, ordered Percocet, Toradol and (unknown) (no (unknown) (unknown) Course (units (unkno wn) date) unknown) (unknown) (no (unknown) (unknown) Creatinine 0.59 (units (unknown) date) (0.52-1.04) mg/dL unknown) (unknown) (no (unknown) (unknown) : 1945 (units (unknown) date) Acct:[id number] unknown) (unknown) (no (unknown) (unknown) : 1945 (units (unknown) date) unknown) (unknown) (no (unknown) (unknown) Date of Service: (units (unknown) date) 09/04/22 unknown) (unknown) (no (unknown) (unknown) Denies any (units (unk nown) date) intraoral swelling, unknown) shortness of breath, difficulty swallowing, (unknown) (no (unknown) (unknown) Denies nausea (units ( unknown) date) vomiting, difficulty unknown) breathing or swallowing, denies difficulty (unknown) (no (unknown) (unknown) Departure (units (unkn own) date) unknown) (unknown) (no (unknown) (unknown) Dexamethasone (units ( unknown) date) (Dexamethasone 10 unknown) Mg/Ml Vial) 10 mg PO NOW ONE (unknown) (no (unknown) (unknown) Dictated by: Jeremias (unit s (unknown) date) Teri Salcedo M.D. on unknown) 09/04/2022 at 22:28 ? ? (unknown) (no (unknown) (unknown) Differential (units (u nknown) date) diagnoses include, unknown) but are not limited to: Parotitis, dental (unknown) (no (unknown) (unknown) Discharge Plan (units (unknown) date) unknown) (unknown) (no (unknown) (unknown) Discontinued (units (u nknown) date) Medications unknown) (unknown) (no (unknown) (unknown) Discussion of (units ( unknown) date) Management with unknown) other Health Professionals: Signed out to (unknown) (no (unknown) (unknown) Documented By: OW (units (unknown) date) unknown) (unknown) (no (unknown) (unknown) Documented By: RB (units (unknown) date) unknown) (unknown) (no (unknown) (unknown) Dr young: Received (unit s (unknown) date) turned over. unknown) Patient's CT scan shows no signs of abscess (unknown) (no (unknown) (unknown) ER Physician: (units ( unknown) date) Tomi Young D.O. unknown) (unknown) (no (unknown) (unknown) Electronically (units (unknown) date) signed by: Carole unknown) CrewALINA (unknown) (no (unknown) (unknown) Emergency Report (units (unknown) date) unknown) (unknown) (no (unknown) (unknown) Eos # (Auto) 100 (units (unknown) date) (0-450) /uL unknown) (unknown) (no (unknown) (unknown) Eos % (Auto) 0.7 L (units (unknown) date) (2-4) % unknown) (unknown) (no (unknown) (unknown) Esterase (units (unkno wn) date) unknown) (unknown) (no (unknown) (unknown) Estimated GFR > 60 (units (unknown) date) (>60) mL/min unknown) (unknown) (no (unknown) (unknown) Exam Narrative: (units (unknown) date) unknown) (unknown) (no (unknown) (unknown) Exam (units (unkno wn) date) unknown) (unknown) (no (unknown) (unknown) FINDINGS:? (units (unk nown) date) unknown) (unknown) (no (unknown) (unknown) GI: abdomen soft, (units (unknown) date) nontender to unknown) palpation, nondistended, without masses, rebound (unknown) (no (unknown) (unknown) General (units (unkno wn) date) unknown) (unknown) (no (unknown) (unknown) General: (units (unkno wn) date) cooperative, unknown) comfortable, in mild distress, well groomed (unknown) (no (unknown) (unknown) Glands:? There is (units (unknown) date) asymmetric unknown) enlargement of the left parotid gland with (unknown) (no (unknown) (unknown) Globulin 3.0 (units (u nknown) date) (1.7-4.1) g/dL unknown) (unknown) (no (unknown) (unknown) Glucose 109 (units (un known) date) (80-110) mg/dL unknown) (unknown) (no (unknown) (unknown) Alexandra Sauceda PA-C (units (unknown) date) [Primary Care unknown) Provider] (unknown) (no (unknown) (unknown) HEENT: symmetrical (units (unknown) date) facial expressions, unknown) moist mucous membranes, left anterior (unknown) (no (unknown) (unknown) HPI - (units (unkno wn) date) Skin/Abscess/Foreign unknown) Bdy (unknown) (no (unknown) (unknown) HPI narrative: (units (unknown) date) unknown) (unknown) (no (unknown) (unknown) Hct 31.2 L (36-46) (units (unknown) date) % unknown) (unknown) (no (unknown) (unknown) Her CRP is elevated (unit s (unknown) date) 7.6, COVID, unknown) influenza a, B and RSV PCRs are negative, no (unknown) (no (unknown) (unknown) Hgb 10.0 L (units (unk nown) date) (12.0-16.0) g/dL unknown) (unknown) (no (unknown) (unknown) History of Present (units (unknown) date) Illness unknown) (unknown) (no (unknown) (unknown) Home Medications (units (unknown) date) unknown) (unknown) (no (unknown) (unknown) I performed a (units ( unknown) date) preliminary unknown) independent interpretation of the following imaging (unknown) (no (unknown) (unknown) I, Carole Pulido, (units (unknown) date) ALINA, personally unknown) performed the services described in the (unknown) (no (unknown) (unknown) IMPRESSION:? (units (u nknown) date) unknown) (unknown) (no (unknown) (unknown) INDICATIONS:? left (units (unknown) date) cervical unknown) lymphadenopathy vs abscess vs parotitis (unknown) (no (unknown) (unknown) Image quality:? (units (unknown) date) There is metallic unknown) streak artifact secondary to patient's dental (unknown) (no (unknown) (unknown) Imaging Data (units (u nknown) date) unknown) (unknown) (no (unknown) (unknown) Influenza A (units (un known) date) (RT-PCR) Flu a unknown) negative (NEGATIVE) (unknown) (no (unknown) (unknown) Influenza B (units (un known) date) (RT-PCR) Flu b unknown) negative (NEGATIVE) (unknown) (no (unknown) (unknown) Initial Vital Signs (unit s (unknown) date) unknown) (unknown) (no (unknown) (unknown) Initial Vital (units ( unknown) date) Signs: unknown) (unknown) (no (unknown) (unknown) Instructions: (units ( unknown) date) Parotitis unknown) (unknown) (no (unknown) (unknown) [facility] (units (unknown) date) [address] unknown) [place] [address] (unknown) (no (unknown) (unknown) [facility] (units (unknown) date) unknown) (unknown) (no (unknown) (unknown) Ketorolac (units (unkn own) date) Tromethamine unknown) (Ketorolac 30 Mg/Ml Vial) 15 mg IM NOW ONE (unknown) (no (unknown) (unknown) Lab Data (units (unkno wn) date) unknown) (unknown) (no (unknown) (unknown) Lab Results (units (un known) date) unknown) (unknown) (no (unknown) (unknown) Labs: (units (unkno wn) date) unknown) (unknown) (no (unknown) (unknown) Last Admin: (units (un known) date) 09/04/22 19:28 Dose: unknown) 1 tab (unknown) (no (unknown) (unknown) Last Admin: (units (un known) date) 09/04/22 19:28 Dose: unknown) 15 mg (unknown) (no (unknown) (unknown) Last Admin: (units (un known) date) 09/04/22 19:34 Dose: unknown) Not Given (unknown) (no (unknown) (unknown) Last Admin: (units (un known) date) 09/04/22 19:45 Dose: unknown) 10 mg (unknown) (no (unknown) (unknown) Last Admin: (units (un known) date) 09/04/22 20:04 Dose: unknown) 1 tab (unknown) (no (unknown) (unknown) Last Infusion: (units (unknown) date) 09/04/22 22:40 Dose: unknown) 0 mls/hr (unknown) (no (unknown) (unknown) Lidocaine HCl (units ( unknown) date) (Lidocaine 2% Inj unknown) Sdv) 5 ml INJ INTRA-OP ONE (unknown) (no (unknown) (unknown) Limitations: no (units (unknown) date) limitations unknown) (unknown) (no (unknown) (unknown) Loc: ED (units (unkno wn) date) unknown) (unknown) (no (unknown) (unknown) Lymph # (Auto) 3600 (unit s (unknown) date) (8035-4324) /uL unknown) (unknown) (no (unknown) (unknown) Lymph % (Auto) 26.6 (unit s (unknown) date) (25-40) % unknown) (unknown) (no (unknown) (unknown) Lymph nodes:? No (units (unknown) date) lymphadenopathy by unknown) size criteria.? There are prominent (unknown) (no (unknown) (unknown) MCH 27.8 (26-34) PG (unit s (unknown) date) unknown) (unknown) (no (unknown) (unknown) MCHC 32.2 (30-36) % (unit s (unknown) date) unknown) (unknown) (no (unknown) (unknown) MCV 86.2 (80-100) (units (unknown) date) fL unknown) (unknown) (no (unknown) (unknown) MDM - (units (unkno wn) date) Skin/Abscess/Foreign unknown) Bdy (unknown) (no (unknown) (unknown) MDM Narrative (units ( unknown) date) unknown) (unknown) (no (unknown) (unknown) MIPS: This (units (unk nown) date) encounter doesn't unknown) have any diagnosis associated with MIPS criteria. (unknown) (no (unknown) (unknown) MR#: [id number] (units (unknown) date) unknown) (unknown) (no (unknown) (unknown) MSK: moves all (units (unknown) date) extremities, unknown) neurovascularly intact, no weakness, normal tone (unknown) (no (unknown) (unknown) Medical decision (units (unknown) date) making narrative: unknown) (unknown) (no (unknown) (unknown) Medication (units (unk nown) date) Instructions unknown) Recorded Confirmed (unknown) (no (unknown) (unknown) Medication (units (unk nown) date) Instructions unknown) Recorded (unknown) (no (unknown) (unknown) Tomi Young at (units (unknown) date) 21:30 for assumption unknown) of care as waiting for CT of soft tissue (unknown) (no (unknown) (unknown) Miscellaneous:? (units (unknown) date) Visualized brain and unknown) orbits appear normal.? The visualized lungs (unknown) (no (unknown) (unknown) Mode of arrival: (units (unknown) date) Family Vehicle unknown) (unknown) (no (unknown) (unknown) [place] # (Auto) 800 (units (unknown) date) (0-900) /uL unknown) (unknown) (no (unknown) (unknown) [place] % (Auto) 6.0 (units (unknown) date) (3-14) % unknown) (unknown) (no (unknown) (unknown) Narrative (units (unkn own) date) unknown) (unknown) (no (unknown) (unknown) Neck spaces:? The (units (unknown) date) oropharynx, unknown) nasopharynx, and pharynx demonstrate no discrete (unknown) (no (unknown) (unknown) Neuro: normal (units ( unknown) date) speech and unknown) cognition, A+O x3, ambulatory, clear speech (unknown) (no (unknown) (unknown) Neut # (Auto) 9100 (units (unknown) date) H (3615-9818) /uL unknown) (unknown) (no (unknown) (unknown) Neut % (Auto) 66.5 (units (unknown) date) (50-75) % unknown) (unknown) (no (unknown) (unknown) New (units (unkno wn) date) unknown) (unknown) (no (unknown) (unknown) No Action (units (unkn own) date) unknown) (unknown) (no (unknown) (unknown) No Known Drug (units ( unknown) date) Allergies Allergy unknown) Verified 08/11/22 11:06 (unknown) (no (unknown) (unknown) No discrete (units (un known) date) sialoliths or unknown) abscess collections. (unknown) (no (unknown) (unknown) ONE (units (unkno wn) date) unknown) (unknown) (no (unknown) (unknown) Occasional wrong (units (unknown) date) word or 'sound unknown) alike' substitutions may have occurred due to t (unknown) (no (unknown) (unknown) Occasional wrong (units (unknown) date) word or 'sound unknown) alike' substitutions may have occurred due to (unknown) (no (unknown) (unknown) Ordered: (units (unkno wn) date) unknown) (unknown) (no (unknown) (unknown) Ordering Provider: (units (unknown) date) Carole Pulido unknown) (unknown) (no (unknown) (unknown) Orders (units (unkno wn) date) unknown) (unknown) (no (unknown) (unknown) Oxycodone/Acetamino (unit s (unknown) date) phen unknown) (Oxycodone/Acetamino phen 5/325 Tablet) 1 tab PO NOW ONE (unknown) (no (unknown) (unknown) Oxygen Delivery (units (unknown) date) Method 09/04/22 unknown) 17:25 (unknown) (no (unknown) (unknown) Oxygen Delivery (units (unknown) date) Method Room Air unknown) (unknown) (no (unknown) (unknown) Oxygen Delivery (units (unknown) date) Method unknown) (unknown) (no (unknown) (unknown) PROCEDURE:? CT SOFT (unit s (unknown) date) TISSUE NECK W CON unknown) (unknown) (no (unknown) (unknown) Patient (units (unkno wn) date) Disposition: Home unknown) (unknown) (no (unknown) (unknown) Patient History (units (unknown) date) unknown) (unknown) (no (unknown) (unknown) Patient's symptoms (units (unknown) date) improved over unknown) duration of stay with above-stated therapies. (unknown) (no (unknown) (unknown) Patient: (units (unkno wn) date) Maricruz Hodges L unknown) MR#: [id number] (unknown) (no (unknown) (unknown) Patient: (units (unkno wn) date) Maricruz Hodges unknown) (unknown) (no (unknown) (unknown) Plt Count 319 (units ( unknown) date) (150-400) X103/uL unknown) (unknown) (no (unknown) (unknown) Portions of this (units (unknown) date) chart have been unknown) created with [employer] voice recognition software. (unknown) (no (unknown) (unknown) Potassium 4.4 (units ( unknown) date) (3.4-5.1) mmol/L unknown) (unknown) (no (unknown) (unknown) Prescriptions: (units (unknown) date) unknown) (unknown) (no (unknown) (unknown) Previous Rx's (units ( unknown) date) unknown) (unknown) (no (unknown) (unknown) Procalcitonin 0.07 (units (unknown) date) (<0.5) ng/mL unknown) (unknown) (no (unknown) (unknown) Procedure: CT soft (units (unknown) date) tissue neck w con unknown) (unknown) (no (unknown) (unknown) Psych: mental (units ( unknown) date) status is grossly unknown) normal, congruent mood, normal affect, pleasant (unknown) (no (unknown) (unknown) Pulse Oximetry 100 (units (unknown) date) 09/04/22 17:25 unknown) (unknown) (no (unknown) (unknown) Pulse Oximetry 100 (units (unknown) date) 100 unknown) (unknown) (no (unknown) (unknown) Pulse Oximetry 97 (units (unknown) date) 99 unknown) (unknown) (no (unknown) (unknown) Pulse Oximetry 99 (units (unknown) date) unknown) (unknown) (no (unknown) (unknown) Pulse Oximetry (units (unknown) date) unknown) (unknown) (no (unknown) (unknown) Pulse Rate 68 (units ( unknown) date) unknown) (unknown) (no (unknown) (unknown) Pulse Rate 71 68 (units (unknown) date) unknown) (unknown) (no (unknown) (unknown) Pulse Rate 73 72 (units (unknown) date) unknown) (unknown) (no (unknown) (unknown) Pulse Rate 74 74 (units (unknown) date) unknown) (unknown) (no (unknown) (unknown) Pulse Rate 79 (units ( unknown) date) 09/04/22 17:25 unknown) (unknown) (no (unknown) (unknown) Pulse Rate 79 73 (units (unknown) date) unknown) (unknown) (no (unknown) (unknown) Pulse Rate (units (unk nown) date) unknown) (unknown) (no (unknown) (unknown) RBC 3.62 L (units (unk nown) date) (4.0-5.2) X106/uL unknown) (unknown) (no (unknown) (unknown) RDW 16.9 H (units (unk nown) date) (11.6-14.8) % unknown) (unknown) (no (unknown) (unknown) ROS Unobtainable: (units (unknown) date) All systems reviewed unknown) + are unremarkable except as noted in HPI (unknown) (no (unknown) (unknown) RSV (PCR) Negative (units (unknown) date) (Negative) unknown) (unknown) (no (unknown) (unknown) Radiologist's (units ( unknown) date) Impression: unknown) (unknown) (no (unknown) (unknown) Referrals: (units (unk nown) date) unknown) (unknown) (no (unknown) (unknown) Related Data (units (u nknown) date) unknown) (unknown) (no (unknown) (unknown) Respiratory Rate 17 (unit s (unknown) date) 09/04/22 17:25 unknown) (unknown) (no (unknown) (unknown) Respiratory Rate 17 (unit s (unknown) date) unknown) (unknown) (no (unknown) (unknown) Respiratory Rate (units (unknown) date) unknown) (unknown) (no (unknown) (unknown) Respiratory: normal (unit s (unknown) date) effort, able to unknown) speak in complete sentences, without (unknown) (no (unknown) (unknown) Result diagrams: (units (unknown) date) unknown) (unknown) (no (unknown) (unknown) Review of Systems (units (unknown) date) unknown) (unknown) (no (unknown) (unknown) Reviewed vitals (units (unknown) date) signs and nursing unknown) notes. (unknown) (no (unknown) (unknown) SARS-CoV-2 (PCR) (units (unknown) date) Negative (Negative) unknown) (unknown) (no (unknown) (unknown) She expressed (units ( unknown) date) understanding and unknown) agreement. (unknown) (no (unknown) (unknown) Signed By: (units (unk nown) date) unknown) (unknown) (no (unknown) (unknown) Signed (units (unkno wn) date) unknown) (unknown) (no (unknown) (unknown) Skin: brisk (units (un known) date) capillary refill, unknown) without pallor or erythema (unknown) (no (unknown) (unknown) Smoking Status: (units (unknown) date) Former smoker unknown) (unknown) (no (unknown) (unknown) Social History (units (unknown) date) (Reviewed 09/04/22 @ unknown) 20:43 by Carole Pulido [facility]) (unknown) (no (unknown) (unknown) Social determinants (unit s (unknown) date) of health that may unknown) impact treatment or disposition: (unknown) (no (unknown) (unknown) Sodium 128 L (units (u nknown) date) (137-145) mmol/L unknown) (unknown) (no (unknown) (unknown) Sodium Chloride (units (unknown) date) (Normal Saline 0.9%) unknown) 1,000 mls @ 1,000 mls/hr IV BOLUS ONE (unknown) (no (unknown) (unknown) Source: patient (units (unknown) date) unknown) (unknown) (no (unknown) (unknown) Stand Alone Forms: (units (unknown) date) Patient Portal/API unknown) (unknown) (no (unknown) (unknown) Stated complaint: (units (unknown) date) lt ear red + unknown) swelling (unknown) (no (unknown) (unknown) Stop: 09/04/22 (units (unknown) date) 19:24 unknown) (unknown) (no (unknown) (unknown) Stop: 09/04/22 (units (unknown) date) 19:38 unknown) (unknown) (no (unknown) (unknown) Stop: 09/04/22 (units (unknown) date) 19:55 unknown) (unknown) (no (unknown) (unknown) Stop: 09/04/22 (units (unknown) date) 21:47 unknown) (unknown) (no (unknown) (unknown) Substance Use Type: (unit s (unknown) date) does not use unknown) (unknown) (no (unknown) (unknown) Suspect mild (units (u nknown) date) hemoconcentration unknown) and dehydration, ordered 1 L of IV fluids. Will (unknown) (no (unknown) (unknown) Suspect mild (units (u nknown) date) hemoconcentration unknown) and dehydration, ordered 1 L of IV fluids. (unknown) (no (unknown) (unknown) TECHNIQUE:? (units (un known) date) unknown) (unknown) (no (unknown) (unknown) Temperature 98.0 F (units (unknown) date) 09/04/22 17:25 unknown) (unknown) (no (unknown) (unknown) Temperature 98.0 F (units (unknown) date) unknown) (unknown) (no (unknown) (unknown) Temperature (units (un known) date) unknown) (unknown) (no (unknown) (unknown) There is mild (units ( unknown) date) ductal dilatation unknown) within the left parotid gland.? The (unknown) (no (unknown) (unknown) There is (units (unkno wn) date) unknown) (unknown) (no (unknown) (unknown) This is a (units (unkn own) date) 77-year-old female unknown) who is presenting to the ED via POV with concern (unknown) (no (unknown) (unknown) This is a (units (unkn own) date) 77-year-old female unknown) with history of diabetes who presents emergency (unknown) (no (unknown) (unknown) Time Seen by (units (u nknown) date) Provider: 09/04/22 unknown) 18:50 (unknown) (no (unknown) (unknown) Total Bilirubin 0.2 (unit s (unknown) date) (0.2-1.3) mg/dL unknown) (unknown) (no (unknown) (unknown) Total Protein 6.4 (units (unknown) date) (6.3-8.2) g/dL unknown) (unknown) (no (unknown) (unknown) Urine Dip (units (unkn own) date) unknown) (unknown) (no (unknown) (unknown) Urine Specific (units (unknown) date) [place] 1.010 unknown) (unknown) (no (unknown) (unknown) Vessels:? (units (unkn own) date) Visualized unknown) vasculature appears patent.? (unknown) (no (unknown) (unknown) Vital Signs - 8 hr (units (unknown) date) unknown) (unknown) (no (unknown) (unknown) Vital Signs (units (un known) date) unknown) (unknown) (no (unknown) (unknown) Vital Signs: I, the (unit s (unknown) date) ED provider, unknown) reviewed the patient?s vital signs, past (unknown) (no (unknown) (unknown) Vital signs: (units (u nknown) date) unknown) (unknown) (no (unknown) (unknown) WBC 13.7 H (units (unk nown) date) (4.5-11.0) X103/uL unknown) (unknown) (no (unknown) (unknown) [Embedded Image Not (unit s (unknown) date) Available] unknown) (unknown) (no (unknown) (unknown) abnormal enhancing (units (unknown) date) soft tissue unknown) internally.? Mild associated fat stranding is (unknown) (no (unknown) (unknown) abnormality. Her (units (unknown) date) primary care unknown) provider is ALINA Ruiz. States that she was (unknown) (no (unknown) (unknown) about left (units (unk nown) date) mandible/anterior unknown) cervical lymphadenopathy versus dental abscess (unknown) (no (unknown) (unknown) abscess, (units (unkno wn) date) lymphadenopathy, unknown) viral syndrome, ludwigs angina, (unknown) (no (unknown) (unknown) abscess, (units (unkno wn) date) lymphadenopathy, unknown) viral syndrome, (unknown) (no (unknown) (unknown) abscess.? (units (unkn own) date) unknown) (unknown) (no (unknown) (unknown) ago. States that (units (unknown) date) she had recent unknown) dental work in May that she had antibiotics (unknown) (no (unknown) (unknown) alcohol intake (units (unknown) date) frequency: 0-2 unknown) drinks per day (unknown) (no (unknown) (unknown) alcohol intake: (units (unknown) date) current unknown) (unknown) (no (unknown) (unknown) along the parotid (units (unknown) date) gland.? No discrete unknown) loculated fluid collection to suggest an (unknown) (no (unknown) (unknown) also discussed (units (unknown) date) other things such as unknown) sialagogues and strict return precautions. (unknown) (no (unknown) (unknown) amoxicillin 875 (units (unknown) date) mg-potassium 1 tab unknown) PO BID #14 tabs 09/04/22 (unknown) (no (unknown) (unknown) amoxicillin-pot (units (unknown) date) clavulanate 875-125 unknown) mg tablet (unknown) (no (unknown) (unknown) and below (units (unkn own) date) unknown) (unknown) (no (unknown) (unknown) and cooperative (units (unknown) date) unknown) (unknown) (no (unknown) (unknown) and specific details (unit s (unknown) date) were provided for unknown) the plan of care. Questions are addressed (unknown) (no (unknown) (unknown) and there is (units (u nknown) date) agreement with the unknown) plan and for follow-up. Patient is appropriate (unknown) (no (unknown) (unknown) and (units (unkno wn) date) unknown) (unknown) (no (unknown) (unknown) appear normal.? (units (unknown) date) Thyroid gland unknown) demonstrates no discrete nodules. (unknown) (no (unknown) (unknown) are (units (unkno wn) date) unknown) (unknown) (no (unknown) (unknown) but is consistent (units (unknown) date) with parotid gland unknown) inflammation/infecti on. I did discuss this (unknown) (no (unknown) (unknown) canal erythema or TM (unit s (unknown) date) erythema, without unknown) stridor, full range of motion of neck, no (unknown) (no (unknown) (unknown) cervical lower (units ( unknown) date) mandible region with unknown) firm, non mobile mass approximately 2 cm x 3 (unknown) (no (unknown) (unknown) chewing. Last (units ( unknown) date) dental work was in unknown) May 2022. (unknown) (no (unknown) (unknown) clavulanate 125 mg (units (unknown) date) tablet unknown) (unknown) (no (unknown) (unknown) cm, exquisitely (units (unknown) date) tender, without unknown) fluctuance, without mastoid tenderness, ear (unknown) (no (unknown) (unknown) compatible with (units (unknown) date) sialadenitis but unknown) given the degree of enhancing soft tissue (unknown) (no (unknown) (unknown) confluent (units (unkn own) date) unknown) (unknown) (no (unknown) (unknown) control. (units (unkno wn) date) unknown) (unknown) (no (unknown) (unknown) demonstrate mild (units (unknown) date) scarring within the unknown) apices.? There is also a small subpleural (unknown) (no (unknown) (unknown) demonstrated (units (u nknown) date) unknown) (unknown) (no (unknown) (unknown) denies any (units (unk nown) date) weakness, altered unknown) mental status, vision changes, rash or other (unknown) (no (unknown) (unknown) department (units (unk nown) date) complaining of unknown) swelling to her left jaw with gradual onset 3 days (unknown) (no (unknown) (unknown) dexamethasone, she (units (unknown) date) has anterior unknown) cervical swelling and tenderness concerning for (unknown) (no (unknown) (unknown) documentation, and (units (unknown) date) it accurately unknown) records my words and actions. I collaborated (unknown) (no (unknown) (unknown) enhancing (units (unkn own) date) unknown) (unknown) (no (unknown) (unknown) facet joint (units (un known) date) arthropathy.? unknown) (unknown) (no (unknown) (unknown) fever, chills, (units (unknown) date) recent upper unknown) respiratory illness, cough or congestion. She (unknown) (no (unknown) (unknown) for outpatient (units (unknown) date) management. unknown) (unknown) (no (unknown) (unknown) for. States that (units (unknown) date) she is on unknown) hydrocodone for chronic pain and took this for her (unknown) (no (unknown) (unknown) from the (units (unkno wn) date) unknown) (unknown) (no (unknown) (unknown) gabapentin 300 mg (units (unknown) date) Tablet unknown) (unknown) (no (unknown) (unknown) gabapentin 300 mg (units (unknown) date) tablet 300 mg PO unknown) DAILY 08/11/22 08/11/22 (unknown) (no (unknown) (unknown) had recent bridge (units (unknown) date) and tooth extraction unknown) to the lower left jaw in May 2022. (unknown) (no (unknown) (unknown) hardware. (units (unkn own) date) unknown) (unknown) (no (unknown) (unknown) he inherent (units (un known) date) limitations of this unknown) software. (unknown) (no (unknown) (unknown) hemoglobin of 10.0, (unit s (unknown) date) hematocrit 31.2 unknown) without priors to compare to, left shift (unknown) (no (unknown) (unknown) household members: (units (unknown) date) spouse unknown) (unknown) (no (unknown) (unknown) hydrocodone (units (un known) date) bitartrate 08/11/22 unknown) (unknown) (no (unknown) (unknown) hydrocodone (units (un known) date) bitartrate unknown) (unknown) (no (unknown) (unknown) internally, a (units ( unknown) date) unknown) (unknown) (no (unknown) (unknown) left cervical lymph (unit s (unknown) date) nodes which are unknown) likely reactive. (unknown) (no (unknown) (unknown) left jaw pain and (units (unknown) date) swelling but states unknown) it did not help her. She states that she (unknown) (no (unknown) (unknown) levothyroxine 25 (units (unknown) date) mcg Tablet unknown) (unknown) (no (unknown) (unknown) levothyroxine 25 (units (unknown) date) mcg tablet 25 mcg PO unknown) DIRECTED 08/11/22 08/11/22 (unknown) (no (unknown) (unknown) lisinopril 10 mg PO (unit s (unknown) date) DAILY 08/11/22 unknown) 08/11/22 (unknown) (no (unknown) (unknown) lisinopril (units (unk nown) date) unknown) (unknown) (no (unknown) (unknown) malignancy, a (units ( unknown) date) follow-up chest CT unknown) may be performed in 12 months to demonstrate (unknown) (no (unknown) (unknown) mass cannot be (units (unknown) date) excluded.? Clinical unknown) follow-up is recommended to demonstrate (unknown) (no (unknown) (unknown) mass lesions.? The (units (unknown) date) vocal cords, false unknown) vocal cords, pyriform sinuses, epiglottis, (unknown) (no (unknown) (unknown) medical records and (unit s (unknown) date) encounters if unknown) available, and nursing notes. I have spoken (unknown) (no (unknown) (unknown) metformin 500 mg (units (unknown) date) Tablet unknown) (unknown) (no (unknown) (unknown) metformin 500 mg (units (unknown) date) tablet 500 mg PO unknown) DAILY 08/11/22 08/11/22 (unknown) (no (unknown) (unknown) mg tablet (units (unkn own) date) (Percocet) unknown) (unknown) (no (unknown) (unknown) midline, without (units (unknown) date) posterior pharynx unknown) erythema or edema (unknown) (no (unknown) (unknown) mucosal (units (unkno wn) date) unknown) (unknown) (no (unknown) (unknown) naproxen 500 mg (units (unknown) date) tablet (Naprosyn) unknown) 500 mg PO BID PRN pain #14 tabs 09/04/22 (unknown) (no (unknown) (unknown) naproxen [Naprosyn] (unit s (unknown) date) 500 mg tablet unknown) (unknown) (no (unknown) (unknown) neck (units (unkno wn) date) unknown) (unknown) (no (unknown) (unknown) neuro symptoms or (units (unknown) date) altered mental unknown) status. Patient has a friend witnessed here (unknown) (no (unknown) (unknown) nodule in (units (unkn own) date) unknown) (unknown) (no (unknown) (unknown) omeprazole 20 mg (units (unknown) date) Tablet,Delayed unknown) Release (Dr/Ec) (unknown) (no (unknown) (unknown) omeprazole 20 mg (units (unknown) date) tablet,delayed 20 mg unknown) PO DAILY 08/11/22 08/11/22 (unknown) (no (unknown) (unknown) oxycodone-acetamino (unit s (unknown) date) phen 5 mg-325 1 tab unknown) PO Q8H PRN pain #10 tabs 09/04/22 (unknown) (no (unknown) (unknown) oxycodone-acetamino (unit s (unknown) date) phen [Percocet] unknown) 5-325 mg tablet (unknown) (no (unknown) (unknown) parotitis versus (units (unknown) date) abscess, versus unknown) lymphadenopathy, will follow-up on pain (unknown) (no (unknown) (unknown) pharynx, visible (units (unknown) date) dental extractions unknown) to the left posterior lower mandible x3 (unknown) (no (unknown) (unknown) pharynx.? 3 mm (units (unknown) date) thick coronal and unknown) sagittal reformats were generated.? For (unknown) (no (unknown) (unknown) possible bacterial (units (unknown) date) infection or fluid unknown) collection to her left anterior neck. (unknown) (no (unknown) (unknown) prednisone 20 mg (units (unknown) date) tablet 20 mg PO unknown) DAILY #5 tabs 09/04/22 (unknown) (no (unknown) (unknown) prednisone 20 mg (units (unknown) date) tablet unknown) (unknown) (no (unknown) (unknown) radiation dose (units (unknown) date) unknown) (unknown) (no (unknown) (unknown) reduction, the (units (unknown) date) following was used:? unknown) automated exposure control.? (unknown) (no (unknown) (unknown) release (units (unkno wn) date) unknown) (unknown) (no (unknown) (unknown) resolution.? (units (u nknown) date) unknown) (unknown) (no (unknown) (unknown) risk for (units (unkno wn) date) unknown) (unknown) (no (unknown) (unknown) rmacy of your (units ( unknown) date) choice. You should unknown) be able to pick them up tomorrow and start (unknown) (no (unknown) (unknown) sella to the aortic (unit s (unknown) date) arch.? Additional unknown) oblique axial 3.0 mm sections acquired (unknown) (no (unknown) (unknown) sent here for (units ( unknown) date) evaluation of this unknown) swelling with concern for lymphadenopathy (unknown) (no (unknown) (unknown) sertraline 50 mg (units (unknown) date) Tablet unknown) (unknown) (no (unknown) (unknown) sertraline 50 mg (units (unknown) date) tablet 50 mg PO unknown) DAILY 08/11/22 08/11/22 (unknown) (no (unknown) (unknown) shortness of (units (u nknown) date) breath, upper unknown) respiratory symptoms including cough or congestion. (unknown) (no (unknown) (unknown) soft tissue, mild (units (unknown) date) ductal dilatation, unknown) and associated fat stranding.? The findings (unknown) (no (unknown) (unknown) stability. (units (unk nown) date) unknown) (unknown) (no (unknown) (unknown) straightening of the (unit s (unknown) date) cervical lordosis unknown) with multilevel degenerative disc disease (unknown) (no (unknown) (unknown) studies: CT soft (units (unknown) date) tissue neck contrast unknown) (unknown) (no (unknown) (unknown) subcentimeter (units ( unknown) date) unknown) (unknown) (no (unknown) (unknown) submandibular (units ( unknown) date) glands unknown) (unknown) (no (unknown) (unknown) taking them as (units (unknown) date) directed. Return to unknown) the emergency department for any new or (unknown) (no (unknown) (unknown) teeth without (units ( unknown) date) gingival erythema, unknown) edema, discharge, or visible abscess. Uvula is (unknown) (no (unknown) (unknown) tenderness or (units ( unknown) date) exquisite tenderness unknown) with exam. (unknown) (no (unknown) (unknown) tenderness to (units ( unknown) date) cervical spine unknown) without erythematous lesion or drainage from or (unknown) (no (unknown) (unknown) the inherent (units (u nknown) date) limitations of this unknown) software. (unknown) (no (unknown) (unknown) the pulmonary (units ( unknown) date) nodule noted on the unknown) CT scan. Antibiotics were sent to the pha (unknown) (no (unknown) (unknown) the right upper (units (unknown) date) lobe measuring up to unknown) 0.3 cm on series 4, image 9. (unknown) (no (unknown) (unknown) thickening within (units (unknown) date) the right maxillary unknown) sinus.? Mastoid air cells are clear.? (unknown) (no (unknown) (unknown) through the (units (un known) date) unknown) (unknown) (no (unknown) (unknown) tobacco type: (units ( unknown) date) cigarettes unknown) (unknown) (no (unknown) (unknown) treat with (units (unk nown) date) augmentin. unknown) (unknown) (no (unknown) (unknown) patient services technician (units (unknown) date) on-site, ordered IV unknown) placement for CT soft tissue for evaluation (unknown) (no (unknown) (unknown) understanding. (units (unknown) date) Counseling was unknown) provided regarding the diagnosis and prognosis, (unknown) (no (unknown) (unknown) unremarkable.? (units (unknown) date) unknown) (unknown) (no (unknown) (unknown) vallecula, and (units (unknown) date) tongue base all unknown) appear normal.? Extramucosal spaces appear (unknown) (no (unknown) (unknown) versus dental (units ( unknown) date) abscess versus unknown) bacterial infection or other viral illness. (unknown) (no (unknown) (unknown) versus parotitis. (units (unknown) date) Symptoms started 2 unknown) days ago, patient denies fever, chills, (unknown) (no (unknown) (unknown) wheezing, stridor, (units (unknown) date) or abnormal breath unknown) sounds. No retractions or tachypnea. (unknown) (no (unknown) (unknown) who denies any (units (unknown) date) recent mental status unknown) changes. Patient has a history of diabetes. (unknown) (no (unknown) (unknown) will contact her (units (unknown) date) primary doctor. Will unknown) start the patient on antibiotics. We (unknown) (no (unknown) (unknown) with the ED (units (un known) date) attending physician unknown) for SOLOMON level 2, 3, and some level 4s as needed (unknown) (no (unknown) (unknown) with the patient. I (unit s (unknown) date) also discussed the unknown) pulmonary nodule with the patient. She (unknown) (no (unknown) (unknown) with the (units (unkno wn) date) patient/family and unknown) discussed today?s findings whom verbalize (unknown) (no (unknown) (unknown) without (units (unkno wn) date) lymphopenia, patient unknown) is hyponatremic with a sodium of 128 without focal (unknown) (no (unknown) (unknown) worsening symptoms. (unit s (unknown) date) unknown) Result panel 102 (unknown) (no date) (unknown) (unknown) (no value) (units (un known) unknown) (unknown) (no date) (unknown) (unknown) NO GROWTH (units (unk nown) AFTER 24 unknown) HOURS Result panel 103 (unknown) (no date) (unknown) (unknown) (no value) (units (un known) unknown) (unknown) (no date) (unknown) (unknown) NO GROWTH (units (unk nown) AFTER 48 unknown) HOURS Result panel 104 (unknown) (no date) (unknown) (unknown) (no value) (units (un known) unknown) (unknown) (no date) (unknown) (unknown) NO GROWTH (units (unk nown) AFTER 72 unknown) HOURS Result panel 105 (unknown) (no date) (unknown) (unknown) (no value) (units (un known) unknown) (unknown) (no date) (unknown) (unknown) NO GROWTH (units (unk nown) AFTER 4 DAYS unknown) Result panel 106 (unknown) (no date) (unknown) (unknown) (no value) (units (un known) unknown) (unknown) (no date) (unknown) (unknown) NO GROWTH (units (unk nown) AFTER 4 DAYS unknown) Result panel 107 (unknown) (no date) (unknown) (unknown) (no value) (units (un known) unknown) (unknown) (no date) (unknown) (unknown) NO GROWTH (units (unk nown) AFTER 5 DAYS unknown) Social History date description facility 2022-08-11 00:00 Ex-smoker (finding) [facility] 2022-09-04 00:00 Ex-smoker ([facility] Vital Signs date measurement value units [...] 57.15 kg 2022-08-11 00:00 weight_standard 125.99 lb 2022-09-04 00:00 BMI 21.8 kg/m2 2022-09-04 00:00 BP_diastolic 64 mmHg 2022-09-04 00:00 BP_systolic 113 mmHg 2022-09-04 00:00 heart_rate 76 /min 2022-09-04 00:00 height_metric 161.29 cm 2022-09-04 00:00 height_standard 63.5 in 2022-09-04 00:00 o2_saturation 98 % 2022-09-04 00:00 respiration_rate 18 /min 2022-09-04 00:00 temperature_metric 36.67 C 2022-09-04 00:00 temperature_standard 98 F 2022-09-04 00:00 weight_metric 56.69 kg 2022-09-04 00:00 weight_standard 124.98 lb
[2022-09-14] MEDS ORDERED: SODIUM CHLORIDE 0.9% 1,000 ML IV STA (15:46)
--- NOTE | 2022-09-14 15:49 | ED Physician Documentation ---
History of Present Illness - Stated complaint Stated Complaint: DIZZY/FAINT - Chief complaint Chief Complaint: Neuro - History obtained from History obtained from: Patient, Family - Additonal information Additional information: 77-year-old woman with history of hypertension, sleep apnea, type 2 diabetes, and chronic heart murmur presents with her spouse, from whom an independent history was taken. About 10 days ago went to [facility] for facial swelling. Was diagnosed with a blocked salivary duct and put on 5 days of prednisone and about 7 days worth of amoxicillin with significant improvement. She has chronic diarrhea from IBS, but her diarrhea worsened while on amoxicillin. She is been off the amoxicillin for about 2 to 3 days and off of the prednisone for about 5 days. Approximately 3 days ago she developed substernal chest pressure that which has been constant. It is worse with position changes but not with exertion. She is not short of breath with it. She has been lightheaded and shaky. And she has noticed her fingers go blue a few times. She stated that she had no history of Raynaud's syndrome but her spouse says she does have a history of Raynaud's syndrome but mostly in the feet, not the hands. Review of Systems Constitutional: denies: Fever, Chills, Sweats Cardiac: reports: Chest pain / pressure. denies: Palpitations Respiratory: denies: Dyspnea, Cough GI: reports: Diarrhea. 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 - Present Medications Home Medications: Ambulatory Orders Medication Instructions Recorded Confirmed Hydrocodone/Acetaminophen 1 each PO PRN PRN 06/10/21 08/01/22 [Hydrocodone-Acetamin 10-325 mg] metFORMIN [Glucophage] 500 mg PO BID 11/27/21 08/01/22 Lisinopril [Zestril] 10 mg PO DAILY 11/28/21 08/01/22 Levothyroxine [Synthroid] 25 mcg PO DAILY 06/13/22 08/01/22 Omeprazole 20 mg PO DAILY 10/14/22 12/02/22 Sertraline [Zoloft] 50 mg PO DAILY 06/13/22 08/01/22 - Allergies Allergies/Adverse Reactions: Allergies Allergy/AdvReac Type Severity Reaction Status Date / Time amlodipine Allergy Unknown Verified 09/14/22 15:20 sulfamethoxazole Allergy Unknown Verified 09/14/22 15:20 [From ] trimethoprim [From ] Allergy Unknown Verified 09/14/22 15:20 NSAIDS (Non-Steroidal AdvReac Unknown Verified 09/14/22 15:20 Anti-Inflamma - Social History Does the pt smoke?: No Smoking Status: Unknown if ever smoked Does the pt drink ETOH?: Yes Does the pt have substance abuse?: No - Immunizations Immunizations are current?: Yes PD ED PE NORMAL - Vitals Vital signs reviewed: Yes - General General: Alert and oriented X 3, No acute distress - HEENT HEENT: PERRL, EOMI - Neck Neck: Supple, no meningeal sign, No bony TTP - Cardiac Cardiac: RRR, No murmur - Respiratory Respiratory: No respiratory distress, Clear bilaterally - Abdomen Abdomen: Normal bowel sounds, Soft, Non tender - Back Back: No CVA TTP, No spinal TTP - Derm Derm: Normal color, Warm and dry - Extremities Extremities: No edema, No calf tenderness / cord, Other (Fingers and toes are warm and well perfused without pallor or cyanosis. Normal radial pulses.) - Neuro Neuro: Alert and oriented X 3, Normal speech Eye Opening: Spontaneous Motor: Obeys Commands Verbal: Oriented GCS Score: 15 - Psych Psych: Normal mood, Normal affect Results - Vitals Vitals: Vital Signs - 24 hr 09/14/22 09/14/22 15:21 15:45 Temperature 36.7 C Heart Rate 80 82 Respiratory 18 22 Rate Blood Pressure 132/106 H 135/84 H O2 Saturation 100 100 Oxygen O2 Source Room air - EKG (time done) 1537 Rate: Rate (enter#) (80) Rhythm: NSR (w pvcs/pacs) [place]: Normal Intervals: Normal CO QRS: Normal Ischemia: Normal ST segments - Labs Labs: Laboratory Tests 09/14/22 09/14/22 09/14/22 15:49 15:49 15:49 WBC 15.1 H RBC 3.63 L Hgb 10.0 L Hct 32.3 L MCV 89.0 MCH 27.5 MCHC 31.0 L RDW 15.4 H Plt Count 470 H MPV 8.5 Neut # (Auto) Not Reportable Lymph # (Auto) Not Reportable [place] # (Auto) Not Reportable Eos # (Auto) Not Reportable Baso # (Auto) Not Reportable Absolute Nucleated RBC Not Reportable Total Counted 100 Band Neuts % (Manual) 4 Abnorm Lymph % (Manual) 0 Nucleated RBC % Not Reportable Neutrophils # (Manual) 6.9 H Lymphocytes # (Manual) 7.7 H Monocytes # (Manual) 0.5 Eosinophils # (Manual) 0.0 Basophils # (Manual) 0.0 Differential Comment MANUAL DIFFERENTIAL WBC Morphology 2+ SMUDGE CELLS Platelet Estimate INCREASED (>450,000) Platelet Morphology NORMAL APPEARANCE RBC Morph Micro Appear NORMAL APPEARANCE Sodium 131 L Potassium 3.8 Chloride 94 L Carbon Dioxide 27 Anion Gap 10.0 BUN 15 Creatinine 0.7 Estimated GFR (MDRD) 81 L Glucose 131 H Calcium 9.4 Total Bilirubin 0.3 AST 18 ALT 14 Alkaline Phosphatase 64 Troponin I High Sens < 2.3 L Total Protein 6.5 L Albumin 2.9 L Globulin 3.6 Albumin/Globulin Ratio 0.8 L Lipase 27 Urine Color Urine Clarity Urine pH Ur Specific Tell Urine Protein Urine Glucose (UA) Urine Ketones Urine Occult Blood Urine Nitrite Urine Bilirubin Urine Urobilinogen Ur Leukocyte Esterase Ur Microscopic Review Urine Culture Comments 09/14/22 16:52 WBC RBC Hgb Hct MCV MCH MCHC RDW Plt Count MPV Neut # (Auto) Lymph # (Auto) [place] # (Auto) Eos # (Auto) Baso # (Auto) Absolute Nucleated RBC Total Counted Band Neuts % (Manual) Abnorm Lymph % (Manual) Nucleated RBC % Neutrophils # (Manual) Lymphocytes # (Manual) Monocytes # (Manual) Eosinophils # (Manual) Basophils # (Manual) Differential Comment WBC Morphology Platelet Estimate Platelet Morphology RBC Morph Micro Appear Sodium Potassium Chloride Carbon Dioxide Anion Gap BUN Creatinine Estimated GFR (MDRD) Glucose Calcium Total Bilirubin AST ALT Alkaline Phosphatase Troponin I High Sens Total Protein Albumin Globulin Albumin/Globulin Ratio Lipase Urine Color YELLOW Urine Clarity CLEAR Urine pH 6.0 Ur Specific Tell 1.010 Urine Protein NEGATIVE Urine Glucose (UA) NEGATIVE Urine Ketones NEGATIVE Urine Occult Blood NEGATIVE Urine Nitrite NEGATIVE Urine Bilirubin NEGATIVE Urine Urobilinogen 0.2 (NORMAL) Ur Leukocyte Esterase NEGATIVE Ur Microscopic Review NOT INDICATED Urine Culture Comments NOT INDICATED - Rads (name of study) Single view chest x-ray shows dextroscoliosis but otherwise unremarkable. Radiology: Final report received, EMP read indepedently PD Medical Decision Making - ED course ED course: 77-year-old woman presents with symptoms of 3 days of chest pressure, shakiness, increased diarrhea while on recent amoxicillin although improving now that she is off the amoxicillin, lightheadedness and discolored fingers. Differential diagnosis includes ACS, dehydration, arrhythmia, vascular emergency. EKG showing ectopy but otherwise unremarkable CBC showing slight worsening of chronic anemia with increased white count and platelet count. The leukocytosis could be related to recent steroid use versus infection. That said there is no sign of infection and urinalysis is negative. Benign abdominal examination. CMP notable for mild hyponatremia albeit better than prior value on the chart, otherwise unremarkable. Troponin, high-sensitivity was normal. My suspicion is that by process of elimination she has residual side effects from recent steroids. Departure - Departure Disposition: 01 Home, Self Care Clinical Impression: Shakiness Chest pain Qualifiers: Chest pain type: precordial pain Qualified Code(s): R07.2 - Precordial pain Leukocytosis Qualifiers: Leukocytosis type: leukemoid reaction Qualified Code(s): D72.823 - Leukemoid reaction Condition: Good Record reviewed to determine appropriate education?: Yes Instructions: ED Chest Pain NonCardiac Comments: No evidence of active heart disease on work-up today. Your chest x-ray is normal. Your urine is normal. The only obvious findings are chronic anemia and hyponatremia but an elevated white count. Since there is no evidence of infection my suspicion is this is related to recent steroid use. I am hopeful that your symptoms will otto over the next couple of days, that said I want you to follow-up with your nurse practitioner Thursday or Thursday for recheck and return for new or worsening symptoms.
[2022-09-14 16:06] LABS: BASOPHILS % (AUTO) 0.2 %; EOSINOPHILS % (AUTO) 0.5 %; HCT - HEMATOCRIT 32.3 % (37.0-47.0); LYMPHOCYTES % (AUTO) 43.3 %; MEAN CORPUSCULAR HEMOGLOBIN 27.5 pg (27.0-31.0); MEAN PLATELET VOLUME 8.5 fL (7.9-10.8); MONOCYTES % (AUTO) 4.4 %; NEUTROPHILS % (AUTO) 51.2 %; PLT - PLATELET COUNT 470 10^3/uL (130-450); RED BLOOD COUNT 3.63 10^6/uL (4.20-5.40); RED CELL DISTRIBUTION WIDTH 15.4 % (12.0-15.0); WHITE BLOOD COUNT 15.1 x10^3/uL (4.8-10.8)
[2022-09-14 16:09] LABS: ABNORMAL LYMPHS % (MANUAL) 0 %
--- NOTE | 2022-09-14 16:15 | XRAY Report ---
PROCEDURE: Chest 1 View X-Ray INDICATIONS: Chest Pain TECHNIQUE: One view of the chest was acquired. COMPARISON: 06/06/2021, 10/20/2015 FINDINGS: Surgical changes and devices: None. Lungs and pleura: No pleural effusions or pneumothorax. Lungs are clear. Mediastinum: Mediastinal contours appear normal. Heart size is normal. Bones and chest wall: No suspicious bony lesions. Moderate dextrorotoscoliosis is seen. Age-appropr iate degenerative changes are seen. Overlying soft tissues appear unremarkable. IMPRESSION: No acute cardiopulmonary process is seen. Dextroconvex scoliosis again seen. Reviewed by: Delvin Tam MD on 09/14/2022 3:14 PM [facility] Approved by: Delvin Tam MD on 09/14/2022 3:14 PM [facility] Station ID: [id number]
[2022-09-14 16:18] LABS: ALBUMIN 2.9 g/dL (3.2-5.5); ALBUMIN/GLOBULIN RATIO 0.8 (1.0-2.2); BILIRUBIN,TOTAL 0.3 mg/dL (0.2-1.0); CALCIUM 9.4 mg/dL (8.5-10.3); CREATININE 0.7 mg/dL (0.4-1.0); POTASSIUM 3.8 mmol/L (3.5-5.0); TOTAL PROTEIN 6.5 g/dL (6.7-8.2)
[2022-09-14 16:28] LABS: BAND NEUTROPHILS % (MANUAL) 4 %; LYMPHOCYTES # (MANUAL) 7.7 10^3/uL (1.5-3.5); LYMPHOCYTES % (MANUAL) 51 %; MONOCYTES # (MANUAL) 0.5 10^3/uL (0.0-1.0); NEUTROPHILS # (MANUAL) 6.9 10^3/uL (1.5-6.6); PLATELET ESTIMATE, MANUAL INCREASED (>450,000) (NORMAL); PLATELET MORPHOLOGY NORMAL APPEARANCE (NORMAL); RBC MORPHOLOGY (MULTIPLE) NORMAL APPEARANCE (NORMAL); WBC MORPHOLOGY (MULTIPLE) 2+ SMUDGE CELLS (NORMAL)
[2022-09-14 16:29] LABS: DIFFERENTIAL COMMENT MANUAL DIFFERENTIAL
[2022-09-14 17:03] LABS: BILIRUBIN,URINE NEGATIVE (NEGATIVE); GLUCOSE, URINE (UA) NEGATIVE (NEGATIVE); KETONES,URINE (UA) NEGATIVE (NEGATIVE); LEUKOCYTE ESTERASE, URINE NEGATIVE (NEGATIVE); NITRITE,URINE NEGATIVE (NEGATIVE); OCCULT BLOOD,URINE NEGATIVE (NEGATIVE); PROTEIN,URINE NEGATIVE (NEGATIVE); UROBILINOGEN,URINE 0.2 (NORMAL) E.U./dL (NORMAL)
[2022-09-14 17:04] LABS: CLARITY,URINE CLEAR (CLEAR)
[2022-09-14 17:39] VITALS: BP 133/75
== END 2022-09-14 17:39 | disposition home or self-care (01) ==
LOC: ED 15:16
DX: R25.1 Tremor, unspecified (principal); R07.2 Precordial pain; D72.823 Leukemoid reaction; D64.89 Other specified anemias; E87.1 Hypo-osmolality and hyponatremia
CPT/HCPCS: 36415; 80053; 81001; 81003; 83690; 84484; 85025; 87086; 93005; 99284

== ENCOUNTER 2022-09-24 15:10 | Outpatient (CLI) | payer MEDICARE, OTHER ==
[2022-09-24 15:31] LABS: BASOPHILS # (AUTO) 0.1 10^3/uL (0.0-0.1); BASOPHILS % (AUTO) 0.6 %; EOSINOPHILS % (AUTO) 0.4 %; HCT - HEMATOCRIT 32.5 % (37.0-47.0); HGB - HEMOGLOBIN 10.2 g/dL (12.0-16.0); LYMPHOCYTES # (AUTO) 4.2 10^3/uL (1.5-3.5); LYMPHOCYTES % (AUTO) 46.6 %; MEAN CORPUSCULAR HEMOGLOBIN 27.7 pg (27.0-31.0); MEAN CORPUSCULAR HGB CONC 31.4 g/dL (32.0-36.0); MEAN CORPUSCULAR VOLUME 88.3 fL (81.0-99.0); MEAN PLATELET VOLUME 8.4 fL (7.9-10.8); MONOCYTES # (AUTO) 0.7 10^3/uL (0.0-1.0); MONOCYTES % (AUTO) 7.3 %; NEUTROPHILS # (AUTO) 4.1 10^3/uL (1.5-6.6); NEUTROPHILS % (AUTO) 44.7 %; PLT - PLATELET COUNT 450 10^3/uL (130-450); RED BLOOD COUNT 3.68 10^6/uL (4.20-5.40); RED CELL DISTRIBUTION WIDTH 14.6 % (12.0-15.0); WHITE BLOOD COUNT 9.1 x10^3/uL (4.8-10.8)
[2022-09-24 15:47] LABS: ALBUMIN 3.3 g/dL (3.2-5.5); ALBUMIN/GLOBULIN RATIO 0.9 (1.0-2.2); BILIRUBIN,TOTAL 0.3 mg/dL (0.2-1.0); CALCIUM 9.3 mg/dL (8.5-10.3); CREATININE 0.9 mg/dL (0.4-1.0); POTASSIUM 4.3 mmol/L (3.5-5.0)
== END 2022-09-24 15:11 | disposition home or self-care (01) ==
LOC: LAB 15:10
PROVIDERS: ATTEND Nurse Practitioner
DX: R10.9 Unspecified abdominal pain (principal); R19.7 Diarrhea, unspecified
CPT/HCPCS: 36415; 80053; 82150; 83516; 83690; 85025; 86364

== ENCOUNTER 2022-10-03 09:00 | Outpatient (CLI) | payer MEDICARE, OTHER ==
--- NOTE | 2022-10-06 10:13 | Mammography Report ---
BILATERAL DIGITAL SCREENING MAMMOGRAM 3D/2D: 10/03/2022 CLINICAL: Routine screening. Comparison is made to exams dated: 12/21/2020 mammogram, 10/05/2017 mammogram, 11/15/2018 mammogram, mammogram, and 07/03/2015 mammogram - [facility]. There are scattered areas of fibroglandular density in both breasts (category b / 25%-50% glandular t issue). There is a new 0.4 cm oval equal density asymmetry in the left breast posterior depth superior region seen on the mediolateral oblique view only. No other significant masses, calcifications, or other findings are seen in either breast. IMPRESSION: INCOMPLETE: NEEDS ADDITIONAL IMAGING EVALUATION The new 0.4 cm oval equal density asymmetry in the left breast resembles a cyst or a lymph node and i s indeterminate. Additional views with possible ultrasound are recommended. Based on the Tyrer Cuzick model (a risk assessment model) the patients lifetime risk is 5.1% and her 10 year risk is 0.0%. According to the ACR, ACS, and NCCN guidelines, an annual breast MRI exam kemar g with mammogram is recommended if the patients lifetime risk is 20% or greater. This exam was interpreted at Station ID: [id number]. NOTE: For mammograms, a report in lay terms will be sent to the patient. Approximately 15% of breast malignancies will not be visualized mammographically. In the management of a palpable breast mass, a negative mammogram must not discourage biopsy of a clinically suspicious lesion. Electronically Signed By: Randy Kelly M.D. aty/:10/03/2022 12:26:34 ACR BI-RADS Category 0: Incomplete 3340F PARENCHYMAL PATTERN: (A) - The breast(s) demonstrate(s) scattered fibroglandular densities. BI-RADS CATEGORY: (0) - 0 Mammo and [place] [id number] Immediate follow-up LATERALITY: (L)
== END 2022-10-03 09:01 | disposition home or self-care (01) ==
LOC: DI 09:00
DX: Z12.31 Encounter for screening mammogram for malignant neoplasm of breast (principal); R92.8 Other abnormal and inconclusive findings on diagnostic imaging of breast

== ENCOUNTER 2022-10-15 14:50 | Outpatient (CLI) | payer MEDICARE, OTHER ==
[2022-10-15 15:18] LABS: FECAL OCCULT BLOOD (FIT) POSITIVE (NEGATIVE)
[2022-10-15 15:18] LABS: H. PYLORIS ANTIGEN STL NEGATIVE (Negative)
[2022-10-17 14:09] LABS: GIARDIA LAMBLIA AG EIA Negative (Negative)
== END 2022-10-15 14:51 | disposition home or self-care (01) ==
LOC: LAB.R 14:50
PROVIDERS: ATTEND Physician Assistant Medical
DX: K52.9 Noninfective gastroenteritis and colitis, unspecified (principal)
CPT/HCPCS: 82274; 83993; 87045; 87046; 87177; 87329; 87338; 87427; 87493

== ENCOUNTER 2022-11-05 07:51 | Outpatient (CLI) | payer MEDICARE, OTHER ==
--- NOTE | 2022-11-07 11:39 | Mammography Report ---
UNILATERAL LEFT DIGITAL DIAGNOSTIC MAMMOGRAM 3D/2D WITH MEDIOLATERAL OBLIQUE SPOT COMPRESSION: 11/06/19 CLINICAL: Patient returns today to evaluate an asymmetry in the left breast. Comparison is made to exams dated: 10/03/2022 mammogram, 12/21/2020 mammogram, 11/15/2018 mammogram, 10/05 mammogram, and 08/14/2016 mammogram - [facility]. There are scattered areas of fibroglandular density in the left breast (category b / 25%-50% glandula r tissue). There is an asymmetry in the left breast posterior depth superior region seen on the mediolateral obl ique view only. This is seen in additional views. No other significant masses or calcifications are seen in the breast. IMPRESSION: INCOMPLETE: NEEDS ADDITIONAL IMAGING EVALUATION The asymmetry in the left breast is indeterminate. A targeted ultrasound is recommended and will immediately follow. Based on the Tyrer Cuzick model (a risk assessment model) the patients lifetime risk is 5.1% and her 10 year risk is 0.0%. According to the ACR, ACS, and NCCN guidelines, an annual breast MRI exam kemar g with mammogram is recommended if the patients lifetime risk is 20% or greater. This exam was interpreted at Station ID: [id number]. NOTE: For mammograms, a report in lay terms will be sent to the patient. Approximately 15% of breast malignancies will not be visualized mammographically. In the management of a palpable breast mass, a negative mammogram must not discourage biopsy of a clinically suspicious lesion. Electronically Signed By: Villa Gleason M.D. slc/:11/05/2022 09:52:45 ACR BI-RADS Category 0: Incomplete 3340F PARENCHYMAL PATTERN: (A) - The breast(s) demonstrate(s) scattered fibroglandular densities. BI-RADS CATEGORY: (0) - 0 Ultrasound [id number] Immediate follow-up LATERALITY: (B)
--- NOTE | 2022-11-07 11:39 | Ultrasound Report ---
LIMITED ULTRASOUND OF LEFT BREAST: 11/05/2022 Comparison is made to exams dated: 10/03/2022 mammogram, 12/21/2020 mammogram, 11/15/2018 mammogram, and 10/05/2017 mammogram - [facility]. Color flow and real-time ultrasound of the left breast were performed. Coleman scale images of the real -time examination were reviewed. There is a benign 0.9 cm oval normal lymph node with a circumscribed margin in the left axillary tail 10 cm from the nipple. This oval normal lymph node displays fatty hilum. No cortical thickening. IMPRESSION: BENIGN There is no sonographic evidence of malignancy. The oval normal lymph node is benign. A 1 year screening mammogram is recommended. Exam findings were conveyed to the patient. This exam was interpreted at Station ID: [id number]. Electronically Signed By: Villa Gleason M.D. slc/:11/05/2022 10:00:59 Ultrasound BI-RADS: 2 Benign BI-RADS CATEGORY: (2) - 2 Mammogram [id number] 1 year screening LATERALITY: (B)
== END 2022-11-05 07:52 | disposition home or self-care (01) ==
LOC: DI 07:51
PROVIDERS: ATTEND Family Medicine
DX: R92.8 Other abnormal and inconclusive findings on diagnostic imaging of breast (principal)

== ENCOUNTER 2022-11-09 15:18 | Emergency (ER) | payer MEDICARE, OTHER ==
--- OUTSIDE RECORDS SUMMARY | 2022-11-09 16:07 | EXTERNAL MEDICAL SUMMARY RPT | Continuity of Care Document ---
:1945 Author Organization [facility] Address [address] [place] [address] Phone Care Team Providers Name Role Phone Unavailable Unavailable Unavailable Shante Ferreira Unavailable Unavailable Allergies and Intolerances date description facility type (no date) No Known Drug Allergies [facility] (unkn own) Encounters No information. Functional Status No information. Immunizations No information. Medications date description facility 2022-09-04 00:00 [facility]amin[facility] 2022-09-04 00:00 Naproxen [facility] 2022-09-04 00:00 Prednisone [facility] 2022-08-11 00:00 Sertraline [facility] 2022-08-11 00:00 Omeprazole [facility] 2022-09-04 00:00 Amoxicillin-Pot Clavulanate [facility] 2022-08-11 00:00 Metformin [facility] 2022-08-11 00:00 Levothyroxine [facility] Problems date description facility 2022-08-11 10:25 Abnormal weight [facility] 2022-08-11 10:46 Abnormal [facility] 2022-08-11 11:11 Abnormal [facility] 2022-08-11 12:29 Abnormal [facility] 2022-08-11 12:30 Abnormal [facility] 2022-08-11 12:39 Abnormal [facility] 2022-09-04 00:00 Acute parotitis [facility] 2022-09-04 00:00 Lung nodule [facility] 2022-11-05 12:48 Urinary tract infection, site not speci [facility] 2022-11-05 12:48 Hyperglycemia, unspecified [facility] 2022-11-05 12:48 Encounter for preprocedural laboratory [facility] examination 2022-11-05 12:48 Encounter for other preprocedural exami [facility] Procedures date description facility 2022-09-04 00:00 Ultrasound of soft tissue of head and n jose david [facility] 2022-09-04 00:00 CT soft tissue neck [facility] 2022-08-11 00:00 [facility] Results/Labs test date author facility value unit interpret ation Result panel 1 (unknown) (no date) (unknown) [facility]own[facility] unknown) Result panel 2 (unknown) (no [...] (unknown) date) unknown) (unknown) (no (unknown) (unknown) [id number] (units (unkno wn) date) unknown) (unknown) (no [...] (unknown) (unknown) : 1945 (units (unknown) date) Acct:[id number] unknown) (unknown) (no (unknown) (unknown) Date Patient [...] to unknown) inspection (unknown) (no (unknown) (unknown) [facility] (units (unknown) date) [address] unknown) [place] [address] (unknown) (no (unknown) (unknown) Medication (units (unk [...] known) unknown) (unknown) (no date) (unknown) (unknown) [id number] (units (unkn own) unknown) (unknown) (no date) [...] (unknown) : (units (unkn own) 1945 unknown) Acct:[id number] (unknown) (no date) (unknown) (unknown) Date of (units (unkn own) Service: unknown) 08/11/22 (unknown) (no date) (unknown) (unknown) History + (units (unk nown) Physical unknown) reviewed/Exam performed by Physician: Yes (unknown) (no date) (unknown) (unknown) Interval Note (units (unknown) unknown) (unknown) (no date) (unknown) (unknown) [place] [facility] (units (unkn own) [facility] 12[address] unknown) [address] [place] [id number] (unknown) (no date) (unknown) (unknown) Patient: (units (unkn own) Constantino Mcguireice unknown) L MR#: [id number] (unknown) (no date) [...] in 1 (unknown) (no (unknown) (unknown) [address] [place] [address] (units (unknown) date) unknown) (unknown) (no (unknown) (unknown) [address] (units (unknown) date) [address], unknown) [place], [place] [id number] (unknown) (no (unknown) (unknown) [id number] (units (unkno wn) date) unknown) (unknown) (no (unknown) (unknown) [place] (units ( unknown) date) [address] unknown) (unknown) (no (unknown) (unknown) CPT . [...] description: . unknown) (unknown) (no (unknown) (unknown) [facility] (units (unknown) date) unknown) (unknown) (no (unknown) (unknown) [facility] 08/13/2022 (units (unknown) date) 160[address] Local unknown) (unknown) (no (unknown) (unknown) Carole Bello (units (unk nown) date) MD [place], unknown) Pathologist (unknown) (no (unknown) (unknown) [facility] (units ( unknown) date) Number: unknown) [id number] (unknown) (no (unknown) (unknown) [facility] (units (unknown) date) [place] [facility] unknown) (unknown) (no (unknown) (unknown) MD Mcdowell (units (unkn own) date) Patricia HAMM Phone: unknown) [phone] (unknown) (no (unknown) (unknown) (units (unknown) date) Dictating Dr: unknown) Carole Cantu MD (unknown) (no (unknown) (unknown) Material (units (unkno wn) date) submitted: . unknown) (unknown) (no (unknown) (unknown) NPI- [id number] (units (unknown) date) unknown) (unknown) (no (unknown) [...] of this report has been sent to [phone] (unknown) (no (unknown) (unknown) TD/TT: 08/13/22 (units (unknown) date) 2034 unknown) (unknown) (no (unknown) (unknown) cassette(s) (units (un known) date) unknown) (unknown) (no (unknown) (unknown) colon - RANDOM (units (unknown) date) COLON unknown) Result panel 86 (unknown) (no (unknown) (unknown) (no value) (units (unk nown) date) unknown) (unknown) (no (unknown) (unknown) [id number] (units (unkno wn) date) unknown) (unknown) (no [...] (unknown) (unknown) : 1945 (units (unknown) date) Acct:[id number] unknown) (unknown) (no (unknown) (unknown) Date of [...] nknown) date) unknown) (unknown) (no (unknown) (unknown) [facility] (units (unknown) date) [address] unknown) [place] [address] (unknown) (no (unknown) (unknown) Multiple (units (unkno [...] date) decubitus unknown) position. Please see nurse freight and passenger agent notes for (unknown) (no (unknown) (unknown) was evidence of (units (unknown) date) scattered unknown) diverticulosis throughout the sigmoid. No evidence of (unknown) (no (unknown) (unknown) was obtained. (units ( unknown) date) The patient was unknown) brought into the procedure room and placed into Result panel 87 (unknown) (no (unknown) (unknown) (no value) (units (unk nown) date) unknown) (unknown) (no (unknown) (unknown) [id number] (units (unkno wn) date) unknown) (unknown) (no [...] (unknown) (unknown) : 1945 (units (unknown) date) Acct:[id number] unknown) (unknown) (no (unknown) (unknown) Date of [...] (units ( unknown) date) Carole Pulido unknown) PAPERHANGER ASSISTANT (unknown) (no (unknown) (unknown) Emergency Report (units [...] date) Signs: unknown) (unknown) (no (unknown) (unknown) [facility] (units (unknown) date) [address] [place] [address] unknown) [place] [address] (unknown) (no (unknown) (unknown) Ketorolac (units (unkn [...] nown) date) unknown) (unknown) (no (unknown) (unknown) [id number] (units (unkno wn) date) unknown) (unknown) (no [...] (unknown) (unknown) : 1945 (units (unknown) date) Acct:[id number] unknown) (unknown) (no (unknown) (unknown) Date of [...] (units ( unknown) date) Carole Pulido unknown) PAPERHANGER ASSISTANT (unknown) (no (unknown) (unknown) Emergency Report (units [...] date) Signs: unknown) (unknown) (no (unknown) (unknown) [facility] (units (unknown) date) [address] [place] [address] unknown) [place] [address] (unknown) (no (unknown) (unknown) Ketorolac (units (unkn [...] Patient: (units (unkno wn) date) Maricruz Mcguire L unknown) MR#: [id number] (unknown) (no (unknown) [...] a primary unknown) care provider please contact [phone] to (unknown) (no (unknown) (unknown) *Please continue [...] diagnosed with unknown) (unknown) (no (unknown) (unknown) [id number] (units (unkno wn) date) unknown) (unknown) (no [...] (unknown) (unknown) Paz Mo, (units (unknown) date) PAPERHANGER ASSISTANT [Non-Staff] unknown) (unknown) (no (unknown) (unknown) CBC [...] (unknown) (unknown) : 1945 (units (unknown) date) Acct:[id number] unknown) (unknown) (no (unknown) (unknown) Date of [...] (units ( unknown) date) Carole Pulido unknown) PAPERHANGER ASSISTANT (unknown) (no (unknown) (unknown) Emergency Report (units [...] for unknown) Lymphadenopathy (unknown) (no (unknown) (unknown) [facility] (units (unknown) date) [address] [place] [address] unknown) [place] [address] (unknown) (no (unknown) (unknown) Ketorolac (units (unkn [...] (unknown) date) with one of the unknown) [facility] primary care providers. (unknown) (no (unknown) (unknown) [...] a primary unknown) care provider please contact [phone] to (unknown) (no (unknown) (unknown) *Please continue [...] diagnosed with unknown) (unknown) (no (unknown) (unknown) [id number] (units (unkno wn) date) unknown) (unknown) (no [...] (unknown) (unknown) Paz Mo, (units (unknown) date) PAPERHANGER ASSISTANT [Non-Staff] unknown) (unknown) (no (unknown) (unknown) CBC [...] (unknown) (unknown) : 1945 (units (unknown) date) Acct:[id number] unknown) (unknown) (no (unknown) (unknown) Date of [...] (unknown) ER Physician: (units ( unknown) date) Crew,Carole Treviño unknown) PAPERHANGER ASSISTANT (unknown) (no (unknown) (unknown) Emergency Report (units [...] for unknown) Lymphadenopathy (unknown) (no (unknown) (unknown) [facility] (units (unknown) date) [address] unknown) [place] [address] (unknown) (no (unknown) (unknown) Ketorolac (units (unkn [...] (unknown) date) with one of the unknown) [facility] primary care providers. (unknown) (no (unknown) (unknown) [...] nown) date) unknown) (unknown) (no (unknown) (unknown) [id number] (units (unkn own) date) unknown) (unknown) (no (unknown) (unknown) 09/04/22 (units (unkno wn) date) unknown) (unknown) (no (unknown) (unknown) 1. Asymmetric (units ( unknown) date) enlargement of the unknown) left parotid gland with internal lobulated (unknown) (no (unknown) (unknown) [address] (units (unknown) date) unknown) (unknown) (no (unknown) (unknown) 2. Prominent (units (u nknown) date) subcentimeter left unknown) cervical lymph nodes are likely reactive. (unknown) (no (unknown) (unknown) 3. Small (units (unkno wn) date) nonspecific right unknown) upper lobe pulmonary nodule. If patient is at high (unknown) (no (unknown) (unknown) Accession Number: (units (unknown) date) [id number] unknown) (unknown) (no (unknown) (unknown) After the (units (unkn own) date) administration of unknown) intravenous contrast, 3.0 mm axial sections (unknown) (no (unknown) (unknown) Age/Sex: 77 / F (units (unknown) date) Date of Service: unknown) (unknown) (no (unknown) (unknown) [place], [place] (units ( unknown) date) [address] unknown) (unknown) (no (unknown) (unknown) Approved by: (units (u nknown) date) Jeremias Salcedo unknownSandie Del Castillo on 09/04/2022 at 22:35 (unknown) (no (unknown) (unknown) Bones: No (units (unkn own) date) suspicious bony unknown) lesions. Visualized sinuses demonstrate mild (unknown) (no (unknown) (unknown) COMPARISON: None. (units (unknown) date) unknown) (unknown) (no (unknown) (unknown) CT Scan Report (units (unknown) date) unknown) (unknown) (no (unknown) (unknown) : 1945 (units (unknown) date) Acct:[id number] unknown) (unknown) (no (unknown) (unknown) Dictated by: (units (u nknown) date) Jeremias Salcedo unknownSandie Del Castillo on 09/04/2022 at 22:28 (unknown) (no (unknown) [...] to patient's dental (unknown) (no (unknown) (unknown) [facility] (units (unknown) date) unknown) (unknown) (no (unknown) [...] Ordering (units (unkno wn) date) Provider: unknown) Carole Pulido (unknown) (no (unknown) (unknown) PROCEDURE: CT (units ( unknown) date) SOFT TISSUE NECK W unknown) CON (unknown) (no (unknown) (unknown) Patient: (units (unkno wn) date) Maricruz Mcguire L unknown) MR#: M (unknown) (no (unknown) [...] a primary unknown) care provider please contact [phone] to (unknown) (no (unknown) (unknown) *Please continue [...] diagnosed with unknown) (unknown) (no (unknown) (unknown) [id number] (units (unkno wn) date) unknown) (unknown) (no [...] (unknown) Paz Mo S, (units (unknown) date) PAPERHANGER ASSISTANT [Non-Staff] unknown) (unknown) (no (unknown) (unknown) CBC [...] (unknown) (unknown) : 1945 (units (unknown) date) Acct:[id number] unknown) (unknown) (no (unknown) (unknown) Date of [...] (unknown) I, Carole Crew, (units (unknown) date) PAPERHANGER ASSISTANT, personally unknown) performed the services described in the (unknown) (no (unknown) (unknown) Initial Vital (units ( unknown) date) Signs unknown) (unknown) (no (unknown) (unknown) Initial Vital (units ( unknown) date) Signs: unknown) (unknown) (no (unknown) (unknown) Instructions: DI (units (unknown) date) for unknown) Lymphadenopathy (unknown) (no (unknown) (unknown) [facility] (units (unknown) date) [address] unknown) [place] [address] (unknown) (no (unknown) (unknown) Ketorolac (units (unkn [...] Patient: (units (unkno wn) date) Maricruz Mcguire L unknown) MR#: [id number] (unknown) (no (unknown) (unknown) Portions of this (units (unknown) date) chart have been unknown) created with [employer] voice recognition software. (unknown) (no (unknown) (unknown) [...] (unknown) date) with one of the unknown) [facility] primary care providers. (unknown) (no (unknown) (unknown) [...] a primary unknown) care provider please contact [phone] to (unknown) (no (unknown) (unknown) *Please continue [...] diagnosed with unknown) (unknown) (no (unknown) (unknown) [id number] (units (unkno wn) date) unknown) (unknown) (no [...] (unknown) (unknown) Paz Mo, (units (unknown) date) PAPERHANGER ASSISTANT [Non-Staff] unknown) (unknown) (no (unknown) (unknown) C-Reactive [...] (unknown) (unknown) : 1945 (units (unknown) date) Acct:[id number] unknown) (unknown) (no (unknown) (unknown) Date of [...] (unknown) (unknown) Carole Archer, (units (unknown) date) ALINA, personally unknown) performed [...] for unknown) Lymphadenopathy (unknown) (no (unknown) (unknown) [facility] (units (unknown) date) [address] [place] [address] unknown) [place] [address] (unknown) (no (unknown) (unknown) Ketorolac (units (unkn [...] Lymph # (Auto) (units (unknown) date) 3600 (2618-9803) unknown) /uL (unknown) (no (unknown) (unknown) Lymph [...] Family Vehicle unknown) (unknown) (no (unknown) (unknown) [place] # (Auto) 800 (units (unknown) date) (0-900) /uL unknown) (unknown) (no (unknown) (unknown) [place] % (Auto) 6.0 (units (unknown) date) (3-14) % unknown) (unknown) (no (unknown) (unknown) Narrative (units (unkn own) date) unknown) (unknown) (no (unknown) (unknown) Neuro: normal (units ( unknown) date) speech and unknown) cognition, A+O x3, ambulatory, clear speech (unknown) (no (unknown) (unknown) Neut # (Auto) (units ( unknown) date) 9100 H (6742-3930) unknown) /uL (unknown) (no (unknown) (unknown) Neut [...] Patient: (units (unkno wn) date) Maricruz Mcguire L unknown) MR#: [id number] (unknown) (no (unknown) (unknown) Plt Count 319 (units ( unknown) date) (150-400) X103/uL unknown) (unknown) (no (unknown) (unknown) Portions of this (units (unknown) date) chart have been unknown) created with [employer] voice recognition software. (unknown) (no (unknown) (unknown) [...] 09/04/22 unknown) @ 20:43 by Carole Pulido PAPERHANGER ASSISTANT) (unknown) (no (unknown) (unknown) Social (units (unkno [...] (unknown) date) with one of the unknown) [facility] primary care providers. (unknown) (no (unknown) (unknown) [...] a primary care unknown) provider please contact [phone] to (unknown) (no (unknown) (unknown) *Please continue [...] diagnosed with unknown) (unknown) (no (unknown) (unknown) [id number] (units (unkno wn) date) unknown) (unknown) (no [...] (unknown) Paz Mo S, (units (unknown) date) PAPERHANGER ASSISTANT [Non-Staff] unknown) (unknown) (no (unknown) (unknown) C-Reactive [...] (unknown) (unknown) : 1945 (units (unknown) date) Acct:[id number] unknown) (unknown) (no (unknown) (unknown) Date of [...] the following imaging (unknown) (no (unknown) (unknown) ICarole Crew, (units (unknown) date) PAPERHANGER ASSISTANT, personally unknown) performed the services described in [...] for Lymphadenopathy unknown) (unknown) (no (unknown) (unknown) [facility] (units (unknown) date) [address] unknown) [place] [address] (unknown) (no (unknown) (unknown) Ketorolac (units (unkn [...] # (Auto) 3600 (unit s (unknown) date) (5199-2916) /uL unknown) (unknown) (no (unknown) (unknown) Lymph [...] Family Vehicle unknown) (unknown) (no (unknown) (unknown) [place] # (Auto) 800 (units (unknown) date) (0-900) /uL unknown) (unknown) (no (unknown) (unknown) [place] % (Auto) 6.0 (units (unknown) date) (3-14) % unknown) (unknown) (no (unknown) (unknown) Narrative (units (unkn own) date) unknown) (unknown) (no (unknown) (unknown) Neuro: normal (units ( unknown) date) speech and unknown) cognition, A+O x3, ambulatory, clear speech (unknown) (no (unknown) (unknown) Neut # (Auto) 9100 (units (unknown) date) H (9764-5622) /uL unknown) (unknown) (no (unknown) (unknown) Neut [...] Patient: (units (unkno wn) date) Maricruz Mcguire L unknown) MR#: [id number] (unknown) (no (unknown) (unknown) Plt Count 319 (units ( unknown) date) (150-400) X103/uL unknown) (unknown) (no (unknown) (unknown) Portions of this (units (unknown) date) chart have been unknown) created with [employer] voice recognition software. (unknown) (no (unknown) (unknown) [...] 09/04/22 @ unknown) 20:43 by Carole Pulido [facility]) (unknown) (no (unknown) (unknown) Social determinants (unit [...] date) cigarettes 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) on-site, ordered IV [...] a primary care unknown) provider please contact [phone] to (unknown) (no (unknown) (unknown) *Please continue [...] diagnosed with unknown) (unknown) (no (unknown) (unknown) [id number] (units (unkno wn) date) unknown) (unknown) (no [...] (unknown) Paz Mo S, (units (unknown) date) PAPERHANGER ASSISTANT [Non-Staff] unknown) (unknown) (no (unknown) (unknown) C-Reactive [...] (unknown) (unknown) : 1945 (units (unknown) date) Acct:[id number] unknown) (unknown) (no (unknown) (unknown) Date of [...] (unknown) Electronically (units (unknown) date) signed by: ALINA Costello (unknown) (no (unknown) (unknown) Emergency Report (units [...] (unknown) I, Carole Pulido, (units (unknown) date) PAPERHANGER ASSISTANT, personally unknown) performed the services described in [...] for Lymphadenopathy unknown) (unknown) (no (unknown) (unknown) [facility] (units (unknown) date) [address] [place] [address] unknown) [place] [address] (unknown) (no (unknown) (unknown) Ketorolac (units (unkn [...] # (Auto) 3600 (unit s (unknown) date) (3871-6809) /uL unknown) (unknown) (no (unknown) (unknown) Lymph [...] Family Vehicle unknown) (unknown) (no (unknown) (unknown) [place] # (Auto) 800 (units (unknown) date) (0-900) /uL unknown) (unknown) (no (unknown) (unknown) [place] % (Auto) 6.0 (units (unknown) date) (3-14) % unknown) (unknown) (no (unknown) (unknown) Narrative (units (unkn own) date) unknown) (unknown) (no (unknown) (unknown) Neuro: normal (units ( unknown) date) speech and unknown) cognition, A+O x3, ambulatory, clear speech (unknown) (no (unknown) (unknown) Neut # (Auto) 9100 (units (unknown) date) H (4193-1628) /uL unknown) (unknown) (no (unknown) (unknown) Neut [...] date) chart have been unknown) created with [employer] voice recognition software. (unknown) (no (unknown) (unknown) [...] date) (Reviewed 09/04/22 @ unknown) 20:43 by ALINA Stevenson) (unknown) (no (unknown) (unknown) Social determinants (unit [...] (unknown) date) one of the [place] unknown) [facility] primary care providers. (unknown) (no (unknown) (unknown) [...] date) cigarettes 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) on-site, ordered IV [...] a primary care unknown) provider please contact [phone] to (unknown) (no (unknown) (unknown) *Please continue [...] diagnosed with unknown) (unknown) (no (unknown) (unknown) [id number] (units (unkno wn) date) unknown) (unknown) (no [...] (unknown) Paz Mo S, (units (unknown) date) PAPERHANGER ASSISTANT [Non-Staff] unknown) (unknown) (no (unknown) (unknown) C-Reactive [...] (unknown) (unknown) : 1945 (units (unknown) date) Acct:[id number] unknown) (unknown) (no (unknown) (unknown) Date of [...] the following imaging (unknown) (no (unknown) (unknown) I Carole Crew, (units (unknown) date) ALINA, personally unknown) [...] for Lymphadenopathy unknown) (unknown) (no (unknown) (unknown) [facility] (units (unknown) date) [address] [place] [address] unknown) [place] [address] (unknown) (no (unknown) (unknown) Ketorolac (units (unkn [...] # (Auto) 3600 (unit s (unknown) date) (8832-2723) /uL unknown) (unknown) (no (unknown) (unknown) Lymph [...] Family Vehicle unknown) (unknown) (no (unknown) (unknown) [place] # (Auto) 800 (units (unknown) date) (0-900) /uL unknown) (unknown) (no (unknown) (unknown) [place] % (Auto) 6.0 (units (unknown) date) (3-14) % unknown) (unknown) (no (unknown) (unknown) Narrative (units (unkn own) date) unknown) (unknown) (no (unknown) (unknown) Neuro: normal (units ( unknown) date) speech and unknown) cognition, A+O x3, ambulatory, clear speech (unknown) (no (unknown) (unknown) Neut # (Auto) 9100 (units (unknown) date) H (8870-6893) /uL unknown) (unknown) (no (unknown) (unknown) Neut [...] date) chart have been unknown) created with [employer] voice recognition software. (unknown) (no (unknown) (unknown) [...] 09/04/22 @ unknown) 20:43 by Carole Pulido [facility]) (unknown) (no (unknown) (unknown) Social determinants (unit [...] date) cigarettes 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) on-site, ordered IV [...] (unknown) (unknown) <Carole Pulido, (units (unknown) date) [facility] - Last Filed: unknown) 09/04/22 21:42> (unknown) (no (unknown) (unknown) <Tomi Young DO (unit s (unknown) date) - Last Filed: unknown) 09/04/22 22:58> (unknown) (no (unknown) (unknown) [id number] (units (unkno wn) date) unknown) (unknown) (no [...] date) unknown) (unknown) (no (unknown) (unknown) [address] [facility] (units (unknown) date) unknown) (unknown) (no (unknown) [...] (unknown) (unknown) Accession Number: (units (unknown) date) [id number] ?? unknown) (unknown) (no (unknown) (unknown) Acct:[id number] (units (unknown) date) unknown) (unknown) (no (unknown) [...] NOW (unknown) (no (unknown) (unknown) JANY Larose [address] (unit s (unknown) date) unknown) (unknown) (no [...] (unknown) Paz Mo S, (units (unknown) date) PAPERHANGER ASSISTANT [Non-Staff] unknown) (unknown) (no (unknown) (unknown) C-Reactive [...] (unknown) (unknown) : 1945 (units (unknown) date) Acct:[id number] unknown) (unknown) (no (unknown) (unknown) : 1945 [...] date) Parotitis unknown) (unknown) (no (unknown) (unknown) [facility] (units (unknown) date) [address] unknown) [place] [address] (unknown) (no (unknown) (unknown) [facility] (units (unknown) date) unknown) (unknown) (no (unknown) [...] # (Auto) 3600 (unit s (unknown) date) (7377-9644) /uL unknown) (unknown) (no (unknown) (unknown) Lymph [...] MIPS criteria. (unknown) (no (unknown) (unknown) MR#: [id number] (units (unknown) date) unknown) (unknown) (no (unknown) [...] Family Vehicle unknown) (unknown) (no (unknown) (unknown) [place] # (Auto) 800 (units (unknown) date) (0-900) /uL unknown) (unknown) (no (unknown) (unknown) [place] % (Auto) 6.0 (units (unknown) date) (3-14) [...] # (Auto) 9100 (units (unknown) date) H (4087-2233) /uL unknown) (unknown) (no (unknown) (unknown) Neut [...] (units (unkno wn) date) Maricruz Mcguire unknown) (unknown) (no (unknown) (unknown) Plt Count 319 (units ( unknown) date) (150-400) X103/uL unknown) (unknown) (no (unknown) (unknown) Portions of this (units (unknown) date) chart have been unknown) created with [employer] voice recognition software. (unknown) (no (unknown) (unknown) [...] date) (Reviewed 09/04/22 @ unknown) 20:43 by ALINA Stevenson) (unknown) (no (unknown) (unknown) Social determinants (unit [...] (unknown) (unknown) Urine Specific (units (unknown) date) [place] 1.010 unknown) (unknown) (no (unknown) (unknown) Vessels:? [...] date) cigarettes 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) on-site, ordered IV [...] date) signed by Carole Treviño unknown) ALINA Crew> (unknown) (no (unknown) (unknown) <Electronically (units (unknown) date) signed by Tomi unknown) Siena Young> (unknown) (no (unknown) (unknown) <Carole Pulido, (units (unknown) date) [facility] - Last Filed: unknown) 09/05/22 09:56> (unknown) (no (unknown) (unknown) <Tomi Young DO (unit s (unknown) date) - Last Filed: unknown) 09/04/22 22:58> (unknown) (no (unknown) (unknown) [id number] (units (unkno wn) date) unknown) (unknown) (no [...] date) unknown) (unknown) (no (unknown) (unknown) [address] [place] [address] (units (unknown) date) unknown) (unknown) (no (unknown) [...] (unknown) (unknown) Accession Number: (units (unknown) date) [id number] ?? 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] unknown) (unknown) (no (unknown) (unknown) C-Reactive [...] (unknown) (unknown) : 1945 (units (unknown) date) Acct:[id number] unknown) (unknown) (no (unknown) (unknown) : 1945 [...] the following imaging (unknown) (no (unknown) (unknown) [place], (units (unknown) date) ALINA, personally unknown) performed [...] date) Parotitis unknown) (unknown) (no (unknown) (unknown) [facility] (units (unknown) date) [address] [place] [address] unknown) [place] [address] (unknown) (no (unknown) (unknown) [facility] (units (unknown) date) unknown) (unknown) (no (unknown) [...] # (Auto) 3600 (unit s (unknown) date) ([phone]) /uL unknown) (unknown) (no (unknown) (unknown) Lymph [...] MIPS criteria. (unknown) (no (unknown) (unknown) MR#: [id number] (units (unknown) date) unknown) (unknown) (no (unknown) [...] Family Vehicle unknown) (unknown) (no (unknown) (unknown) [place] # (Auto) 800 (units (unknown) date) (0-900) /uL unknown) (unknown) (no (unknown) (unknown) [place] % (Auto) 6.0 (units (unknown) date) (3-14) [...] # (Auto) 9100 (units (unknown) date) H (5499-5716) /uL unknown) (unknown) (no (unknown) (unknown) Neut [...] (units (unkno wn) date) Maricruz Mcguire unknown) (unknown) (no (unknown) (unknown) Plt Count 319 (units ( unknown) date) (150-400) X103/uL unknown) (unknown) (no (unknown) (unknown) Portions of this (units (unknown) date) chart have been unknown) created with [employer] voice recognition software. (unknown) (no (unknown) (unknown) [...] date) (Reviewed 09/04/22 @ unknown) 20:43 by ALINA Stevenson) (unknown) (no (unknown) (unknown) Social determinants (unit [...] (unknown) (unknown) Urine Specific (units (unknown) date) [place] 1.010 unknown) (unknown) (no (unknown) (unknown) Vessels:? [...] date) augmentin. 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) on-site, ordered IV [...] (units (unk nown) AFTER 5 DAYS unknown) Result panel 108 (unknown) (no date) (unknown) (unknown) >=1.030 (units (unkn own) unknown) (unknown) (no date) (unknown) (unknown) 0.2 e.u./dl (unkn own) (unknown) (no date) (unknown) (unknown) 1 (units (unkn own) unknown) (unknown) (no date) (unknown) (unknown) 5.0 (units (unkn own) unknown) (unknown) (no date) (unknown) (unknown) CLEAR (units (unkn own) unknown) (unknown) (no date) (unknown) (unknown) NEGATIVE (units (unkn own) unknown) (unknown) (no date) (unknown) (unknown) NEGATIVE g/dl (unkn own) (unknown) (no date) (unknown) (unknown) ORANGE (units (unkn own) unknown) (unknown) (no date) (unknown) (unknown) ORANGE (units (unkn own) unknown) (unknown) (no date) (unknown) (unknown) TRACE (units (unkn own) unknown) Result panel 109 (unknown) (no date) (unknown) (unknown) >=1.030 (units (unkn own) unknown) (unknown) (no date) (unknown) (unknown) 0.2 e.u./dl (unkn own) (unknown) (no date) (unknown) (unknown) 1 (units (unkn own) unknown) (unknown) (no date) (unknown) (unknown) 5-10 /HPF (units (unk nown) unknown) (unknown) (no date) (unknown) (unknown) 5.0 (units (unkn own) unknown) (unknown) (no date) (unknown) (unknown) CLEAR (units (unkn own) unknown) (unknown) (no date) (unknown) (unknown) Cult Not (units (unkn own) Indicated unknown) (unknown) (no date) (unknown) (unknown) NEGATIVE (units (unkn own) unknown) (unknown) (no date) (unknown) (unknown) NEGATIVE g/dl (unkn own) (unknown) (no date) (unknown) (unknown) Negative (units (unkn own) unknown) (unknown) (no date) (unknown) (unknown) None Seen (units (unk nown) unknown) (unknown) (no date) (unknown) (unknown) None Seen (units (unk nown) unknown) (unknown) (no date) (unknown) (unknown) ORANGE (units (unkn own) unknown) (unknown) (no date) (unknown) (unknown) ORANGE (units (unkn own) unknown) (unknown) (no date) (unknown) (unknown) TRACE (units (unkn own) unknown) Result panel 110 (unknown) (no date) (unknown) (unknown) 0 /ul (unkn own) (unknown) (no date) (unknown) (unknown) 0 /ul (unkn own) (unknown) (no date) (unknown) (unknown) 0.1 % (unkn own) (unknown) (no date) (unknown) (unknown) 0.2 % (unkn own) (unknown) (no date) (unknown) (unknown) [id number] /ul (unkn own) (unknown) (no date) (unknown) (unknown) 1200 /ul (unkn own) (unknown) (no date) (unknown) (unknown) 15.6 x10 3/ul (unkn own) (unknown) (no date) (unknown) (unknown) 17.6 % (unkn own) (unknown) (no date) (unknown) (unknown) 17.7 % (unkn own) (unknown) (no date) (unknown) (unknown) 2800 /ul (unkn own) (unknown) (no date) (unknown) (unknown) 29.0 pg (unkn own) (unknown) (no date) (unknown) (unknown) 3.34 x10 6/ul (unkn own) (unknown) (no date) (unknown) (unknown) 30.1 % (unkn own) (unknown) (no date) (unknown) (unknown) 309 x10 3/ul (unkn own) (unknown) (no date) (unknown) (unknown) 32.2 % (unkn own) (unknown) (no date) (unknown) (unknown) 7.4 % (unkn own) (unknown) (no date) (unknown) (unknown) 74.6 % (unkn own) (unknown) (no date) (unknown) (unknown) 9.7 g/dl (unkn own) (unknown) (no date) (unknown) (unknown) 90.0 fl (unkn own) Result panel 111 (unknown) (no date) (unknown) (unknown) > 60 ml/min (unkn own) (unknown) (no date) (unknown) (unknown) > 60 ml/min (unkn own) (unknown) (no date) (unknown) (unknown) 0.80 mg/dl (unkn own) (unknown) (no date) (unknown) (unknown) 102 mmol/l (unkn own) (unknown) (no date) (unknown) (unknown) 105 mg/dl (unkn own) (unknown) (no date) (unknown) (unknown) 105 mg/dl (unkn own) (unknown) (no date) (unknown) (unknown) 134 mmol/l (unkn own) (unknown) (no date) (unknown) (unknown) 16 mg/dl (unkn own) (unknown) (no date) (unknown) (unknown) 20.0 (units unknown) (unknown) (unknown) (no date) (unknown) (unknown) 27 mmol/l (unkn own) (unknown) (no date) (unknown) (unknown) 4.3 mmol/l (unkn own) (unknown) (no date) (unknown) (unknown) 8.6 mg/dl (unkn own) Result panel 112 (unknown) (no date) (unknown) (unknown) 5.2 % (unkn own) (unknown) (no date) (unknown) (unknown) 5.2 % (unkn own) Social History date description facility 2022-08-11 00:00 Ex-smoker (finding) [facility] 2022-09-04 00:00 Ex-smoker (finding) [facility] Vital Signs date measurement value units 2022-08-11 [...]
--- NOTE | 2022-11-09 16:29 | ED Physician Documentation ---
History of Present Illness - Stated complaint Stated Complaint: STOMACH ACHES/DIARRHEA - Chief complaint Chief Complaint: Abd Pain - History obtained from History obtained from: Patient - Additonal information Additional information: The patient comes to the emergency department chief complaint of abdominal cramps and diarrhea over the last 3 days. She states she was just treated for C. difficile approximately 3 weeks ago and that she is not sure what antibiotic she was on for this, but it did seem to get rid of her symptoms. She went to [place] right afterward and was there for approximately week. She states she did not have any symptoms in [place] but about 3 days after she returned, she began to notice recurrence of the abdominal pain and diarrhea. The patient states she gets cramps and sometimes they can be quite bad. She denies any nausea or vomiting. She is had a little bit of chills but no fever. No dysuria. No other complaints at this time. 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 - Present Medications Home Medications: Ambulatory Orders Medication Instructions Recorded Confirmed Hydrocodone/Acetaminophen 1 each PO PRN PRN 06/10/21 10/17/22 [Hydrocodone-Acetamin 10-325 mg] metFORMIN [Glucophage] 500 mg PO BID 11/27/21 10/17/22 Levothyroxine [Synthroid] 25 mcg PO DAILY 06/13/22 10/17/22 Omeprazole 20 mg PO DAILY 06/13/22 10/17/22 - Allergies Allergies/Adverse Reactions: Allergies Allergy/AdvReac Type Severity Reaction Status Date / Time amlodipine Allergy Unknown Verified 11/09/22 15:40 sulfamethoxazole Allergy Unknown Verified 11/09/22 15:40 [From ] trimethoprim [From ] Allergy Unknown Verified 11/09/22 15:40 NSAIDS (Non-Steroidal AdvReac Unknown Verified 11/09/22 15:40 Anti-Inflamma - Social History Does the pt smoke?: No Smoking Status: Unknown if ever smoked Does the pt drink ETOH?: Yes Does the pt have substance abuse?: No - Immunizations Immunizations are current?: Yes PD ED PE NORMAL - Vitals Vital signs reviewed: Yes - General General: Alert and oriented X 3, No acute distress, Well developed/nourished - HEENT HEENT: Atraumatic, PERRL, EOMI, Moist mucous membranes - Neck Neck: Supple, no meningeal sign - Cardiac Cardiac: RRR, No murmur, Strong equal pulses - Respiratory Respiratory: No respiratory distress, Clear bilaterally - Abdomen Abdomen: Soft, Non tender, Non distended - Derm Derm: Normal color, Warm and dry, No rash - Extremities Extremities: No deformity, No edema - Neuro Neuro: Alert and oriented X 3 - Psych Psych: Normal mood, Normal affect Results - Vitals Vitals: Oxygen O2 Source Room air PD Medical Decision Making - ED course Complexity details: reviewed results, re-evaluated patient, considered differential, d/w patient ED course: I ordered a C. difficile PCR on the patient as well as stool culture. However, despite being allowed to stay in the ED for nearly 3 hours and having food delivered that the pt felt was sure to cause her bowels to move, the pt was never able to give a sufficient stool sample, and the tiny bit of stool she did put out was actually fairly solid. I discussed with her that she is not showing evidence of having significant diarrhea, and overall, is actually very well- appearing. I am going to discharge her home, because there is not an emergent condition, and she cannot be kept in the ED indefinitely, just because it is more convenient to come here than to work with her PCP on getting a test. I have d/w pt that this may very likely just be the same viral illness that is going around within the community. Nonetheless, we have given her a cup to collect a sample at home to bring to her PCP. Departure - Departure Disposition: Home, Self Care Clinical Impression: Diarrhea Qualifiers: Diarrhea type: unspecified type Qualified Code(s): R19.7 - Diarrhea, unspecified Condition: Stable Instructions: ED Abdominal Pain Female Non-Specific Abdominal Pain, ED Diet Vomiting Diarrhea Comments: At this point in time, it is not clear what is causing your diarrhea. It is possible that you have C. difficile again, but given the lack of production of diarrhea during your stay in the ED, even with eating, this is less likely to be the cause. It is very possible that you picked up one of the many viral illnesses that are causing similar symptoms and going around right now. The most appropriate venue for stool testing would be through an order from your doctor's office for our laboratory here at the hospital to test your stool. Please call their office first thing in the morning to request an order for a stool culture and C. difficile toxin. Collect a stool sample in the cup that we have given you as close to the time of drop-off is possible. In the meantime, drink plenty of fluids to stay hydrated. You may continue to take your probiotics as desired. If you become very dehydrated and faint, or develop a high heart rate, please return to the emergency department. Discharge Date/Time: 11/09/22 18:05
[2022-11-09 18:01] VITALS: BP 113/72
== END 2022-11-09 18:05 | disposition home or self-care (01) ==
LOC: ED 15:18
DX: R19.7 Diarrhea, unspecified (principal); I10 Essential (primary) hypertension; E11.9 Type 2 diabetes mellitus without complications; Z79.84 Long term (current) use of oral hypoglycemic drugs; Z79.899 Other long term (current) drug therapy
CPT/HCPCS: 87507; 99283

== ENCOUNTER 2022-11-10 08:00 | Outpatient (CLI) | payer MEDICARE, OTHER | END 2022-11-10 23:59 | disposition home or self-care (01) | LOC: LAB 08:00 | PROVIDERS: ATTEND Registered Nurse | DX: K52.9 Noninfective gastroenteritis and colitis, unspecified (principal) | CPT/HCPCS: 87045; 87046; 87427; 87493 ==

== ENCOUNTER 2022-11-28 10:14 | Outpatient (CLI) | payer MEDICARE, OTHER ==
[2022-11-28 10:44] LABS: BASOPHILS % (AUTO) 0.6 %; EOSINOPHILS # (AUTO) 0.1 10^3/uL (0.0-0.7); EOSINOPHILS % (AUTO) 0.8 %; HGB - HEMOGLOBIN 10.4 g/dL (12.0-16.0); LYMPHOCYTES % (AUTO) 42.6 %; MEAN CORPUSCULAR HEMOGLOBIN 29.3 pg (27.0-31.0); MEAN CORPUSCULAR HGB CONC 30.6 g/dL (32.0-36.0); MEAN CORPUSCULAR VOLUME 95.8 fL (81.0-99.0); MEAN PLATELET VOLUME 8.9 fL (7.9-10.8); MONOCYTES # (AUTO) 0.4 10^3/uL (0.0-1.0); NEUTROPHILS # (AUTO) 3.6 10^3/uL (1.5-6.6); NEUTROPHILS % (AUTO) 49.9 %; PLT - PLATELET COUNT 373 10^3/uL (130-450); RED BLOOD COUNT 3.55 10^6/uL (4.20-5.40); RED CELL DISTRIBUTION WIDTH 14.6 % (12.0-15.0); WHITE BLOOD COUNT 7.1 x10^3/uL (4.8-10.8)
[2022-11-28 10:51] LABS: CALCIUM 9.4 mg/dL (8.5-10.3); CREATININE 0.8 mg/dL (0.4-1.0); POTASSIUM 4.3 mmol/L (3.5-5.0)
[2022-11-28 11:47] LABS: ESTIMATED AVERAGE GLUCOSE 103 mg/dL (70-100); HEMOGLOBIN A1c% 5.2 % (4.27-6.07)
== END 2022-11-28 10:15 | disposition home or self-care (01) ==
LOC: LAB 10:14
PROVIDERS: ATTEND Orthopaedic Surgery
DX: Z01.818 Encounter for other preprocedural examination (principal); D64.9 Anemia, unspecified; G47.33 Obstructive sleep apnea (adult) (pediatric); E11.9 Type 2 diabetes mellitus without complications
CPT/HCPCS: 36415; 80048; 82985; 83036; 85025; 87640; 93005

== ENCOUNTER 2022-12-10 13:33 | Outpatient (CLI) | payer MEDICARE, OTHER | END 2022-12-10 13:34 | disposition home or self-care (01) | LOC: LAB 13:33 | PROVIDERS: ATTEND Internal Medicine Gastroenterology | DX: R19.7 Diarrhea, unspecified (principal); B96.89 Other specified bacterial agents as the cause of diseases classified elsewhere | CPT/HCPCS: 87493 ==

== ENCOUNTER 2023-01-04 08:00 | Outpatient (CLI) | payer MEDICARE, OTHER | END 2023-01-04 23:59 | disposition home or self-care (01) | LOC: LAB.R 08:00 | PROVIDERS: ATTEND Internal Medicine Gastroenterology | DX: R19.7 Diarrhea, unspecified (principal); B96.89 Other specified bacterial agents as the cause of diseases classified elsewhere | CPT/HCPCS: 87493 ==

== ENCOUNTER 2023-02-13 08:16 | Outpatient (CLI) | payer MEDICARE, OTHER ==
[2023-02-13 11:27] LABS: ESTIMATED AVERAGE GLUCOSE 126 mg/dL (70-100)
== END 2023-02-13 08:17 | disposition home or self-care (01) ==
LOC: LAB 08:16
PROVIDERS: ATTEND Orthopaedic Surgery
DX: Z01.812 Encounter for preprocedural laboratory examination (principal); G47.33 Obstructive sleep apnea (adult) (pediatric); E11.9 Type 2 diabetes mellitus without complications; D64.9 Anemia, unspecified
CPT/HCPCS: 36415; 80048; 82985; 83036; 85025; 87640; 93005

== ENCOUNTER 2023-02-15 10:18 | Emergency (ER) | payer MEDICARE, OTHER ==
[2023-02-15 10:35] VITALS: BP 150/68
--- OUTSIDE RECORDS SUMMARY | 2023-02-15 10:35 | EXTERNAL MEDICAL SUMMARY RPT | Continuity of Care Document ---
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 Role Phone Unavailable Unavailable Unavailable Shante Ferreira Unavailable Unavailable Allergies and Intolerances date description facility type (no date) NSAIDS (Non-Steroidal Anti-Inflamma [facility] (unknown) Medications date description facility 2022-12-08 00:00 Hydrocodone-Acetaminophen [facility] Problems date description facility 2022-12-08 10:07 Iron deficiency anemia, [facility] 2022-12-08 11:06 Iron deficiency anemia, [facility] 2022-12-08 12:27 Iron deficiency anemia, [facility] 2022-12-08 12:34 Iron deficiency anemia, [facility] 2022-12-08 12:55 Iron deficiency anemia, [facility] Procedures date description facility 2022-12-08 00:00 Esophagogastroduodenoscopy [facility] Results/Labs test date author facility value unit interpretation Result panel 1 (unknown) (no date) (unknown) (unknown) (no value) (units unknown) 79880-9 (unknown) (no date) (unknown) (unknown) (no value) (units unknown) 78849-9 (unknown) (no date) (unknown) (unknown) (no value) (units unknown) 43827-8 (unknown) (no date) (unknown) (unknown) (no value) (units unknown) 07637-7 (unknown) (no date) (unknown) (unknown) (no value) (units unknown) 36421-5 (unknown) (no date) (unknown) (unknown) (no value) (units unknown) 31077-0 (unknown) (no date) (unknown) (unknown) (no value) (units unknown) 46524-5 (unknown) (no date) (unknown) (unknown) (no value) (units unknown) (unknown) (unknown) (no date) (unknown) (unknown) (no value) (units unknown) (unknown) (unknown) (no date) (unknown) (unknown) (no value) (units unknown) (unknown) (unknown) (no date) (unknown) (unknown) (no value) (units unknown) (unknown) (unknown) (no date) (unknown) (unknown) (no value) (units unknown) (unknown) (unknown) (no date) (unknown) (unknown) (no value) (units unknown) (unknown) (unknown) (no date) (unknown) (unknown) (no value) (units unknown) (unknown) Result panel 2 (unknown) (no date) (unknown) (unknown) (no value) (units unknown) (unknown) (unknown) (no date) (unknown) (unknown) [id number] (units unknown) (unknown) (unknown) (no date) (unknown) (unknown) 12/08/22 1110 (units unknown) (unknown) (unknown) (no date) (unknown) (unknown) 325 mg tablet (units unknown) (unknown) (unknown) (no date) (unknown) (unknown) 77-year-old female w ith iron-deficiency anemia. Colonoscopy done recently has (units unknown) (unknown) (unknown) (no date) (unknown) (unknown) Age/Sex: 77 / F (units unknown) (unknown) (unknown) (no date) (unknown) (unknown) Allergies (units unknown) (unknown) (unknown) (no date) (unknown) (unknown) Allergy/AdvReac Type Severity Reaction Status Date / Time (units unknown) (unknown) (unknown) (no date) (unknown) (unknown) Anti-Inflamma functioning (units unknown) (unknown) (unknown) (no date) (unknown) (unknown) Anxiety (units unknown) (unknown) (unknown) (no date) (unknown) (unknown) Appearance: grossly normal (units unknown) (unknown) (unknown) (no date) (unknown) (unknown) Assessment + Plan narrative: (units unknown) (unknown) (unknown) (no date) (unknown) (unknown) Assessment + Plan (units unknown) (unknown) (unknown) (no date) (unknown) (unknown) C. difficile enterit is (11/11/22) (units unknown) (unknown) (unknown) (no date) (unknown) (unknown) Cardio (units unknown) (unknown) (unknown) (no date) (unknown) (unknown) Chest (units unknown) (unknown) (unknown) (no date) (unknown) (unknown) Chest: normal inspection of the chest (units unknown) (unknown) (unknown) (no date) (unknown) (unknown) Chief complaint: SDC (units unknown) (unknown) (unknown) (no date) (unknown) (unknown) Const (units unknown) (unknown) (unknown) (no date) (unknown) (unknown) : 1945 Acct:[id number] (units unknown) (unknown) (unknown) (no date) (unknown) (unknown) Date Patient Seen: 12/08/22 (units unknown) (unknown) (unknown) (no date) (unknown) (unknown) Date of Service: 12/08/22 (units unknown) (unknown) (unknown) (no date) (unknown) (unknown) Depression (units unknown) (unknown) (unknown) (no date) (unknown) (unknown) Diabetes (units unknown) (unknown) (unknown) (no date) (unknown) (unknown) Effort + Inspection: normal respiratory effort (units unknown) (unknown) (unknown) (no date) (unknown) (unknown) Exam (units unknown) (unknown) (unknown) (no date) (unknown) (unknown) Extrem (units unknown) (unknown) (unknown) (no date) (unknown) (unknown) Eyes (units unknown) (unknown) (unknown) (no date) (unknown) (unknown) GI (units unknown) (unknown) (unknown) (no date) (unknown) (unknown) General: appearance normal, both eyes and all related structures (units unknown) (unknown) (unknown) (no date) (unknown) (unknown) General: cooperative (units unknown) (unknown) (unknown) (no date) (unknown) (unknown) General: no rashes o r lesions noted (units unknown) (unknown) (unknown) (no date) (unknown) (unknown) General: normal to inspection and no pedal edema (units unknown) (unknown) (unknown) (no date) (unknown) (unknown) General: patient shane rt and patient awake (units unknown) (unknown) (unknown) (no date) (unknown) (unknown) HENMT (units unknown) (unknown) (unknown) (no date) (unknown) (unknown) Head: normal to inspection (units unknown) (unknown) (unknown) (no date) (unknown) (unknown) History + Physical Report (units unknown) (unknown) (unknown) (no date) (unknown) (unknown) History of (units unknown) (unknown) (unknown) (no date) (unknown) (unknown) History of COVID-19 (07/2022) (units unknown) (unknown) (unknown) (no date) (unknown) (unknown) History of Present Illness (units unknown) (unknown) (unknown) (no date) (unknown) (unknown) History of ankle surgery (units unknown) (unknown) (unknown) (no date) (unknown) (unknown) History of arthrosco py of left shoulder (units unknown) (unknown) (unknown) (no date) (unknown) (unknown) Home Medications and Allergies (units unknown) (unknown) (unknown) (no date) (unknown) (unknown) Home Medications (units unknown) (unknown) (unknown) (no date) (unknown) (unknown) Hx of bilateral cataract extraction (units unknown) (unknown) (unknown) (no date) (unknown) (unknown) Hypothyroidism (units unknown) (unknown) (unknown) (no date) (unknown) (unknown) IBS (irritable bowel syndrome) (units unknown) (unknown) (unknown) (no date) (unknown) (unknown) Inspection: normal t o inspection (units unknown) (unknown) (unknown) (no date) (unknown) (unknown) [address] [address] (units unknown) (unknown) (unknown) (no date) (unknown) (unknown) Kidney disease (units unknown) (unknown) (unknown) (no date) (unknown) (unknown) Medical History (units unknown) (unknown) (unknown) (no date) (unknown) (unknown) Medication Instructi ons Recorded Confirmed Type (units unknown) (unknown) (unknown) (no date) (unknown) (unknown) Meds (units unknown) (unknown) (unknown) (no date) (unknown) (unknown) NSAIDS (Non-Steroida l AdvReac Severe One Verified 12/08/22 10:55 (units unknown) (unknown) (unknown) (no date) (unknown) (unknown) Narrative: (units unknown) (unknown) (unknown) (no date) (unknown) (unknown) Neck (units unknown) (unknown) (unknown) (no date) (unknown) (unknown) Neck: normal visual inspection (units unknown) (unknown) (unknown) (no date) (unknown) (unknown) Neuro (units unknown) (unknown) (unknown) (no date) (unknown) (unknown) REBECCA (obstructive sle ep apnea) (units unknown) (unknown) (unknown) (no date) (unknown) (unknown) Osteoarthritis (units unknown) (unknown) (unknown) (no date) (unknown) (unknown) PFSH (units unknown) (unknown) (unknown) (no date) (unknown) (unknown) Patient: Constantino Mcguire MR#: [id number] (units unknown) (unknown) (unknown) (no date) (unknown) (unknown) Provider: Maikel Almanza MD (units unknown) (unknown) (unknown) (no date) (unknown) (unknown) Psych (units unknown) (unknown) (unknown) (no date) (unknown) (unknown) ROS: Yes All systems reviewed with the patient and are negative except as (units unknown) (unknown) (unknown) (no date) (unknown) (unknown) Rate: regular rate (units unknown) (unknown) (unknown) (no date) (unknown) (unknown) Reports recent successful treatment for C diff. Here today for iron-deficiency (units unknown) (unknown) (unknown) (no date) (unknown) (unknown) Resp (units unknown) (unknown) (unknown) (no date) (unknown) (unknown) Review of Systems (units unknown) (unknown) (unknown) (no date) (unknown) (unknown) Signed By:<Electronically signed by Maikel Almanza MD> (units unknown) (unknown) (unknown) (no date) (unknown) (unknown) Skin (units unknown) (unknown) (unknown) (no date) (unknown) (unknown) Smoking Status: Form er smoker (units unknown) (unknown) (unknown) (no date) (unknown) (unknown) Social History (units unknown) (unknown) (unknown) (no date) (unknown) (unknown) Surgical History (units unknown) (unknown) (unknown) (no date) (unknown) (unknown) Time Patient Seen: 11:08 (units unknown) (unknown) (unknown) (no date) (unknown) (unknown) alcohol intake: current (units unknown) (unknown) (unknown) (no date) (unknown) (unknown) anemia and EGD. (units unknown) (unknown) (unknown) (no date) (unknown) (unknown) escitalopram oxalate 10 mg tablet 10 mg PO BEDTIME 11/12/22 12/08/22 History (units unknown) (unknown) (unknown) (no date) (unknown) (unknown) ferrous gluconate 32 4 mg (38 mg 324 mg PO DAILY 11/12/22 12/08/22 History (units unknown) (unknown) (unknown) (no date) (unknown) (unknown) gabapentin 300 mg tablet 300 mg PO BEDTIME 08/11/22 12/08/22 History (units unknown) (unknown) (unknown) (no date) (unknown) (unknown) household members: spouse (units unknown) (unknown) (unknown) (no date) (unknown) (unknown) hydrocodone 7.5 mg-acetaminophen 1 tab PO TID ##0 08/11/22 12/08/22 History (units unknown) (unknown) (unknown) (no date) (unknown) (unknown) iron) tablet (units unknown) (unknown) (unknown) (no date) (unknown) (unknown) kidney (units unknown) (unknown) (unknown) (no date) (unknown) (unknown) levothyroxine 25 mcg tablet 25 mcg PO DIRECTED 08/11/22 12/08/22 History (units unknown) (unknown) (unknown) (no date) (unknown) (unknown) metformin 500 mg tab let 500 mg PO BID 12/12/22 04/10/23 History (units unknown) (unknown) (unknown) (no date) (unknown) (unknown) not explained her symptoms. EGD is pursued today. (units unknown) (unknown) (unknown) (no date) (unknown) (unknown) otherwise documented (units unknown) (unknown) (unknown) (no date) (unknown) (unknown) vancomycin 125 mg capsule 125 mg PO QID C-Diff 11/12/22 12/08/22 History (units unknown) (unknown) Result panel 3 (unknown) (no date) (unknown) (unknown) (no value) (units unknown) (unknown) (unknown) (no date) (unknown) (unknown) [id number] (units unknown) (unknown) (unknown) (no date) (unknown) (unknown) 12/08/22 1110 (units unknown) (unknown) (unknown) (no date) (unknown) (unknown) ASA Class (for procedural sedation): III (units unknown) (unknown) (unknown) (no date) (unknown) (unknown) Age/Sex: 77 / F (units unknown) (unknown) (unknown) (no date) (unknown) (unknown) Changes to H+P: No (units unknown) (unknown) (unknown) (no date) (unknown) (unknown) : 1945 Acct:[id number] (units unknown) (unknown) (unknown) (no date) (unknown) (unknown) Date of Service: 12/08/22 (units unknown) (unknown) (unknown) (no date) (unknown) (unknown) History + Physical reviewed/Exam performed by Physician: Yes (units unknown) (unknown) (unknown) (no date) (unknown) (unknown) Interval Note (units unknown) (unknown) (unknown) (no date) (unknown) (unknown) [address] [address] (units unknown) (unknown) (unknown) (no date) (unknown) (unknown) Patient: Constantino Mcguire MR#: [id number] (units unknown) (unknown) (unknown) (no date) (unknown) (unknown) Pre-operative Note (units unknown) (unknown) (unknown) (no date) (unknown) (unknown) Provider: Maikel Almanza MD (units unknown) (unknown) (unknown) (no date) (unknown) (unknown) Signed By:<Electronically signed by Maikel Almanza MD> (units unknown) (unknown) Result panel 4 (unknown) (no date) (unknown) (unknown) (no value) (units unknown) (unknown) (unknown) (no date) (unknown) (unknown) * This test was developed and its performance characteristics determined (units unknown) (unknown) (unknown) (no date) (unknown) (unknown) * (units unknown) (unknown) (unknown) (no date) (unknown) (unknown) Performed at: 01 (units unknown) (unknown) (unknown) (no date) (unknown) (unknown) . 01 (units unknown) (unknown) (unknown) (no date) (unknown) (unknown) . (units unknown) (unknown) (unknown) (no date) (unknown) (unknown) /VLAD 12/09/2022 1931 Local (units unknown) (unknown) (unknown) (no date) (unknown) (unknown) 0.1 x 0.1 x 0.1 cm t o 0.2 x 0.2 x 0.2 cm submitted entirely in 1 (units unknown) (unknown) (unknown) (no date) (unknown) (unknown) [address] [place] [address] (units unknown) (unknown) (unknown) (no date) (unknown) (unknown) [address] [place] [address] [phone] (units unknown) (unknown) (unknown) (no date) (unknown) (unknown) [id number], [id number] (units unknown) (unknown) (unknown) (no date) (unknown) (unknown) A. Duodendum, Biopsy: (units unknown) (unknown) (unknown) (no date) (unknown) (unknown) Administration. The FDA has determined that such clearance or approval is (units unknown) (unknown) (unknown) (no date) (unknown) (unknown) [place] [address] (units unknown) (unknown) (unknown) (no date) (unknown) (unknown) B. An immunohistochemical stain was performed to evaluate for Helicobacter (units unknown) (unknown) (unknown) (no date) (unknown) (unknown) B. Stomach, Angulari s, Biopsy: (units unknown) (unknown) (unknown) (no date) (unknown) (unknown) Body-type mucosa wit h mild chronic gastritis. (units unknown) (unknown) (unknown) (no date) (unknown) (unknown) CPT . (units unknown) (unknown) (unknown) (no date) (unknown) (unknown) Collection Date: 12/08/22 (units unknown) (unknown) (unknown) (no date) (unknown) (unknown) D50.9 (units unknown) (unknown) (unknown) (no date) (unknown) (unknown) DD/ 0000 (units unknown) (unknown) (unknown) (no date) (unknown) (unknown) Date of : 1945 Admit Date: 12/08/22 (units unknown) (unknown) (unknown) (no date) (unknown) (unknown) Diagnosis: (units unknown) (unknown) (unknown) (no date) (unknown) (unknown) Dictated By: Carole Cantu MD (units unknown) (unknown) (unknown) (no date) (unknown) (unknown) Duodenal mucosa with no diagnostic abnormality. (units unknown) (unknown) (unknown) (no date) (unknown) (unknown) Electronically kylee d: . (units unknown) (unknown) (unknown) (no date) (unknown) (unknown) Gross description: . (units unknown) (unknown) (unknown) (no date) (unknown) (unknown) [facility] (units unknown) (unknown) (unknown) (no date) (unknown) (unknown) Carole Cantu MD, Pathologist (units unknown) (unknown) (unknown) (no date) (unknown) (unknown) [facility] Accession Number : [id number] (units unknown) (unknown) (unknown) (no date) (unknown) (unknown) [facility] (units unknown) (unknown) (unknown) (no date) (unknown) (unknown) MD Jeremias Gomez MD Phone: [phone] (units unknown) (unknown) (unknown) (no date) (unknown) (unknown) Dictating Dr: Carole Cantu MD (units unknown) (unknown) (unknown) (no date) (unknown) (unknown) MRV 12/11/2022 1735 Local (units unknown) (unknown) (unknown) (no date) (unknown) (unknown) Material submitted: . (units unknown) (unknown) (unknown) (no date) (unknown) (unknown) Microscopic: . (units unknown) (unknown) (unknown) (no date) (unknown) (unknown) NPI- [id number] (units unknown) (unknown) (unknown) (no date) (unknown) (unknown) Negative for Helicobacter by immunohistochemistry. (units unknown) (unknown) (unknown) (no date) (unknown) (unknown) Negative for active inflammation, features of sprue, dysplasia, or (units unknown) (unknown) (unknown) (no date) (unknown) (unknown) Negative for dysplas ia and malignancy. (units unknown) (unknown) (unknown) (no date) (unknown) (unknown) Negative for intesti nal metaplasia. (units unknown) (unknown) (unknown) (no date) (unknown) (unknown) No. of containers..0 2 Tissue (units unknown) (unknown) (unknown) (no date) (unknown) (unknown) Ordering Physician: Maikel Almanza MD (units unknown) (unknown) (unknown) (no date) (unknown) (unknown) PART A: duodenum - DUODENUM BIOSPY (units unknown) (unknown) (unknown) (no date) (unknown) (unknown) PART B: stomach - BIOPSY ANGULARIS (units unknown) (unknown) (unknown) (no date) (unknown) (unknown) Part A: DUODENUM BIOSPY: (units unknown) (unknown) (unknown) (no date) (unknown) (unknown) Part B: BIOPSY ANGULARIS: (units unknown) (unknown) (unknown) (no date) (unknown) (unknown) Pathologist provided ICD-10: (units unknown) (unknown) (unknown) (no date) (unknown) (unknown) Pathology Diagnostic Report (units unknown) (unknown) (unknown) (no date) (unknown) (unknown) Patient name: Maricruz Mcguire (units unknown) (unknown) (unknown) (no date) (unknown) (unknown) Received in formalin are 2 fragment(s) of guadarrama, soft tissue measuring (units unknown) (unknown) (unknown) (no date) (unknown) (unknown) Received in formalin are multiple fragment(s) of guadarrama, soft tissue (units unknown) (unknown) (unknown) (no date) (unknown) (unknown) Signed By: 12/11/222234 (units unknown) (unknown) (unknown) (no date) (unknown) (unknown) Signed (units unknown) (unknown) (unknown) (no date) (unknown) (unknown) Specimen Comment: A courtesy copy of this report has been sent to [phone] (units unknown) (unknown) (unknown) (no date) (unknown) (unknown) TD/TT: 12/11/222234 (units unknown) (unknown) (unknown) (no date) (unknown) (unknown) by Nolio. It has n ot been cleared or approved by the U.S. Food and Drug (units unknown) (unknown) (unknown) (no date) (unknown) (unknown) cassette(s) (units unknown) (unknown) (unknown) (no date) (unknown) (unknown) in 1 cassette(s) (units unknown) (unknown) (unknown) (no date) (unknown) (unknown) malignancy. (units unknown) (unknown) (unknown) (no date) (unknown) (unknown) measuring 0.1 x 0.1 x 0.1 cm to 0.3 x 0.2 x 0.2 cm submitted entirely (units unknown) (unknown) (unknown) (no date) (unknown) (unknown) not necessary. This test is used for clinical purposes. It should not be (units unknown) (unknown) (unknown) (no date) (unknown) (unknown) organisms and is negative. The control stain showed appropriate reactivity. (units unknown) (unknown) (unknown) (no date) (unknown) (unknown) regarded as investigational or for research. (units unknown) (unknown) Result panel 5 (unknown) (no date) (unknown) (unknown) (no value) (units unknown) (unknown) (unknown) (no date) (unknown) (unknown) [id number] (units unknown) (unknown) (unknown) (no date) (unknown) (unknown) 12/08/22 1226 (units unknown) (unknown) (unknown) (no date) (unknown) (unknown) 1. Await histopathology. 2. No visual findings were identified today to (units unknown) (unknown) (unknown) (no date) (unknown) (unknown) 1. Duodenum: No significant mucosal pathology was appreciated from the bulb (units unknown) (unknown) (unknown) (no date) (unknown) (unknown) 1. Focal gastropathy (units unknown) (unknown) (unknown) (no date) (unknown) (unknown) 2. Stomach: No overt pathology identified throughout. No outlet obstruction no (units unknown) (unknown) (unknown) (no date) (unknown) (unknown) 2. Subtle sliding hiatal hernia (units unknown) (unknown) (unknown) (no date) (unknown) (unknown) 3. Esophagus: The squamocolumnar junction correlated with the top of the (units unknown) (unknown) (unknown) (no date) (unknown) (unknown) 3. LA grade A erosiv e esophagitis (units unknown) (unknown) (unknown) (no date) (unknown) (unknown) After the risks and benefits were explained, written and verbal informed consent (units unknown) (unknown) (unknown) (no date) (unknown) (unknown) Age/Sex: 77 / F (units unknown) (unknown) (unknown) (no date) (unknown) (unknown) Complications: none (units unknown) (unknown) (unknown) (no date) (unknown) (unknown) : 1945 Acct:[id number] (units unknown) (unknown) (unknown) (no date) (unknown) (unknown) Date of Service: 12/08/22 (units unknown) (unknown) (unknown) (no date) (unknown) (unknown) Date of procedure: 12/08/22 (units unknown) (unknown) (unknown) (no date) (unknown) (unknown) EGD Note (units unknown) (unknown) (unknown) (no date) (unknown) (unknown) EGD with biopsies (units unknown) (unknown) (unknown) (no date) (unknown) (unknown) Endoscopic diagnosis (units unknown) (unknown) (unknown) (no date) (unknown) (unknown) Impression: (units unknown) (unknown) (unknown) (no date) (unknown) (unknown) Indications: (units unknown) (unknown) (unknown) (no date) (unknown) (unknown) Iron-deficiency anemia (units unknown) (unknown) (unknown) (no date) (unknown) (unknown) [address] [address] (units unknown) (unknown) (unknown) (no date) (unknown) (unknown) Operative Date/Time/Diagnoses (units unknown) (unknown) (unknown) (no date) (unknown) (unknown) Patient: Constantino Mcguire MR#: [id number] (units unknown) (unknown) (unknown) (no date) (unknown) (unknown) Plan for aftercare: (units unknown) (unknown) (unknown) (no date) (unknown) (unknown) Post-op diagnosis: same (units unknown) (unknown) (unknown) (no date) (unknown) (unknown) Post-procedure (units unknown) (unknown) (unknown) (no date) (unknown) (unknown) Pre-op diagnosis: Iron-deficiency anemia (units unknown) (unknown) (unknown) (no date) (unknown) (unknown) Procedure + Clinicians (units unknown) (unknown) (unknown) (no date) (unknown) (unknown) Procedure Notes (units unknown) (unknown) (unknown) (no date) (unknown) (unknown) Procedure in detail: (units unknown) (unknown) (unknown) (no date) (unknown) (unknown) Provider: Maikel Almanza MD (units unknown) (unknown) (unknown) (no date) (unknown) (unknown) SCOAP/Timeout: Done (units unknown) (unknown) (unknown) (no date) (unknown) (unknown) Same procedure as scheduled: Yes (units unknown) (unknown) (unknown) (no date) (unknown) (unknown) Sedation minutes: 11 (units unknown) (unknown) (unknown) (no date) (unknown) (unknown) Signed By:<Electronically signed by Maikel Almanza MD> (units unknown) (unknown) (unknown) (no date) (unknown) (unknown) Study performed: (units unknown) (unknown) (unknown) (no date) (unknown) (unknown) Surgeon: Maikel Almanza (units unknown) (unknown) (unknown) (no date) (unknown) (unknown) Time of procedure: 12:22 (units unknown) (unknown) (unknown) (no date) (unknown) (unknown) acquired from this location for histopathology. No additional significant (units unknown) (unknown) (unknown) (no date) (unknown) (unknown) advanced under direc t visualization to the 2nd portion of the duodenum. The (units unknown) (unknown) (unknown) (no date) (unknown) (unknown) an area of healed or mostly healed ulceration. If it was an ulcer, at this (units unknown) (unknown) (unknown) (no date) (unknown) (unknown) celiac. (units unknown) (unknown) (unknown) (no date) (unknown) (unknown) characterized by erythematous and slightly friable mucosa. It almost suggested (units unknown) (unknown) (unknown) (no date) (unknown) (unknown) daily Pepcid. (units unknown) (unknown) (unknown) (no date) (unknown) (unknown) decompressed, the sc ope was then removed from the patient who tolerated the (units unknown) (unknown) (unknown) (no date) (unknown) (unknown) details. The scope w as introduced into the mouth through the bite block and (units unknown) (unknown) (unknown) (no date) (unknown) (unknown) endoscopy. 3. Consid er [id number] anti-reflux therapy with the likes of (units unknown) (unknown) (unknown) (no date) (unknown) (unknown) explain iron-deficie ncy anemia. If this condition persists, consider capsule (units unknown) (unknown) (unknown) (no date) (unknown) (unknown) gastric folds. There was a very subtle sliding hiatal hernia present. The (units unknown) (unknown) (unknown) (no date) (unknown) (unknown) lesions. Retroflexed views were accomplished in the stomach. The stomach was (units unknown) (unknown) (unknown) (no date) (unknown) (unknown) mass lesions. There was an area of focal gastropathy along the angularis (units unknown) (unknown) (unknown) (no date) (unknown) (unknown) pathology identified throughout the stomach including retroflexed views. (units unknown) (unknown) (unknown) (no date) (unknown) (unknown) patient had evidence of subtle LA grade A erosive esophagitis the remainder of (units unknown) (unknown) (unknown) (no date) (unknown) (unknown) point there has been full re epithelialization of the mucosa. Biopsies were (units unknown) (unknown) (unknown) (no date) (unknown) (unknown) procedure well. (units unknown) (unknown) (unknown) (no date) (unknown) (unknown) scope was slowly withdrawn carefully examining the mucosa for any defects or (units unknown) (unknown) (unknown) (no date) (unknown) (unknown) the esophagus was unremarkable. (units unknown) (unknown) (unknown) (no date) (unknown) (unknown) the left lateral decubitus position. Please see anesthesia notes for sedation (units unknown) (unknown) (unknown) (no date) (unknown) (unknown) through to the 2nd portion. Random D2 biopsies were acquired for exclusion of (units unknown) (unknown) (unknown) (no date) (unknown) (unknown) was obtained. The patient was brought into the procedure room and placed into (units unknown) (unknown) Social History date description facility 2022-12-08 00:00 Ex-smoker (finding) [facility] Vital Signs date measurement value units 2022-12-08 00:00 BMI 21.6 kg/m2 2022-12-08 00:00 BP_diastolic 70 mmHg 2022-12-08 00:00 BP_systolic 129 mmHg 2022-12-08 00:00 heart_rate 61 /min 2022-12-08 00:00 height_metric 162.56 cm 2022-12-08 00:00 height_standard 64 in 2022-12-08 00:00 o2_saturation 99 % 2022-12-08 00:00 respiration_rate 18 /min 2022-12-08 00:00 temperature_metric 36.17 C 2022-12-08 00:00 temperature_standard 97.1 F 2022-12-08 00:00 weight_metric 57.15 kg 2022-12-08 00:00 weight_standard 125.99 lb
--- NOTE | 2023-02-15 10:59 | ED Physician Documentation ---
History of Present Illness - Stated complaint Stated Complaint: FB RT PINKY FINGER - Chief complaint Chief Complaint: Ext Problem - Additonal information Additional information: 77-year-old female presents with Concern for possible foreign body in the right small finger. The patient states that several days ago she was doing things around the house and thinks she might of punctured the finger though she is not sure with what and thinks that there potentially is a foreign body still in the finger as she has been soaking it and cleaning it without resolution. The patient adamantly does not want to be on antibiotics as sheHas a history of C. difficile which has subsequently delayed a hip surgery that she needs and she is scheduled to undergo hip surgery in the coming weeks and really wants to be able to go forward with that. She has not had a fever or chills, no purulent drainage from the finger, no difficulty with range of motion but it is mildly swollen and there is a open wound to the finger. Review of Systems Constitutional: reports: Reviewed and negative Eyes: reports: Reviewed and negative Ears: reports: Reviewed and negative Nose: reports: Reviewed and negative Throat: reports: Reviewed and negative Cardiac: reports: Reviewed and negative Respiratory: reports: Reviewed and negative GI: reports: Reviewed and negative Skin: reports: Lesions, Laceration (s) PD PAST MEDICAL HISTORY - Past Medical History Cardiovascular: Hypertension Respiratory: Sleep apnea Endocrine/Autoimmune: Type 2 diabetes GI: Colon polyps, Chronic diarrhea : Other HEENT: Chronic vision loss Psych: None Musculoskeletal: Osteoarthritis Derm: None - Past Surgical History Past Surgical History: Yes General: Colonoscopy Ortho: Shoulder arthroplasty, 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 - Present Medications Home Medications: Ambulatory Orders Medication Instructions Recorded Confirmed Hydrocodone/Acetaminophen 1 each PO PRN PRN 06/10/21 12/12/22 [Hydrocodone-Acetamin 10-325 mg] metFORMIN [Glucophage] 500 mg PO BID 11/27/21 12/12/22 Levothyroxine [Synthroid] 25 mcg PO DAILY 06/13/22 12/12/22 Omeprazole 20 mg PO DAILY 06/13/22 12/12/22 Mupirocin 2% Oint [Bactroban 2% 1 applic TOP BID #22 gm 02/15/23 Oint] - Allergies Allergies/Adverse Reactions: Allergies Allergy/AdvReac Type Severity Reaction Status Date / Time amlodipine Allergy Unknown Verified 11/09/22 15:40 sulfamethoxazole Allergy Unknown Verified 11/09/22 15:40 [From ] trimethoprim [From ] Allergy Unknown Verified 11/09/22 15:40 NSAIDS (Non-Steroidal AdvReac Unknown Verified 11/09/22 15:40 Anti-Inflamma - Social History Does the pt smoke?: No Smoking Status: Unknown if ever smoked Does the pt drink ETOH?: Yes Does the pt have substance abuse?: No - Immunizations Immunizations are current?: Yes PD ED PE NORMAL - Vitals Vital signs reviewed: Yes - General General: Alert and oriented X 3, No acute distress, Well developed/nourished - HEENT HEENT: Atraumatic, Pharynx benign - Derm Derm: Normal color, Warm and dry, Other (Half centimeter Open lesion on the lateral aspect of the right small finger. Mild localized erythema, no purulent drainage, no fluctuance or induration. No obvious foreign body.) Results - Vitals Vitals: Vital Signs - 24 hr 02/15/23 10:25 Temperature 36.5 C Heart Rate 90 Respiratory 16 Rate Blood Pressure 150/68 H O2 Saturation 100 Oxygen O2 Source Room air - Rads (name of study) No standard instances Relevant Findings:: EMP independent interpretation of test PD Medical Decision Making - ED course Complexity details: reviewed results, re-evaluated patient, d/w patient ED course: 77-year-old female presented with a Right small finger injury as described in HPI. She was concerned for possible foreign body as she has a nonhealing ulceration in that area. She has however been picking at and squeezing it for the last several days. On exam, there is no significant redness, no focal induration or fluctuance. She has good range of motion of the finger. I obtained an x-ray and I do not see any Radiopaque foreign body on my review of the right hand x-ray. I discussed with patient that we do not typically explore the area to look for foreign body as most of them Will self resolve. I did recommend a short course of oral antibiotics for this patient however she declined stating her history of C. difficile and upcoming surgery and I think this is reasonable, we will therefore start her on mupirocin topically with good wound care but otherwise leaving the area alone, not picking it or squeezing it. Wound was cleaned here and a Xeroform dressing was applied and patient was advised to keep this in place for the next 24 to 48 hours then remove it, clean gently with soap and water and apply moist Heath twice a day until healed. I discussed return precautions if any signs of infection or other new concerns. Departure - Departure Disposition: 01 Home, Self Care Clinical Impression: Puncture wound of finger of right hand Qualifiers: Encounter type: initial encounter Qualified Code(s): S61.239A - Puncture wound without foreign body of unspecified finger without damage to nail, initial encounter Condition: Good Instructions: ED Wound Puncture General Prescriptions: Mupirocin 2% Oint [Bactroban 2% Oint] 1 applic TOP BID #22 gm Comments: You sustained a puncture wound to the right small finger. On review of the x- ray, I do not see any retained foreign body that we could remove. I normally would recommend a short course of antibiotics for this however given her history of C. difficile and her upcoming surgery and your preference to avoid oral antibiotics, we can try topical antibiotics, continue good wound care and try to avoid picking or squeezing it. If the redness spreads or there is purulent drainage, return to the ER or see your primary doctor.
--- NOTE | 2023-02-15 12:27 | XRAY Report ---
PROCEDURE: Finger(s) RT INDICATIONS: possible foreign body TECHNIQUE: AP hand, 2 views of the fifth finger(s) acquired. COMPARISON: None. FINDINGS: Bones: No fractures or dislocations. No suspicious bony lesions. Soft tissues: No suspicious soft tissue calcifications or masses. IMPRESSION: No acute bony abnormality. No radiopaque foreign body Reviewed by: Marcel Keene MD on 02/15/2023 11:26 AM [facility] Approved by: Marcel Keene MD on 02/15/2023 11:26 AM [facility] Station ID: [id number]
== END 2023-02-15 12:12 | disposition home or self-care (01) ==
LOC: ED 10:18
DX: S61.236A Puncture wound without foreign body of right little finger without damage to nail, initial encounter (principal); X58.XXXA Exposure to other specified factors, initial encounter; Y92.009 Unspecified place in unspecified non-institutional (private) residence as the place of occurrence of the external cause; Z86.19 Personal history of other infectious and parasitic diseases
CPT/HCPCS: 99283

== ENCOUNTER 2023-04-07 08:00 | Outpatient (CLI) | payer MEDICARE, OTHER ==
[2023-04-07 17:57] LABS: BILIRUBIN,URINE NEGATIVE (NEGATIVE); GLUCOSE, URINE (UA) NEGATIVE (NEGATIVE); KETONES,URINE (UA) NEGATIVE (NEGATIVE); LEUKOCYTE ESTERASE, URINE NEGATIVE (NEGATIVE); NITRITE,URINE NEGATIVE (NEGATIVE); OCCULT BLOOD,URINE NEGATIVE (NEGATIVE); PROTEIN,URINE NEGATIVE (NEGATIVE); UROBILINOGEN,URINE 0.2 (NORMAL) E.U./dL (NORMAL)
[2023-04-07 18:07] LABS: BACTERIA,URINE None Seen /HPF (None Seen); CLARITY,URINE CLEAR (CLEAR); RBC,URINE 0-5 /HPF (0-5); SQUAMOUS EPITHELIAL CELL,UR RARE Squamous (<= Few); WBC,URINE 0-3 /HPF (0-5)
== END 2023-04-07 23:59 | disposition home or self-care (01) ==
LOC: LAB.R 08:00
PROVIDERS: ATTEND Nurse Practitioner
DX: R10.9 Unspecified abdominal pain (principal)
CPT/HCPCS: 81001; 87086

== ENCOUNTER 2023-08-25 15:34 | Emergency (ER) | payer MEDICARE, OTHER ==
[2023-08-25] MEDS ORDERED: SODIUM CHLORIDE 0.9% 1,000 ML IV STA (15:51)
[2023-08-25] MEDS ORDERED: ONDANSETRON 4 MG/2 ML VIAL IVP STA (15:51)
[2023-08-25 15:53] VITALS: O2SAT 100
[2023-08-25 16:10] LABS: BASOPHILS % (AUTO) 0.2 %; EOSINOPHILS % (AUTO) 0.1 %; HCT - HEMATOCRIT 38.9 % (37.0-47.0); HGB - HEMOGLOBIN 12.3 g/dL (12.0-16.0); LYMPHOCYTES # (AUTO) 4.9 10^3/uL (1.5-3.5); LYMPHOCYTES % (AUTO) 44.7 %; MEAN CORPUSCULAR HEMOGLOBIN 29.8 pg (27.0-31.0); MEAN CORPUSCULAR HGB CONC 31.6 g/dL (32.0-36.0); MEAN CORPUSCULAR VOLUME 94.2 fL (81.0-99.0); MEAN PLATELET VOLUME 8.6 fL (7.9-10.8); MONOCYTES # (AUTO) 0.4 10^3/uL (0.0-1.0); MONOCYTES % (AUTO) 3.8 %; NEUTROPHILS # (AUTO) 5.6 10^3/uL (1.5-6.6); PLT - PLATELET COUNT 323 10^3/uL (130-450); RED BLOOD COUNT 4.13 10^6/uL (4.20-5.40); WHITE BLOOD COUNT 10.9 x10^3/uL (4.8-10.8)
[2023-08-25 16:24] LABS: ALBUMIN 4.1 g/dL (3.2-5.5); ALBUMIN/GLOBULIN RATIO 1.4 (1.0-2.2); ALKALINE PHOSPHATASE 80 IU/L (42-121); ALT ALANINE AMINOTRANSFERASE 10 IU/L (10-60); AST ASPARTATE AMINOTRANSFERASE 17 IU/L (10-42); BILIRUBIN,TOTAL 0.5 mg/dL (0.2-1.0); BUN - BLOOD UREA NITROGEN 9 mg/dL (6-20); CARBON DIOXIDE - CO2 27 mmol/L (21-32); CHLORIDE 98 mmol/L (101-111); CREATININE 0.7 mg/dL (0.6-1.3); GFR - MDRD 81 (>89); GLUCOSE 116 mg/dL (74-104); POTASSIUM 4.2 mmol/L (3.5-4.5); SODIUM 134 mmol/L (135-145)
[2023-08-25 16:25] LABS: LIPASE < 10 U/L (11-82)
[2023-08-25] MEDS ORDERED: ONDANSETRON 4 MG/2 ML VIAL ONE (17:45)
[2023-08-25 17:59] VITALS: BP 176/86
--- NOTE | 2023-08-25 18:00 | ED Physician Documentation ---
History of Present Illness - Stated complaint Stated Complaint: N/V - Chief complaint Chief Complaint: General - History obtained from History obtained from: Patient, Family - Additonal information Additional information: The patient comes to the emergency department chief complaint of nausea and vomiting. She was diagnosed with COVID 3 days ago and states that her symptoms initially started with a mild sore throat. Her family member tested positive for COVID which prompted her to get tested and found to be positive. Patient states the sore throat is mostly subsided and she has had only minimal cough. She has had no shortness of breath. The patient mostly has been suffering from nausea and vomiting and states that she has some epigastric pain. She denies fevers or chills. She states she just cannot sleep because she is always nauseated and that she cannot seem to hold much down. She actually has helped some clear liquids down but still had an episode of vomiting this afternoon. No other complaints at this time. 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 Home Medications: Ambulatory Orders Medication Instructions Recorded Confirmed metFORMIN [Glucophage] 500 mg PO BID 11/27/21 08/25/23 Levothyroxine [Synthroid] 25 mcg PO DAILY 06/13/22 08/25/23 Duloxetine HCl [Cymbalta] 60 mg PO DAILY 08/25/23 08/25/23 Gabapentin [Neurontin] 600 mg PO DAILY 08/25/23 08/25/23 Gabapentin [Neurontin] 900 mg PO HS 08/25/23 08/25/23 HYDROcodone/ACET 7.5/325 [[place] 1 each PO Q4HR PRN 08/25/23 08/25/23 7.5/325] Ondansetron Odt [Zofran] 4 mg TL Q6H PRN #20 tablet 08/25/23 - Allergies Allergies/Adverse Reactions: Allergies Allergy/AdvReac Type Severity Reaction Status Date / Time amlodipine Allergy Unknown Verified 08/25/23 15:44 sulfamethoxazole Allergy Unknown Verified 08/25/23 15:44 [From ] trimethoprim [From ] Allergy Unknown Verified 08/25/23 15:44 NSAIDS (Non-Steroidal AdvReac Unknown Verified 08/25/23 15:44 Anti-Inflamma - Social History Does the pt smoke?: No Smoking Status: Never smoker Does the pt drink ETOH?: Yes Does the pt have substance abuse?: No - Immunizations Immunizations are current?: Yes PD ED PE NORMAL - Vitals Vital signs reviewed: Yes - General General: Alert and oriented X 3, No acute distress, Well developed/nourished - HEENT HEENT: Atraumatic, PERRL, EOMI, Moist mucous membranes - Neck Neck: Supple, no meningeal sign - Cardiac Cardiac: RRR, No murmur - Respiratory Respiratory: No respiratory distress, Clear bilaterally - Abdomen Abdomen: Soft, Non distended, Other (Mild epigastric and left upper quadrant tenderness, no rebound or guarding.) - Derm Derm: Warm and dry - Extremities Extremities: No deformity - Neuro Neuro: Alert and oriented X 3 - Psych Psych: Normal mood, Normal affect Results - Vitals Vitals: Vital Signs - 24 hr 08/25/23 08/25/23 15:44 17:49 Temperature 36.8 C Heart Rate 77 64 Respiratory 16 16 Rate Blood Pressure 150/90 H 176/86 H O2 Saturation 100 100 Oxygen O2 Source Room air - Labs Labs: Laboratory Tests 08/25/23 08/25/23 16:04 16:04 WBC 10.9 H RBC 4.13 L Hgb 12.3 Hct 38.9 MCV 94.2 MCH 29.8 MCHC 31.6 L RDW 13.0 Plt Count 323 MPV 8.6 Neut # (Auto) 5.6 Lymph # (Auto) 4.9 H [place] # (Auto) 0.4 Eos # (Auto) 0.0 Baso # (Auto) 0.0 Absolute Nucleated RBC 0.00 Nucleated RBC % 0.0 Sodium 134 L Potassium 4.2 Chloride 98 L Carbon Dioxide 27 Anion Gap 9.0 BUN 9 Creatinine 0.7 Estimated GFR (MDRD) 81 L Glucose 116 H Calcium 10.0 Total Bilirubin 0.5 AST 17 ALT 10 Alkaline Phosphatase 80 Total Protein 7.0 Albumin 4.1 Globulin 2.9 Albumin/Globulin Ratio 1.4 Lipase < 10 L PD Medical Decision Making - ED course Complexity details: reviewed results, re-evaluated patient, considered differential, d/w patient, d/w family ED course: The patient was worked up with laboratory studies, which were unremarkable, and treated symptomatically with IV fluids and Zofran after which she was found to be feeling better. We have discussed symptomatic management at home as well as the usual indications for return. She has been given a prescription for Zofran for home. Departure - Departure Disposition: Home, Self Care Clinical Impression: COVID-19 Vomiting Qualifiers: Vomiting type: bilious vomiting Nausea presence: with nausea Qualified Code(s): R11.14 - Bilious vomiting Condition: Stable Instructions: ED Viral Syndrome, ED Nausea Vomiting Prescriptions: Ondansetron Odt [Zofran] 4 mg TL Q6H PRN #20 tablet PRN Reason: Nausea / Vomiting Comments: Your laboratory studies tonight overall look very good. We have hydrated you with IV fluids and treated you with antinausea medication. You are holding down clear liquids which is very good. It is advisable that you avoid eating any food until you have been without vomiting for at least 24 hours. You should also take the nausea medicine prescribed as needed to help with this. Prescription for this has been electronically transmitted to the [facility] here in [place]. You have also been given a prepack of nausea medicine from the emergency department. As far as taking clear liquids, you should take just small amounts at a time initially, such as 2-3 sips, then wait 15 to 20 minutes. If the water stays down, then you can take another couple of sips. If this continues without vomiting, then you may increase the frequency of your drinks until you can drink normally. Forms: PCP List Discharge Date/Time: 08/25/23 18:55
[2023-08-25] MEDS ORDERED: ONDANSETRON ODT 4 MG Prepack 2 TL PRN (18:32)
== END 2023-08-25 18:55 | disposition home or self-care (01) ==
LOC: ED 15:34
DX: U07.1 COVID-19 (principal); R11.14 Bilious vomiting; R10.13 Epigastric pain; R10.12 Left upper quadrant pain
CPT/HCPCS: 36415; 80053; 83690; 85025; 96374; 99283

== ENCOUNTER 2023-09-28 09:01 | Outpatient (CLI) | payer MEDICARE, OTHER ==
--- NOTE | 2023-09-28 09:59 | MRI Report ---
PROCEDURE: Brain WO INDICATIONS: MEMORY LOSS TECHNIQUE: Noncontrast axial T1 spin echo, axial T2 fast spin echo, sagittal and axial FLAIR, coronal T2 fast sp in echo, axial gradient echo, axial diffusion and ADC through the brain. COMPARISON: None. FINDINGS: Image quality: Excellent. The ventricular system and cortical sulci demonstrate atrophy, consistent for patient's stated age. There are areas of hyperintense T2/FLAIR signal in the periventricular and subcortical white matter. There is no acute intra or extra-axial fluid collection. No acute hemorrhage, mass lesion or midlin e shift. Brainstem is unremarkable. There are no areas of restricted diffusion. Globes are symmetr ical. Sinuses are aerated. Osseous structures are intact. IMPRESSION: 1. No acute intracranial process. 2. Mild to moderate atrophy and chronic microvascular ischemic changes. Reviewed by: Heidi Monk MD on 09/28/2023 9:58 AM [facility] Approved by: Heidi Monk MD on 09/28/2023 9:58 AM [facility] Station ID: [id number]
== END 2023-09-28 09:02 | disposition home or self-care (01) ==
LOC: DI 09:01
PROVIDERS: ATTEND Nurse Practitioner
DX: R41.3 Other amnesia (principal); G31.89 Other specified degenerative diseases of nervous system; I67.82 Cerebral ischemia

== ENCOUNTER 2023-11-15 08:54 | Emergency (ER) | payer MEDICARE, OTHER ==
[2023-11-15 09:46] LABS: BASOPHILS % (AUTO) 0.3 %; EOSINOPHILS % (AUTO) 0.6 %; HCT - HEMATOCRIT 39.4 % (37.0-47.0); HGB - HEMOGLOBIN 12.3 g/dL (12.0-16.0); LYMPHOCYTES % (AUTO) 52.4 %; MEAN CORPUSCULAR HGB CONC 31.2 g/dL (32.0-36.0); MEAN CORPUSCULAR VOLUME 96.1 fL (81.0-99.0); MONOCYTES % (AUTO) 4.5 %; PLT - PLATELET COUNT 310 10^3/uL (130-450); RED CELL DISTRIBUTION WIDTH 13.5 % (12.0-15.0); WHITE BLOOD COUNT 10.6 x10^3/uL (4.8-10.8)
[2023-11-15 09:49] LABS: SLIDE REVIEW? Indicated
[2023-11-15 09:50] LABS: ABNORMAL LYMPHS % (MANUAL) 0 %
[2023-11-15 10:02] LABS: ALBUMIN 4.1 g/dL (3.2-5.5); ALBUMIN/GLOBULIN RATIO 1.6 (1.0-2.2); BILIRUBIN,TOTAL 0.6 mg/dL (0.2-1.0); CALCIUM 10.3 mg/dL (8.5-10.3); CREATININE 0.9 mg/dL (0.6-1.3); POTASSIUM 4.2 mmol/L (3.5-4.5); TOTAL PROTEIN 6.7 g/dL (6.4-8.9)
[2023-11-15 10:13] LABS: BAND NEUTROPHILS % (MANUAL) 2 %; DIFFERENTIAL COMMENT MANUAL DIFFERENTIAL; LYMPHOCYTES # (MANUAL) 4.2 10^3/uL (1.5-3.5); LYMPHOCYTES % (MANUAL) 40 %; MONOCYTES # (MANUAL) 0.1 10^3/uL (0.0-1.0); NEUTROPHILS # (MANUAL) 6.3 10^3/uL (1.5-6.6); PLATELET ESTIMATE, MANUAL NORMAL (130-450,000) (NORMAL); PLATELET MORPHOLOGY NORMAL APPEARANCE (NORMAL); RBC MORPHOLOGY (MULTIPLE) NORMAL APPEARANCE (NORMAL); WBC MORPHOLOGY (MULTIPLE) NORMAL APPEARANCE (NORMAL)
[2023-11-15] MEDS: DROPERIDOL 5 MG/2 ML VIAL IVP STA (10:56)
--- NOTE | 2023-11-15 10:58 | ED Physician Documentation ---
History of Present Illness - Stated complaint Stated Complaint: DIZZY - Chief complaint Chief Complaint: Neuro - History obtained from History obtained from: Patient - History of Present Illness Timing: Today Pain level max: 0 Pain level now: 0 - Additonal information Additional information: Patient is a 78-year-old female who presents to the emergency department stating that she feels dizzy today. She states whenever she sits up or moves her head she feels like the room is spinning around her. She states that her blood pressure has been higher than usual as well. She had been taking lisinopril but had stopped this about 3 months ago and her blood pressure has been steadily increasing ever since. She did take a dose of lisinopril this morning. No chest pain. No shortness of breath. No headaches. No falls. No trauma. No focal numbness, weakness, tingling. No facial droop. No difficulty with speaking or word finding. 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 - Present Medications Home Medications: Ambulatory Orders Medication Instructions Recorded Confirmed metFORMIN [Glucophage] 500 mg PO BID 11/27/21 11/15/23 Levothyroxine [Synthroid] 25 mcg PO DAILY 06/13/22 11/15/23 Duloxetine HCl [Cymbalta] 60 mg PO DAILY 08/25/23 11/15/23 HYDROcodone/ACET 7.5/325 [[place] 1 each PO Q4HR PRN 08/25/23 11/15/23 7.5/325] Acetaminophen [Tylenol] 500 mg PO Q4-6H 11/15/23 11/15/23 Dicyclomine [Bentyl] 10 mg PO QID PRN 11/15/23 11/15/23 Famotidine [Pepcid] 20 mg PO DAILY 11/15/23 11/15/23 Lisinopril [Zestril] 5 mg PO DAILY 11/15/23 11/15/23 Meclizine HCl [Motion Sickness] 25 mg PO Q6H PRN #30 tablet 11/15/23 Omeprazole 20 mg PO BID 11/15/23 11/15/23 Ondansetron Odt [Zofran] 4 mg TL Q6H PRN #10 tablet 11/15/23 - Allergies Allergies/Adverse Reactions: Allergies Allergy/AdvReac Type Severity Reaction Status Date / Time amlodipine Allergy Unknown Verified 11/15/23 09:07 sulfamethoxazole Allergy Unknown Verified 11/15/23 09:07 [From ] trimethoprim [From ] Allergy Unknown Verified 11/15/23 09:07 NSAIDS (Non-Steroidal AdvReac Unknown Verified 11/15/23 09:07 Anti-Inflamma - Social History Does the pt smoke?: No Smoking Status: Never smoker Does the pt drink ETOH?: Yes Does the pt have substance abuse?: No - Immunizations Immunizations are current?: Yes PD ED PE NORMAL - Vitals Vital signs reviewed: Yes - General General: Alert and oriented X 3, No acute distress - HEENT HEENT: Atraumatic, PERRL, Moist mucous membranes - Neck Neck: Supple, no meningeal sign - Cardiac Cardiac: RRR, No murmur - Respiratory Respiratory: No respiratory distress, Clear bilaterally - Abdomen Abdomen: Soft, Non tender, Non distended - Derm Derm: Warm and dry - Extremities Extremities: No edema, No calf tenderness / cord - Neuro Neuro: Alert and oriented X 3, Other (Horizontal nystagmus to the left. Unable to tolerate Hallpike testing.) - Psych Psych: Normal mood, Normal affect Results - Vitals Vitals: Vital Signs - 24 hr 11/15/23 11/15/23 09:04 11:24 Temperature 36.7 C Heart Rate 79 66 Respiratory 16 18 Rate Blood Pressure 180/85 H 130/75 O2 Saturation 100 97 Oxygen O2 Source Room air - EKG (time done) 1021 EKG releavant findings:: EKG personally interpreted by author of this note. Relevant findings are: Rate: Rate (enter#) (71) Rhythm: NSR [place]: Normal Intervals: Normal [place] QRS: Normal Ischemia: Normal ST segments - Labs Labs: Laboratory Tests 11/15/23 11/15/23 09:38 09:38 WBC 10.6 RBC 4.10 L Hgb 12.3 Hct 39.4 MCV 96.1 MCH 30.0 MCHC 31.2 L RDW 13.5 Plt Count 310 MPV 9.0 Neut # (Auto) Not Reportable Lymph # (Auto) Not Reportable [place] # (Auto) Not Reportable Eos # (Auto) Not Reportable Baso # (Auto) Not Reportable Absolute Nucleated RBC Not Reportable Total Counted 100 Band Neuts % (Manual) 2 Abnorm Lymph % (Manual) 0 Nucleated RBC % Not Reportable Neutrophils # (Manual) 6.3 Lymphocytes # (Manual) 4.2 H Monocytes # (Manual) 0.1 Eosinophils # (Manual) 0.0 Basophils # (Manual) 0.0 Differential Comment MANUAL DIFFERENTIAL Manual Slide Review Indicated WBC Morphology NORMAL APPEARANCE Platelet Estimate NORMAL (130-450,000) Platelet Morphology NORMAL APPEARANCE RBC Morph Micro Appear NORMAL APPEARANCE Sodium 137 Potassium 4.2 Chloride 101 Carbon Dioxide 26 Anion Gap 10.0 BUN 12 Creatinine 0.9 Estimated GFR (MDRD) 61 L Glucose 144 H Calcium 10.3 Total Bilirubin 0.6 AST 20 ALT 13 Alkaline Phosphatase 74 Total Protein 6.7 Albumin 4.1 Globulin 2.6 Albumin/Globulin Ratio 1.6 Lipase 10 L - Rads (name of study) head CT Relevant Findings:: Final report received, See rad report PD Medical Decision Making - ED course Complexity details: reviewed results, re-evaluated patient, considered differential, d/w patient, d/w family ED course: 78-year-old female with what appears to be vertigo, likely BPPV presents to the emergency department with the room spinning, nausea and vomiting. She was given IV Zofran and droperidol. Symptoms resolved. No further nausea, vomiting, dizziness. Ambulating without any assistive device and without any difficulty up and down the hallways. No focal neurological deficits. No significant lab abnormalities. No acute findings on EKG, head CT. Normal cerebellar testing. We will continue the patient on meclizine and Zofran at home and have her follow-up with her doctor for further care. Tolerating p.o. without difficulty here. Abdomen is soft, nontender nondistended on serial exam. Patient counseled regarding signs and symptoms for which I believe and urgent re- evaluation would be necessary. Patient with good understanding of and agreement to plan and is comfortable going home at this time This document was made in part using voice recognition software. While efforts are made to proofread this document, sound alike and grammatical errors may occur. Departure - Departure Disposition: 01 Home, Self Care Clinical Impression: Vertigo Condition: Good Instructions: ED Vertigo Unspecified Follow-Up: Paz Mo ARNP [Primary Care Provider] - Within 1 week Prescriptions: Meclizine HCl [Motion Sickness] 25 mg PO Q6H PRN #30 tablet PRN Reason: Dizziness Ondansetron Odt [Zofran] 4 mg TL Q6H PRN #10 tablet PRN Reason: Nausea / Vomiting Comments: Your prescriptions were sent to [facility] in [place]. Your head CT does not show any acute abnormalities today. Your blood work does not show any acute abnormalities either. Please continue the meclizine at home as this will help with the dizziness and vertigo. You can use the Zofran as needed for nausea or vomiting. I would recommend taking the meclizine every 6 hours for the next 24 hours. Please return if you worsen. Forms: PCP List Discharge Date/Time: 11/15/23 12:08
--- NOTE | 2023-11-15 11:04 | CT Report ---
PROCEDURE: Head WO INDICATIONS: elevated BP, dizzy TECHNIQUE: Noncontrast 4.5 mm thick angled axial sections acquired from the foramen magnum to the vertex. For r adiation dose reduction, the following was used: automated exposure control, adjustment of mA and/or kV according to patient size. COMPARISON: MRI brain 09/28/2023 FINDINGS: Image quality: Excellent. The ventricular system and cortical sulci demonstrate atrophy, consistent for patient's stated age. There are areas of hypodensity in the periventricular and subcortical white matter. There is no acut e intra or extra-axial fluid collection. No acute hemorrhage, mass lesion or midline shift. [place] t basal ganglia calcifications are present. Brainstem is unremarkable. Globes are symmetrical. Sinuses are aerated. Osseous structures are intact. IMPRESSION: 1. No acute intracranial process. 2. Mild to moderate atrophy and chronic microvascular ischemic changes. Reviewed by: Heidi Monk MD on 11/15/2023 11:02 AM PDT Approved by: Heidi Monk MD on 11/15/2023 11:02 AM PDT Station ID: [id number]
[2023-11-15 11:29] VITALS: BP 130/75; O2SAT 97
== END 2023-11-15 12:08 | disposition home or self-care (01) ==
LOC: ED 08:54
DX: R42 Dizziness and giddiness (principal)
CPT/HCPCS: 36415; 80053; 83690; 85025; 93005; 96374; 99284

== ENCOUNTER 2023-11-23 09:13 | Outpatient (CLI) | payer MEDICARE, OTHER ==
--- NOTE | 2023-11-23 11:32 | CT Report ---
PROCEDURE: Lumbar Spine WO INDICATIONS: LUMBAR STENOSIS TECHNIQUE: Noncontrast 3 mm thick sections acquired from the T12 level to the sacrum. Sagittal and coronal refo rmats were constructed. For radiation dose reduction, the following was used: automated exposure co ntrol, adjustment of mA and/or kV according to patient size. COMPARISON: Plain films dated 03/28/2022. MRI dated 08/19/2022. FINDINGS: Image quality: Excellent. Bones: Moderate leftward curvature of the mid/upper lumbar spine is present, as before. No acute vert ebral body compression fractures. No suspicious lytic or blastic bony lesions. Multilevel degenerati ve disc and facet disease is present, as before. No definite change in severe canal stenosis at L4-L5 . No definite change in multilevel foraminal stenoses, worst on the right at L2-L3, on the right at L 3-L4, and on the left at L4-L5 where there is possible associated intraforaminal nerve root compressi on.. No pars defects. Soft tissues: No retroperitoneal masses or hematomas. Visualized aorta is normal in caliber. IMPRESSION: 1. Multilevel degenerative disc and facet disease. 2. Leftward curvature of the lumbar spine. 3. No definite change in multilevel canal and foraminal stenoses as described above, allowing for dif ferences in modality. Recommend correlation with clinical symptoms to ascertain relevance of these fi ndings. Reviewed by: Farida Wu MD on 11/23/2023 11:31 AM PDT Approved by: Farida Wu MD on 11/23/2023 11:31 AM PDT Station ID: [id number]
== END 2023-11-23 09:14 | disposition home or self-care (01) ==
LOC: DI 09:13
DX: M51.36 Other intervertebral disc degeneration, lumbar region (principal); M48.061 Spinal stenosis, lumbar region without neurogenic claudication; M47.816 Spondylosis without myelopathy or radiculopathy, lumbar region

== ENCOUNTER 2023-12-07 13:39 | Outpatient (CLI) | payer MEDICARE, OTHER ==
--- NOTE | 2023-12-07 21:59 | Ultrasound Report ---
PROCEDURE: Carotid Doppler Complete INDICATIONS: LIGHT HEADEDNESS TECHNIQUE: Color and pulse Doppler interrogation was performed of both carotid systems, with image documentation and velocity measurements. COMPARISON: None. FINDINGS: Right side: Brachial blood pressure: 121/78 mm Hg. Common carotid artery peak systolic velocity: 79 cm/sec. Internal carotid artery peak systolic velocity: 94 cm/sec. Internal carotid artery end diastolic velocity: 20 cm/sec. External carotid artery peak systolic velocity: 80 cm/sec. Tortuous. ICA/CCA peak systolic ratio: 1.1. Coleman scale imaging description: No significant atherosclerotic plaque. Percent internal carotid artery stenosis: Less than 50% stenosis.. Vertebral artery: Flow direction is antegrade. Left side: Brachial blood pressure: 113/64 mm Hg. Common carotid artery peak systolic velocity: 80 cm/sec. Internal carotid artery peak systolic velocity: 93 cm/sec. Internal carotid artery end diastolic velocity: 33 cm/sec. External carotid artery peak systolic velocity: 69 cm/sec. Torturous. ICA/CCA peak systolic ratio: 1.1 . Coleman scale imaging description: No significant atherosclerotic plaque. Percent internal carotid artery stenosis: Less than 50 percent stenosis. Vertebral artery: Flow direction is antegrade. IMPRESSION: 1. In the right internal carotid artery, there is less than 50 percent stenosis based on peak systoli c velocity criteria. 2. In the left internal carotid artery, there is less than 50 percent stenosis based on peak systolic velocity criteria. 3. Antegrade blood flow within the right vertebral artery. 4. Antegrade blood flow within the left vertebral artery. The estimate of stenosis included in the report of the imaging study was calculated using the [facility]-end orsed standards of carotid artery stenosis. Reviewed by: Villa Gleason MD on 12/07/2023 9:57 PM PDT Approved by: Villa Gleason MD on 12/07/2023 9:57 PM PDT Station ID: [id number]
== END 2023-12-07 13:40 | disposition home or self-care (01) ==
LOC: DI 13:39
PROVIDERS: ATTEND Physician Assistant Medical
DX: R42 Dizziness and giddiness (principal)
CPT/HCPCS: 93880

== ENCOUNTER 2024-02-04 14:45 | Outpatient (CLI) | payer MEDICARE, OTHER ==
[2024-02-04 14:59] LABS: BASOPHILS # (AUTO) 0.1 10^3/uL (0.0-0.1); BASOPHILS % (AUTO) 0.4 %; EOSINOPHILS # (AUTO) 0.1 10^3/uL (0.0-0.7); EOSINOPHILS % (AUTO) 0.9 %; HCT - HEMATOCRIT 29.4 % (37.0-47.0); HGB - HEMOGLOBIN 9.3 g/dL (12.0-16.0); LYMPHOCYTES # (AUTO) 5.5 10^3/uL (1.5-3.5); LYMPHOCYTES % (AUTO) 43.3 %; MEAN CORPUSCULAR HEMOGLOBIN 30.2 pg (27.0-31.0); MEAN CORPUSCULAR HGB CONC 31.6 g/dL (32.0-36.0); MEAN CORPUSCULAR VOLUME 95.5 fL (81.0-99.0); MEAN PLATELET VOLUME 8.6 fL (7.9-10.8); MONOCYTES # (AUTO) 0.7 10^3/uL (0.0-1.0); MONOCYTES % (AUTO) 5.3 %; NEUTROPHILS # (AUTO) 6.3 10^3/uL (1.5-6.6); NEUTROPHILS % (AUTO) 49.8 %; PLT - PLATELET COUNT 420 10^3/uL (130-450); RED BLOOD COUNT 3.08 10^6/uL (4.20-5.40); RED CELL DISTRIBUTION WIDTH 13.2 % (12.0-15.0); WHITE BLOOD COUNT 12.6 x10^3/uL (4.8-10.8)
[2024-02-04 15:19] LABS: ALBUMIN 3.7 g/dL (3.2-5.5); ALBUMIN/GLOBULIN RATIO 1.8 (1.0-2.2); BILIRUBIN,TOTAL 0.2 mg/dL (0.2-1.0); CALCIUM 9.5 mg/dL (8.5-10.3); CREATININE 0.8 mg/dL (0.6-1.3); POTASSIUM 4.6 mmol/L (3.5-4.5); TOTAL PROTEIN 5.8 g/dL (6.4-8.9)
[2024-02-04 15:20] LABS: DIFFERENTIAL COMMENT MANUAL=AUTO DIFF; PLATELET ESTIMATE, MANUAL NORMAL (130-450,000) (NORMAL); PLATELET MORPHOLOGY NORMAL APPEARANCE (NORMAL); RBC MORPHOLOGY (MULTIPLE) NORMAL APPEARANCE (NORMAL)
[2024-02-04 15:33] LABS: FERRITIN 205.3 ng/mL (11.0-306.8)
== END 2024-02-04 14:46 | disposition home or self-care (01) ==
LOC: LAB 14:45
PROVIDERS: ATTEND Physician Assistant Medical
DX: I10 Essential (primary) hypertension (principal); D64.9 Anemia, unspecified
CPT/HCPCS: 36415; 80053; 82728; 83540; 84466; 85025

== ENCOUNTER 2024-02-12 14:44 | Outpatient (CLI) | payer MEDICARE, OTHER ==
[2024-02-12 15:29] LABS: FECAL OCCULT BLOOD (FIT) POSITIVE (NEGATIVE)
== END 2024-02-12 14:45 | disposition home or self-care (01) ==
LOC: LAB.R 14:44
PROVIDERS: ATTEND Physician Assistant Medical
DX: D64.9 Anemia, unspecified (principal); Z12.11 Encounter for screening for malignant neoplasm of colon
CPT/HCPCS: 82274

== ENCOUNTER 2024-02-29 15:29 | Outpatient (CLI) | payer MEDICARE, OTHER ==
[2024-02-29 15:42] LABS: BASOPHILS % (AUTO) 0.3 %; EOSINOPHILS # (AUTO) 0.1 10^3/uL (0.0-0.7); EOSINOPHILS % (AUTO) 0.6 %; HCT - HEMATOCRIT 33.2 % (37.0-47.0); HGB - HEMOGLOBIN 10.4 g/dL (12.0-16.0); LYMPHOCYTES # (AUTO) 5.7 10^3/uL (1.5-3.5); LYMPHOCYTES % (AUTO) 44.5 %; MEAN CORPUSCULAR HEMOGLOBIN 30.1 pg (27.0-31.0); MEAN CORPUSCULAR HGB CONC 31.3 g/dL (32.0-36.0); MEAN PLATELET VOLUME 8.6 fL (7.9-10.8); MONOCYTES # (AUTO) 0.6 10^3/uL (0.0-1.0); MONOCYTES % (AUTO) 4.4 %; NEUTROPHILS # (AUTO) 6.4 10^3/uL (1.5-6.6); PLT - PLATELET COUNT 449 10^3/uL (130-450); RED BLOOD COUNT 3.46 10^6/uL (4.20-5.40); RED CELL DISTRIBUTION WIDTH 13.4 % (12.0-15.0); WHITE BLOOD COUNT 12.8 x10^3/uL (4.8-10.8)
[2024-02-29 16:42] LABS: PLATELET ESTIMATE, MANUAL NORMAL (130-450,000) (NORMAL); PLATELET MORPHOLOGY NORMAL APPEARANCE (NORMAL); RBC MORPHOLOGY (MULTIPLE) NORMAL APPEARANCE (NORMAL); WBC MORPHOLOGY (MULTIPLE) 2+ SMUDGE CELLS (NORMAL)
[2024-02-29 16:43] LABS: DIFFERENTIAL COMMENT MANUAL=AUTO DIFF
== END 2024-02-29 15:30 | disposition home or self-care (01) ==
LOC: LAB 15:29
PROVIDERS: ATTEND Physician Assistant Medical
DX: D64.9 Anemia, unspecified (principal)
CPT/HCPCS: 36415; 82728; 85025

== ENCOUNTER 2024-03-01 14:32 | Outpatient (CLI) | payer MEDICARE, OTHER ==
[2024-03-01 14:38] LABS: BILIRUBIN,URINE NEGATIVE (NEGATIVE); GLUCOSE, URINE (UA) NEGATIVE (NEGATIVE); KETONES,URINE (UA) NEGATIVE (NEGATIVE); LEUKOCYTE ESTERASE, URINE NEGATIVE (NEGATIVE); NITRITE,URINE NEGATIVE (NEGATIVE); OCCULT BLOOD,URINE NEGATIVE (NEGATIVE); PROTEIN,URINE NEGATIVE (NEGATIVE); UROBILINOGEN,URINE 0.2 (NORMAL) E.U./dL (NORMAL)
[2024-03-01 14:39] LABS: CLARITY,URINE CLEAR (CLEAR)
[2024-03-01 15:19] LABS: BACTERIA,URINE None Seen /HPF (None Seen); RBC,URINE None Seen /HPF (0-5); SQUAMOUS EPITHELIAL CELL,UR RARE Squamous (<= Few); WBC,URINE 0-3 /HPF (0-5)
== END 2024-03-01 14:33 | disposition home or self-care (01) ==
LOC: LAB 14:32
PROVIDERS: ATTEND Physician Assistant Medical
DX: R30.0 Dysuria (principal)
CPT/HCPCS: 81001; 87086

== ENCOUNTER 2024-05-09 08:00 | Outpatient (CLI) | payer MEDICARE, OTHER ==
[2024-05-09 19:23] LABS: BILIRUBIN,URINE NEGATIVE (NEGATIVE); GLUCOSE, URINE (UA) NEGATIVE (NEGATIVE); KETONES,URINE (UA) NEGATIVE (NEGATIVE); LEUKOCYTE ESTERASE, URINE NEGATIVE (NEGATIVE); NITRITE,URINE NEGATIVE (NEGATIVE); OCCULT BLOOD,URINE NEGATIVE (NEGATIVE); PH,URINE 5.5 PH (5.0-7.5); PROTEIN,URINE NEGATIVE (NEGATIVE); UROBILINOGEN,URINE 0.2 (NORMAL) E.U./dL (NORMAL)
[2024-05-09 19:41] LABS: CLARITY,URINE CLEAR (CLEAR)
[2024-05-09 19:42] LABS: BACTERIA,URINE Rare /HPF (None Seen); RBC,URINE None Seen /HPF (0-5); SQUAMOUS EPITHELIAL CELL,UR FEW Squamous (<= Few); WBC,URINE 0-3 /HPF (0-5)
== END 2024-05-09 23:59 | disposition home or self-care (01) ==
LOC: LAB.WCP 08:00
PROVIDERS: ATTEND Nurse Practitioner
DX: R30.0 Dysuria (principal)
CPT/HCPCS: 81001; 87086

== ENCOUNTER 2024-05-12 13:43 | Outpatient (CLI) | payer MEDICARE, OTHER ==
[2024-05-12 14:18] LABS: BASOPHILS % (AUTO) 0.4 %; EOSINOPHILS % (AUTO) 0.6 %; HCT - HEMATOCRIT 34.6 % (37.0-47.0); HGB - HEMOGLOBIN 10.7 g/dL (12.0-16.0); LYMPHOCYTES % (AUTO) 40.6 %; MEAN CORPUSCULAR HEMOGLOBIN 29.1 pg (27.0-31.0); MEAN CORPUSCULAR HGB CONC 30.9 g/dL (32.0-36.0); MEAN PLATELET VOLUME 9.1 fL (7.9-10.8); MONOCYTES % (AUTO) 4.3 %; NEUTROPHILS % (AUTO) 53.9 %; PLT - PLATELET COUNT 344 10^3/uL (130-450); RED BLOOD COUNT 3.68 10^6/uL (4.20-5.40); RED CELL DISTRIBUTION WIDTH 13.8 % (12.0-15.0); WHITE BLOOD COUNT 14.5 x10^3/uL (4.8-10.8)
[2024-05-12 14:20] LABS: ABNORMAL LYMPHS % (MANUAL) 0 %
[2024-05-12 14:25] LABS: ALBUMIN 3.9 g/dL (3.2-5.5); ALBUMIN/GLOBULIN RATIO 1.8 (1.0-2.2); BILIRUBIN,TOTAL 0.2 mg/dL (0.2-1.0); CALCIUM 9.4 mg/dL (8.5-10.3); CREATININE 0.8 mg/dL (0.6-1.3); POTASSIUM 4.7 mmol/L (3.5-4.5); TOTAL PROTEIN 6.1 g/dL (6.4-8.9)
[2024-05-12 14:26] LABS: URIC ACID 5.6 mg/dL (2.3-6.6)
[2024-05-12 14:30] LABS: BILIRUBIN,URINE NEGATIVE (NEGATIVE); GLUCOSE, URINE (UA) NEGATIVE (NEGATIVE); KETONES,URINE (UA) NEGATIVE (NEGATIVE); LEUKOCYTE ESTERASE, URINE NEGATIVE (NEGATIVE); NITRITE,URINE NEGATIVE (NEGATIVE); OCCULT BLOOD,URINE NEGATIVE (NEGATIVE); PROTEIN,URINE NEGATIVE (NEGATIVE); UROBILINOGEN,URINE 0.2 (NORMAL) E.U./dL (NORMAL)
[2024-05-12 14:32] LABS: CLARITY,URINE CLEAR (CLEAR)
[2024-05-12 14:38] LABS: BACTERIA,URINE Rare /HPF (None Seen); RBC,URINE 0-5 /HPF (0-5); SQUAMOUS EPITHELIAL CELL,UR RARE Squamous (<= Few); WBC,URINE 0-3 /HPF (0-5)
[2024-05-12 14:39] LABS: CREATININE,URINE 77.6 mg/dL
[2024-05-12 14:40] LABS: MICROALBUMIN,URINE < 0.7 mg/dL
[2024-05-12 14:46] LABS: BAND NEUTROPHILS % (MANUAL) 1 %; EOSINOPHILS # (MANUAL) 0.1 10^3/uL (0-0.7); LYMPHOCYTES # (MANUAL) 5.4 10^3/uL (1.5-3.5); LYMPHOCYTES % (MANUAL) 35 %; MONOCYTES # (MANUAL) 0.6 10^3/uL (0.0-1.0); NEUTROPHILS # (MANUAL) 8.4 10^3/uL (1.5-6.6); REACTIVE LYMPHS % (MANUAL) 2 %
[2024-05-12 14:47] LABS: DIFFERENTIAL COMMENT MANUAL DIFFERENTIAL
[2024-05-12 14:58] LABS: THYROID STIMULATING HORMONE 0.77 uIU/mL (0.34-5.60)
[2024-05-12 15:32] LABS: RHEUMATOID FACTOR NEGATIVE (Negative)
[2024-05-12 23:06] LABS: ESTIMATED AVERAGE GLUCOSE 117 mg/dL (70-100); HEMOGLOBIN A1c% 5.7 % (4.27-6.07)
[2024-05-13 18:08] LABS: ANTI-DNA (DS) AB QN <1 IU/mL (0-9)
== END 2024-05-12 13:44 | disposition home or self-care (01) ==
LOC: LAB 13:43
PROVIDERS: ATTEND Nurse Practitioner
DX: R10.84 Generalized abdominal pain (principal); E11.9 Type 2 diabetes mellitus without complications; R30.0 Dysuria; R53.83 Other fatigue; M25.50 Pain in unspecified joint
CPT/HCPCS: 36415; 80053; 81001; 82043; 82150; 82570; 82607; 83036; 83690; 84443; 84550; 85025; 85651; 86038; 86140; 86200; 86225; 86430; 87086

== ENCOUNTER 2024-05-15 08:00 | Outpatient (CLI) | payer MEDICARE, OTHER | END 2024-05-15 23:59 | disposition home or self-care (01) | LOC: LAB.R 08:00 | PROVIDERS: ATTEND Nurse Practitioner | DX: K52.9 Noninfective gastroenteritis and colitis, unspecified (principal) | CPT/HCPCS: 83993; 87045; 87046; 87177; 87209; 87427; 87493 ==

== ENCOUNTER 2024-05-16 20:28 | Outpatient (CLI) | payer MEDICARE, OTHER | END 2024-05-16 20:29 | disposition home or self-care (01) | LOC: SC 20:28 | PROVIDERS: ATTEND Internal Medicine Pulmonary Disease | DX: G47.33 Obstructive sleep apnea (adult) (pediatric) (principal) | CPT/HCPCS: 95810 ==